=== PATIENT | male | born 1960 | race Caucasian/White ===

== ENCOUNTER 2020-03-02 15:16 | Inpatient (IN) | payer MEDICARE, MEDICAID, SELFPAY ==
[2020-03-02] VITALS (7 sets, daily range): BP systolic 110–146; BP diastolic 70–99; PULSE 93–115; RESP 15–20; TEMP 36.6–37.2; O2SAT 92–100; BMI 30.7
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
[2020-03-02] MEDS: LORazepam 2 MG/ML VIAL 1 MG IVPUSH ×2 (16:43→20:08)
[2020-03-02 16:45] LABS: Imm Gran Abs Auto 0.02 X10*3/uL (0.00-0.03); Imm Gran Pct Auto 0.4 % (0.0-0.4); MANUAL DIFF FLAG SCAN; Mean Corpuscular Volume 88.4 fL (80-98); Neutrophils Percent Auto 58.2 % (45-73); PLT CLUMP 1; Red Cell Distribution Width 16.6 % (11.0-16.0); SCAN SMEAR FLAG 1
[2020-03-02 16:46] LABS: Basophils Percent Auto 0.6 % (0-2); Eosinophils Percent Auto 0.8 % (0-4); Hematocrit 46.4 % (42-52); Hemoglobin 16.3 g/dl (14.0-18.0); Lymphocytes Absolute Auto 1.8 X10*3/uL (1.2-4.9); Lymphocytes Percent Auto 34.4 % (20-40); Mean Corpuscular HGB Conc 35.1 g/dl (31.0-36.0); Mean Platelet Volume 11.1 fL (9.4-12.4); Monocytes Absolute Auto 0.3 X10*3/uL (0.1-1.2); Monocytes Percent Auto 5.6 % (2-11); Red Blood Count 5.25 X10*6/uL (4.60-5.80); White Blood Count 5.2 X10*3/uL (4.8-10.8)
[2020-03-02 17:05] LABS: Platelet Count 82 X10*3/uL (160-400)
[2020-03-02 17:06] LABS: SLIDE REVIEW VERIFIED
[2020-03-02 17:07] LABS: Ethanol 216 mg/dL
[2020-03-02 17:35] LABS: SARS COV2 PCR INHOUSE POSITIVE (Negative)
--- NOTE | 2020-03-02 17:57 | PC.NURSE ---
PATIENT RAPID COVID TEST CAME BACK POSITIVE. PATIENT IN MAIN ER.
[2020-03-02 20:31] LABS: Amphetamine Screen Urine Not Detected (Not Detect); Barbiturates, Urine POSITIVE (Not Detect); Benzodiazepines Screen Urine POSITIVE (Not Detect); Cannabinoid Screen Urine Not Detected (Not Detect); Cocaine Screen Urine Not Detected (Not Detect); Opiate Screen Urine Not Detected (Not Detect); Phencyclidine Screen Urine POSITIVE (Not Detect)
[2020-03-02 20:39] LABS: Acetaminophen LAB < 1 mcg/mL (<30); Alanine Aminotransferase 93 U/L (0-40); Alkaline Phosphatase 105 U/L (39-117); Anion Gap 21 (12-20); Aspartate Amino Transferase 133 U/L (5-37); Bilirubin Total 1.7 mg/dL (0.0-1.0); Blood Urea Nitrogen 6 mg/dL (9-16); Calcium 7.2 mg/dL (8.4-10.2); Carbon Dioxide 19 mmol/L (22-29); Chloride 103 mmol/L (96-108); Creatinine Clr Calc Pharmacy 126.1; Estimated Glomerular Filt Rate > 60; Glucose Random 142 mg/dL (60-115); Magnesium 1.1 mg/dL (1.6-2.6); Potassium 3.5 mmol/l (3.3-5.1); Salicylate < 5.0 mg/dL (15-30); Sodium 139 mmol/L (135-145); Total Protein 5.7 g/dL (6.5-8.0)
--- NOTE | 2020-03-02 20:50 | XR_ITS ---
EXAMINATION: XR CHEST CLINICAL INFORMATION: + cpvid COMPARISON: CTA of the chest 02/04/2020. Chest x-ray 02/04/2020 TECHNIQUE: Frontal portable view of the chest was obtained. 5 hours FINDINGS: Lungs are clear. No pulmonary vascular congestion. There is no pleural effusion. The heart size is normal. The cardiac and mediastinal contours are normal. There are vascular calcifications of aortic arch. There are multilevel degenerative changes of dorsal spine. There are degenerative spurs of the humeral head of the right glenohumeral joint. IMPRESSION: There is no acute abnormality of the chest.
[2020-03-02] MEDS: Magnesium Sulfate/H2O 2 GM/50 ML PIGGYBACK IV (21:19)
[2020-03-02] MEDS: PHENobarbitaL sodium 130 MG/ML VIAL 300 MG IM (21:19)
--- NOTE | 2020-03-02 21:53 | MHC.CARE ---
Pt arrived to [facility] with significant ETOH use and endorsing SI however states he is only SI when intoxicated. Pt tested positive for COVID-19 and will be medically admitted. CARE team unable to determine risk at this time due to pending medical admission. Pt will require a consult once medically cleared to assess risk and determine if a crisis assessment is needed at that time.
--- NOTE | 2020-03-02 22:38 | PC.NURSE ---
Pt reposistioned, po fluids provided. has gross upper body tremors. states he's no longer nauseated. aware of plan for transfer to floor
--- NOTE | 2020-03-02 23:52 | P.HPIM_ITS ---
History of Present Illness Date of Service: 03/02/20 Chief Complaint: Alcohol withdrawal this is a 59-year-old male with past medical history of alcohol abuse who was brought into the hospital by his girlfriend for alcohol binge and inability to take care of himself. Patient's girlfriend is also stating that he has been making suicidal statements. He has also not been taking any of his meds for diabetes or seizures. Patient was covered positive on 01/27 as Covert positive today. Patient currently denies having any suicidal ideation. He was retested for Covert on this presentation and is COVID-19 positive at this time. patient has no shortness of breath, no fever or chills, no cough, no sputum production, no abdominal pain nausea or vomiting, no diarrhea or constipation, no lower extremity edema on arrival to the ED hemodynamically stable with no significant abnormal Vitals Lab significant for magnesium of 1.4, total bili of 1.7, AST of 133, ALT of 93, albumin 3.0, UDS positive for barbiturates, PCP, benzodiazepine, and he is COVID-19 PCR is positive chest x-ray shows no acute abnormality of the chest Past medical history: Alcohol abuse, hypertension, COPD, liver cirrhosis, HLD, seizure disorder Past surgical history: Denies Family history colon cancer, leukemia in father, colon cancer in mother Social history: Comes from home, denies tobacco use, drinks about 5 beers daily, denies illicit drugs Review of Systems Review of Systems: Yes all other systems are reviewed and are negative [facility] Medical History COPD (chronic obstructive pulmonary disease) COVID-19 COVID-19 determined by clinical diagnostic criteria Diabetes ETOH abuse Seizure Social History Household Members: Significant Other Housing: Apartment Do you presently have visiting nurse or other home services: No Alcohol intake: current Alcohol intake frequency: 3 or more drinks per day Alcohol type: beer and hard liquor Smoking Status: Former smoker Tobacco Type: Cigarette Smoked in Last 30 Days: No Patient Interested in Nicotine Replacement: No Patient Given Instructions on How to Stop Smoking: No Second Hand Smoke Exposure: Yes Use of substances other than those prescribed or required for medical reasons: Yes Substance Use Type Other:: URINE POSITIVE FOR PCP, BARBITUATES, BENZOS Substance Use Frequency: Socially Last Used Substance: Days (ago) Currently Displaying Signs/Symptoms of Drug Intoxication Withdrawal: No Any prior treatment program specific to substance use: No Have you been hit, kicked, punched, or otherwise hurt by someone within the past year? If so, by whom?: No Do you feel safe in your current relationship?: Yes Is there a partner from a previous relationship who is making you feel unsafe now?: No Are you made to feel afraid or neglected: No Advance Directives: No Advance Directives Information Provided: Yes Advance Directives on File: No Do you have thoughts of harming others: None Do you have a plan to hurt others: No Plan Recently lost weight without trying: No Meds Allergies Allergy/AdvReac Type Severity Reaction Status Date / Time No Known Allergies Allergy Verified 03/02/20 15:43 [No Known Allergies*] Home Medications Medication Instructions Recorded Confirmed Type amlodipine 1 tab PO DAILY 03/02/20 03/02/20 History atorvastatin 1 tab PO DAILY 03/02/20 03/02/20 History cholecalciferol (vitamin D3) 1 cap PO DAILY 03/02/20 03/02/20 History [Vitamin D3] diclofenac sodium 4 g TOPICAL QID 03/02/20 03/02/20 History folic acid 1 tab PO DAILY 03/02/20 03/02/20 History gabapentin 300 mg PO BEDTIME 03/02/20 03/02/20 History hydroxyzine HCl 1 tab PO BID PRN 03/02/20 03/02/20 History omeprazole 1 cap PO BID 03/02/20 03/02/20 History quetiapine 1 tab PO BEDTIME 03/02/20 03/02/20 History tiotropium bromide [Spiriva 2 puff INHALATION DAILY 03/02/20 03/02/20 History Respimat] ursodiol 2 cap PO DAILY 03/02/20 03/02/20 History Physical Exam Vital Signs and Narrative: Vital Signs: Last Vital Signs Temp 98.9 F 03/02/20 21:20 Pulse 115 H 03/02/20 22:31 Resp 18 03/02/20 22:31 BP 146/85 H 03/02/20 22:31 Pulse Ox 97 03/02/20 21:20 Body Mass Index 30.7 Const: General: cooperative and no acute distress Orientation/con sciousness: patient oriented x3 Eyes: General: appearance normal, both eyes and all related structures Resp: Effort & Inspection: normal respiratory effort and able to speak in complete sentences Cardio: Rate: regular rate GI: Palpation (GI): Soft to palpation Auscultation: normal bowel sounds Skin: General skin exam: no rashes or lesions noted Neuro: General: patient oriented x3 Cognition (Neuro): normal cognition Extrem: General: Yes normal to inspection and Yes no pedal edema Results Labs Labs: Laboratory Tests 03/02/20 03/02/20 03/02/20 16:40 16:40 16:40 WBC 5.2 RBC 5.25 Hgb 16.3 Hct 46.4 MCV 88.4 MCH 31.0 MCHC 35.1 RDW 16.6 H Plt Count 82 L MPV 11.1 Immature Gran % (Auto) 0.4 Neut % (Auto) 58.2 Lymph % (Auto) 34.4 [place] % (Auto) 5.6 Eos % (Auto) 0.8 Baso % (Auto) 0.6 Lymph # (Auto) 1.8 [place] # (Auto) 0.3 Eos # (Auto) 0.0 Baso # (Auto) 0.0 Abs Immat Gran (auto) 0.02 Absolute Neuts (auto) 3.0 Absolute Nucleated RBC 0.000 Nucleated RBC % (auto) 0.0 Smear Tech's Comments VERIFIED Sodium Cancelled Potassium Cancelled Chloride Cancelled Carbon Dioxide Cancelled Anion Gap Cancelled BUN Cancelled Creatinine Cancelled Estim Creat Clear Calc Cancelled Estimated GFR Cancelled Random Glucose Cancelled Calcium Cancelled Magnesium Cancelled Total Bilirubin Cancelled AST Cancelled ALT Cancelled Alkaline Phosphatase Cancelled Total Protein Cancelled Albumin Cancelled Salicylates Cancelled Urine Opiates Screen Acetaminophen Cancelled Ur Barbiturates Screen Ur Phencyclidine Scrn Ur Amphetamines Screen U Benzodiazepines Scrn Urine Cocaine Screen U Marijuana (THC) Screen Ethyl Alcohol 216 Coronavirus (PCR) 03/02/20 03/02/20 03/02/20 19:54 19:54 Unknown WBC RBC Hgb Hct MCV MCH MCHC RDW Plt Count MPV Immature Gran % (Auto) Neut % (Auto) Lymph % (Auto) [place] % (Auto) Eos % (Auto) Baso % (Auto) Lymph # (Auto) [place] # (Auto) Eos # (Auto) Baso # (Auto) Abs Immat Gran (auto) Absolute Neuts (auto) Absolute Nucleated RBC Nucleated RBC % (auto) Smear Tech's Comments Sodium 139 Potassium 3.5 Chloride 103 Carbon Dioxide 19 L Anion Gap 21 H BUN 6 L Creatinine 0.74 Estim Creat Clear Calc 126.1 Estimated GFR > 60 Random Glucose 142 H Calcium 7.2 L Magnesium 1.1 L* Total Bilirubin 1.7 H AST 133 H ALT 93 H Alkaline Phosphatase 105 Total Protein 5.7 L Albumin 3.0 L Salicylates < 5.0 L Urine Opiates Screen Not Detected Acetaminophen < 1 Ur Barbiturates Screen POSITIVE H Ur Phencyclidine Scrn POSITIVE H Ur Amphetamines Screen Not Detected U Benzodiazepines Scrn POSITIVE H Urine Cocaine Screen Not Detected U Marijuana (THC) Screen Not Detected Ethyl Alcohol Coronavirus (PCR) POSITIVE A Assessment and Plan (1) Suicidal ideation: Status: Acute (2) Depression: Qualifiers: Depression Type: unspecified Qualified Code(s): F32.9 - Major depressive disorder, single episode, unspecified Status: Acute (3) Hypomagnesemia: Status: Acute (4) Alcohol withdrawal: Qualifiers: Complication of substance-induced condition: uncomplicated Qualified Code(s): F10.230 - Alcohol dependence with withdrawal, uncomplicated Status: Acute (5) COPD (chronic obstructive pulmonary disease): Status: Acute (6) Diabetes: Status: Acute (7) Seizure: Status: Acute this is a a 59-year-old who comes to the hospital for alcohol withdrawal/detox with suicidal ideation # alcohol abuse and withdrawal - patient will be started on phenobarb protocol - thiamine and folic acid supplement - IV fluids - crisis team has been consulted # SI - Currently denies SI - WIll need reassessment by psych prior to discharge from medical service - sitter # COVID 19 +ve - Tested positive on the 8th of last month with COPD exacerbation - u positive with no symptoms, afebrile, no leukocytosis, no image findings and no cough - monitor # Hypomag - repleted - will recheck mag in am # COPD - no acute exacerbation - p.r.n. inhaler # diabetes mellitus - low-dose sliding scale insulin - diabetic diet DVT prophylaxis: Lovenox date of service 03/03/2020
[2020-03-03] VITALS (8 sets, daily range): BP systolic 121–159; BP diastolic 56–91; PULSE 68–102; RESP 18–20; TEMP 36.4–37.2; O2SAT 92–96; BMI 30.2
[2020-03-03] MEDS: QUEtiapine Fumarate 50 MG TABLET PO ×2 (00:45→20:14)
[2020-03-03] MEDS: PHENobarbitaL sodium 130 MG/ML VIAL 225 MG IM ×2 (00:45→03:34)
[2020-03-03] MEDS: Enoxaparin Sodium 40 MG/0.4 ML SYRINGE SUBCUT ×3 (00:45→22:07)
[2020-03-03] MEDS: 0.9 % Sodium Chloride Flush 3 ML SYRINGE IVFLUSH ×2 (00:46→09:07)
[2020-03-03] MEDS: Gabapentin 300 MG CAPSULE PO ×2 (00:46→20:12)
[2020-03-03] MEDS: hydrOXYzine HCL 50 MG TABLET PO ×4 (00:46→22:06)
[2020-03-03] MEDS: Lactated Ringers 1,000 ML 100 ML IVCONT ×2 (00:46→10:14)
[2020-03-03 01:33] LABS: Magnesium 1.4 mg/dL (1.6-2.6)
--- NOTE | 2020-03-03 01:38 | PC.NURSE ---
PT ARRIVED [place] [facility] [facility] FROM ED WITH ETOH WITHDRAWAL AND A POSITIVE COVID TEST. PT EDUCATED ON COVID AND ISOLATION PROCDURES/PRECAUTIONS. PT VERBALIZES UNDERSTANDING. PT IS A HIGH FALL RISK AND SEIZURE PRECAUTIONS ALSO INITIATED. 1:1 SITTER AT BEDSIDE FOR +SI UPON ARRIVAL TO ED. PT DENIES ANY SI AT THIS TIME. SINUS TACH ON THE MONITOR WITH PROLONGED QT INTERVAL. RATE 100-110. PT ORIENTED TO UNIT. CALL CRUZ USE DEMONSTRATED. MEDS ADMINISTERED ORDERED. BED ALARM ON. CALL CRUZ IN REACH.
[2020-03-03] MEDS: Omeprazole 20 MG CAPSULE.DR PO ×2 (06:07→18:32)
[2020-03-03 07:36] LABS: Basophils Percent Auto 0.6 % (0-2); Imm Gran Abs Auto 0.02 X10*3/uL (0.00-0.03); Imm Gran Pct Auto 0.4 % (0.0-0.4); MANUAL DIFF FLAG SCAN; PLT CLUMP 1; SCAN SMEAR FLAG 1
[2020-03-03 07:38] LABS: Eosinophils Percent Auto 0.6 % (0-4); Hematocrit 39.1 % (42-52); Lymphocytes Absolute Auto 1.7 X10*3/uL (1.2-4.9); Lymphocytes Percent Auto 33.4 % (20-40); Mean Corpuscular HGB Conc 35.8 g/dl (31.0-36.0); Mean Corpuscular Hemoglobin 31.7 pg (27.0-33.0); Mean Corpuscular Volume 88.7 fL (80-98); Mean Platelet Volume 11.5 fL (9.4-12.4); Monocytes Absolute Auto 0.4 X10*3/uL (0.1-1.2); Monocytes Percent Auto 8.1 % (2-11); Neutrophils Absolute Auto 2.9 X10*3/uL (2.0-8.3); Neutrophils Percent Auto 56.9 % (45-73); Red Blood Count 4.41 X10*6/uL (4.60-5.80); Red Cell Distribution Width 16.7 % (11.0-16.0); White Blood Count 5.1 X10*3/uL (4.8-10.8)
[2020-03-03 07:45] LABS: Anion Gap 14 (12-20); Blood Urea Nitrogen 7 mg/dL (9-16); Calcium 7.3 mg/dL (8.4-10.2); Carbon Dioxide 25 mmol/L (22-29); Chloride 99 mmol/L (96-108); Estimated Glomerular Filt Rate > 60; Glucose Random 96 mg/dL (60-115); Potassium 3.3 mmol/l (3.3-5.1); Sodium 135 mmol/L (135-145)
[2020-03-03 07:47] LABS: Platelet Count 61 X10*3/uL (160-400)
[2020-03-03] MEDS: Atorvastatin Calcium 40 MG TABLET PO (09:06)
[2020-03-03] MEDS: PHENobarbitaL 30 MG TABLET 60 MG PO ×2 (09:07→20:13)
[2020-03-03] MEDS: Cholecalciferol (Vitamin D3) 25 MCG TABLET PO (09:07)
[2020-03-03] MEDS: UrsodioL 300 MG CAPSULE 600 MG PO (09:07)
[2020-03-03] MEDS: amLODIPine Besylate 5 MG TABLET PO (09:07)
[2020-03-03] MEDS: Thiamine HCL 100 MG TABLET PO (09:07)
[2020-03-03] MEDS: Folic Acid 1 MG TABLET PO (09:07)
[2020-03-03] MEDS: ondansetron HCL 4 MG/2 ML VIAL IVPUSH (09:22)
[2020-03-03 09:30] LABS: Glucose, Whole Blood 135 mg/dL (60-115)
[2020-03-03 11:34] LABS: Glucose, Whole Blood 105 mg/dL (60-115)
[2020-03-03] MEDS: Magnesium Sulfate/H2O 2 GM/50 ML PIGGYBACK IV (12:18)
--- NOTE | 2020-03-03 13:35 | MHC.CM.PN ---
CM met with patient at the bedside who reports he is independent and lives with S.O. States he does have a HCP, copy requested. Discussed discharge plan, home no services. S.O. will provide transportation. CM will continue to follow patient for discharge needs.
--- NOTE | 2020-03-03 16:11 | MHC.CARE ---
CARE team responded to consult to meet with this patient who arrived to the ED yesterday intoxicated and made suicidal statements. Had a lengthy conversation with him about his numerous stressors which are leading to his depression, offered supportive listening and validation. Patient reported that when he drinks heavily he gets more depressed, starts to feel hopeless and does feel suicidal in that moment. He said that at this time he is not suicidal and has no plan to harm himself and in fact stated he is feeling to weak and sick to do anything at all. Does not need a 1:1 at bedside for safety. Patient would benefit from another check in closer to discharge to discuss outpatient services. Communicated with RN and MD.
--- NOTE | 2020-03-03 17:40 | PM.IMPN ---
Subjective Subjective Date of Service: 03/03/20 Interval History: Tremulous, anxious Denies SI Denies cough or other resp symptoms No fever Hx EtOH withdrawal seizures Review of Systems Review of Systems: Yes all other systems are reviewed and are negative Physical Exam Vital Signs: Vital Signs: Vital Signs Temp Pulse Resp BP Pulse Ox 03/03/20 16:00 97.6 F 74 18 121/62 95 03/03/20 12:00 98.9 F 70 140/56 H 96 03/03/20 08:00 98.2 F 81 20 144/80 H 95 03/03/20 03:38 98.3 F 98 18 138/79 93 03/03/20 00:00 98.6 F 102 H 18 159/71 H 94 03/02/20 22:31 115 H 18 146/85 H 03/02/20 21:20 98.9 F 102 H 17 131/75 97 03/02/20 20:10 98.5 F 106 H 20 126/92 H 93 03/02/20 19:15 108 H 17 119/70 97 03/02/20 18:48 98.6 F 93 18 132/73 95 Body Mass Index 30.2 Const: General: anxious Orientation/consciousness: patient oriented x3 Eyes: Sclerae: sclerae normal Resp: Effort & Inspection: normal respiratory effort Cardio: Peripheral pulses: Peripheral pulses 2+ throughout GI: Inspection: Yes normal to inspection Palpation (GI): Soft to palpation and nontender Neuro: General: patient oriented x3 and no focal motor deficits Extrem: General: Yes normal to inspection and Yes no clubbing, cyanosis or edema Psych: Appearance: grossly normal Objective Data Current Medications Generic Name Dose Route Start Last Admin Trade Name Narenq PRN Reason Stop Dose Admin Acetaminophen 650 mg 03/02/20 22:46 Acetaminophen 325 Mg Tablet PO Q6H PRN Pain, Mild (Pain Scale 1-3) Amlodipine Besylate 5 mg 03/03/20 09:00 03/03/20 09:07 Amlodipine Besylate 5 Mg Tablet PO 5 mg DAILY ALEX Administration Protocol Atorvastatin Calcium 40 mg 03/03/20 09:00 03/03/20 09:06 Atorvastatin Calcium 40 Mg Tablet PO 40 mg DAILY ALEX Administration Enoxaparin Sodium 40 mg 03/02/20 23:00 03/03/20 00:45 Enoxaparin Sodium 40 Mg/0.4 Ml Syringe SUBCUT 40 mg Q24H ALEX Administration Folic Acid 1 mg 03/03/20 09:00 03/03/20 09:07 Folic Acid 1 Mg Tablet PO 1 mg DAILY ALEX Administration Gabapentin 300 mg 03/02/20 22:46 03/03/20 00:46 Gabapentin 300 Mg Capsule PO 300 mg BEDTIME ALEX Administration Hydroxyzine HCl 50 mg 03/02/20 22:46 03/03/20 10:13 Hydroxyzine Hcl 50 Mg Tablet PO 50 mg BID PRN Administration anxiety Lactated Ringer's 1,000 mls @ 100 mls/hr 03/02/20 22:46 03/03/20 10:14 Lr IVCONT 100 mls/hr .Q10H ALEX Administration Insulin Human Lispro 0 unit 03/03/20 07:30 03/03/20 12:20 Insulin Lispro 100 Unit/Ml 3 Ml Vial SUBCUT Not Given QIDACHS [facility] Protocol Medication 1 each 03/03/20 09:00 No Benzodiazepines MISCELLANE DAILY [facility] Omeprazole 20 mg 03/03/20 06:30 03/03/20 06:07 Omeprazole 20 Mg Capsule.Dr PO 20 mg BID@0630,1630 ALEX Administration Ondansetron HCl 4 mg 03/02/20 22:46 03/03/20 09:22 Ondansetron Hcl 4 Mg/2 Ml Vial IVPUSH 4 mg Q8H PRN Administration Nausea and Vomiting Phenobarbital 60 mg 03/03/20 09:00 03/03/20 09:07 Phenobarbital 30 Mg Tablet PO 03/04/20 21:01 60 mg BID ALEX Administration Phenobarbital 30 mg 03/05/20 09:00 Phenobarbital 30 Mg Tablet PO 03/06/20 21:01 BID [facility] Phenobarbital 15 mg 03/07/20 09:00 Phenobarbital 15 Mg Tablet PO 03/08/20 09:01 DAILY [facility] Quetiapine Fumarate 50 mg 03/02/20 22:46 03/03/20 00:45 Quetiapine Fumarate 50 Mg Tablet PO 50 mg BEDTIME ALEX Administration Sodium Chloride 3 ml 03/03/20 00:00 03/03/20 16:24 0.9 % Sodium Chloride Flush 3 Ml Syringe IVFLUSH Not Given QSHIFT [facility] Thiamine HCl 100 mg 03/03/20 09:00 03/03/20 09:07 Thiamine Hcl 100 Mg Tablet PO 100 mg DAILY ALEX Administration Ursodiol 600 mg 03/03/20 09:00 03/03/20 09:07 Ursodiol 300 Mg Capsule PO 600 mg DAILY ALEX Administration Vitamin D 25 mcg 03/03/20 09:00 03/03/20 09:07 Cholecalciferol (Vitamin D3) 25 Mcg Tablet PO 25 mcg DAILY ALEX Administration Labs CBC & Chem 7: 03/03/20 07:10 03/03/20 07:10 Labs: Laboratory Results - last 24 hr 03/02/20 03/02/20 03/03/20 19:54 19:54 00:47 MCV MCH MCHC RDW Plt Count MPV Immature Gran % (Auto) Neut % (Auto) Lymph % (Auto) [place] % (Auto) Eos % (Auto) Baso % (Auto) Lymph # (Auto) [place] # (Auto) Eos # (Auto) Baso # (Auto) Abs Immat Gran (auto) Absolute Neuts (auto) Absolute Nucleated RBC Nucleated RBC % (auto) Smear Tech's Comments Anion Gap 21 H Estim Creat Clear Calc 126.1 Estimated GFR > 60 POC Glucose Random Glucose 142 H Calcium 7.2 L Magnesium 1.1 L* 1.4 L* Total Bilirubin 1.7 H AST 133 H ALT 93 H Alkaline Phosphatase 105 Total Protein 5.7 L Albumin 3.0 L Salicylates < 5.0 L Urine Opiates Screen Not Detected Acetaminophen < 1 Ur Barbiturates Screen POSITIVE H Ur Phencyclidine Scrn POSITIVE H Ur Amphetamines Screen Not Detected U Benzodiazepines Scrn POSITIVE H Urine Cocaine Screen Not Detected U Marijuana (THC) Screen Not Detected 03/03/20 03/03/20 03/03/20 07:10 07:10 09:24 MCV 88.7 MCH 31.7 MCHC 35.8 RDW 16.7 H Plt Count 61 L D MPV 11.5 Immature Gran % (Auto) 0.4 Neut % (Auto) 56.9 Lymph % (Auto) 33.4 [place] % (Auto) 8.1 Eos % (Auto) 0.6 Baso % (Auto) 0.6 Lymph # (Auto) 1.7 [place] # (Auto) 0.4 Eos # (Auto) 0.0 Baso # (Auto) 0.0 Abs Immat Gran (auto) 0.02 Absolute Neuts (auto) 2.9 Absolute Nucleated RBC 0.000 Nucleated RBC % (auto) 0.0 Smear Tech's Comments Not Reportable Anion Gap 14 Estim Creat Clear Calc 152.0 Estimated GFR > 60 POC Glucose 135 H Random Glucose 96 Calcium 7.3 L Magnesium Total Bilirubin AST ALT Alkaline Phosphatase Total Protein Albumin Salicylates Urine Opiates Screen Acetaminophen Ur Barbiturates Screen Ur Phencyclidine Scrn Ur Amphetamines Screen U Benzodiazepines Scrn Urine Cocaine Screen U Marijuana (THC) Screen 03/03/20 11:15 MCV MCH MCHC RDW Plt Count MPV Immature Gran % (Auto) Neut % (Auto) Lymph % (Auto) [place] % (Auto) Eos % (Auto) Baso % (Auto) Lymph # (Auto) [place] # (Auto) Eos # (Auto) Baso # (Auto) Abs Immat Gran (auto) Absolute Neuts (auto) Absolute Nucleated RBC Nucleated RBC % (auto) Smear Tech's Comments Anion Gap Estim Creat Clear Calc Estimated GFR POC Glucose 105 Random Glucose Calcium Magnesium Total Bilirubin AST ALT Alkaline Phosphatase Total Protein Albumin Salicylates Urine Opiates Screen Acetaminophen Ur Barbiturates Screen Ur Phencyclidine Scrn Ur Amphetamines Screen U Benzodiazepines Scrn Urine Cocaine Screen U Marijuana (THC) Screen Progress Note: A&P (1) Alcohol withdrawal: Status: Acute (2) Hypomagnesemia: Status: Acute (3) COVID-19: Status: Acute Assessment and Plan: hospital d#2 59yo M with hx EtOH abuse presented to the hospital with SI, EtOH withdrawal # high-risk EtOH withdrawal - phenobarbital taper - vitamin supplementation - CARE team consultation # hypoMg - replete + monitor # SI - [facility]N evaluation- per their assessment today pt not currently suicidal but is depressed; re-eval when medically cleared # COVID-19 positive - unclear significance of positive PCR at this point, as he 1st was positive 01/28/20. check IgG status # COPD, not in acute exacerbation - prn bronchodilators # HTN - continue amlodipine # HLD - continue statin # DM2 - correction-dose lispro # VTE ppx - LMWH
[2020-03-03 17:51] LABS: Glucose, Whole Blood 108 mg/dL (60-115)
[2020-03-03 20:42] LABS: Glucose, Whole Blood 131 mg/dL (60-115)
[2020-03-03] MEDS: Acetaminophen 325 MG TABLET 650 MG PO (22:06)
[2020-03-03] MEDS: traMADoL HCL 50 MG TABLET PO (22:26)
[2020-03-04 03:33] VITALS: BP 135/79; PULSE 63; RESP 19; TEMP 36.4; O2SAT 96
[2020-03-04] MEDS: Lactated Ringers 1,000 ML 100 ML IVCONT ×2 (05:19→15:04)
[2020-03-04] MEDS: Omeprazole 20 MG CAPSULE.DR PO ×2 (05:23→17:44)
[2020-03-04] MEDS: hydrOXYzine HCL 50 MG TABLET PO ×2 (05:43→13:01)
[2020-03-04 06:23] LABS: MANUAL DIFF FLAG NO
[2020-03-04 06:51] LABS: Basophils Percent Auto 0.8 % (0-2); Eosinophils Absolute Auto 0.1 X10*3/uL (0.0-0.4); Hematocrit 40.8 % (42-52); Hemoglobin 13.9 g/dl (14.0-18.0); Imm Gran Abs Auto 0.01 X10*3/uL (0.00-0.03); Imm Gran Pct Auto 0.3 % (0.0-0.4); Lymphocytes Absolute Auto 1.4 X10*3/uL (1.2-4.9); Lymphocytes Percent Auto 39.3 % (20-40); Mean Corpuscular HGB Conc 34.1 g/dl (31.0-36.0); Mean Corpuscular Hemoglobin 31.2 pg (27.0-33.0); Mean Corpuscular Volume 91.7 fL (80-98); Mean Platelet Volume 12.3 fL (9.4-12.4); Monocytes Absolute Auto 0.2 X10*3/uL (0.1-1.2); Monocytes Percent Auto 5.9 % (2-11); Neutrophils Absolute Auto 1.8 X10*3/uL (2.0-8.3); Neutrophils Percent Auto 51.7 % (45-73); Red Blood Count 4.45 X10*6/uL (4.60-5.80); Red Cell Distribution Width 16.6 % (11.0-16.0); White Blood Count 3.6 X10*3/uL (4.8-10.8)
[2020-03-04 06:53] LABS: Platelet Count 64 X10*3/uL (160-400)
[2020-03-04 06:57] LABS: Alanine Aminotransferase 65 U/L (0-40); Albumin Level 2.7 g/dL (3.5-5.0); Alkaline Phosphatase 96 U/L (39-117); Anion Gap 12 (12-20); Aspartate Amino Transferase 92 U/L (5-37); Bilirubin Total 3.2 mg/dL (0.0-1.0); Blood Urea Nitrogen 5 mg/dL (9-16); Calcium 7.7 mg/dL (8.4-10.2); Carbon Dioxide 29 mmol/L (22-29); Chloride 100 mmol/L (96-108); Creatinine Clr Calc Pharmacy 142.7; Estimated Glomerular Filt Rate > 60; Glucose Random 95 mg/dL (60-115); Magnesium 1.5 mg/dL (1.6-2.6); Potassium 3.3 mmol/l (3.3-5.1); Sodium 138 mmol/L (135-145); Total Protein 5.2 g/dL (6.5-8.0)
[2020-03-04 07:01] LABS: Estimated Average Glucose 117 mg/dL; Hemoglobin A1c % 5.7 %
[2020-03-04 07:03] LABS: C Reactive Protein 0.74 mg/dL (< or = 0.50)
[2020-03-04 07:11] VITALS: BP 149/81; PULSE 93; RESP 20; TEMP 35.6; O2SAT 96
[2020-03-04 07:22] LABS: SARS COV2 IgG Positive (Negative)
[2020-03-04 07:53] LABS: Glucose, Whole Blood 101 mg/dL (60-115)
[2020-03-04] MEDS: 0.9 % Sodium Chloride Flush 3 ML SYRINGE IVFLUSH ×2 (08:10→23:46)
[2020-03-04] MEDS: PHENobarbitaL 30 MG TABLET 60 MG PO ×2 (08:11→19:43)
[2020-03-04] MEDS: Magnesium Oxide 400 MG TABLET PO ×2 (08:11→17:44)
[2020-03-04] MEDS: amLODIPine Besylate 5 MG TABLET PO (08:11)
[2020-03-04] MEDS: Folic Acid 1 MG TABLET PO (08:11)
[2020-03-04] MEDS: UrsodioL 300 MG CAPSULE 600 MG PO (08:11)
[2020-03-04] MEDS: Cholecalciferol (Vitamin D3) 25 MCG TABLET PO (08:11)
[2020-03-04] MEDS: Thiamine HCL 100 MG TABLET PO (08:12)
[2020-03-04] MEDS: Atorvastatin Calcium 40 MG TABLET PO (08:12)
[2020-03-04] MEDS: ondansetron HCL 4 MG/2 ML VIAL IVPUSH ×2 (10:32→19:53)
[2020-03-04 11:05] VITALS: BP 117/63; PULSE 76; RESP 18; TEMP 37; O2SAT 94
[2020-03-04 11:41] LABS: Glucose, Whole Blood 96 mg/dL (60-115)
--- NOTE | 2020-03-04 14:18 | MHC.CM.PN ---
DP home no services family transport.
[2020-03-04 15:40] VITALS: BP 152/85; PULSE 72; RESP 18; TEMP 36.6; O2SAT 98
[2020-03-04 15:48] VITALS: BP 152/85; PULSE 73; RESP 18; O2SAT 98
--- NOTE | 2020-03-04 16:11 | PM.IMPN ---
Subjective Subjective Date of Service: 03/04/20 Interval History: Still tremulous + anxious Denies SI Cardiovascular Cardiovascular: Denies chest pain Respiratory Respiratory: Denies cough Gastrointestinal Gastrointestinal: Denies abdominal pain Physical Exam Vital Signs: Vital Signs: Vital Signs Temp Pulse Resp BP Pulse Ox 03/04/20 15:48 73 18 152/85 H 98 03/04/20 15:40 97.9 F 72 18 152/85 H 98 03/04/20 11:05 98.6 F 76 18 117/63 94 03/04/20 07:11 96.0 F L 93 20 149/81 H 96 03/04/20 03:33 97.5 F 63 19 135/79 96 03/03/20 23:36 98.0 F 68 19 144/80 H 92 03/03/20 20:03 98.2 F 88 20 146/91 H 96 03/03/20 19:57 98.2 F 88 20 146/91 H 96 Body Mass Index 30.2 Const: General: anxious Chest: Chest palpation & inspection: normal inspection of the chest Resp: Effort & Inspection: normal respiratory effort Auscultation: clear to auscultation bilaterally Cardio: Rate: regular rate Rhythm: regular rhythm GI: Palpation (GI): Soft to palpation and nontender Neuro: Other: tremulous Objective Data Current Medications Generic Name Dose Route Start Last Admin Trade Name Narenq PRN Reason Stop Dose Admin Acetaminophen 650 mg 03/02/20 22:46 03/03/20 22:06 Acetaminophen 325 Mg Tablet PO 650 mg Q6H PRN Administration Pain, Mild (Pain Scale 1-3) Amlodipine Besylate 5 mg 03/03/20 09:00 03/04/20 08:11 Amlodipine Besylate 5 Mg Tablet PO 5 mg DAILY ALEX Administration Protocol Atorvastatin Calcium 40 mg 03/03/20 09:00 03/04/20 08:12 Atorvastatin Calcium 40 Mg Tablet PO 40 mg DAILY ALEX Administration Enoxaparin Sodium 40 mg 03/02/20 23:00 03/03/20 22:07 Enoxaparin Sodium 40 Mg/0.4 Ml Syringe SUBCUT 40 mg Q24H ALEX Administration Folic Acid 1 mg 03/03/20 09:00 03/04/20 08:11 Folic Acid 1 Mg Tablet PO 1 mg DAILY ALEX Administration Gabapentin 300 mg 03/02/20 22:46 10/13/20 20:12 Gabapentin 300 Mg Capsule PO 300 mg BEDTIME ALEX Administration Hydroxyzine HCl 50 mg 03/02/20 22:46 03/04/20 13:01 Hydroxyzine Hcl 50 Mg Tablet PO 50 mg BID PRN Administration anxiety Lactated Ringer's 1,000 mls @ 100 mls/hr 03/02/20 22:46 03/04/20 15:04 Lr IVCONT 100 mls/hr .Q10H ALEX Administration Insulin Human Lispro 0 unit 03/03/20 07:30 03/04/20 13:03 Insulin Lispro 100 Unit/Ml 3 Ml Vial SUBCUT Not Given QIDACHS [facility] Protocol Magnesium Oxide 400 mg 03/04/20 08:30 03/04/20 08:11 Magnesium Oxide 400 Mg Tablet PO 400 mg BIDPC ALEX Administration Medication 1 each 03/03/20 09:00 No Benzodiazepines MISCELLANE DAILY ALEX Omeprazole 20 mg 03/03/20 06:30 03/04/20 05:23 Omeprazole 20 Mg Capsule.Dr PO 20 mg BID@0630,1630 ALEX Administration Ondansetron HCl 4 mg 03/02/20 22:46 03/04/20 10:32 Ondansetron Hcl 4 Mg/2 Ml Vial IVPUSH 4 mg Q8H PRN Administration Nausea and Vomiting Phenobarbital 60 mg 03/03/20 09:00 03/04/20 08:11 Phenobarbital 30 Mg Tablet PO 03/04/20 21:01 60 mg BID ALEX Administration Phenobarbital 30 mg 03/05/20 09:00 Phenobarbital 30 Mg Tablet PO 03/06/20 21:01 BID ALEX Phenobarbital 15 mg 03/07/20 09:00 Phenobarbital 15 Mg Tablet PO 03/08/20 09:01 DAILY ALEX Quetiapine Fumarate 50 mg 03/02/20 22:46 03/03/20 20:14 Quetiapine Fumarate 50 Mg Tablet PO 50 mg BEDTIME ALEX Administration Sodium Chloride 3 ml 03/03/20 00:00 03/04/20 08:10 0.9 % Sodium Chloride Flush 3 Ml Syringe IVFLUSH 3 ml QSHIFT ALEX Administration Thiamine HCl 100 mg 03/03/20 09:00 03/04/20 08:12 Thiamine Hcl 100 Mg Tablet PO 100 mg DAILY ALEX Administration Ursodiol 600 mg 03/03/20 09:00 03/04/20 08:11 Ursodiol 300 Mg Capsule PO 600 mg DAILY ALEX Administration Vitamin D 25 mcg 03/03/20 09:00 03/04/20 08:11 Cholecalciferol (Vitamin D3) 25 Mcg Tablet PO 25 mcg DAILY ALEX Administration Labs CBC & Chem 7: 03/04/20 06:10 03/04/20 06:10 Labs: Laboratory Results - last 24 hr 03/03/20 03/03/20 03/04/20 17:46 20:38 06:10 MCV MCH MCHC RDW Plt Count MPV Immature Gran % (Auto) Neut % (Auto) Lymph % (Auto) [place] % (Auto) Eos % (Auto) Baso % (Auto) Lymph # (Auto) [place] # (Auto) Eos # (Auto) Baso # (Auto) Abs Immat Gran (auto) Absolute Neuts (auto) Absolute Nucleated RBC Nucleated RBC % (auto) Anion Gap Estim Creat Clear Calc Estimated GFR POC Glucose 108 131 H Random Glucose Estimat Average Glucose Hemoglobin A1c % Calcium Magnesium Total Bilirubin AST ALT Alkaline Phosphatase C-Reactive Protein 0.74 H Total Protein Albumin SARS-CoV-2 IgG Ab 03/04/20 03/04/20 03/04/20 06:10 06:10 06:10 MCV 91.7 MCH 31.2 MCHC 34.1 RDW 16.6 H Plt Count 64 L MPV 12.3 Immature Gran % (Auto) 0.3 Neut % (Auto) 51.7 Lymph % (Auto) 39.3 [place] % (Auto) 5.9 Eos % (Auto) 2.0 Baso % (Auto) 0.8 Lymph # (Auto) 1.4 [place] # (Auto) 0.2 Eos # (Auto) 0.1 Baso # (Auto) 0.0 Abs Immat Gran (auto) 0.01 Absolute Neuts (auto) 1.8 L Absolute Nucleated RBC 0.000 Nucleated RBC % (auto) 0.0 Anion Gap 12 Estim Creat Clear Calc 142.7 Estimated GFR > 60 POC Glucose Random Glucose 95 Estimat Average Glucose 117 Hemoglobin A1c % 5.7 Calcium 7.7 L Magnesium 1.5 L Total Bilirubin 3.2 H AST 92 H ALT 65 H Alkaline Phosphatase 96 C-Reactive Protein Total Protein 5.2 L Albumin 2.7 L SARS-CoV-2 IgG Ab 10/14/20 10/14/20 10/14/20 06:10 07:16 11:08 MCV MCH MCHC RDW Plt Count MPV Immature Gran % (Auto) Neut % (Auto) Lymph % (Auto) [place] % (Auto) Eos % (Auto) Baso % (Auto) Lymph # (Auto) [place] # (Auto) Eos # (Auto) Baso # (Auto) Abs Immat Gran (auto) Absolute Neuts (auto) Absolute Nucleated RBC Nucleated RBC % (auto) Anion Gap Estim Creat Clear Calc Estimated GFR POC Glucose 101 96 Random Glucose Estimat Average Glucose Hemoglobin A1c % Calcium Magnesium Total Bilirubin AST ALT Alkaline Phosphatase C-Reactive Protein Total Protein Albumin SARS-CoV-2 IgG Ab Positive Progress Note: A&P (1) Alcohol withdrawal: Status: Acute (2) Hypomagnesemia: Status: Acute (3) COVID-19: Status: Acute Assessment and Plan: hospital d#3 59yo M with hx EtOH abuse presented to the hospital with SI, EtOH withdrawal # high-risk EtOH withdrawal - continue phenobarbital taper - continue vitamin supplementation - CARE team consultation # hypoMg - replete PO + monitor # SI - [facility] evaluation- per their assessment yesterday pt not currently suicidal but is depressed; re-eval when medically cleared # COVID-19 positive - IgG positive; 1st PCR positive was 01/28/20, unclear significance of PCR positivity from 03/02/20 but pt is asymptomatic # COPD, not in acute exacerbation - prn bronchodilators # HTN - continue amlodipine # HLD - continue statin # DM2, A1c only 5.7 - correction-dose lispro # VTE ppx - LMWH
[2020-03-04 19:04] VITALS: BP 132/78; PULSE 98; RESP 18; TEMP 37; O2SAT 95
[2020-03-04] MEDS: Gabapentin 300 MG CAPSULE PO (19:43)
[2020-03-04] MEDS: QUEtiapine Fumarate 50 MG TABLET PO (19:43)
[2020-03-04 20:30] LABS: Glucose, Whole Blood 97 mg/dL (60-115)
[2020-03-04 20:30] LABS: Glucose, Whole Blood 98 mg/dL (60-115)
[2020-03-04] MEDS: Enoxaparin Sodium 40 MG/0.4 ML SYRINGE SUBCUT (23:19)
[2020-03-05] VITALS (8 sets, daily range): BP systolic 115–170; BP diastolic 76–99; PULSE 61–100; RESP 17–19; TEMP 36.3–37.5; O2SAT 96–100
[2020-03-05] MEDS: Acetaminophen 325 MG TABLET 650 MG PO ×2 (00:36→21:55)
[2020-03-05] MEDS: Lactated Ringers 1,000 ML 100 ML IVCONT ×3 (00:37→12:38)
[2020-03-05] MEDS: hydrOXYzine HCL 50 MG TABLET PO ×3 (00:37→21:29)
[2020-03-05] MEDS: Enoxaparin Sodium 40 MG/0.4 ML SYRINGE SUBCUT (00:38)
[2020-03-05] MEDS: Omeprazole 20 MG CAPSULE.DR PO ×2 (06:00→16:27)
[2020-03-05 07:14] LABS: Anion Gap 11 (12-20); Blood Urea Nitrogen 4 mg/dL (9-16); Calcium 7.8 mg/dL (8.4-10.2); Carbon Dioxide 27 mmol/L (22-29); Chloride 105 mmol/L (96-108); Creatinine Clr Calc Pharmacy 134.4; Estimated Glomerular Filt Rate > 60; Glucose Random 92 mg/dL (60-115); Magnesium 1.5 mg/dL (1.6-2.6); Potassium 3.3 mmol/l (3.3-5.1); Sodium 140 mmol/L (135-145)
[2020-03-05 07:21] LABS: Glucose, Whole Blood 86 mg/dL (60-115)
[2020-03-05] MEDS: Atorvastatin Calcium 40 MG TABLET PO (08:01)
[2020-03-05] MEDS: Magnesium Oxide 400 MG TABLET PO (08:01)
[2020-03-05] MEDS: amLODIPine Besylate 5 MG TABLET PO (08:01)
[2020-03-05] MEDS: PHENobarbitaL 30 MG TABLET PO ×2 (08:02→21:29)
[2020-03-05] MEDS: Folic Acid 1 MG TABLET PO (08:02)
[2020-03-05] MEDS: Thiamine HCL 100 MG TABLET PO (08:02)
[2020-03-05] MEDS: UrsodioL 300 MG CAPSULE 600 MG PO (08:03)
[2020-03-05] MEDS: Cholecalciferol (Vitamin D3) 25 MCG TABLET PO (08:03)
[2020-03-05 11:31] LABS: Glucose, Whole Blood 94 mg/dL (60-115)
--- NOTE | 2020-03-05 12:14 | P.PNIM_ITS ---
Subjective Subjective Date of Service: 03/05/20 Interval History: Still c/o nausea + anxiety though improved Depressed, no SI Cardiovascular Cardiovascular: Denies chest pain Respiratory Respiratory: Denies cough Gastrointestinal Gastrointestinal: Denies abdominal pain, Reports nausea and Denies vomiting Physical Exam Vital Signs: Vital Signs: Vital Signs Temp Pulse Resp BP Pulse Ox 03/05/20 11:18 97.4 F 100 18 115/84 100 03/05/20 08:01 76 142/93 H 03/05/20 07:12 97.5 F 76 18 142/93 H 98 03/05/20 03:21 99.2 F 61 17 158/76 H 97 03/05/20 00:39 97.6 F 97 18 152/99 H 98 03/04/20 19:04 98.6 F 98 18 132/78 95 03/04/20 15:48 73 18 152/85 H 98 03/04/20 15:40 97.9 F 72 18 152/85 H 98 Body Mass Index 30.2 Const: General: anxious Chest: Chest palpation & inspection: normal inspection of the chest Resp: Effort & Inspection: normal respiratory effort Auscultation: clear to auscultation bilaterally Cardio: Rate: regular rate Rhythm: regular rhythm GI: Palpation (GI): Soft to palpation and nontender Neuro: Other: tremulous but improved from yesterday Objective Data Current Medications Generic Name Dose Route Start Last Admin Trade Name Freq PRN Reason Stop Dose Admin Acetaminophen 650 mg 03/02/20 22:46 03/05/20 00:36 Acetaminophen 325 Mg Tablet PO 650 mg Q6H PRN Administration Pain, Mild (Pain Scale 1-3) Amlodipine Besylate 5 mg 03/03/20 09:00 03/05/20 08:01 Amlodipine Besylate 5 Mg Tablet PO 5 mg DAILY ALEX Administration Protocol Atorvastatin Calcium 40 mg 03/03/20 09:00 03/05/20 08:01 Atorvastatin Calcium 40 Mg Tablet PO 40 mg DAILY ALEX Administration Enoxaparin Sodium 40 mg 03/02/20 23:00 03/05/20 00:38 Enoxaparin Sodium 40 Mg/0.4 Ml Syringe SUBCUT 40 mg Q24H ALEX Administration Folic Acid 1 mg 03/03/20 09:00 03/05/20 08:02 Folic Acid 1 Mg Tablet PO 1 mg DAILY ALEX Administration Gabapentin 300 mg 03/02/20 22:46 03/04/20 19:43 Gabapentin 300 Mg Capsule PO 300 mg BEDTIME ALEX Administration Hydroxyzine HCl 50 mg 03/02/20 22:46 03/05/20 08:29 Hydroxyzine Hcl 50 Mg Tablet PO 50 mg BID PRN Administration anxiety Lactated Ringer's 1,000 mls @ 100 mls/hr 03/02/20 22:46 03/05/20 10:47 Lr IVCONT 100 mls/hr .Q10H ALEX Administration Insulin Human Lispro 0 unit 03/03/20 07:30 03/05/20 11:44 Insulin Lispro 100 Unit/Ml 3 Ml Vial SUBCUT Not Given QIDACHS [facility] Protocol Magnesium Oxide 800 mg 03/05/20 17:30 Magnesium Oxide 400 Mg Tablet PO BIDPC [facility] Medication 1 each 03/03/20 09:00 No Benzodiazepines MISCELLANE DAILY [facility] Omeprazole 20 mg 03/03/20 06:30 03/05/20 06:00 Omeprazole 20 Mg Capsule.Dr PO 20 mg BID@0630,1630 [facility] Administration Ondansetron HCl 4 mg 03/02/20 22:46 03/04/20 19:53 Ondansetron Hcl 4 Mg/2 Ml Vial IVPUSH 4 mg Q8H PRN Administration Nausea and Vomiting Phenobarbital 30 mg 03/05/20 09:00 03/05/20 08:02 Phenobarbital 30 Mg Tablet PO 03/06/20 21:01 30 mg BID ALEX Administration Phenobarbital 15 mg 03/07/20 09:00 Phenobarbital 15 Mg Tablet PO 03/08/20 09:01 DAILY [facility] Quetiapine Fumarate 50 mg 03/02/20 22:46 03/04/20 19:43 Quetiapine Fumarate 50 Mg Tablet PO 50 mg BEDTIME ALEX Administration Sodium Chloride 3 ml 03/03/20 00:00 03/05/20 08:03 0.9 % Sodium Chloride Flush 3 Ml Syringe IVFLUSH Not Given QSHIFT [facility] Thiamine HCl 100 mg 03/03/20 09:00 03/05/20 08:02 Thiamine Hcl 100 Mg Tablet PO 100 mg DAILY ALEX Administration Ursodiol 600 mg 03/03/20 09:00 03/05/20 08:03 Ursodiol 300 Mg Capsule PO 600 mg DAILY ALEX Administration Vitamin D 25 mcg 03/03/20 09:00 03/05/20 08:03 Cholecalciferol (Vitamin D3) 25 Mcg Tablet PO 25 mcg DAILY ALEX Administration Labs CBC & Chem 7: 03/04/20 06:10 03/05/20 05:55 Labs: Laboratory Results - last 24 hr 03/04/20 03/04/20 03/05/20 16:30 19:56 05:55 Anion Gap 11 L Estim Creat Clear Calc 134.4 Estimated GFR > 60 POC Glucose 98 97 Random Glucose 92 Calcium 7.8 L Magnesium 1.5 L 03/05/20 03/05/20 07:15 11:26 Anion Gap Estim Creat Clear Calc Estimated GFR POC Glucose 86 94 Random Glucose Calcium Magnesium Progress Note: A&P (1) Alcohol withdrawal: Status: Acute (2) Hypomagnesemia: Status: Acute (3) COVID-19: Status: Acute Assessment and Plan: hospital d#4 59yo M with hx EtOH abuse presented to the hospital with SI, EtOH withdrawal # high-risk EtOH withdrawal - continue phenobarbital taper - continue vitamin supplementation - CARE team consultation # hypoMg - increase MgO dose and recheck tomrorow # SI - [facility] evaluation- per their assessment yesterday pt no longer suicidal but is depressed; re-eval when medically cleared # COVID-19 positive - IgG positive; 1st PCR positive was 01/28/20, unclear significance of PCR positivity from 03/02/20 but pt is asymptomatic # COPD, not in acute exacerbation - prn bronchodilators # HTN - continue amlodipine # HLD - continue statin # DM2, A1c only 5.7 - correction-dose lispro # VTE ppx - LMWH # dispo - likely medically cleared tmrrow
[2020-03-05] MEDS: Magnesium Oxide 400 MG TABLET 800 MG PO (16:30)
[2020-03-05 16:42] LABS: Glucose, Whole Blood 77 mg/dL (60-115)
[2020-03-05] MEDS: Gabapentin 300 MG CAPSULE PO (21:29)
[2020-03-05] MEDS: QUEtiapine Fumarate 50 MG TABLET PO (21:29)
[2020-03-05 21:55] LABS: Glucose, Whole Blood 104 mg/dL (60-115)
[2020-03-05] MEDS: ondansetron HCL 4 MG/2 ML VIAL IVPUSH (21:55)
[2020-03-06 03:00] VITALS: BP 146/85; PULSE 66; RESP 19; TEMP 36; O2SAT 96
[2020-03-06] MEDS: 0.9 % Sodium Chloride Flush 3 ML SYRINGE IVFLUSH ×2 (05:16→07:55)
[2020-03-06 06:00] VITALS: BMI 36.8
[2020-03-06] MEDS: Omeprazole 20 MG CAPSULE.DR PO (06:31)
[2020-03-06 07:15] LABS: Magnesium 1.6 mg/dL (1.6-2.6)
[2020-03-06 07:31] VITALS: BP 142/78; PULSE 85; RESP 18; TEMP 36.7; O2SAT 97
--- NOTE | 2020-03-06 07:53 | MHC.PIE ---
P: PATIENT HAS LOVENOX ORDERED FOR PROPHYLAXIS, BUT HIS PLATELET COUNT WAS TRENDED DOWN TO 64 OF THE MORNING, ALSO HE AMBULATES SOMEWHAT FREQUENTLY I: ASSESS PATIENT, NOTIFY MD E: PATIENT APPEARS ALERT AND ORIENTED, BUT IS ON CIWA SCORING 5. PATIENT HAS LOW PLATELET COUNT ABOVE, NO SIGNS OF ACTIVE BLEEDING OR BRUISING. PATIENT DOES AMBULATE SOMEWHAT FREQUENTLY, IS UP TO RECLINER. NO COAG STUDIES DONE THIS ADMISSION. NOTIFIED MD, WAS TOLD TO HOLD THE LOVENOX, WHICH WAS HELD.
[2020-03-06] MEDS: Atorvastatin Calcium 40 MG TABLET PO (07:55)
[2020-03-06] MEDS: UrsodioL 300 MG CAPSULE 600 MG PO (07:55)
[2020-03-06] MEDS: Magnesium Oxide 400 MG TABLET 800 MG PO (07:55)
[2020-03-06] MEDS: Thiamine HCL 100 MG TABLET PO (07:55)
[2020-03-06 07:56] VITALS: BP 142/78; PULSE 85
[2020-03-06] MEDS: PHENobarbitaL 30 MG TABLET PO (07:56)
[2020-03-06] MEDS: Folic Acid 1 MG TABLET PO (07:56)
[2020-03-06] MEDS: Cholecalciferol (Vitamin D3) 25 MCG TABLET PO (07:56)
[2020-03-06] MEDS: amLODIPine Besylate 5 MG TABLET PO (07:56)
[2020-03-06 08:03] LABS: Glucose, Whole Blood 101 mg/dL (60-115)
[2020-03-06] MEDS: hydrOXYzine HCL 50 MG TABLET PO (10:27)
[2020-03-06 11:44] VITALS: BP 119/85; PULSE 89; RESP 94; TEMP 36.9; O2SAT 94
--- NOTE | 2020-03-06 11:54 | MHC.CM.PN ---
DC to home no services family transport.
[2020-03-06 12:32] LABS: Glucose, Whole Blood 99 mg/dL (60-115)
--- NOTE | 2020-03-06 14:01 | PM.DS ---
DS: Providers Provider Date of admission: 03/02/20 22:15 Primary care physician: Yodit Flower NP Admitting clinician: Zachary Jameson Attending physician on admission: Baldo Armando Consults: 03/03/20 10:17 Consult to Care Team Routine Comment: Reason for consultation: etoh, other substances 03/06/20 10:52 Consult to Crisis Stat Reason for consultation: medically cleared; presented with Attending physician on discharge: Baldo Armando Discharging clinician: Baldo Armando DS: Diagnosis Discharge Diagnosis (1) Alcohol withdrawal: Status: Acute (2) Hypomagnesemia: Status: Acute (3) COVID-19: Status: Acute (4) Suicidal ideation: Status: Acute (5) Depression: Status: Acute DS: Summary Hospital Course Hospital Course: from admission History and Physical by hospitalist Zachary Jameson, 03/02/20: this is a 59-year-old male with past medical history of alcohol abuse who was brought into the hospital by his girlfriend for alcohol binge and inability to take care of himself. Patient's girlfriend is also stating that he has been making suicidal statements. He has also not been taking any of his meds for diabetes or seizures. Patient was covered positive on 01/27 as Covert positive today. Patient currently denies having any suicidal ideation. He was retested for Covert on this presentation and is COVID-19 positive at this time. patient has no shortness of breath, no fever or chills, no cough, no sputum production, no abdominal pain nausea or vomiting, no diarrhea or constipation, no lower extremity edema on arrival to the ED hemodynamically stable with no significant abnormal Vitals Lab significant for magnesium of 1.4, total bili of 1.7, AST of 133, ALT of 93, albumin 3.0, UDS positive for barbiturates, PCP, benzodiazepine, and he is COVID-19 PCR is positive chest x-ray shows no acute abnormality of the chest The patient was admitted to the [facility] [place] [facility] [place] and treated with phenobarbital taper for alcohol withdrawal. Magnesium was repleted IV, then PO. [facility] and was no longer suicidal, thus medically cleared for discharge home. He was referred for counseling/therapy as an outpatient. Regarding his COVID-19 status, he was first PCR positive on 01/28/20. His admission PCR was positive on 02/28/20 but he was completely asymptomatic and IgG was positive on 03/04/20, so he is unlikely to be infectious at this point. Time Spent with Patient Time attestation: Total time spent providing and/or coordinating discharge services: Physical Exam Vital Signs: Vital Signs: Vital Signs Temp Pulse Resp BP Pulse Ox 03/06/20 11:44 98.4 F 89 94 H 119/85 94 03/06/20 07:56 85 142/78 H 03/06/20 07:31 98.1 F 85 18 142/78 H 97 03/06/20 03:00 96.8 F 66 19 146/85 H 96 03/05/20 23:09 98.5 F 69 19 123/82 99 03/05/20 19:18 99.5 F 80 19 170/99 H 96 03/05/20 15:48 98 F 88 161/89 H 98 Body Mass Index 36.8 Const: General: not in acute distress Chest: Chest palpation & inspection: normal inspection of the chest Resp: Effort & Inspection: normal respiratory effort Auscultation: clear to auscultation bilaterally Cardio: Rate: regular rate Rhythm: regular rhythm GI: Palpation (GI): Soft to palpation and nontender Neuro: Other: nonfocal DS: Data Data Completed and Pending Labs on day of discharge: Laboratory Tests 03/02/20 03/02/20 03/02/20 16:40 16:40 16:40 WBC 5.2 RBC 5.25 Hgb 16.3 Hct 46.4 MCV 88.4 MCH 31.0 MCHC 35.1 RDW 16.6 H Plt Count 82 L MPV 11.1 Immature Gran % (Auto) 0.4 Neut % (Auto) 58.2 Lymph % (Auto) 34.4 [place]mer[place]da % (Auto) 5.6 Eos % (Auto) 0.8 Baso % (Auto) 0.6 Lymph # (Auto) 1.8 [place] # (Auto) 0.3 Eos # (Auto) 0.0 Baso # (Auto) 0.0 Abs Immat Gran (auto) 0.02 Absolute Neuts (auto) 3.0 Absolute Nucleated RBC 0.000 Nucleated RBC % (auto) 0.0 Smear Tech's Comments VERIFIED Sodium Cancelled Potassium Cancelled Chloride Cancelled Carbon Dioxide Cancelled Anion Gap Cancelled BUN Cancelled Creatinine Cancelled Estim Creat Clear Calc Cancelled Estimated GFR Cancelled POC Glucose Random Glucose Cancelled Estimat Average Glucose Hemoglobin A1c % Calcium Cancelled Magnesium Cancelled Total Bilirubin Cancelled AST Cancelled ALT Cancelled Alkaline Phosphatase Cancelled C-Reactive Protein Total Protein Cancelled Albumin Cancelled Salicylates Cancelled Urine Opiates Screen Acetaminophen Cancelled Ur Barbiturates Screen Ur Phencyclidine Scrn Ur Amphetamines Screen U Benzodiazepines Scrn Urine Cocaine Screen U Marijuana (THC) Screen Ethyl Alcohol 216 Coronavirus (PCR) SARS-CoV-2 IgG Ab 03/02/20 03/02/20 03/02/20 19:54 19:54 Unknown WBC RBC Hgb Hct MCV MCH MCHC RDW Plt Count MPV Immature Gran % (Auto) Neut % (Auto) Lymph % (Auto) [place] % (Auto) Eos % (Auto) Baso % (Auto) Lymph # (Auto) [place] # (Auto) Eos # (Auto) Baso # (Auto) Abs Immat Gran (auto) Absolute Neuts (auto) Absolute Nucleated RBC Nucleated RBC % (auto) Smear Tech's Comments Sodium 139 Potassium 3.5 Chloride 103 Carbon Dioxide 19 L Anion Gap 21 H BUN 6 L Creatinine 0.74 Estim Creat Clear Calc 126.1 Estimated GFR > 60 POC Glucose Random Glucose 142 H Estimat Average Glucose Hemoglobin A1c % Calcium 7.2 L Magnesium 1.1 L* Total Bilirubin 1.7 H AST 133 H ALT 93 H Alkaline Phosphatase 105 C-Reactive Protein Total Protein 5.7 L Albumin 3.0 L Salicylates < 5.0 L Urine Opiates Screen Not Detected Acetaminophen < 1 Ur Barbiturates Screen POSITIVE H Ur Phencyclidine Scrn POSITIVE H Ur Amphetamines Screen Not Detected U Benzodiazepines Scrn POSITIVE H Urine Cocaine Screen Not Detected U Marijuana (THC) Screen Not Detected Ethyl Alcohol Coronavirus (PCR) POSITIVE A SARS-CoV-2 IgG Ab 03/03/20 03/03/20 03/03/20 00:47 07:10 07:10 WBC 5.1 RBC 4.41 L Hgb 14.0 Hct 39.1 L MCV 88.7 MCH 31.7 MCHC 35.8 RDW 16.7 H Plt Count 61 L D MPV 11.5 Immature Gran % (Auto) 0.4 Neut % (Auto) 56.9 Lymph % (Auto) 33.4 [place] % (Auto) 8.1 Eos % (Auto) 0.6 Baso % (Auto) 0.6 Lymph # (Auto) 1.7 [place] # (Auto) 0.4 Eos # (Auto) 0.0 Baso # (Auto) 0.0 Abs Immat Gran (auto) 0.02 Absolute Neuts (auto) 2.9 Absolute Nucleated RBC 0.000 Nucleated RBC % (auto) 0.0 Smear Tech's Comments Not Reportable Sodium 135 Potassium 3.3 Chloride 99 Carbon Dioxide 25 Anion Gap 14 BUN 7 L Creatinine 0.61 Estim Creat Clear Calc 152.0 Estimated GFR > 60 POC Glucose Random Glucose 96 Estimat Average Glucose Hemoglobin A1c % Calcium 7.3 L Magnesium 1.4 L* Total Bilirubin AST ALT Alkaline Phosphatase C-Reactive Protein Total Protein Albumin Salicylates Urine Opiates Screen Acetaminophen Ur Barbiturates Screen Ur Phencyclidine Scrn Ur Amphetamines Screen U Benzodiazepines Scrn Urine Cocaine Screen U Marijuana (THC) Screen Ethyl Alcohol Coronavirus (PCR) SARS-CoV-2 IgG Ab 03/03/20 03/03/20 03/03/20 09:24 11:15 17:46 WBC RBC Hgb Hct MCV MCH MCHC RDW Plt Count MPV Immature Gran % (Auto) Neut % (Auto) Lymph % (Auto) [place] % (Auto) Eos % (Auto) Baso % (Auto) Lymph # (Auto) [place] # (Auto) Eos # (Auto) Baso # (Auto) Abs Immat Gran (auto) Absolute Neuts (auto) Absolute Nucleated RBC Nucleated RBC % (auto) Smear Tech's Comments Sodium Potassium Chloride Carbon Dioxide Anion Gap BUN Creatinine Estim Creat Clear Calc Estimated GFR POC Glucose 135 H 105 108 Random Glucose Estimat Average Glucose Hemoglobin A1c % Calcium Magnesium Total Bilirubin AST ALT Alkaline Phosphatase C-Reactive Protein Total Protein Albumin Salicylates Urine Opiates Screen Acetaminophen Ur Barbiturates Screen Ur Phencyclidine Scrn Ur Amphetamines Screen U Benzodiazepines Scrn Urine Cocaine Screen U Marijuana (THC) Screen Ethyl Alcohol Coronavirus (PCR) SARS-CoV-2 IgG Ab 03/03/20 03/04/20 03/04/20 20:38 06:10 06:10 WBC 3.6 L RBC 4.45 L Hgb 13.9 L Hct 40.8 L MCV 91.7 MCH 31.2 MCHC 34.1 RDW 16.6 H Plt Count 64 L MPV 12.3 Immature Gran % (Auto) 0.3 Neut % (Auto) 51.7 Lymph % (Auto) 39.3 [place] % (Auto) 5.9 Eos % (Auto) 2.0 Baso % (Auto) 0.8 Lymph # (Auto) 1.4 [place] # (Auto) 0.2 Eos # (Auto) 0.1 Baso # (Auto) 0.0 Abs Immat Gran (auto) 0.01 Absolute Neuts (auto) 1.8 L Absolute Nucleated RBC 0.000 Nucleated RBC % (auto) 0.0 Smear Tech's Comments Sodium Potassium Chloride Carbon Dioxide Anion Gap BUN Creatinine Estim Creat Clear Calc Estimated GFR POC Glucose 131 H Random Glucose Estimat Average Glucose Hemoglobin A1c % Calcium Magnesium Total Bilirubin AST ALT Alkaline Phosphatase C-Reactive Protein 0.74 H Total Protein Albumin Salicylates Urine Opiates Screen Acetaminophen Ur Barbiturates Screen Ur Phencyclidine Scrn Ur Amphetamines Screen U Benzodiazepines Scrn Urine Cocaine Screen U Marijuana (THC) Screen Ethyl Alcohol Coronavirus (PCR) SARS-CoV-2 IgG Ab 03/04/20 03/04/20 03/04/20 06:10 06:10 06:10 WBC RBC Hgb Hct MCV MCH MCHC RDW Plt Count MPV Immature Gran % (Auto) Neut % (Auto) Lymph % (Auto) [place] % (Auto) Eos % (Auto) Baso % (Auto) Lymph # (Auto) [place] # (Auto) Eos # (Auto) Baso # (Auto) Abs Immat Gran (auto) Absolute Neuts (auto) Absolute Nucleated RBC Nucleated RBC % (auto) Smear Tech's Comments Sodium 138 Potassium 3.3 Chloride 100 Carbon Dioxide 29 Anion Gap 12 BUN 5 L Creatinine 0.65 Estim Creat Clear Calc 142.7 Estimated GFR > 60 POC Glucose Random Glucose 95 Estimat Average Glucose 117 Hemoglobin A1c % 5.7 Calcium 7.7 L Magnesium 1.5 L Total Bilirubin 3.2 H AST 92 H ALT 65 H Alkaline Phosphatase 96 C-Reactive Protein Total Protein 5.2 L Albumin 2.7 L Salicylates Urine Opiates Screen Acetaminophen Ur Barbiturates Screen Ur Phencyclidine Scrn Ur Amphetamines Screen U Benzodiazepines Scrn Urine Cocaine Screen U Marijuana (THC) Screen Ethyl Alcohol Coronavirus (PCR) SARS-CoV-2 IgG Ab Positive 10/03/04/20 03/04/20 07:16 11:08 16:30 WBC RBC Hgb Hct MCV MCH MCHC RDW Plt Count MPV Immature Gran % (Auto) Neut % (Auto) Lymph % (Auto) [place] % (Auto) Eos % (Auto) Baso % (Auto) Lymph # (Auto) [place] # (Auto) Eos # (Auto) Baso # (Auto) Abs Immat Gran (auto) Absolute Neuts (auto) Absolute Nucleated RBC Nucleated RBC % (auto) Smear Tech's Comments Sodium Potassium Chloride Carbon Dioxide Anion Gap BUN Creatinine Estim Creat Clear Calc Estimated GFR POC Glucose 101 96 98 Random Glucose Estimat Average Glucose Hemoglobin A1c % Calcium Magnesium Total Bilirubin AST ALT Alkaline Phosphatase C-Reactive Protein Total Protein Albumin Salicylates Urine Opiates Screen Acetaminophen Ur Barbiturates Screen Ur Phencyclidine Scrn Ur Amphetamines Screen U Benzodiazepines Scrn Urine Cocaine Screen U Marijuana (THC) Screen Ethyl Alcohol Coronavirus (PCR) SARS-CoV-2 IgG Ab 03/04/20 03/05/20 03/05/20 19:56 05:55 07:15 WBC RBC Hgb Hct MCV MCH MCHC RDW Plt Count MPV Immature Gran % (Auto) Neut % (Auto) Lymph % (Auto) [place] % (Auto) Eos % (Auto) Baso % (Auto) Lymph # (Auto) [place] # (Auto) Eos # (Auto) Baso # (Auto) Abs Immat Gran (auto) Absolute Neuts (auto) Absolute Nucleated RBC Nucleated RBC % (auto) Smear Tech's Comments Sodium 140 Potassium 3.3 Chloride 105 Carbon Dioxide 27 Anion Gap 11 L BUN 4 L Creatinine 0.69 Estim Creat Clear Calc 134.4 Estimated GFR > 60 POC Glucose 97 86 Random Glucose 92 Estimat Average Glucose Hemoglobin A1c % Calcium 7.8 L Magnesium 1.5 L Total Bilirubin AST ALT Alkaline Phosphatase C-Reactive Protein Total Protein Albumin Salicylates Urine Opiates Screen Acetaminophen Ur Barbiturates Screen Ur Phencyclidine Scrn Ur Amphetamines Screen U Benzodiazepines Scrn Urine Cocaine Screen U Marijuana (THC) Screen Ethyl Alcohol Coronavirus (PCR) SARS-CoV-2 IgG Ab 03/05/20 03/05/20 03/05/20 11:26 16:26 21:35 WBC RBC Hgb Hct MCV MCH MCHC RDW Plt Count MPV Immature Gran % (Auto) Neut % (Auto) Lymph % (Auto) [place] % (Auto) Eos % (Auto) Baso % (Auto) Lymph # (Auto) [place] # (Auto) Eos # (Auto) Baso # (Auto) Abs Immat Gran (auto) Absolute Neuts (auto) Absolute Nucleated RBC Nucleated RBC % (auto) Smear Tech's Comments Sodium Potassium Chloride Carbon Dioxide Anion Gap BUN Creatinine Estim Creat Clear Calc Estimated GFR POC Glucose 94 77 104 Random Glucose Estimat Average Glucose Hemoglobin A1c % Calcium Magnesium Total Bilirubin AST ALT Alkaline Phosphatase C-Reactive Protein Total Protein Albumin Salicylates Urine Opiates Screen Acetaminophen Ur Barbiturates Screen Ur Phencyclidine Scrn Ur Amphetamines Screen U Benzodiazepines Scrn Urine Cocaine Screen U Marijuana (THC) Screen Ethyl Alcohol Coronavirus (PCR) SARS-CoV-2 IgG Ab 03/06/20 03/06/20 03/06/20 05:59 07:43 11:22 WBC RBC Hgb Hct MCV MCH MCHC RDW Plt Count MPV Immature Gran % (Auto) Neut % (Auto) Lymph % (Auto) [place] % (Auto) Eos % (Auto) Baso % (Auto) Lymph # (Auto) [place] # (Auto) Eos # (Auto) Baso # (Auto) Abs Immat Gran (auto) Absolute Neuts (auto) Absolute Nucleated RBC Nucleated RBC % (auto) Smear Tech's Comments Sodium Potassium Chloride Carbon Dioxide Anion Gap BUN Creatinine Estim Creat Clear Calc Estimated GFR POC Glucose 101 99 Random Glucose Estimat Average Glucose Hemoglobin A1c % Calcium Magnesium 1.6 Total Bilirubin AST ALT Alkaline Phosphatase C-Reactive Protein Total Protein Albumin Salicylates Urine Opiates Screen Acetaminophen Ur Barbiturates Screen Ur Phencyclidine Scrn Ur Amphetamines Screen U Benzodiazepines Scrn Urine Cocaine Screen U Marijuana (THC) Screen Ethyl Alcohol Coronavirus (PCR) SARS-CoV-2 IgG Ab Discharge Plan Discharge Patient Disposition: Home, Self-Care Referrals: Yodit Flower NP [Primary Care Provider] - 1 Week (Please call and schedule a follow up appointment within 1 week.) Discharge Medications: New magnesium oxide 400 mg (241.3 mg magnesium) Tablet 800 mg PO BIDPC Qty: 120 RF: 0 Continued atorvastatin 40 mg tablet 1 tab PO DAILY RF: 0 hydroxyzine HCl 50 mg tablet 1 tab PO BID PRN (Reason: anxiety) RF: 0 amlodipine 5 mg tablet 1 tab PO DAILY RF: 0 ursodiol 300 mg capsule 2 cap PO DAILY RF: 0 gabapentin 300 mg capsule 300 mg PO BEDTIME RF: 0 omeprazole 20 mg capsule,delayed release(DR/EC) 1 cap PO BID RF: 0 folic acid 1 mg tablet 1 tab PO DAILY RF: 0 cholecalciferol (vitamin D3) [Vitamin D3] 25 mcg (1,000 unit) capsule 1 cap PO DAILY RF: 0 quetiapine 50 mg tablet 1 tab PO BEDTIME RF: 0 diclofenac sodium 1 % gel 4 g topical QID RF: 0 Spiriva Respimat 2.5 mcg/actuation mist 2 puff inhalation DAILY RF: 0 Discharge Orders: Discharge Order (Routine); Ordered 03/06/20 Ordered By: Baldo Armando Activity on Discharge: no alcohol Patient Instructions: Abuse of Alcohol (DC) Stand Alone Forms: Community Support Visit Report Forms: Patient Portal Discharge page Care Plan Goals: avoid alcohol Health Concerns: alcohol withdrawal, depression Plan of Treatment: take magnesium oxide 800 mg twice daily avoid alcohol community resources for depression, sobriety
== END 2020-03-06 14:52 | disposition home or self-care (01) | DRG 178 ==
LOC: HO.ED 22:04 → HO.IMC 22:41
PROVIDERS: Nurse Practitioner Primary Care; Admitting Provider Internal Medicine; Emergency Provider Internal Medicine; PCP Nurse Practitioner Family; Visit Provider Family Medicine
DX: U07.1 COVID-19 (principal); R45.851 Suicidal ideations; F10.139 Alcohol abuse with withdrawal, unspecified; J44.9 Chronic obstructive pulmonary disease, unspecified; E11.9 Type 2 diabetes mellitus without complications; E78.5 Hyperlipidemia, unspecified; F32.9 Major depressive disorder, single episode, unspecified; Z91.14 Patient's other noncompliance with medication regimen; E83.42 Hypomagnesemia; Z87.891 Personal history of nicotine dependence; Z79.899 Other long term (current) drug therapy
CPT/HCPCS: 36415; 71045; 80048; 80053; 80307; 80320; 82947; 83036; 83735; 85025; 86140; 86769; 87635; 96365; 96366; 96367; 96372; 96375; 96376; 99285; G0480; J1650; J2060; J2405; J2560; J3411; J3475

== ENCOUNTER 2020-03-31 15:32 | Emergency (ER) | payer MEDICARE, MEDICAID, SELFPAY ==
[2020-03-31 15:46] VITALS: BP 123/83; PULSE 111; RESP 19; TEMP 36.6; O2SAT 90; BMI 35.2
[2020-03-31 16:00] VITALS: BP 112/88; PULSE 100; RESP 18; TEMP 36.8; O2SAT 94
[2020-03-31 17:36] LABS: MANUAL DIFF FLAG NO
[2020-03-31 17:59] LABS: Basophils Absolute Auto 0.1 X10*3/uL (0.0-0.2); Basophils Percent Auto 0.4 % (0-2); Eosinophils Percent Auto 0.1 % (0-4); Hemoglobin 15.3 g/dl (14.0-18.0); Imm Gran Abs Auto 0.07 X10*3/uL (0.00-0.03); Imm Gran Pct Auto 0.4 % (0.0-0.4); Lymphocytes Absolute Auto 3.4 X10*3/uL (1.2-4.9); Mean Corpuscular HGB Conc 35.6 g/dl (31.0-36.0); Mean Corpuscular Hemoglobin 32.1 pg (27.0-33.0); Mean Corpuscular Volume 90.3 fL (80-98); Mean Platelet Volume 11.9 fL (9.4-12.4); Monocytes Absolute Auto 0.6 X10*3/uL (0.1-1.2); Monocytes Percent Auto 3.5 % (2-11); NRBC Pct Auto 0.4 /100WBC (0.0-0.2); Neutrophils Absolute Auto 11.9 X10*3/uL (2.0-8.3); Neutrophils Percent Auto 74.6 % (45-73); Platelet Count 141 X10*3/uL (160-400); Red Blood Count 4.76 X10*6/uL (4.60-5.80); Red Cell Distribution Width 14.6 % (11.0-16.0)
[2020-03-31 18:03] LABS: Ethanol 272 mg/dL
[2020-03-31 18:07] LABS: Alanine Aminotransferase 27 U/L (0-40); Albumin Level 2.7 g/dL (3.5-5.0); Alkaline Phosphatase 183 U/L (39-117); Anion Gap 21 (12-20); Aspartate Amino Transferase 39 U/L (5-37); Blood Urea Nitrogen 10 mg/dL (9-16); Calcium 7.4 mg/dL (8.4-10.2); Carbon Dioxide 24 mmol/L (22-29); Chloride 101 mmol/L (96-108); Creatinine Clr Calc Pharmacy 146.9; Estimated Glomerular Filt Rate > 60; Glucose Random 175 mg/dL (60-115); Magnesium 1.5 mg/dL (1.6-2.6); Sodium 143 mmol/L (135-145); Total Protein 5.6 g/dL (6.5-8.0)
[2020-03-31 18:09] VITALS: BP 100/66; PULSE 103; RESP 16; TEMP 36.9; O2SAT 93
--- NOTE | 2020-03-31 19:11 | PC.NURSE ---
pt has been sleeping i hallway stretcher. HE wakes and is alert and oriented but sleepy. Will continue to monitor.
--- NOTE | 2020-03-31 19:52 | PC.NURSE ---
pt awake, oriented and able to ambulate in hallway with steady gait. He states he can call a friend for ride home and has been given a phone to make a call.
[2020-03-31 19:54] VITALS: BP 105/66; PULSE 96; RESP 18; TEMP 36.7; O2SAT 95
--- NOTE | 2020-03-31 20:05 | ED.ALCOHOL ---
HPI - Alcohol General Chief Complaint: ETOH/Substance Use Stated Complaint: etoh Time Seen by Provider: 03/31/20 16:37 Source: EMS Mode of arrival: EMS Limitations: no limitations History of Present Illness HPI narrative: Per EMS bystander called for EtOH. Patient admits to alcohol use denies any other complaints. No recent fall or injury. MD complaint: alcohol intoxication Last drink: Days (ago) Chronic alcohol use: Yes Previous visits for alcohol intoxication: Yes Recent trauma: No Associated symptoms: denies other symptoms Treatments prior to arrival: none Related Data Home Medications Medication Instructions Recorded Confirmed Spiriva Respimat 2 puff INHALATION DAILY 03/02/20 03/02/20 amlodipine 1 tab PO DAILY 03/02/20 03/02/20 atorvastatin 1 tab PO DAILY 03/02/20 03/02/20 cholecalciferol (vitamin D3) 1 cap PO DAILY 03/02/20 03/02/20 [Vitamin D3] diclofenac sodium 4 g TOPICAL QID 03/02/20 03/02/20 folic acid 1 tab PO DAILY 03/02/20 03/02/20 gabapentin 300 mg PO BEDTIME 03/02/20 03/02/20 hydroxyzine HCl 1 tab PO BID PRN 03/02/20 03/02/20 omeprazole 1 cap PO BID 03/02/20 03/02/20 quetiapine 1 tab PO BEDTIME 03/02/20 03/02/20 ursodiol 2 cap PO DAILY 03/02/20 03/02/20 Previous Rx's Medication Instructions Recorded magnesium oxide 800 mg PO BIDPC #120 tab 03/06/20 Allergies Allergy/AdvReac Type Severity Reaction Status Date / Time No Known Allergies Allergy Verified 03/02/20 15:43 [No Known Allergies*] Review of Systems Review of Systems: Constitutional: No Weight loss, No Fever, No Chills, No Night Sweats, No Fatigue, No Malaise ENT/Mouth: No Hearing loss, No Ear Pain, No Nasal Congestion, No Sinus Pain, No Hoarseness, No sore throat, No Rhinorrhea, No Swallowing Difficulty Eyes: No Eye Pain, No Swelling, No Redness, No Foreign Body, No Discharge, No Vision Changes Cardiovascular: No Chest Pain, No SOB, No Dyspnea on Exertion, No Orthopnea, No Edema, No Palpitations Respiratory: No Cough, No Sputum, No Wheezing, No Smoke Exposure, No Dyspnea Gastrointestinal: No Nausea, No Vomiting, No Diarrhea, No Constipation, No abdominal Pain, No Hematochezia, No Melena Genitourinary: no irregular bleeding, No Dysuria, No Urinary Frequency, No Hematuria, No Urinary Incontinence, No Urgency, No Flank Pain, No Urinary Flow Changes, No Hesitancy Musculoskeletal: No joint pain, No Myalgias, No Joint Swelling Skin: No Skin Lesions, No rash Neuro: No Weakness, No Numbness, No Paresthesias, No Loss of Consciousness, No Dizziness, No Headache Psych: No Anxiety/Panic, No Depression, No SI/HI/AH/VH Heme/Lymph: No Bruising, No Bleeding,No Lymphadenopathy Endocrine: No Polyuria, No Polydipsia, No Temperature Intolerance Yes all other systems are reviewed and are negative [facility] Past Medical History Attestation statement: The following information was validated with the patient. Source: old records reviewed Medical History Alcohol withdrawal COPD (chronic obstructive pulmonary disease) COVID-19 COVID-19 determined by clinical diagnostic criteria Depression Diabetes ETOH abuse Seizure Social History Social History Household Members: Significant Other Housing: Apartment Alcohol intake: current Alcohol intake frequency: 3 or more drinks per day Alcohol type: beer and hard liquor Smoking Status: Unknown if ever smoked Tobacco Type: Cigarette Second Hand Smoke Exposure: Yes Use of substances other than those prescribed or required for medical reasons: No Advance Directives: No Advance Directives Information Provided: Yes service: No Current occupational status: unemployed Physical Exam Vital Signs: Vital Signs: Last Vital Signs Temp 98.1 F 03/31/20 19:54 Pulse 96 03/31/20 19:54 Resp 18 03/31/20 19:54 BP 105/66 03/31/20 19:54 Pulse Ox 95 03/31/20 19:54 Body Mass Index 35.2 Reviewed Odor of EtOH Const: General: cooperative and healthy appearing; No acute distress or intoxicated appearing Nutritional Appearance: average body habitus Orientation/consciousness: patient oriented x3 HENMT: Head: Yes normal to inspection Ears: hearing grossly normal bilaterally Eyes: General: appearance normal, both eyes and all related structures Visual Mi: normal visual mi by confrontation Neck: Neck: Yes normal visual inspection and No tender Thyroid: Thyroid normal Chest: Chest palpation & inspection: normal inspection of the chest Resp: Effort & Inspection: normal respiratory effort Cardio: Jugular venous distension: no JVD GI: Inspection: Yes normal to inspection Percussion: Yes normal to percussion Auscultation: normal bowel sounds : General: Yes no CVA tenderness Back/Spine/Pelvis: Back: no CVA tenderness Skin: General skin exam: no rashes or lesions noted Neuro: General: patient oriented x3 Extrem: General: Yes normal to inspection Course Course Course Narrative: Labs with slight hypokalemia/hypomagnesemia this was repleted. Patient resting comfortably and observed in the ED for several hours clinically sober at this time walking around. Requesting discharge. In the meantime care team was consulted patient declined detox services this time. MDM - Alcohol Lab Data Result diagrams: 03/31/20 17:16 03/31/20 17:16 Labs: Lab Results 03/31/20 03/31/20 03/31/20 Range/Units 17:16 17:16 17:16 WBC 16.0 H (4.8-10.8) X10*3/uL RBC 4.76 (4.60-5.80) X10*6/uL Hgb 15.3 (14.0-18.0) g/dl Hct 43.0 (42-52) % MCV 90.3 (80-98) fL MCH 32.1 (27.0-33.0) pg MCHC 35.6 (31.0-36.0) g/dl RDW 14.6 (11.0-16.0) % Plt Count 141 L D (160-400) X10*3/uL MPV 11.9 (9.4-12.4) fL Immature Gran % (Auto) 0.4 (0.0-0.4) % Neut % (Auto) 74.6 H (45-73) % Lymph % (Auto) 21.0 (20-40) % [place] % (Auto) 3.5 (2-11) % Eos % (Auto) 0.1 (0-4) % Baso % (Auto) 0.4 (0-2) % Lymph # (Auto) 3.4 (1.2-4.9) X10*3/uL [place] # (Auto) 0.6 (0.1-1.2) X10*3/uL Eos # (Auto) 0.0 (0.0-0.4) X10*3/uL Baso # (Auto) 0.1 (0.0-0.2) X10*3/uL Abs Immat Gran (auto) 0.07 H (0.00-0.03) X10*3/uL Absolute Neuts (auto) 11.9 H (2.0-8.3) X10*3/uL Absolute Nucleated RBC 0.060 H (0.0-0.012) X10*3/uL Nucleated RBC % (auto) 0.4 H (0.0-0.2) /100WBC Sodium 143 (135-145) mmol/L Potassium 3.0 L (3.3-5.1) mmol/l Chloride 101 (96-108) mmol/L Carbon Dioxide 24 (22-29) mmol/L Anion Gap 21 H (12-20) BUN 10 D (9-16) mg/dL Creatinine 0.70 (0.5-1.4) mg/dL Estim Creat Clear Calc 146.9 Estimated GFR > 60 Random Glucose 175 H D (60-115) mg/dL Calcium 7.4 L (8.4-10.2) mg/dL Magnesium 1.5 L (1.6-2.6) mg/dL Total Bilirubin 1.0 (0.0-1.0) mg/dL AST 39 H D (5-37) U/L ALT 27 (0-40) U/L Alkaline Phosphatase 183 H D (39-117) U/L Total Protein 5.6 L (6.5-8.0) g/dL Albumin 2.7 L (3.5-5.0) g/dL Ethyl Alcohol 272 mg/dL Discharge Plan Discharge Clinical Impression: Hypomagnesemia, Acute hypokalemia Alcoholic intoxication Qualifiers: Complication of substance-induced condition: uncomplicated Qualified Code(s): F10.920 - Alcohol use, unspecified with intoxication, uncomplicated Patient Disposition: Home, Self-Care Instructions: Hypokalemia (ED), Abuse of Alcohol (ED), Hypomagnesemia (ED) Additional Instructions: Please stop drinking alcohol as this can cause serious harm to health including but not limited to Please go directly to detox Please take medication prescribed Return if any concerns or symptoms thank you Prescriptions: No Action atorvastatin 40 mg tablet 1 tab PO DAILY RF: 0 hydroxyzine HCl 50 mg tablet 1 tab PO BID PRN (Reason: anxiety) RF: 0 amlodipine 5 mg tablet 1 tab PO DAILY RF: 0 ursodiol 300 mg capsule 2 cap PO DAILY RF: 0 gabapentin 300 mg capsule 300 mg PO BEDTIME RF: 0 omeprazole 20 mg capsule,delayed release(DR/EC) 1 cap PO BID RF: 0 folic acid 1 mg tablet 1 tab PO DAILY RF: 0 cholecalciferol (vitamin D3) [Vitamin D3] 25 mcg (1,000 unit) capsule 1 cap PO DAILY RF: 0 quetiapine 50 mg tablet 1 tab PO BEDTIME RF: 0 diclofenac sodium 1 % gel 4 g topical QID RF: 0 Spiriva Respimat 2.5 mcg/actuation mist 2 puff inhalation DAILY RF: 0 magnesium oxide 400 mg (241.3 mg magnesium) Tablet 800 mg PO BIDPC Qty: 120 RF: 0 Referrals: Yodit Flower NP [Primary Care Provider] - 1 day
== END 2020-03-31 20:28 | disposition home or self-care (01) ==
PROVIDERS: Nurse Practitioner Primary Care; Emergency Provider Emergency Medicine; PCP Nurse Practitioner Family
DX: F10.129 Alcohol abuse with intoxication, unspecified (principal); Y90.8 Blood alcohol level of 240 mg/100 ml or more; E83.42 Hypomagnesemia; E23.2 Diabetes insipidus; F17.210 Nicotine dependence, cigarettes, uncomplicated; Z71.6 Tobacco abuse counseling
CPT/HCPCS: 36415; 80053; 80320; 83735; 85025; 99284

== ENCOUNTER 2020-05-01 20:19 | Emergency (ER) | payer MEDICARE, MEDICAID, SELFPAY ==
--- NOTE | 2020-05-01 20:29 | ED.ALCOHOL ---
HPI - Alcohol General Chief Complaint: Fall Stated Complaint: ETOH INTOX W/ FALL FOREHEAD/NOSE LAC Time Seen by Provider: 05/01/20 20:28 Source: EMS Mode of arrival: EMS Limitations: altered mental status History of Present Illness HPI narrative: 59-year-old male presents via EMS for a fall with head trauma, alcohol intoxication with Xanax and trazodone use. He does have an abrasion to his forehead, bridge of nose and is in a C-collar. He is alert oriented x4 but falls asleep very easily, answering questions in an abrupt manner, and able to follow directions. He denies any other symptoms, denies chest pain or pressure, palpitations, shortness of breath, abdominal pain, abdominal distention, dysuria, hematuria, and edema. MD complaint: alcohol intoxication and alcohol dependence Last drink: Hours (ago) Chronic alcohol use: Yes Previous visits for alcohol intoxication: Yes Recent trauma: Yes Associated symptoms: denies other symptoms Treatments prior to arrival: cervical collar Related Data Home Medications Medication Instructions Recorded Confirmed Spiriva Respimat 2 puff INHALATION DAILY 03/02/20 03/02/20 amlodipine 1 tab PO DAILY 03/02/20 03/02/20 atorvastatin 1 tab PO DAILY 03/02/20 03/02/20 cholecalciferol (vitamin D3) 1 cap PO DAILY 03/02/20 03/02/20 [Vitamin D3] diclofenac sodium 4 g TOPICAL QID 03/02/20 03/02/20 folic acid 1 tab PO DAILY 03/02/20 03/02/20 gabapentin 300 mg PO BEDTIME 03/02/20 03/02/20 hydroxyzine HCl 1 tab PO BID PRN 03/02/20 03/02/20 omeprazole 1 cap PO BID 03/02/20 03/02/20 quetiapine 1 tab PO BEDTIME 03/02/20 03/02/20 ursodiol 2 cap PO DAILY 03/02/20 03/02/20 Previous Rx's Medication Instructions Recorded magnesium oxide 800 mg PO BIDPC #120 tab 03/06/20 Allergies Allergy/AdvReac Type Severity Reaction Status Date / Time No Known Allergies Allergy Verified 03/02/20 15:43 [No Known Allergies*] Review of Systems Review of Systems: Constitutional: No Fever, No Chills ENT/Mouth: No Ear Pain, No Hoarseness, No sore throat Eyes: No Eye Pain, No Swelling, No Redness, No Foreign Body Cardiovascular: No Chest Pain, No SOB Respiratory: No Cough, No Dyspnea Gastrointestinal: No Nausea, No Vomiting, No Diarrhea, No abdominal Pain Genitourinary: No Dysuria, No Hematuria Musculoskeletal: No joint pain, No Myalgias, No Joint Swelling Skin: Abrasion to forehead and bridge of nose, No Skin lacerations, No rash Neuro: No Weakness, No Numbness, No Paresthesias, No Loss of Consciousness, No Dizziness, No Headache Psych: No Anxiety/Panic, No Depression Heme/Lymph: no easy bruising, no Lymphadenopathy Endocrine: No Polyuria, No Polydipsia Yes all other systems are reviewed and are negative COUNT INCLUDES [facility] Past Medical History Source: unable to obtain, old records reviewed and nursing notes reviewed Medical History Alcohol withdrawal COPD (chronic obstructive pulmonary disease) COVID-19 COVID-19 determined by clinical diagnostic criteria Depression Diabetes ETOH abuse Seizure Social History Social History Household Members: Significant Other Housing: Apartment Alcohol intake: current Alcohol intake frequency: 3 or more drinks per day Alcohol type: beer, wine and hard liquor Smoking Status: Never smoker Tobacco Type: Cigarette Second Hand Smoke Exposure: Yes Use of substances other than those prescribed or required for medical reasons: No Advance Directives: No Advance Directives Information Provided: Yes service: No Current occupational status: unemployed Physical Exam Vital Signs: Vital Signs: Last Vital Signs Temp 97.6 F 05/01/20 22:00 Pulse 94 05/01/20 22:00 Resp 21 H 05/01/20 22:00 BP 92/65 05/01/20 22:00 Pulse Ox 95 05/01/20 22:00 Body Mass Index 35.3 Appearance: Alert. Oriented to self. Moderate distress. Visibly intoxicated, admits to alcohol, trazodone and Xanax use. Eyes: Pupils equal, round and reactive to light. ENT: Pharynx normal. Neck: Normal inspection. Neck supple. CVS: Normal heart rate and rhythm. Pulses normal. Respiratory: No respiratory distress. Breath sounds normal. Abdomen: Soft and nontender. Morbidly obese Skin: Abrasion to forehead and bridge of nose, Skin warm and dry. Normal skin color. Normal skin turgor. Extremities: No lower extremity edema. Neuro: No motor deficit. No sensory deficit. Course Course Course Narrative: 59-year-old male with known alcohol abuse presents with fall, ETOH intoxication, polypharmacy with Xanax and trazodone. Is on Eliquis for bilateral pulmonary embolism, and DVT. We will order CT scan of the head, cervical spine, order EKG, troponins, and chest x-ray. Review medical record patient was diagnosed with pulmonary embolism in the setting of noncompliance on Eliquis, he does have a history of PE and DVT on 04/04/2020 was treated at [facility] and discharged on Eliquis. Was seen on [facility] on 04/13/2020 he was on heparin while he was admitted and then discharged on Eliquis. He was seen at [facility] on 04/27/2020 for shortness of breath, and medication noncompliance found to have a PE in the main arteries bilaterally with no evidence of right heart strain. ETOH is 214. CT scan of head neck are negative for acute findings. EKG is normal, x-rays are negative, troponins are negative, lab values are otherwise unremarkable. Plan of care is for patient to be discharged home with a sober ride. MDM - Alcohol Differential Diagnosis Differential diagnosis: Likely alcohol dependence, alcohol withdrawal delirium, hypomagnesemia, alcohol intoxication, alcohol ketoacidosis, alcohol withdrawal syndrome and alcohol withdrawal seizure Medical Records Attestation: I reviewed the patient's medical records. Lab Data Attestation: I reviewed the patient's lab results. Result diagrams: 05/01/20 20:54 05/01/20 20:54 Labs: Lab Results 05/01/20 05/01/20 05/01/20 Range/Units 20:54 20:54 20:54 WBC 4.7 L (4.8-10.8) X10*3/uL RBC 4.42 L (4.60-5.80) X10*6/uL Hgb 14.1 (14.0-18.0) g/dl Hct 44.1 (42-52) % MCV 99.8 H (80-98) fL MCH 31.9 (27.0-33.0) pg MCHC 32.0 (31.0-36.0) g/dl RDW 15.4 (11.0-16.0) % Plt Count 159 L (160-400) X10*3/uL MPV 11.2 (9.4-12.4) fL Immature Gran % (Auto) 0.6 H (0.0-0.4) % Neut % (Auto) 52.4 (45-73) % Lymph % (Auto) 34.3 (20-40) % [place] % (Auto) 9.7 (2-11) % Eos % (Auto) 1.9 (0-4) % Baso % (Auto) 1.1 (0-2) % Lymph # (Auto) 1.6 (1.2-4.9) X10*3/uL [place] # (Auto) 0.5 (0.1-1.2) X10*3/uL Eos # (Auto) 0.1 (0.0-0.4) X10*3/uL Baso # (Auto) 0.1 (0.0-0.2) X10*3/uL Abs Immat Gran (auto) 0.03 (0.00-0.03) X10*3/uL Absolute Neuts (auto) 2.4 (2.0-8.3) X10*3/uL Absolute Nucleated RBC 0.000 (0.0-0.012) X10*3/uL Nucleated RBC % (auto) 0.0 (0.0-0.2) /100WBC Sodium 139 (135-145) mmol/L Potassium 3.6 (3.3-5.1) mmol/l Chloride 106 (96-108) mmol/L Carbon Dioxide 24 (22-29) mmol/L Anion Gap 13 (12-20) BUN 9 (9-16) mg/dL Creatinine 0.75 (0.5-1.4) mg/dL Estim Creat Clear Calc 133.3 Estimated GFR > 60 Random Glucose 79 D (60-115) mg/dL Calcium 7.2 L (8.4-10.2) mg/dL Troponin I High Sens (<3.5-35.0) ng/L Ethyl Alcohol 214 mg/dL 05/01/20 Range/Units 20:54 WBC (4.8-10.8) X10*3/uL RBC (4.60-5.80) X10*6/uL Hgb (14.0-18.0) g/dl Hct (42-52) % MCV (80-98) fL MCH (27.0-33.0) pg MCHC (31.0-36.0) g/dl RDW (11.0-16.0) % Plt Count (160-400) X10*3/uL MPV (9.4-12.4) fL Immature Gran % (Auto) (0.0-0.4) % Neut % (Auto) (45-73) % Lymph % (Auto) (20-40) % [place] % (Auto) (2-11) % Eos % (Auto) (0-4) % Baso % (Auto) (0-2) % Lymph # (Auto) (1.2-4.9) X10*3/uL [place] # (Auto) (0.1-1.2) X10*3/uL Eos # (Auto) (0.0-0.4) X10*3/uL Baso # (Auto) (0.0-0.2) X10*3/uL Abs Immat Gran (auto) (0.00-0.03) X10*3/uL Absolute Neuts (auto) (2.0-8.3) X10*3/uL Absolute Nucleated RBC (0.0-0.012) X10*3/uL Nucleated RBC % (auto) (0.0-0.2) /100WBC Sodium (135-145) mmol/L Potassium (3.3-5.1) mmol/l Chloride (96-108) mmol/L Carbon Dioxide (22-29) mmol/L Anion Gap (12-20) BUN (9-16) mg/dL Creatinine (0.5-1.4) mg/dL Estim Creat Clear Calc Estimated GFR Random Glucose (60-115) mg/dL Calcium (8.4-10.2) mg/dL Troponin I High Sens < 3.5 (<3.5-35.0) ng/L Ethyl Alcohol mg/dL Imaging Data CT scan - head: Attestation: I personally reviewed and interpreted this imaging study as follows: Radiologist's impression: EXAMINATION: CT HEAD WITHOUT CONTRAST CT CERVICAL SPINE WITHOUT CONTRAST CLINICAL INFORMATION: Trauma. On Eliquis COMPARISON: CT head 02/17/2020. CT cervical spine 01/02/2020 TECHNIQUE: Imaging was performed from the skull base to vertex without intravenous administration of contrast. In addition, helical noncontrast CT imaging was acquired through the cervical spine and source images were reviewed along with axial reconstructions and sagittal and coronal MPRs. [This CT examination was performed using dose optimization techniques as appropriate, variously including the following: *Automated exposure control *Adjustment of mA and/or kV according to patient size (this includes techniques or standardized protocols for targeted exams where dose is matched to indication/reason for exam; i.e. extremities or head) *Use of iterative reconstruction technique] DLP: 2079 mGy-cm FINDINGS: HEAD: No intracranial mass, hemorrhage, or midline shift is visualized. There is atrophy with prominence of the ventricles and the sulci and hypodensity of the periventricular white matter due to chronic small vessel ischemic disease. Stable old infarct in the right parietal lobe. There are vascular calcifications of the internal carotid arteries bilaterally. No extra-axial collections are identified. The paranasal sinuses and mastoid air cells are well aerated. CERVICAL SPINE: There is no evidence of acute cervical spine fracture. Vertebral bodies remain normal in height. Cervical vertebrae have normal alignment. There is multilevel degenerative spondylosis of the cervical spine with disc height narrowing and endplate spurs and facet joint arthrosis No pre- or paravertebral soft tissue abnormality is identified. Limited assessment of the lung apices is unremarkable. CT/CT head/brain wo con IMPRESSION: 1. No acute intracranial pathology. 2. No CT evidence of acute cervical spine fracture or traumatic subluxation Chest x-ray: Attestation: I personally reviewed and interpreted this imaging study as follows: Radiologist's impression: EXAMINATION: XR CHEST CLINICAL INFORMATION: Fall, alcoholism, on Eliquis COMPARISON: 03/02/2020 TECHNIQUE: Frontal view of the chest was obtained. FINDINGS: No significant abnormality is noted involving the heart, lungs, mediastinum, bony thorax or soft tissues. Degenerative changes present in both shoulders. A tiny bit of atelectasis is noted at the left lung base XR/XR chest 1V IMPRESSION: No acute intrathoracic disease ECG Data Attestation: I personally reviewed and interpreted this ECG as follows: ECG interpretation date: 05/01/20 ECG interpretation time: 21:15 Prior ECG tracings: not available for review Interpretation: Ventricular rate 88 beats per minute, P are 170, QRS 76, QT 402, QTC 486, P-R-T axes 37 -6 23, normal sinus rhythm, prolonged QT, abnormal EKG, prior EKG unavailable secondary to system error 130 Discharge Plan Discharge Clinical Impression: Concussion without loss of consciousness Qualifiers: Encounter type: initial encounter Qualified Code(s): S06.0X0A - Concussion without loss of consciousness, initial encounter Alcohol intoxication Qualifiers: Complication of substance-induced condition: uncomplicated Qualified Code(s): F10.920 - Alcohol use, unspecified with intoxication, uncomplicated Patient Disposition: Home, Self-Care Instructions: Concussion (ED), Alcohol Intoxication (ED), Abuse of Alcohol (ED), Alcohol Dependence (ED) Additional Instructions: You were evaluated for a fall with head trauma with alcohol intoxication. CT scan of head and neck are negative for acute findings requiring emergent intervention. Your blood alcohol level was 215. Please consider detox. Please continue to take Eliquis as scheduled. Thank you for choosing this emergency department for evaluation. Please follow-up with primary care physician as needed. Return to the emergency department for any new, concerning, or worsening symptoms. Prescriptions: No Action atorvastatin 40 mg tablet 1 tab PO DAILY RF: 0 hydroxyzine HCl 50 mg tablet 1 tab PO BID PRN (Reason: anxiety) RF: 0 amlodipine 5 mg tablet 1 tab PO DAILY RF: 0 ursodiol 300 mg capsule 2 cap PO DAILY RF: 0 gabapentin 300 mg capsule 300 mg PO BEDTIME RF: 0 omeprazole 20 mg capsule,delayed release(DR/EC) 1 cap PO BID RF: 0 folic acid 1 mg tablet 1 tab PO DAILY RF: 0 cholecalciferol (vitamin D3) [Vitamin D3] 25 mcg (1,000 unit) capsule 1 cap PO DAILY RF: 0 quetiapine 50 mg tablet 1 tab PO BEDTIME RF: 0 diclofenac sodium 1 % gel 4 g topical QID RF: 0 Spiriva Respimat 2.5 mcg/actuation mist 2 puff inhalation DAILY RF: 0 magnesium oxide 400 mg (241.3 mg magnesium) Tablet 800 mg PO BIDPC Qty: 120 RF: 0
[2020-05-01 20:40] VITALS: BP 99/60; PULSE 96; RESP 18; TEMP 37.2; O2SAT 93; BMI 35.3
--- NOTE | 2020-05-01 20:44 | ECG_ITS ---
Test Reason : FALL Blood Pressure : / mmHG Vent. Rate : 088 BPM Atrial Rate : 088 BPM P-R Int : 170 ms QRS Dur : 076 ms QT Int : 402 ms P-R-T Axes : 037 -06 023 degrees QTc Int : 486 ms Normal sinus rhythm Prolonged QT Abnormal ECG No significant changes when compared with the previous EKG of 04 feb 2020 Referred By: Carolina Colmenares Electronically Signed By:JAMA OLGUIN
[2020-05-01 20:56] VITALS: BP 102/62; PULSE 95; RESP 22; O2SAT 96
[2020-05-01 21:01] LABS: MANUAL DIFF FLAG NO
[2020-05-01 21:14] LABS: Basophils Absolute Auto 0.1 X10*3/uL (0.0-0.2); Basophils Percent Auto 1.1 % (0-2); Eosinophils Absolute Auto 0.1 X10*3/uL (0.0-0.4); Eosinophils Percent Auto 1.9 % (0-4); Hematocrit 44.1 % (42-52); Hemoglobin 14.1 g/dl (14.0-18.0); Imm Gran Abs Auto 0.03 X10*3/uL (0.00-0.03); Imm Gran Pct Auto 0.6 % (0.0-0.4); Lymphocytes Absolute Auto 1.6 X10*3/uL (1.2-4.9); Lymphocytes Percent Auto 34.3 % (20-40); Mean Corpuscular Hemoglobin 31.9 pg (27.0-33.0); Mean Corpuscular Volume 99.8 fL (80-98); Mean Platelet Volume 11.2 fL (9.4-12.4); Monocytes Absolute Auto 0.5 X10*3/uL (0.1-1.2); Monocytes Percent Auto 9.7 % (2-11); Neutrophils Absolute Auto 2.4 X10*3/uL (2.0-8.3); Neutrophils Percent Auto 52.4 % (45-73); Platelet Count 159 X10*3/uL (160-400); Red Blood Count 4.42 X10*6/uL (4.60-5.80); Red Cell Distribution Width 15.4 % (11.0-16.0); White Blood Count 4.7 X10*3/uL (4.8-10.8)
[2020-05-01 21:39] LABS: Ethanol 214 mg/dL
[2020-05-01 21:45] LABS: Anion Gap 13 (12-20); Blood Urea Nitrogen 9 mg/dL (9-16); Calcium 7.2 mg/dL (8.4-10.2); Carbon Dioxide 24 mmol/L (22-29); Chloride 106 mmol/L (96-108); Creatinine Clr Calc Pharmacy 133.3; Estimated Glomerular Filt Rate > 60; Glucose Random 79 mg/dL (60-115); Potassium 3.6 mmol/l (3.3-5.1); Sodium 139 mmol/L (135-145)
[2020-05-01 21:48] LABS: Troponin-I High Sensitivity < 3.5 ng/L (<3.5-35.0)
[2020-05-01 22:00] VITALS: BP 92/65; PULSE 94; RESP 21; TEMP 36.4; O2SAT 95
== END 2020-05-02 00:20 | disposition home or self-care (01) ==
PROVIDERS: Nurse Practitioner Family; Emergency Provider Internal Medicine
DX: S06.0X0A Concussion without loss of consciousness, initial encounter (principal); F10.129 Alcohol abuse with intoxication, unspecified; M54.2 Cervicalgia; W01.0XXA Fall on same level from slipping, tripping and stumbling without subsequent striking against object, initial encounter; Y93.9 Activity, unspecified; Y92.9 Unspecified place or not applicable; Y99.9 Unspecified external cause status; Y90.7 Blood alcohol level of 200-239 mg/100 ml; F17.210 Nicotine dependence, cigarettes, uncomplicated; Z71.6 Tobacco abuse counseling; Z86.19 Personal history of other infectious and parasitic diseases
CPT/HCPCS: 36415; 70450; 71045; 72125; 80048; 80320; 84484; 85025; 93005; 99284

== ENCOUNTER 2020-05-18 21:54 | Emergency (ER) | payer MEDICARE, MEDICAID, SELFPAY ==
[2020-05-18 22:19] VITALS: BP 117/78; PULSE 95; RESP 20; TEMP 37.2; O2SAT 96; BMI 34.8
--- NOTE | 2020-05-18 22:23 | CT_ITS ---
EXAMINATION: NONCONTRAST HEAD CT NONCONTRAST CERVICAL SPINE CT INDICATION INFORMATION: Fall COMPARISON: 05/01/2020 TECHNIQUE: Separate noncontrast CT examinations of the head and cervical spine were performed. Coronal and sagittal images were created for each examination at the technologist workstation. This CT examination was performed using dose optimization techniques as appropriate, variously including the following: *Automated exposure control *Adjustment of mA and/or kV according to patient size (this includes techniques or standardized protocols for targeted exams where dose is matched to indication/reason for exam; i.e. extremities or head) *Use of iterative reconstruction technique DLP: 1340 mGy-cm FINDINGS: Head: There is no evidence of acute intracranial hemorrhage or territorial infarction. No abnormal mass effect or midline shift is seen. Chronic right parietal lobe infarct. [place] to white matter differentiation is otherwise well preserved. No extra-axial fluid collections are identified. No hydrocephalus. Proportional prominence of the ventricles and sulcal spaces is consistent with mild volume loss. Patchy periventricular and deep white matter hypoattenuation is consistent with mild small vessel ischemic changes. No acute osseous or soft tissue abnormality. The mastoid air cells and visualized portions of the paranasal sinuses are well aerated. Cervical spine: There is anatomic alignment of the vertebral bodies and posterior elements. The atlantoaxial and atlantooccipital articulations are intact. Vertebral body heights are maintained. There is multilevel intervertebral disc space narrowing with endplate osteophyte formation and facet arthropathy. Partial fusion of the C2-C3 levels. No evidence of acute fracture. No prevertebral soft tissue swelling. Visualized portions of the lung apices are unremarkable. The thyroid gland is unremarkable. CT/CT cervical spine wo con IMPRESSION: 1. No acute intracranial finding. 2. No acute fracture or malalignment of the cervical spine. Mild degenerative changes.
--- NOTE | 2020-05-18 23:41 | CT_ITS ---
EXAMINATION: CT CHEST WITHOUT CONTRAST CLINICAL INFORMATION: Fall with left-sided rib pain. Question rib fracture. COMPARISON: Radiograph 05/01/2020. CT 02/04/2020. TECHNIQUE: Multidetector volumetric CT imaging of the chest was done. Axial MIP volume rendering provided. Sagittal and coronal reformatted images were obtained. This CT examination was performed using dose optimization techniques as appropriate, variously including the following: *Automated exposure control *Adjustment of mA and/or kV according to patient size (this includes techniques or standardized protocols for targeted exams where dose is matched to indication/reason for exam; i.e. extremities or head) *Use of iterative reconstruction technique DLP: 745 mGy-cm FINDINGS: LUNGS: The central airways are patent. Peripheral groundglass opacity noted in the right lower lobe. Minimal bibasilar atelectasis. No dense consolidation. No pneumothorax. Right upper lobe calcified granuloma again noted. No suspicious pulmonary nodules. MEDIASTINUM: Normal heart size. Coronary artery calcifications present. No pericardial effusion. No mediastinal lymphadenopathy. Visualized portion of the thyroid gland is unremarkable. PLEURA: There is no pleural effusion. No pleural mass or thickening. AXILLA: No lymphadenopathy. UPPER ABDOMEN: Low-attenuation of the liver suggesting hepatic steatosis. Hyperattenuating lesion at the upper pole of the left kidney is unchanged. OSSEOUS STRUCTURES: There are nondisplaced fractures of the left anterior/lateral ninth and 10th ribs. Nondisplaced posterior left 11th rib fracture near the midline. Possible anterolateral left eighth rib fracture. Degenerative changes of the shoulders. Multilevel degenerative changes of the spine. CT/CT chest wo con IMPRESSION: 1. Nondisplaced fractures of the left anterolateral ninth and 10th ribs, with possible eighth rib fracture as well. Nondisplaced fracture of the left posterior 11th rib. 2. Peripheral groundglass opacity of the right lower lobe is new from the previous CT. This could be infectious or inflammatory. 3. Hepatic steatosis.
[2020-05-19 00:38] LABS: MANUAL DIFF FLAG NO
[2020-05-19 00:45] LABS: Basophils Absolute Auto 0.1 X10*3/uL (0.0-0.2); Basophils Percent Auto 0.9 % (0-2); Eosinophils Percent Auto 0.6 % (0-4); Hematocrit 40.7 % (42-52); Hemoglobin 13.8 g/dl (14.0-18.0); Imm Gran Abs Auto 0.02 X10*3/uL (0.00-0.03); Imm Gran Pct Auto 0.4 % (0.0-0.4); Lymphocytes Absolute Auto 2.2 X10*3/uL (1.2-4.9); Lymphocytes Percent Auto 39.9 % (20-40); Mean Corpuscular HGB Conc 33.9 g/dl (31.0-36.0); Mean Corpuscular Hemoglobin 32.9 pg (27.0-33.0); Mean Corpuscular Volume 96.9 fL (80-98); Mean Platelet Volume 10.5 fL (9.4-12.4); Monocytes Absolute Auto 0.4 X10*3/uL (0.1-1.2); Monocytes Percent Auto 6.5 % (2-11); Neutrophils Absolute Auto 2.8 X10*3/uL (2.0-8.3); Neutrophils Percent Auto 51.7 % (45-73); Platelet Count 180 X10*3/uL (160-400); Red Cell Distribution Width 15.5 % (11.0-16.0); White Blood Count 5.4 X10*3/uL (4.8-10.8)
[2020-05-19 00:47] LABS: INTERNATIONAL NORM RATIO 1.7 (0.9-1.1); Prothrombin Time 19.8 SEC (10.8-13.0)
[2020-05-19 00:49] LABS: Partial Thromboplastin Time 41.2 SEC (24.1-38.0)
[2020-05-19 01:01] LABS: Ethanol 299 mg/dL
[2020-05-19 01:05] LABS: Alanine Aminotransferase 50 U/L (0-40); Albumin Level 2.4 g/dL (3.5-5.0); Alkaline Phosphatase 154 U/L (39-117); Anion Gap 16 (12-20); Aspartate Amino Transferase 97 U/L (5-37); Bilirubin Total 0.9 mg/dL (0.0-1.0); Blood Urea Nitrogen 7 mg/dL (9-16); Calcium 6.9 mg/dL (8.4-10.2); Carbon Dioxide 25 mmol/L (22-29); Chloride 104 mmol/L (96-108); Creatinine Clr Calc Pharmacy 160.2; Estimated Glomerular Filt Rate > 60; Glucose Random 89 mg/dL (60-115); Potassium 3.5 mmol/l (3.3-5.1); Sodium 141 mmol/L (135-145); Total Protein 5.3 g/dL (6.5-8.0)
--- NOTE | 2020-05-19 01:07 | ED_ITS ---
HPI - Fall General Chief Complaint: Fall Stated Complaint: fell off bed etoh Time Seen by Provider: 05/18/20 23:41 Source: patient Mode of arrival: ambulatory Limitations: no limitations History of Present Illness HPI Narrative: Patient presents to ED for fall. Patient was sleeping on the bed after drinking 20 nips of alcohol while taking his elquis and rolled off the bed and fell onto his left side of head and left chest. Patient presently is intoxicated the points to left side of chest where he is having pain. Related Data Home Medications Medication Instructions Recorded Confirmed Spiriva Respimat 2 puff INHALATION DAILY 03/02/20 03/02/20 amlodipine 1 tab PO DAILY 03/02/20 03/02/20 atorvastatin 1 tab PO DAILY 03/02/20 03/02/20 cholecalciferol (vitamin D3) 1 cap PO DAILY 03/02/20 03/02/20 [Vitamin D3] diclofenac sodium 4 g TOPICAL QID 03/02/20 03/02/20 folic acid 1 tab PO DAILY 03/02/20 03/02/20 gabapentin 300 mg PO BEDTIME 03/02/20 03/02/20 hydroxyzine HCl 1 tab PO BID PRN 03/02/20 03/02/20 omeprazole 1 cap PO BID 03/02/20 03/02/20 quetiapine 1 tab PO BEDTIME 03/02/20 03/02/20 ursodiol 2 cap PO DAILY 03/02/20 03/02/20 Previous Rx's Medication Instructions Recorded magnesium oxide 800 mg PO BIDPC #120 tab 03/06/20 Allergies Allergy/AdvReac Type Severity Reaction Status Date / Time No Known Allergies Allergy Verified 03/02/20 15:43 [No Known Allergies*] Review of Systems Review of Systems: Yes Unobtainable due to mental status (Patient is intoxicated) PMFSH Past Medical History Medical History Alcohol withdrawal COPD (chronic obstructive pulmonary disease) COVID-19 COVID-19 determined by clinical diagnostic criteria Depression Diabetes ETOH abuse Seizure Social History Social History Household Members: Significant Other Housing: Apartment Alcohol intake: current Alcohol intake frequency: 3 or more drinks per day Alcohol type: hard liquor Smoking Status: Never smoker Tobacco Type: Cigarette Second Hand Smoke Exposure: Yes Use of substances other than those prescribed or required for medical reasons: No Advance Directives: No Advance Directives Information Provided: No service: No Current occupational status: unemployed Physical Exam Vital Signs: Vital Signs: Last Vital Signs Temp 99.0 F 05/18/20 22:19 Pulse 84 05/19/20 02:00 Resp 18 05/19/20 02:00 BP 97/63 05/19/20 02:00 Pulse Ox 95 05/19/20 02:00 Body Mass Index 34.8 Const: Other: Intoxicated. Alcohol on breath HENMT: Head: Yes abrasion (Positive for frontal abrasions) Eyes: General: appearance normal, both eyes and all related structures Neck: Neck: Yes normal visual inspection, Yes full ROM, Yes no lymphadenopathy, Yes no meningeal signs, Yes trachea midline and No tender Chest: Chest palpation & inspection: normal inspection of the chest and abnormal palpation of chest wall (Positive for left rib tenderness on palpation) Resp: Effort & Inspection: normal respiratory effort and able to speak in complete sentences Auscultation: clear to auscultation bilaterally Cardio: Jugular venous distension: no JVD Heart sounds: S1 normal heart sound present and S2 normal heart sound present GI: Inspection: Yes normal to inspection and No abdominal wall ecchymosis Palpation (GI): Soft to palpation, not firm, nontender, no guarding and not rigid : General: No CVA tenderness and Yes no CVA tenderness Back/Spine/Pelvis: Back: no CVA tenderness, No CVA tenderness and No back tenderness Skin: General skin exam: no rashes or lesions noted and elasticity normal Neuro: General: no meningeal signs Extrem: General: Yes normal to inspection and Yes full ROM Psych: Appearance: grossly normal, well kempt and not disheveled Course Course Course Narrative: Patient will have basic labs and imaging of head and chest to rule out any brain bleed, neck fracture, or rib fractures. Reevaluation(s) Reevaluation #1: Head CT C-spine came back normal. Chest CT came back positive for ribs 8-11 nondisplaced fracture. Waiting for BUN creatinine to send patient for CT scan to rule out any abdominal organ bleeding. Time: 01:11 Reevaluation #2: CT SCAN ORDERED WAITING FOR RESULTS. Time: 02:10 Reevaluation #3: CT scan of abdomen negative for any organ damage or bleeding. Called [facility] transferred to speak to Trauma doctor, but could not be found. So I was transferred to the ED doctor of [facility] and she said they will call me back after trying to contact with the trauma surgeon. Time: 03:30 Additional Reevaluation(s): Case excepted by Dr. Pat Gutierrez of [facility] ED for transfer. Patient will be transfered by BLS ambulance to [facility] MDM - Fall MDM Narrative Medical decision making narrative: Multiple rib fractures Lab Data Result diagrams: 05/19/20 00:27 05/19/20 00:27 Labs: Lab Results 05/19/20 05/19/20 05/19/20 Range/Units 00:27 00:27 00:27 WBC 5.4 (4.8-10.8) X10*3/uL RBC 4.20 L (4.60-5.80) X10*6/uL Hgb 13.8 L (14.0-18.0) g/dl Hct 40.7 L (42-52) % MCV 96.9 (80-98) fL MCH 32.9 (27.0-33.0) pg MCHC 33.9 (31.0-36.0) g/dl RDW 15.5 (11.0-16.0) % Plt Count 180 (160-400) X10*3/uL MPV 10.5 (9.4-12.4) fL Immature Gran % (Auto) 0.4 (0.0-0.4) % Neut % (Auto) 51.7 (45-73) % Lymph % (Auto) 39.9 (20-40) % [place] % (Auto) 6.5 (2-11) % Eos % (Auto) 0.6 (0-4) % Baso % (Auto) 0.9 (0-2) % Lymph # (Auto) 2.2 (1.2-4.9) X10*3/uL [place] # (Auto) 0.4 (0.1-1.2) X10*3/uL Eos # (Auto) 0.0 (0.0-0.4) X10*3/uL Baso # (Auto) 0.1 (0.0-0.2) X10*3/uL Abs Immat Gran (auto) 0.02 (0.00-0.03) X10*3/uL Absolute Neuts (auto) 2.8 (2.0-8.3) X10*3/uL Absolute Nucleated RBC 0.000 (0.0-0.012) X10*3/uL Nucleated RBC % (auto) 0.0 (0.0-0.2) /100WBC PT 19.8 H (10.8-13.0) SEC INR 1.7 H (0.9-1.1) APTT 41.2 H (24.1-38.0) SEC Sodium 141 (135-145) mmol/L Potassium 3.5 (3.3-5.1) mmol/l Chloride 104 (96-108) mmol/L Carbon Dioxide 25 (22-29) mmol/L Anion Gap 16 (12-20) BUN 7 L (9-16) mg/dL Creatinine 0.62 (0.5-1.4) mg/dL Estim Creat Clear Calc 160.2 Estimated GFR > 60 Random Glucose 89 (60-115) mg/dL Calcium 6.9 L (8.4-10.2) mg/dL Total Bilirubin 0.9 (0.0-1.0) mg/dL AST 97 H (5-37) U/L ALT 50 H (0-40) U/L Alkaline Phosphatase 154 H (39-117) U/L Total Protein 5.3 L (6.5-8.0) g/dL Albumin 2.4 L (3.5-5.0) g/dL Ethyl Alcohol mg/dL 05/19/20 Range/Units 00:27 WBC (4.8-10.8) X10*3/uL RBC (4.60-5.80) X10*6/uL Hgb (14.0-18.0) g/dl Hct (42-52) % MCV (80-98) fL MCH (27.0-33.0) pg MCHC (31.0-36.0) g/dl RDW (11.0-16.0) % Plt Count (160-400) X10*3/uL MPV (9.4-12.4) fL Immature Gran % (Auto) (0.0-0.4) % Neut % (Auto) (45-73) % Lymph % (Auto) (20-40) % [place] % (Auto) (2-11) % Eos % (Auto) (0-4) % Baso % (Auto) (0-2) % Lymph # (Auto) (1.2-4.9) X10*3/uL [place] # (Auto) (0.1-1.2) X10*3/uL Eos # (Auto) (0.0-0.4) X10*3/uL Baso # (Auto) (0.0-0.2) X10*3/uL Abs Immat Gran (auto) (0.00-0.03) X10*3/uL Absolute Neuts (auto) (2.0-8.3) X10*3/uL Absolute Nucleated RBC (0.0-0.012) X10*3/uL Nucleated RBC % (auto) (0.0-0.2) /100WBC PT (10.8-13.0) SEC INR (0.9-1.1) APTT (24.1-38.0) SEC Sodium (135-145) mmol/L Potassium (3.3-5.1) mmol/l Chloride (96-108) mmol/L Carbon Dioxide (22-29) mmol/L Anion Gap (12-20) BUN (9-16) mg/dL Creatinine (0.5-1.4) mg/dL Estim Creat Clear Calc Estimated GFR Random Glucose (60-115) mg/dL Calcium (8.4-10.2) mg/dL Total Bilirubin (0.0-1.0) mg/dL AST (5-37) U/L ALT (0-40) U/L Alkaline Phosphatase (39-117) U/L Total Protein (6.5-8.0) g/dL Albumin (3.5-5.0) g/dL Ethyl Alcohol 299 mg/dL Discharge Plan Discharge Clinical Impression: Multiple fractures of ribs Patient Disposition: [facility] Prescriptions: No Action atorvastatin 40 mg tablet 1 tab PO DAILY RF: 0 hydroxyzine HCl 50 mg tablet 1 tab PO BID PRN (Reason: anxiety) RF: 0 amlodipine 5 mg tablet 1 tab PO DAILY RF: 0 ursodiol 300 mg capsule 2 cap PO DAILY RF: 0 gabapentin 300 mg capsule 300 mg PO BEDTIME RF: 0 omeprazole 20 mg capsule,delayed release(DR/EC) 1 cap PO BID RF: 0 folic acid 1 mg tablet 1 tab PO DAILY RF: 0 cholecalciferol (vitamin D3) [Vitamin D3] 25 mcg (1,000 unit) capsule 1 cap PO DAILY RF: 0 quetiapine 50 mg tablet 1 tab PO BEDTIME RF: 0 diclofenac sodium 1 % gel 4 g topical QID RF: 0 Spiriva Respimat 2.5 mcg/actuation mist 2 puff inhalation DAILY RF: 0 magnesium oxide 400 mg (241.3 mg magnesium) Tablet 800 mg PO BIDPC Qty: 120 RF: 0
--- NOTE | 2020-05-19 01:11 | CT_ITS ---
Patient name: Deshaun Ma Date of : 1960 EXAMINATION: CT ABDOMEN AND PELVIS WITH CONTRAST CLINICAL INFORMATION: Multiple left rib fractures. Question abdominal organ bleeding. COMPARISON: Chest CT from 05/18/2020. Abdominal CT 02/04/2020. TECHNIQUE: Multidetector volumetric images were obtained from the superior aspect of the liver through the pubic symphysis following administration 85 mL of Omnipaque 350 intravenous contrast. Sagittal and coronal reformatted images were obtained on the technologist's workstation. Oral contrast: No This CT examination was performed using dose optimization techniques as appropriate, variously including the following: *Automated exposure control *Adjustment of mA and/or kV according to patient size (this includes techniques or standardized protocols for targeted exams where dose is matched to indication/reason for exam; i.e. extremities or head) *Use of iterative reconstruction technique DLP: 1159 mGy-cm FINDINGS: LUNG BASES: Minimal left basilar atelectasis. Coronary artery calcification. LIVER, GALLBLADDER, AND BILIARY TREE: The liver is enlarged measuring 25 cm CC dimension. There is diffuse low attenuation, suggesting hepatic steatosis. Normal contour of the liver. No focal hepatic lesion or biliary ductal dilatation is present. The gallbladder is unremarkable with no evidence of radiopaque gallstones, gallbladder wall thickening, or obvious pericholecystic inflammatory changes. PANCREAS: Mild atrophy with no focal abnormality. SPLEEN: Unremarkable. ADRENAL GLANDS: Unremarkable. KIDNEYS AND URETERS: The kidneys are normal in size, shape, and attenuation. No hydronephrosis, hydroureter, or calculi seen. No perinephric stranding. There is an exophytic left upper pole 2.5 cm high attenuation lesion. This is similar to the 02/04/2020 study. Additional scattered cysts are noted. BLADDER: Unremarkable. GASTROINTESTINAL TRACT: Status post gastric sleeve. Small bowel normal in caliber. No obstruction. Colonic diverticulosis without diverticulitis. No wall thickening or inflammation. No free air or free fluid. ABDOMINAL WALL: No significant hernia is appreciated. LYMPH NODES: Normal. VASCULAR: Normal caliber aorta with moderate atherosclerotic calcification. PELVIC VISCERA: The prostate and seminal vesicles are unremarkable. OSSEOUS STRUCTURES: Degenerative changes throughout the spine. Fractures of the anterior left eighth, ninth, and 10th ribs are again noted. Posterior left 11th rib fracture again noted. No additional fractures are seen. Degenerative changes of the hips. CT/CT abdomen pelvis w con IMPRESSION: Left-sided rib fractures are again noted. No acute traumatic finding within the abdomen or pelvis. Pattern megaly with hepatic steatosis. High attenuation lesion at the upper pole the left kidney again noted. If not already performed, suggest nonemergent evaluation with renal protocol CT/MRI or ultrasound.
[2020-05-19 02:00] VITALS: BP 97/63; PULSE 84; RESP 18; O2SAT 95
--- NOTE | 2020-05-19 02:25 | PC.NURSE ---
20g left ac flushs tight, pt jazz well then taken to ct.
[2020-05-19] MEDS: iohexoL 350 MG/ML 100 ML INFUS..BTL 85 ML IV (02:43)
--- NOTE | 2020-05-19 02:49 | PC.NURSE ---
PT BACK FROM CT.
--- NOTE | 2020-05-19 04:19 | PC.NURSE ---
nurse to nurse report given to Jamie romero at [facility] emergency room.
[2020-05-19 04:22] LABS: COVID-19 Test Negative (Negative)
== END 2020-05-19 05:13 | disposition short-term general hospital (02) ==
PROVIDERS: Physician Assistant; Emergency Provider Student in an Organized Health Care Education/Training Program
DX: S22.49XA Multiple fractures of ribs, unspecified side, initial encounter for closed fracture (principal); M54.2 Cervicalgia; R07.81 Pleurodynia; M54.6 Pain in thoracic spine; G44.309 Post-traumatic headache, unspecified, not intractable; W06.XXXA Fall from bed, initial encounter; Y92.003 Bedroom of unspecified non-institutional (private) residence as the place of occurrence of the external cause; F17.210 Nicotine dependence, cigarettes, uncomplicated; F10.129 Alcohol abuse with intoxication, unspecified; Z71.6 Tobacco abuse counseling; Z79.899 Other long term (current) drug therapy; Y90.8 Blood alcohol level of 240 mg/100 ml or more; Z86.19 Personal history of other infectious and parasitic diseases; Z20.828 Contact with and (suspected) exposure to other viral communicable diseases
CPT/HCPCS: 36415; 70450; 71250; 72125; 74177; 80053; 80320; 85025; 85610; 85730; 87635; 99285; Q9967

== ENCOUNTER 2020-06-04 12:42 | Inpatient (IN) | payer MEDICARE, MEDICAID, SELFPAY ==
[2020-06-04 12:55] VITALS: BP 115/73; BP 116/76; PULSE 75; PULSE 86; RESP 16; TEMP 37.2; O2SAT 98; BMI 33.5
--- NOTE | 2020-06-04 13:02 | ECG_ITS ---
Test Reason : CHECK CARDIAC STATUS Blood Pressure : / mmHG Vent. Rate : 075 BPM Atrial Rate : 075 BPM P-R Int : 146 ms QRS Dur : 078 ms QT Int : 528 ms P-R-T Axes : 030 009 055 degrees QTc Int : 589 ms Normal sinus rhythm Prolonged QT Abnormal ECG When compared with ECG of 01-MAY-2020 21:15, Nonspecific T wave abnormality no longer evident in Inferior leads Nonspecific T wave abnormality now evident in Anterior leads QT has lengthened Referred By: Enedelia Parnell Electronically Signed By:OLIVE COOPER MD
--- NOTE | 2020-06-04 13:02 | XR_ITS ---
EXAMINATION: XR CHEST CLINICAL INFORMATION: Shortness of breath COMPARISON: May 01, 2020 TECHNIQUE: AP portable view of the chest was obtained. FINDINGS: There is discoid disease seen about the mid right lung likely related to atelectasis. No pneumothorax or pleural effusion. Heart normal size. No evidence of pulmonary edema. There is degenerative spurring within the thoracic spine. Recently noted rib fractures are not seen on this study. XR/XR chest 1V IMPRESSION: No significant acute parenchymal disease.
--- NOTE | 2020-06-04 13:24 | ED_ITS ---
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 He also reports dark black diarrhea for the last 1 week. He reports today he developed black, dark vomiting with blood specks so his girlfriend called 911. He is a very heavy alcohol drinker and reports drinking 10 nips this morning which is much less than normal. He reports he has been unable to tolerate solid food for the last 3 weeks due to nausea and vomiting. He states he has diffuse abdominal pain, mostly in the middle. He also reports increased LE swelling, abdominal distention that is causing SOB. He reports subjective fevers at night the last week or so. He is a vague historian. MD elicited complaint: nausea, vomiting and abdominal pain Pertinent past history: alcohol abuse Onset (ago): week(s) (3) Description of vomiting: blood-streaked, coffee grounds and foul-smelling Associated nausea: Yes Associated abdominal pain: Yes Location of pain: diffuse and periumbilical Radiation: diffuse Pain consistency: intermittent Severity: moderate Quality: dull Exacerbating factors: eating Relieving factors: vomiting Context: alcohol abuse Associated symptoms: loss of appetite, shortness of breath and bloating Related Data Home Medications Medication Instructions Recorded Confirmed Spiriva Respimat 2 puff INHALATION DAILY 03/02/20 03/02/20 amlodipine 1 tab PO DAILY 03/02/20 03/02/20 atorvastatin 1 tab PO DAILY 03/02/20 03/02/20 cholecalciferol (vitamin D3) 1 cap PO DAILY 03/02/20 03/02/20 [Vitamin D3] diclofenac sodium 4 g TOPICAL QID 03/02/20 03/02/20 folic acid 1 tab PO DAILY 03/02/20 03/02/20 gabapentin 300 mg PO BEDTIME 03/02/20 03/02/20 hydroxyzine HCl 1 tab PO BID PRN 03/02/20 03/02/20 omeprazole 1 cap PO BID 03/02/20 03/02/20 quetiapine 1 tab PO BEDTIME 03/02/20 03/02/20 ursodiol 2 cap PO DAILY 03/02/20 03/02/20 Previous Rx's Medication Instructions Recorded magnesium oxide 800 mg PO BIDPC #120 tab 03/06/20 Allergies Allergy/AdvReac Type Severity Reaction Status Date / Time No Known Allergies Allergy Verified 03/02/20 15:43 [No Known Allergies*] Review of Systems Review of Systems: Constitutional: + Fever, No Chills ENT/Mouth: No sore throat, No Rhinorrhea, No Swallowing Difficulty Cardiovascular: No Chest Pain, + SOB, No Orthopnea, + Edema Respiratory: No Cough, No Sputum, No Wheezing, + dyspnea Gastrointestinal: + Nausea, + Vomiting, + Diarrhea, + abdominal Pain, No Hematochezia, + Melena, +hematemesis Genitourinary: No Dysuria, No Urinary Frequency, No Hematuria Musculoskeletal: No joint pain, No Myalgias Skin: No Skin Lesions, No rash Neuro: + Weakness, No Numbness, No Dizziness,+ Headache Psych: No Anxiety/Panic, No Depression Heme/Lymph: No Bruising, No Lymphadenopathy Endocrine: No Polyuria, No Polydipsia Gastrointestinal: Gastrointestinal: Reports nausea PMFSH Past Medical History Medical History Alcohol withdrawal COPD (chronic obstructive pulmonary disease) COVID-19 COVID-19 determined by clinical diagnostic criteria Depression Diabetes ETOH abuse Seizure Social History Social History Household Members: Significant Other Housing: Apartment Alcohol intake: current Alcohol intake frequency: 3 or more drinks per day Alcohol type: hard liquor Smoking Status: Never smoker Tobacco Type: Cigarette Second Hand Smoke Exposure: Yes Use of substances other than those prescribed or required for medical reasons: No Advance Directives: No Advance Directives Information Provided: No service: No Current occupational status: unemployed Physical Exam Vital Signs: Vital Signs: Last Vital Signs Temp 98.2 F 06/04/20 17:03 Pulse 99 06/04/20 17:03 Resp 20 06/04/20 17:03 BP 114/54 L 06/04/20 17:03 Pulse Ox 99 06/04/20 17:03 Body Mass Index 33.5 Appearance: Alert. Oriented X3. Intoxicated. Eyes: Pupils equal, round and reactive to light. ENT: Pharynx normal. Neck: Normal inspection. Neck supple. CVS: Normal heart rate and rhythm. Pulses normal. Respiratory: No respiratory distress. Breath sounds normal. Abdomen: distended with mild diffuse tenderness mostly periumbilical, mild RUQ tenderness with no rebound or guarding. and +BS x4 Skin: Skin warm and dry. Normal skin color. Normal skin turgor. No rashes. Extremities: 2+ pitting LE edema with mild weeping bilaterally, Neuro: Oriented X 3. No motor deficit. No sensory deficit. Course Course Course Narrative: 59 y/o male with history of alcoholism, DVT/PE on Eliquis, multiple calls who presents with alcohol intoxication and hematemesis. Hemodyncamically stable with no tachycardia. No vomiting here. Will get STAT labs and give IV protonix and zofran now. No hx cirrhosis, no BRB in vomitus per patient, low suspicion for esophageal varices. Will monitor closely. Anticipate admission. Reevaluation(s) Reevaluation #1: Lactic acid elevated 7.9 - most likely due to alcoholic ketoacidosis with heavy ETOH and no other PO intake for weeks. Not septic. H/H is 12.7/37 from prior 13.8/40.7 about 2 weeks ago. Platelets ok, 110. No need for blood transfusion at this time. LFT's also elevated, including ALP. Will get abd U/S to assess for biliary obstruction. Last CT scan done 2 weeks ago showed enlarged liver suggesting hepatic steatosis with normal contour, no cirrhosis. No role for prophylactic abx against SBP given he is not cirrhotic. Will give IVF and recheck lactic acid. Reevaluation #2: 4:30pm - US showing mildly thickened gallbladder wall with sludge - can be seen in acute vs chronic cholecystitis. Spoke with Dr. Nicolas from Surgery who is recommending against antibiotics in the setting of no gallstones - common to have thickened GB wall in alcoholics/chronic liver disease. Repeat lactic acid pending. Reevaluation #3: Repeat lactic acid 6.2 after 1L IVF. Continue to suspect alcoholic ketoacidosis given his presentation. He continues to be hemodynamic ally stable. Low suspicion for sepsis. He reports symptoms of ETOH withdrawl - phenobarbital load ordered. Spoke with Dione Montoya [employer]OCI[facility] who will admit. MDM - Nausea/Vomiting/Diarrhea Lab Data Result diagrams: 06/04/20 13:26 06/04/20 13:25 Labs: Lab Results 06/04/20 06/04/20 06/04/20 Range/Units 13:25 13:25 13:25 WBC (4.8-10.8) X10*3/uL RBC (4.60-5.80) X10*6/uL Hgb (14.0-18.0) g/dl Hct (42-52) % MCV (80-98) fL MCH (27.0-33.0) pg MCHC (31.0-36.0) g/dl RDW (11.0-16.0) % Plt Count (160-400) X10*3/uL MPV (9.4-12.4) fL Immature Gran % (Auto) (0.0-0.4) % Neut % (Auto) (45-73) % Lymph % (Auto) (20-40) % [place] % (Auto) (2-11) % Eos % (Auto) (0-4) % Baso % (Auto) (0-2) % Lymph # (Auto) (1.2-4.9) X10*3/uL [place] # (Auto) (0.1-1.2) X10*3/uL Eos # (Auto) (0.0-0.4) X10*3/uL Baso # (Auto) (0.0-0.2) X10*3/uL Abs Immat Gran (auto) (0.00-0.03) X10*3/uL Absolute Neuts (auto) (2.0-8.3) X10*3/uL Absolute Nucleated RBC (0.0-0.012) X10*3/uL Nucleated RBC % (auto) (0.0-0.2) /100WBC PT 24.6 H D (10.8-13.0) SEC INR 2.1 H (0.9-1.1) APTT 41.2 H (24.1-38.0) SEC Sodium 135 (135-145) mmol/L Potassium 3.4 (3.3-5.1) mmol/l Chloride 99 (96-108) mmol/L Carbon Dioxide 21 L (22-29) mmol/L Anion Gap 18 (12-20) BUN 4 L (9-16) mg/dL Creatinine 0.66 (0.5-1.4) mg/dL Estim Creat Clear Calc 147.5 Estimated GFR > 60 Random Glucose 132 H D (60-115) mg/dL Lactic Acid (0.5-2.0) mmol/L Lactic Acid Fup @ 2Hr (0.5-2.0) mmol/L Calcium 7.3 L (8.4-10.2) mg/dL Magnesium 1.5 L (1.6-2.6) mg/dL Total Bilirubin 1.8 H (0.0-1.0) mg/dL Direct Bilirubin 1.1 H (0.0-0.5) mg/dL AST 174 H (5-37) U/L ALT 57 H (0-40) U/L Alkaline Phosphatase 197 H D (39-117) U/L B-Natriuretic Peptide 105 H (<100) pg/mL Total Protein 4.9 L (6.5-8.0) g/dL Albumin 2.2 L (3.5-5.0) g/dL Lipase 6 L (8-78) U/L Ethyl Alcohol mg/dL Coronavirus (PCR) (Negative) Influenza Type A (PCR) (Negative) Influenza Type B (PCR) (Negative) RSV RNA Qual (PCR) (Negative) 06/04/20 06/04/20 06/04/20 Range/Units 13:25 13:26 13:26 WBC 9.5 (4.8-10.8) X10*3/uL RBC 3.83 L (4.60-5.80) X10*6/uL Hgb 12.7 L (14.0-18.0) g/dl Hct 37.0 L (42-52) % MCV 96.6 (80-98) fL MCH 33.2 H (27.0-33.0) pg MCHC 34.3 (31.0-36.0) g/dl RDW 15.7 (11.0-16.0) % Plt Count 110 L D (160-400) X10*3/uL MPV 11.8 (9.4-12.4) fL Immature Gran % (Auto) 0.4 (0.0-0.4) % Neut % (Auto) 81.5 H (45-73) % Lymph % (Auto) 11.9 L (20-40) % [place] % (Auto) 5.8 (2-11) % Eos % (Auto) 0.0 (0-4) % Baso % (Auto) 0.4 (0-2) % Lymph # (Auto) 1.1 L (1.2-4.9) X10*3/uL [place] # (Auto) 0.6 (0.1-1.2) X10*3/uL Eos # (Auto) 0.0 (0.0-0.4) X10*3/uL Baso # (Auto) 0.0 (0.0-0.2) X10*3/uL Abs Immat Gran (auto) 0.04 H (0.00-0.03) X10*3/uL Absolute Neuts (auto) 7.8 (2.0-8.3) X10*3/uL Absolute Nucleated RBC 0.000 (0.0-0.012) X10*3/uL Nucleated RBC % (auto) 0.0 (0.0-0.2) /100WBC PT (10.8-13.0) SEC INR (0.9-1.1) APTT (24.1-38.0) SEC Sodium Cancelled (135-145) mmol/L Potassium Cancelled (3.3-5.1) mmol/l Chloride Cancelled (96-108) mmol/L Carbon Dioxide Cancelled (22-29) mmol/L Anion Gap Cancelled (12-20) BUN Cancelled (9-16) mg/dL Creatinine Cancelled (0.5-1.4) mg/dL Estim Creat Clear Calc Cancelled Estimated GFR Cancelled Random Glucose Cancelled (60-115) mg/dL Lactic Acid (0.5-2.0) mmol/L Lactic Acid Fup @ 2Hr (0.5-2.0) mmol/L Calcium Cancelled (8.4-10.2) mg/dL Magnesium Cancelled (1.6-2.6) mg/dL Total Bilirubin Cancelled (0.0-1.0) mg/dL Direct Bilirubin Cancelled (0.0-0.5) mg/dL AST Cancelled (5-37) U/L ALT Cancelled (0-40) U/L Alkaline Phosphatase Cancelled (39-117) U/L B-Natriuretic Peptide (<100) pg/mL Total Protein Cancelled (6.5-8.0) g/dL Albumin Cancelled (3.5-5.0) g/dL Lipase (8-78) U/L Ethyl Alcohol 130 mg/dL Coronavirus (PCR) (Negative) Influenza Type A (PCR) (Negative) Influenza Type B (PCR) (Negative) RSV RNA Qual (PCR) (Negative) 06/04/20 06/04/20 06/04/20 Range/Units 13:26 13:26 16:57 WBC (4.8-10.8) X10*3/uL RBC (4.60-5.80) X10*6/uL Hgb (14.0-18.0) g/dl Hct (42-52) % MCV (80-98) fL MCH (27.0-33.0) pg MCHC (31.0-36.0) g/dl RDW (11.0-16.0) % Plt Count (160-400) X10*3/uL MPV (9.4-12.4) fL Immature Gran % (Auto) (0.0-0.4) % Neut % (Auto) (45-73) % Lymph % (Auto) (20-40) % [place] % (Auto) (2-11) % Eos % (Auto) (0-4) % Baso % (Auto) (0-2) % Lymph # (Auto) (1.2-4.9) X10*3/uL [place] # (Auto) (0.1-1.2) X10*3/uL Eos # (Auto) (0.0-0.4) X10*3/uL Baso # (Auto) (0.0-0.2) X10*3/uL Abs Immat Gran (auto) (0.00-0.03) X10*3/uL Absolute Neuts (auto) (2.0-8.3) X10*3/uL Absolute Nucleated RBC (0.0-0.012) X10*3/uL Nucleated RBC % (auto) (0.0-0.2) /100WBC PT (10.8-13.0) SEC INR (0.9-1.1) APTT (24.1-38.0) SEC Sodium (135-145) mmol/L Potassium (3.3-5.1) mmol/l Chloride (96-108) mmol/L Carbon Dioxide (22-29) mmol/L Anion Gap (12-20) BUN (9-16) mg/dL Creatinine (0.5-1.4) mg/dL Estim Creat Clear Calc Estimated GFR Random Glucose (60-115) mg/dL Lactic Acid 7.9 H* (0.5-2.0) mmol/L Lactic Acid Fup @ 2Hr 6.2 H* (0.5-2.0) mmol/L Calcium (8.4-10.2) mg/dL Magnesium (1.6-2.6) mg/dL Total Bilirubin (0.0-1.0) mg/dL Direct Bilirubin (0.0-0.5) mg/dL AST (5-37) U/L ALT (0-40) U/L Alkaline Phosphatase (39-117) U/L B-Natriuretic Peptide (<100) pg/mL Total Protein (6.5-8.0) g/dL Albumin (3.5-5.0) g/dL Lipase (8-78) U/L Ethyl Alcohol mg/dL Coronavirus (PCR) NEGATIVE (Negative) Influenza Type A (PCR) NEGATIVE (Negative) Influenza Type B (PCR) NEGATIVE (Negative) RSV RNA Qual (PCR) NEGATIVE (Negative) Discharge Plan Discharge Clinical Impression: Alcoholic ketoacidosis, Acute GI bleeding Hematemesis Qualifiers: Nausea presence: with nausea Qualified Code(s): K92.0 - Hematemesis Patient Disposition: Admitted As Inpatient
[2020-06-04] MEDS: Pantoprazole Sodium 40 MG/10 ML VIAL IVPUSH (13:37)
[2020-06-04] MEDS: 0.9 % Sodium Chloride 1,000 ML 999 ML IVCONT ×3 (13:37→17:48)
[2020-06-04 13:38] LABS: MANUAL DIFF FLAG NO
[2020-06-04] MEDS: ondansetron HCL 4 MG/2 ML VIAL IVPUSH (13:38)
[2020-06-04 13:44] LABS: Basophils Percent Auto 0.4 % (0-2); Hemoglobin 12.7 g/dl (14.0-18.0); Imm Gran Abs Auto 0.04 X10*3/uL (0.00-0.03); Imm Gran Pct Auto 0.4 % (0.0-0.4); Lymphocytes Absolute Auto 1.1 X10*3/uL (1.2-4.9); Lymphocytes Percent Auto 11.9 % (20-40); Mean Corpuscular HGB Conc 34.3 g/dl (31.0-36.0); Mean Corpuscular Hemoglobin 33.2 pg (27.0-33.0); Mean Corpuscular Volume 96.6 fL (80-98); Mean Platelet Volume 11.8 fL (9.4-12.4); Monocytes Absolute Auto 0.6 X10*3/uL (0.1-1.2); Monocytes Percent Auto 5.8 % (2-11); Neutrophils Absolute Auto 7.8 X10*3/uL (2.0-8.3); Neutrophils Percent Auto 81.5 % (45-73); Platelet Count 110 X10*3/uL (160-400); Red Blood Count 3.83 X10*6/uL (4.60-5.80); Red Cell Distribution Width 15.7 % (11.0-16.0); White Blood Count 9.5 X10*3/uL (4.8-10.8)
[2020-06-04 13:47] LABS: INTERNATIONAL NORM RATIO 2.1 (0.9-1.1); Prothrombin Time 24.6 SEC (10.8-13.0)
[2020-06-04 13:49] LABS: Partial Thromboplastin Time 41.2 SEC (24.1-38.0)
[2020-06-04 14:14] LABS: Ethanol 130 mg/dL
[2020-06-04 14:15] LABS: Lactic Acid 7.9 mmol/L (0.5-2.0)
[2020-06-04 14:18] LABS: Influenza A PCR NEGATIVE (Negative); Influenza B PCR NEGATIVE (Negative); Resp Syncy Virus RNA Qual PCR NEGATIVE (Negative); SARS COV2 PCR INHOUSE NEGATIVE (Negative)
[2020-06-04 14:22] LABS: B Type Natriuretic Peptide 105 pg/mL (<100)
[2020-06-04 14:27] LABS: Alanine Aminotransferase 57 U/L (0-40); Albumin Level 2.2 g/dL (3.5-5.0); Alkaline Phosphatase 197 U/L (39-117); Anion Gap 18 (12-20); Aspartate Amino Transferase 174 U/L (5-37); Bilirubin Direct 1.1 mg/dL (0.0-0.5); Bilirubin Total 1.8 mg/dL (0.0-1.0); Blood Urea Nitrogen 4 mg/dL (9-16); Calcium 7.3 mg/dL (8.4-10.2); Carbon Dioxide 21 mmol/L (22-29); Chloride 99 mmol/L (96-108); Creatinine Clr Calc Pharmacy 147.5; Estimated Glomerular Filt Rate > 60; Glucose Random 132 mg/dL (60-115); Lipase 6 U/L (8-78); Magnesium 1.5 mg/dL (1.6-2.6); Potassium 3.4 mmol/l (3.3-5.1); Sodium 135 mmol/L (135-145); Total Protein 4.9 g/dL (6.5-8.0)
--- NOTE | 2020-06-04 14:32 | US_ITS ---
EXAMINATION: US ABDOMEN LIMITED CLINICAL INFORMATION: Elevated liver function tests. Nausea and vomiting with bloating. Question ascites.. COMPARISON: CT scan of May 19, 2020 TECHNIQUE: Real-time imaging of the right upper quadrant abdominal viscera. FINDINGS: PANCREAS: Portions of the head and tail are obscured by overlying bowel gas. Body appears unremarkable. LIVER: There is diffusely increased echogenicity throughout the liver consistent with fatty infiltration. No focal mass or intrahepatic bile duct dilatation is seen. There is hepatomegaly noted with vertical span of 21 cm. GALLBLADDER: There is echogenic bile present. Gallbladder wall is mildly thickened at 4 mm diameter without fluid within the wall or pericholecystic fluid. There is tenderness to palpation seen overlying the gallbladder with ultrasound probe compression. COMMON BILE DUCT: The common bile duct was not identified. RIGHT KIDNEY: Normal. No hydronephrosis. No renal calculi or focal parenchymal lesions. The kidney measures 13.2 cm in maximum dimension. FREE FLUID: None. US/US abdomen limited IMPRESSION: Diffuse fatty infiltration of the liver with hepatomegaly. Sludge within the gallbladder with mildly thickened wall and no fluid in the wall or pericholecystic fluid. There is tenderness to palpation. This can be seen in early acute or chronic cholecystitis.
[2020-06-04 14:33] VITALS: BP 106/58; PULSE 88; RESP 18; O2SAT 98
[2020-06-04 15:33] LABS: Reflex Lactate? Lactic Acid Added
[2020-06-04] MEDS: Magnesium Sulfate/H2O 2 GM/50 ML PIGGYBACK IV (16:28)
--- NOTE | 2020-06-04 16:28 | PC.NURSE ---
Pt difficult stick- several attempts for labs. awaiting phlebotomy
[2020-06-04 17:03] VITALS: BP 114/54; PULSE 99; RESP 20; TEMP 36.8; O2SAT 99
[2020-06-04 17:29] LABS: ~Lactic Acid-LAB USE ONLY 6.2 mmol/L (0.5-2.0)
[2020-06-04] MEDS: PHENobarbitaL sodium 130 MG/ML VIAL 241 MG IM (17:31)
[2020-06-04 19:03] LABS: Reflex Lactate? 2 Y
--- NOTE | 2020-06-04 20:28 | PM.IMHP ---
History of Present Illness Date of Service: 06/04/20 <Dione Montoya NP - Last Filed: 06/04/20 21:06> Chief Complaint: Vomiting <Dione Montoya NP - Last Filed: 06/04/20 21:06> 59 year old man presenting with Will episodes of vomiting, abdominal pain and diarrhea. He reports that he drinks quite heavily daily including 10-16 nips. He reports that he has had vomiting for approximately 2 weeks and 1 week ago he developed coffee-ground emesis and black stools. He was diagnosed with PE and DVT and started on Eliquis at the end of 04/10 He reports very poor appetite and poor intake. Reported lower extremity edema recently with increased shortness of breath. He denied fever, chills. Abdominal ultrasound was negative for acute abnormality. He was started on phenobarbital in the ED. <Dione Montoya NP - Last Filed: 06/04/20 21:06> Review of Systems Review of Systems: Denies any recent fever chills or decrease in appetite SEE HPI cardiovascular is adjustment of any PND, Reported edema SEE HPI genitourinary denies any dysuria frequency or hematuria musculoskeletal denies any joint pain or swelling neuropsych denies any weakness or seizures all other systems reviewed are negative <Dione Montoya NP - Last Filed: 06/04/20 21:06> [facility] Medical History: Medical History (Updated 07/15/20 @ 00:01 by Hannah Salmon) Alcoholism Cardiomyopathy COPD (chronic obstructive pulmonary disease) COVID-19 Depression Diabetes Seizure <Dione Montoya NP - Last Filed: 06/04/20 21:06> Surgical History: Surgical History History of gastric bypass History of sleeve gastrectomy <Dione Montoya NP - Last Filed: 06/04/20 21:06> Social History: Social History (Updated 07/10/20 @ 16:06 by Dione Montoya NP) Household Members: Spouse Housing: Apartment Alcohol intake: former Smoking Status: Never smoker Tobacco Type: Cigarette Second Hand Smoke Exposure: Yes service: No Current occupational status: unemployed <Dione Montoya NP - Last Filed: 06/04/20 21:06> Meds Allergies/Adverse reactions: Allergies Allergy/AdvReac Type Severity Reaction Status Date / Time No Known Allergies Allergy Verified 06/08/20 13:59 [No Known Allergies*] <Dione Montoya NP - Last Filed: 06/04/20 21:06> Home medications: Home Medications Medication Instructions Recorded Confirmed Type atorvastatin 40 tab PO DAILY 03/02/20 07/10/20 History folic acid 1 tab PO DAILY 03/02/20 07/10/20 History gabapentin 300 mg PO BEDTIME 03/02/20 07/10/20 History omeprazole 20 cap PO BID 03/02/20 07/10/20 History Eliquis 5 mg PO BID 06/04/20 07/10/20 History quetiapine 50 mg tablet 50 mg PO BEDTIME PRN 07/07/20 07/10/20 History <Dione Montoya NP - Last Filed: 06/04/20 21:06> Physical Exam Vital Signs and Narrative: Vital Signs: Last Vital Signs Temp 98.2 F 06/04/20 17:03 Pulse 99 06/04/20 17:03 Resp 20 06/04/20 17:03 BP 114/54 L 06/04/20 17:03 Pulse Ox 99 06/04/20 17:03 Body Mass Index 33.5 <Dione Montoya NP - Last Filed: 06/04/20 21:06> Appearing in no acute distress head is normocephalic atraumatic eyes pupils are PERRLA sclera is anicteric mouth throat mucous membranes are intact and moist neck is supple no lymphadenopathy, no JVD noted lung sounds are clear to auscultation heart regular rate rhythm, clear S1, S2 positive bowel sounds, abdomen is soft, nontender neuro patient is alert x3, no focal deficits <Dione Montoya NP - Last Filed: 06/04/20 21:06> Results Labs CBC and Chem 7: : 06/19/20 06:03 06/19/20 06:03 <Dione Montoya NP - Last Filed: 06/04/20 21:06> Labs: Laboratory Results - last 24 hr 06/04/20 06/04/20 06/04/20 13:25 13:25 13:25 MCV MCH MCHC RDW Plt Count MPV Immature Gran % (Auto) Neut % (Auto) Lymph % (Auto) [place] % (Auto) Eos % (Auto) Baso % (Auto) Lymph # (Auto) [place] # (Auto) Eos # (Auto) Baso # (Auto) Abs Immat Gran (auto) Absolute Neuts (auto) Absolute Nucleated RBC Nucleated RBC % (auto) PT 24.6 H D INR 2.1 H APTT 41.2 H Anion Gap 18 Estim Creat Clear Calc 147.5 Estimated GFR > 60 Random Glucose 132 H D Lactic Acid Lactic Acid Fup @ 2Hr Lactic Acid Fup @ 4Hr Calcium 7.3 L Magnesium 1.5 L Total Bilirubin 1.8 H Direct Bilirubin 1.1 H AST 174 H ALT 57 H Alkaline Phosphatase 197 H D B-Natriuretic Peptide 105 H Total Protein 4.9 L Albumin 2.2 L Lipase 6 L Ethyl Alcohol Coronavirus (PCR) Influenza Type A (PCR) Influenza Type B (PCR) RSV RNA Qual (PCR) Blood Type Antibody Screen 06/04/20 06/04/20 06/04/20 13:25 13:26 13:26 MCV 96.6 MCH 33.2 H MCHC 34.3 RDW 15.7 Plt Count 110 L D MPV 11.8 Immature Gran % (Auto) 0.4 Neut % (Auto) 81.5 H Lymph % (Auto) 11.9 L [place] % (Auto) 5.8 Eos % (Auto) 0.0 Baso % (Auto) 0.4 Lymph # (Auto) 1.1 L [place] # (Auto) 0.6 Eos # (Auto) 0.0 Baso # (Auto) 0.0 Abs Immat Gran (auto) 0.04 H Absolute Neuts (auto) 7.8 Absolute Nucleated RBC 0.000 Nucleated RBC % (auto) 0.0 PT INR APTT Anion Gap Cancelled Estim Creat Clear Calc Cancelled Estimated GFR Cancelled Random Glucose Cancelled Lactic Acid Lactic Acid Fup @ 2Hr Lactic Acid Fup @ 4Hr Calcium Cancelled Magnesium Cancelled Total Bilirubin Cancelled Direct Bilirubin Cancelled AST Cancelled ALT Cancelled Alkaline Phosphatase Cancelled B-Natriuretic Peptide Total Protein Cancelled Albumin Cancelled Lipase Ethyl Alcohol 130 Coronavirus (PCR) Influenza Type A (PCR) Influenza Type B (PCR) RSV RNA Qual (PCR) Blood Type Antibody Screen 06/04/20 06/04/20 06/04/20 13:26 13:26 16:57 MCV MCH MCHC RDW Plt Count MPV Immature Gran % (Auto) Neut % (Auto) Lymph % (Auto) [place] % (Auto) Eos % (Auto) Baso % (Auto) Lymph # (Auto) [place] # (Auto) Eos # (Auto) Baso # (Auto) Abs Immat Gran (auto) Absolute Neuts (auto) Absolute Nucleated RBC Nucleated RBC % (auto) PT INR APTT Anion Gap Estim Creat Clear Calc Estimated GFR Random Glucose Lactic Acid 7.9 H* Lactic Acid Fup @ 2Hr Lactic Acid Fup @ 4Hr Calcium Magnesium Total Bilirubin Direct Bilirubin AST ALT Alkaline Phosphatase B-Natriuretic Peptide Total Protein Albumin Lipase Ethyl Alcohol Coronavirus (PCR) NEGATIVE Influenza Type A (PCR) NEGATIVE Influenza Type B (PCR) NEGATIVE RSV RNA Qual (PCR) NEGATIVE Blood Type O Positive Antibody Screen NEGATIVE 06/04/20 06/04/20 16:57 19:47 MCV MCH MCHC RDW Plt Count MPV Immature Gran % (Auto) Neut % (Auto) Lymph % (Auto) [place] % (Auto) Eos % (Auto) Baso % (Auto) Lymph # (Auto) [place] # (Auto) Eos # (Auto) Baso # (Auto) Abs Immat Gran (auto) Absolute Neuts (auto) Absolute Nucleated RBC Nucleated RBC % (auto) PT INR APTT Anion Gap Estim Creat Clear Calc Estimated GFR Random Glucose Lactic Acid Lactic Acid Fup @ 2Hr 6.2 H* Lactic Acid Fup @ 4Hr 5.0 H* Calcium Magnesium Total Bilirubin Direct Bilirubin AST ALT Alkaline Phosphatase B-Natriuretic Peptide Total Protein Albumin Lipase Ethyl Alcohol Coronavirus (PCR) Influenza Type A (PCR) Influenza Type B (PCR) RSV RNA Qual (PCR) Blood Type Antibody Screen <Dione Montoya NP - Last Filed: 06/04/20 21:06> Imaging Radiologist's Impressions: Impressions Chest X-Ray 06/04/20 13:02 IMPRESSION: No significant acute parenchymal disease. Abdomen Ultrasound 06/04/20 14:32 IMPRESSION: Diffuse fatty infiltration of the liver with hepatomegaly. Sludge within the gallbladder with mildly thickened wall and no fluid in the wall or pericholecystic fluid. There is tenderness to palpation. This can be seen in early acute or chronic cholecystitis. <Dione Montoya NP - Last Filed: 06/04/20 21:06> Assessment and Plan (1) Acute GI bleeding: Status: Resolved <Dione Montoya NP - Last Filed: 06/04/20 21:06> (2) Hematemesis: Qualifiers: Nausea presence: with nausea Qualified Code(s): K92.0 - Hematemesis <Dione Montoya NP - Last Filed: 06/04/20 21:06> Status: Resolved <Dione Montoya NP - Last Filed: 06/04/20 21:06> 59 year old man admitted with GI bleed secondary to anticoagulation and heavy alcohol abuse. GI bleed/gastritis. On Anticoagulation, will hold. Check HH this evening. Type and screen and transfuse if necessary. IV Protonix. GI consult, will likely need EGD. CHF. Significant lower extremity edema. BNP 105. No hx of CHF. Will start IV lasix, cardiology consult. Lactic acidosis. Multifactorial, alcohol abuse, vomiting, dehydration. Improving with IV fluids. Transaminitis. Likely related to congestion from CHF as well as alcohol abuse. Alcohol abuse. Drinks 10-16 nips daily, placed on phenobarb protocol. DVT prophylaxis with Mechanical compression boots. Discussed with Dr. Villafana Full code <Dione Montoya NP - Last Filed: 06/04/20 21:06>
[2020-06-04] MEDS: QUEtiapine Fumarate 50 MG TABLET PO (20:48)
[2020-06-04] MEDS: Gabapentin 300 MG CAPSULE PO (20:48)
[2020-06-04] MEDS: PHENobarbitaL sodium 130 MG/ML VIAL 180 MG IM (20:48)
[2020-06-04 21:33] LABS: Glucose, Whole Blood 97 mg/dL (60-115)
[2020-06-05] VITALS (7 sets, daily range): BP systolic 101–136; BP diastolic 52–70; PULSE 99–120; RESP 18–20; TEMP 36.4–38.6; O2SAT 92–97; BMI 33.5
[2020-06-05] MEDS: PHENobarbitaL sodium 130 MG/ML VIAL 180 MG IM ×2 (00:38→14:28)
[2020-06-05] MEDS: 0.9 % Sodium Chloride Flush 3 ML SYRINGE IVFLUSH ×2 (00:39→09:48)
[2020-06-05 00:56] LABS: Hematocrit 35.6 % (42-52); Hemoglobin 12.5 g/dl (14.0-18.0)
[2020-06-05] MEDS: Acetaminophen 325 MG TABLET 650 MG PO ×2 (04:08→12:37)
[2020-06-05] MEDS: Pantoprazole Sodium 40 MG/10 ML VIAL IVPUSH ×2 (05:13→17:39)
[2020-06-05 06:26] LABS: MANUAL DIFF FLAG NO
[2020-06-05 06:43] LABS: Basophils Percent Auto 0.4 % (0-2); Eosinophils Percent Auto 0.1 % (0-4); Hematocrit 32.8 % (42-52); Hemoglobin 11.6 g/dl (14.0-18.0); Imm Gran Abs Auto 0.03 X10*3/uL (0.00-0.03); Imm Gran Pct Auto 0.3 % (0.0-0.4); Lymphocytes Absolute Auto 1.1 X10*3/uL (1.2-4.9); Lymphocytes Percent Auto 11.5 % (20-40); Mean Corpuscular HGB Conc 35.4 g/dl (31.0-36.0); Mean Corpuscular Hemoglobin 33.4 pg (27.0-33.0); Mean Corpuscular Volume 94.5 fL (80-98); Mean Platelet Volume 12.4 fL (9.4-12.4); Monocytes Absolute Auto 0.4 X10*3/uL (0.1-1.2); Monocytes Percent Auto 4.3 % (2-11); Neutrophils Absolute Auto 7.7 X10*3/uL (2.0-8.3); Neutrophils Percent Auto 83.4 % (45-73); Red Blood Count 3.47 X10*6/uL (4.60-5.80); Red Cell Distribution Width 16.1 % (11.0-16.0); White Blood Count 9.2 X10*3/uL (4.8-10.8)
[2020-06-05 06:57] LABS: Platelet Count 85 X10*3/uL (160-400)
[2020-06-05 07:13] LABS: Anion Gap 16 (12-20); Blood Urea Nitrogen 3 mg/dL (9-16); Calcium 6.9 mg/dL (8.4-10.2); Carbon Dioxide 22 mmol/L (22-29); Chloride 100 mmol/L (96-108); Creatinine Clr Calc Pharmacy 180.2; Estimated Glomerular Filt Rate > 60; Glucose Random 76 mg/dL (60-115); Sodium 135 mmol/L (135-145)
[2020-06-05 08:43] LABS: Glucose, Whole Blood 90 mg/dL (60-115)
--- NOTE | 2020-06-05 09:22 | MHC.CM.PN ---
met with pt angela jennings servceis or community involvemnt with support groups for his substance abuse he would be agreeable to speak with care team ,pt has own transportion home
--- NOTE | 2020-06-05 09:38 | P.CDIC_ITS ---
[facility] Concurrent Query Service Date: 06/05/20 Documentation Clarification: Please clarify if you are treating a proba ble/suspected/likely or confirmed: Acute diastolic and/or systolic Congestive heart failure POA, txt, rule out Please specify if known Provider Response: Other Other Diagnosis: awaiting echocardiogram to assess LVF PLEASE DO NOT DELETE/MODIFY EXISTING CONTENT Additional information is needed in order to code to the highest accuracy and appropriate Severity of Illness (SOI). Please clarify the information noted below in your progress notes and discharge summary. Risk Factors/Clinical Indicators/Treatments H&P: CHF - no history of CHF, IV lasix Cardiology consult BNP 105 H Transaminitis - likely related to congestion from CHF and alcohol intoxication. CDS: Lia Elias CCS, [facility] Contact Number: [phone] Please Review the information above and exercise your independent professional judgment in responding to the query. If you concur, pleas document in the PROGRESS NOTES and DISCHARGE SUMMARY. If you do not agree with the query, please document in the query above. THIS QUERY IS PART OF THE PERMANENT MEDICAL RECORD
[2020-06-05] MEDS: PHENobarbitaL 30 MG TABLET 60 MG PO ×2 (09:48→20:04)
[2020-06-05] MEDS: ondansetron HCL 4 MG/2 ML VIAL IVPUSH (11:11)
[2020-06-05] MEDS: 0.9 % Sodium Chloride 1,000 ML 100 ML IVCONT ×2 (12:37→23:06)
[2020-06-05] MEDS: Potassium Chloride ER 20 MEQ TAB.ER.PRT 40 MEQ PO (12:37)
[2020-06-05 13:08] LABS: Glucose, Whole Blood 98 mg/dL (60-115)
[2020-06-05 13:28] LABS: Alanine Aminotransferase 45 U/L (0-40); Albumin Level 1.9 g/dL (3.5-5.0); Alkaline Phosphatase 175 U/L (39-117); Aspartate Amino Transferase 162 U/L (5-37); Bilirubin Direct 2.4 mg/dL (0.0-0.5); Bilirubin Total 3.2 mg/dL (0.0-1.0); Magnesium 1.3 mg/dL (1.6-2.6); Total Protein 4.4 g/dL (6.5-8.0)
--- NOTE | 2020-06-05 13:53 | PM.CNGS ---
History of Present Illness Consult details Consult date: 06/05/20 Reason for consult: abdominal pain (Question cholecystitis) Narrative: This is a 59-year-old gentleman who was admitted yesterday for evaluation and treatment of GI bleeding. He gives a recent history of abdominal pain involving both his left and right sides. He has had frequent episodes of nausea and vomiting. Appetite has been poor. He has been drinking heavily, up to 16 naps per day. He developed loose black stools about a week and a half ago. He has not seen any bright red blood in his stool. He reports difficulty with substernal chest pain and palpitations occurring only at night. He also gives a history of COVID-19 diagnosed during the summer. He was found to have DVT and PE in March of 2020 and was started on Eliquis. He reports that he was advised by his primary care office to discontinue the Eliquis a couple of days ago. He reports ongoing difficulty with shortness of breath since he was diagnosed with COVID-19. He has a history of laparoscopic gastric sleeve resection done about 4 years ago. He did not have significant weight loss and was converted to gastric bypass about 6 months ago. Surgery was done by Dr. Donato at [facility]. Review of Systems Constitutional: Constitutional: Denies chills, Denies fever(s), Reports poor appetite and Reports weight loss Cardiovascular: Cardiovascular: Reports chest pain, Reports palpitations and Reports dyspnea Respiratory: Respiratory: Reports dyspnea Endocrine: Endocrine: Reports palpitations PMFSH Past Medical History Medical History (Updated 06/05/20 @ 14:01 by Pamella Love MD) Alcohol withdrawal COPD (chronic obstructive pulmonary disease) COVID-19 COVID-19 determined by clinical diagnostic criteria Depression Diabetes ETOH abuse Seizure Surgical History Surgical History (Updated 06/05/20 @ 14:01 by Pamella Love MD) History of gastric bypass History of sleeve gastrectomy Social History Social History Household Members: Significant Other Housing: Apartment Do you presently have visiting nurse or other home services: No Alcohol intake: current Alcohol intake frequency: 3 or more drinks per day Alcohol type: hard liquor Smoking Status: Never smoker Tobacco Type: Cigarette Second Hand Smoke Exposure: Yes Use of substances other than those prescribed or required for medical reasons: No Currently Displaying Signs/Symptoms of Drug Intoxication Withdrawal: No Have you been hit, kicked, punched, or otherwise hurt by someone within the past year? If so, by whom?: No Do you feel safe in your current relationship?: Yes Is there a partner from a previous relationship who is making you feel unsafe now?: No Are you made to feel afraid or neglected: No Advance Directives: No Advance Directives Information Provided: No Do you have thoughts of harming others: None Do you have a plan to hurt others: No Plan Recently lost weight without trying: No service: No Current occupational status: unemployed Meds Allergies Allergy/AdvReac Type Severity Reaction Status Date / Time No Known Allergies Allergy Verified 03/02/20 15:43 [No Known Allergies*] Home Medications Medication Instructions Recorded Confirmed Type atorvastatin 40 tab PO DAILY 03/02/20 06/04/20 History cholecalciferol (vitamin D3) 1 cap PO DAILY 03/02/20 06/04/20 History [Vitamin D3] folic acid 1 tab PO DAILY 03/02/20 06/04/20 History gabapentin 300 mg PO BEDTIME 03/02/20 06/04/20 History omeprazole 20 cap PO BID 03/02/20 06/04/20 History quetiapine 50 mg PO BEDTIME 03/02/20 06/04/20 History apixaban [Eliquis] 5 mg PO BID 06/04/20 06/04/20 History ctfnydmbsqra-rlmv-mzlvk acid 1 tab PO DAILY 06/04/20 06/04/20 History [Certavite-Antioxidant] oxycodone 5 mg PO Q6H PRN 06/04/20 06/04/20 History Physical Exam Vital Signs: Vital Signs: Last Vital Signs Temp 100.0 F 06/05/20 13:08 Pulse 120 H 06/05/20 13:08 Resp 18 06/05/20 13:08 BP 128/69 06/05/20 13:08 Pulse Ox 97 06/05/20 13:08 Body Mass Index 33.5 Const: General: cooperative, alert and anxious HENMT: Head: Yes normocephalic and Yes atraumatic Eyes: EOM: EOMs intact bilaterally Resp: Effort & Inspection: normal respiratory effort Auscultation: clear to auscultation bilaterally Cardio: Rate: regular rate Rhythm: regular rhythm GI: Other: Round, soft, moderate diffuse tenderness, no palpable masses, no obvious organomegaly Rectal Exam - Male: Yes deferred Extrem: Other: 1+ edema ankles and feet Psych: Other: Tearful Results Labs Result diagrams: 06/05/20 05:40 06/05/20 05:40 Labs: Abnormal lab results 06/04/20 06/04/20 06/04/20 Range/Units 13:25 13:25 13:26 RBC (4.60-5.80) X10*6/uL Hgb (14.0-18.0) g/dl Hct (42-52) % MCH (27.0-33.0) pg RDW (11.0-16.0) % Plt Count (160-400) X10*3/uL Neut % (Auto) (45-73) % Lymph % (Auto) (20-40) % Lymph # (Auto) (1.2-4.9) X10*3/uL Potassium (3.3-5.1) mmol/l Carbon Dioxide 21 L (22-29) mmol/L BUN 4 L (9-16) mg/dL Random Glucose 132 H D (60-115) mg/dL Lactic Acid 7.9 H* (0.5-2.0) mmol/L Lactic Acid Fup @ 2Hr (0.5-2.0) mmol/L Lactic Acid Fup @ 4Hr (0.5-2.0) mmol/L Calcium 7.3 L (8.4-10.2) mg/dL Magnesium 1.5 L (1.6-2.6) mg/dL Total Bilirubin 1.8 H (0.0-1.0) mg/dL Direct Bilirubin 1.1 H (0.0-0.5) mg/dL AST 174 H (5-37) U/L ALT 57 H (0-40) U/L Alkaline Phosphatase 197 H D (39-117) U/L B-Natriuretic Peptide 105 H (<100) pg/mL Total Protein 4.9 L (6.5-8.0) g/dL Albumin 2.2 L (3.5-5.0) g/dL Lipase 6 L (8-78) U/L 06/04/20 06/04/20 06/05/20 Range/Units 16:57 19:47 00:47 RBC (4.60-5.80) X10*6/uL Hgb 12.5 L (14.0-18.0) g/dl Hct 35.6 L (42-52) % MCH (27.0-33.0) pg RDW (11.0-16.0) % Plt Count (160-400) X10*3/uL Neut % (Auto) (45-73) % Lymph % (Auto) (20-40) % Lymph # (Auto) (1.2-4.9) X10*3/uL Potassium (3.3-5.1) mmol/l Carbon Dioxide (22-29) mmol/L BUN (9-16) mg/dL Random Glucose (60-115) mg/dL Lactic Acid (0.5-2.0) mmol/L Lactic Acid Fup @ 2Hr 6.2 H* (0.5-2.0) mmol/L Lactic Acid Fup @ 4Hr 5.0 H* (0.5-2.0) mmol/L Calcium (8.4-10.2) mg/dL Magnesium (1.6-2.6) mg/dL Total Bilirubin (0.0-1.0) mg/dL Direct Bilirubin (0.0-0.5) mg/dL AST (5-37) U/L ALT (0-40) U/L Alkaline Phosphatase (39-117) U/L B-Natriuretic Peptide (<100) pg/mL Total Protein (6.5-8.0) g/dL Albumin (3.5-5.0) g/dL Lipase (8-78) U/L 06/05/20 06/05/20 Range/Units 05:40 05:40 RBC 3.47 L (4.60-5.80) X10*6/uL Hgb 11.6 L (14.0-18.0) g/dl Hct 32.8 L (42-52) % MCH 33.4 H (27.0-33.0) pg RDW 16.1 H (11.0-16.0) % Plt Count 85 L (160-400) X10*3/uL Neut % (Auto) 83.4 H (45-73) % Lymph % (Auto) 11.5 L (20-40) % Lymph # (Auto) 1.1 L (1.2-4.9) X10*3/uL Potassium 3.0 L (3.3-5.1) mmol/l Carbon Dioxide (22-29) mmol/L BUN 3 L (9-16) mg/dL Random Glucose (60-115) mg/dL Lactic Acid (0.5-2.0) mmol/L Lactic Acid Fup @ 2Hr (0.5-2.0) mmol/L Lactic Acid Fup @ 4Hr (0.5-2.0) mmol/L Calcium 6.9 L (8.4-10.2) mg/dL Magnesium 1.3 L* (1.6-2.6) mg/dL Total Bilirubin 3.2 H (0.0-1.0) mg/dL Direct Bilirubin 2.4 H (0.0-0.5) mg/dL AST 162 H (5-37) U/L ALT 45 H (0-40) U/L Alkaline Phosphatase 175 H (39-117) U/L B-Natriuretic Peptide (<100) pg/mL Total Protein 4.4 L (6.5-8.0) g/dL Albumin 1.9 L (3.5-5.0) g/dL Lipase (8-78) U/L Short CBC 06/05/20 06/05/20 Range/Units 00:47 05:40 WBC 9.2 (4.8-10.8) X10*3/uL Hgb 12.5 L 11.6 L (14.0-18.0) g/dl Hct 35.6 L 32.8 L (42-52) % Plt Count 85 L (160-400) X10*3/uL BMP 06/04/20 06/04/20 06/05/20 13:25 13:26 05:40 Sodium 135 Cancelled 135 Potassium 3.4 Cancelled 3.0 L Chloride 99 Cancelled 100 Carbon Dioxide 21 L Cancelled 22 BUN 4 L Cancelled 3 L Creatinine 0.66 Cancelled 0.54 Calcium 7.3 L Cancelled 6.9 L Liver Function 06/04/20 06/04/20 06/05/20 Range/Units 13:25 13:26 05:40 Total Bilirubin 1.8 H Cancelled 3.2 H (0.0-1.0) mg/dL Direct Bilirubin 1.1 H Cancelled 2.4 H (0.0-0.5) mg/dL AST 174 H Cancelled 162 H (5-37) U/L ALT 57 H Cancelled 45 H (0-40) U/L Alkaline Phosphatase 197 H D Cancelled 175 H (39-117) U/L Albumin 2.2 L Cancelled 1.9 L (3.5-5.0) g/dL All other labs normal. Ultrasound of abdomen 06/04/2020 IMPRESSION: Diffuse fatty infiltration of the liver with hepatomegaly. Sludge within the gallbladder with mildly thickened wall and no fluid in the wall or pericholecystic fluid. There is tenderness to palpation. This can be seen in early acute or chronic cholecystitis. Assessment and Plan (1) Abnormal findings on diagnostic imaging of gallbladder: Status: Acute This is a 59-year-old male with recent heavy alcohol consumption, nausea, vomiting, abdominal pain, GI bleeding, elevation of liver function studies and mild thickening of the gallbladder wall noted by ultrasound. There is no evidence of gallstones or pericholecystic fluid. Tenderness in the upper abdomen is diffuse and appears likely to be related to his liver. Elevation of liver function studies likely is related to alcohol consumption rather than to cholecystitis. Further evaluation with HIDA scan can be obtained to confirm this, but can be deferred pending consultation with Dr. Oden and decision regarding upper endoscopy. Follow H and H, continue to hold Eliquis. On phenobarbital protocol for alcohol withdrawal. Will follow along.
[2020-06-05] MEDS: cefTRIAXone sodium 1 GM in 0.9 % Sodium Chloride 50 ML IV (13:58)
[2020-06-05 14:19] LABS: Glucose Urine UA NEG (NEG); Leukocyte Esterase Urine NEG (NEG); Nitrite Urine NEG (NEG); PH 5.5 (5.0-8.0); Specific Gravity - Urine 1.025 (1.005-1.025); Urine Blood NEG (NEG); Urine Ketones NEG (NEG); Urine Protein NEG (NEG-TRACE)
[2020-06-05 14:24] LABS: Appearance Urine CLEAR; Color Urine YELLOW
[2020-06-05] MEDS: oxyCODONE HCl Immed Release 5 MG TABLET PO (14:40)
[2020-06-05] MEDS: Magnesium Sulfate/H2O 2 GM/50 ML PIGGYBACK IV (15:00)
--- NOTE | 2020-06-05 15:20 | HO.PM.IMPN ---
Subjective Subjective Date of Service: 06/05/20 Interval History: patient seen and examined at bedside patient denies any bloody vomiting patient was having withdrawal symptoms patient spiked fever today Review of Systems Denies any recent fever chills or decrease in appetite SEE HPI cardiovascular is adjustment of any PND, Reported edema SEE HPI genitourinary denies any dysuria frequency or hematuria musculoskeletal denies any joint pain or swelling neuropsych denies any weakness or seizures all other systems reviewed are negative Physical Exam Vital Signs: Vital Signs: Last Vital Signs Temp 100.0 F 06/05/20 15:08 Pulse 108 H 06/05/20 15:08 Resp 19 06/05/20 15:08 BP 101/56 L 06/05/20 15:08 Pulse Ox 93 06/05/20 15:08 Body Mass Index 33.5 Const: General: cooperative, alert and anxious HENMT: Head: Yes normocephalic and Yes atraumatic Eyes: EOM: EOMs intact bilaterally Resp: Effort & Inspection: normal respiratory effort Auscultation: clear to auscultation bilaterally Cardio: Rate: regular rate Rhythm: regular rhythm GI: Other: Round, soft, moderate diffuse tenderness, no palpable masses, no obvious organomegaly Rectal Exam - Male: Yes deferred Extrem: Other: 1+ edema ankles and feet Psych: Other: Tearful Objective Data Current Medications Generic Name Dose Route Start Last Admin Trade Name Freq PRN Reason Stop Dose Admin Acetaminophen 650 mg 06/04/20 19:55 06/05/20 12:37 Acetaminophen 325 Mg Tablet PO 650 mg Q6H PRN Administration Pain, Mild (Pain Scale 1-3) Atorvastatin Calcium 1,600 mg 06/05/20 09:00 06/05/20 10:59 Atorvastatin Calcium 40 Mg Tablet PO Not Given DAILY ALEX Folic Acid 1 mg 06/05/20 09:00 06/05/20 11:00 Folic Acid 1 Mg Tablet PO Not Given DAILY ALEX Gabapentin 300 mg 06/04/20 21:00 06/04/20 20:48 Gabapentin 300 Mg Capsule PO 300 mg BEDTIME ALEX Administration Sodium Chloride 1,000 mls @ 100 mls/hr 06/05/20 12:30 06/05/20 12:37 Ns IVCONT 100 mls/hr .Q10H ALEX Administration Magnesium Sulfate 2 gm in 50 mls @ 25 mls/hr 06/05/20 13:28 06/05/20 15:00 IV 06/05/20 15:27 25 mls/hr ONCE ONE Administration Ceftriaxone Sodium 1 gm/ 50 mls @ 100 mls/hr 06/05/20 13:30 06/05/20 14:43 Sodium Chloride IV Infused Q24H ALEX Infusion Insulin Human Lispro 0 unit 06/04/20 21:00 06/05/20 13:00 Insulin Lispro 100 Unit/Ml 3 Ml Vial SUBCUT Not Given QIDACHS [facility] Protocol Medication 1 each 06/05/20 09:00 No Benzodiazepines MISCELLANE DAILY [facility] Protocol Multivitamins/Minerals 1 tab 06/05/20 09:00 06/05/20 11:00 Multivitamin With Minerals Tablet PO Not Given DAILY [facility] Ondansetron HCl 4 mg 06/04/20 19:55 06/05/20 11:11 Ondansetron Hcl 4 Mg/2 Ml Vial IVPUSH 4 mg Q8H PRN Administration Nausea and Vomiting Oxycodone HCl 5 mg 06/04/20 19:55 06/05/20 14:40 Oxycodone Hcl Immed Release 5 Mg Tablet PO 5 mg Q6H PRN Administration Pain Pantoprazole Sodium 40 mg 06/05/20 06:30 06/05/20 05:13 Pantoprazole Sodium 40 Mg/10 Ml Vial IVPUSH 40 mg BID@0630,1630 [facility] Administration Pharmacy Consult 1 each 06/04/20 17:35 Consult Rx Perform Med Rec MISCELLANE ONCE PRN Consult order Phenobarbital 60 mg 06/05/20 09:00 06/05/20 09:48 Phenobarbital 30 Mg Tablet PO 06/06/20 21:01 60 mg BID ALEX Administration Protocol Phenobarbital 30 mg 06/07/20 09:00 Phenobarbital 30 Mg Tablet PO 06/08/20 21:01 BID ALEX Protocol Phenobarbital 30 mg 06/09/20 09:00 Phenobarbital 30 Mg Tablet PO 06/10/20 09:01 DAILY [facility] Protocol Quetiapine Fumarate 50 mg 06/04/20 21:00 06/04/20 20:48 Quetiapine Fumarate 50 Mg Tablet PO 50 mg BEDTIME ALEX Administration Sodium Chloride 3 ml 06/05/20 00:00 06/05/20 09:48 0.9 % Sodium Chloride Flush 3 Ml Syringe IVFLUSH 3 ml QSHIFT [facility] Administration Vitamin D 25 mcg 06/05/20 09:00 06/05/20 11:00 Cholecalciferol (Vitamin D3) 25 Mcg Tablet PO Not Given DAILY ALEX Labs CBC & Chem 7: 06/05/20 05:40 06/05/20 05:40 Assessment and Plan (1) Acute GI bleeding: Status: Acute (2) Hematemesis: Status: Acute Assessment and Plan: 59 year old man admitted with GI bleed secondary to anticoagulation and heavy alcohol abuse. Upper GI bleed/gastritis .On Anticoagulation hold Eliquis continue IV PPI seen by GI initial plan was to do EGD but as patient was still having withdrawal symptom EGD on hold today monitor H&H closely Significant lower extremity edema mildly elevated BNP will check echocardiogram to assess LV function Lactic acidosis. Multifactorial, alcohol abuse, vomiting, dehydration. Improving with IV fluids. Transaminitis. Likely related to alcohol abuse ultrasound abdomen shows possible acute on chronic cholecystitis general surgery consulted Alcohol abuse currently in withdrawals . Drinks 10-16 nips daily continue phenobarbital and CIWA protocol received extra dose of phenobarbital today as was having withdrawal monitor on telemetry hypokalemia and hypomagnesemia replaced monitor electrolytes DVT prophylaxis with Mechanical compression boots. given GI bleed
[2020-06-05 16:26] LABS: Glucose, Whole Blood 92 mg/dL (60-115)
[2020-06-05 19:52] LABS: Glucose, Whole Blood 82 mg/dL (60-115)
[2020-06-05] MEDS: QUEtiapine Fumarate 50 MG TABLET PO (20:04)
[2020-06-05] MEDS: Gabapentin 300 MG CAPSULE PO (20:04)
--- NOTE | 2020-06-05 20:04 | PM.EVENT ---
Event Note Date of Service: 06/05/20 Event Note: GI Consult-Hx via patient, RN, and EMR Imp: UGI bleed and EtOH-hepatitis in a 59 yo male with hx of chronic EtOH abuse, on Eliquis for a DVT and PE, s/p bariatric surgeries with a sleeve gastrectomy in the past and most recently a gastric bypass in 10/[address] Donato, and now with approx 1 week of intermittent N/V/coffee grounds emesis. He denies melena nor hematemesis. His Hgb has been stable. He has had no further N/V/bleeding here in the hospital. He denies abdominal pain and his abdominal exam is benign. He denies aspirin nor NSAIDs. His Hgb has been stable. Diff dx: Esophagitis, Sana-Oden tear, Anastomotic ulcer, Gastritis. I don't think this reflects a variceal bleed. Rec: Monitor Hgb, try to correct the INR, PPI Rx, clear liquids, and upper endoscopy with MAC on Monday, 06/08. If he has active bleeding will proceed sooner. Full consent obtained for the endoscopy including risks of bleeding and perforation. D/W patient and he is comfortable with this plan. Thanks
--- NOTE | 2020-06-05 21:27 | CONS_ITS ---
DATE OF SERVICE: 06/05/2020 REQUESTING PHYSICIAN: Dr. Jameson REASON FOR CONSULTATION: Coffee-ground emesis and alcohol-induced hepatitis. HISTORY OF PRESENT ILLNESS: This has been obtained from the patient, his nurse, and the medical record. The patient is a 59-year-old male with a long-standing history of intermittent alcohol use and most recently, he describes drinking about 10 nips of vodka daily. He began having episodes of vomiting with coffee-ground material about 7 to 10 days ago. He denies any associated hematemesis. During this time, he was having some diffuse upper abdominal discomfort. He did not notice any melena nor hematochezia. He does not use any aspirin or NSAIDs, but has been on Eliquis. He came to the ER and has been admitted. Since he was admitted here, he has had no further signs of vomiting nor bleeding. He has not had a bowel movement. His hemoglobin has been stable and he has not needed any transfusions. The patient denies any previous history of ulcer disease nor GI bleeding. His history is notable for 2 bariatric surgeries. He initially had a gastric sleeve procedure and then had a gastric bypass in October [address] Donato. MEDICATIONS: At home included Eliquis, atorvastatin, vitamin D, folic acid, gabapentin, vitamins, omeprazole, oxycodone, and quetiapine. His medications here in the hospital include acetaminophen, atorvastatin, vitamin D, folic acid, gabapentin, insulin, magnesium, vitamins, Zofran, oxycodone, pantoprazole, phenobarbital, vitamin K, and quetiapine. PAST MEDICAL HISTORY: Two bariatric surgeries as above with most recent surgery being that of the gastric bypass in October of [address] Donato. Alcohol abuse. He describes DVT with pulmonary embolus. Hyperlipidemia. COVID infection in 2019. COPD. Depression. Diabetes mellitus. He had a colonoscopy in [address] Gurrola with removal of polyps which were tubular adenoma and hyperplastic. He denies any history of [place] nor stroke. History of sleep apnea. History of scrotal abscess. SOCIAL HISTORY: He lives with his significant other. He does not smoke. Alcohol abuse as above. FAMILY HISTORY: Noncontributory in this regard, although there is a family history of colon cancer in his mother at age 60. REVIEW OF SYSTEMS: CONSTITUTIONAL: In general, he has been feeling somewhat poorly at home with poor appetite. SKIN: No rash. No pruritus. CARDIAC: No chest pain. PULMONARY: No cough. No hemoptysis. GI: As above. PHYSICAL EXAMINATION: GENERAL: The patient is an alert, pleasant, cooperative male, in no distress. SKIN: Warm and dry. Nonjaundiced. EYES: Anterior sclerae. NECK: Supple. ABDOMEN: Soft, nondistended. Normal bowel sounds with some mild epigastric tenderness to palpation, but without mass or rebound. LABORATORY DATA: Hemoglobin on admission was 12.7 on June 04 and today is 11.6. White blood cell count 9.2. Platelets 85,000. His INR was 1.7 on May 19 and today is 2.1 with a PT of 24.6. Sodium 135, potassium 3.0, chloride 100, CO2 22, BUN 3, creatinine 0.5, calcium 6.9, magnesium 1.3, total bilirubin 3.2, direct bilirubin 2.4, AST 162, ALT 45, alkaline phosphatase 175, albumin 1.9. Abdominal ultrasound from yesterday showed echogenic liver with fatty infiltration. There is no mass nor biliary obstruction. There was hepatomegaly. The gallbladder wall had some mild thickening, but there was no pericholecystic fluid. No gallstones. The common bile duct was not identified. There was no ascites. IMPRESSION: Given the patient's presentation, this seems most consistent with upper GI bleeding in relation to his chronic alcohol abuse, Eliquis, and vomiting which could imply bleeding from esophagitis or a Sana Oden tear. Other possibilities would be that of gastritis or anastomotic ulcer in relation to the previous bariatric surgery. At this point, he appears stable. I would continue to monitor his hemoglobin closely and continue his IV PPI. I think he will be started on clear liquids. Of note, the plan was to have him undergo upper endoscopy today, but the anesthesiologist felt the things were not stable enough due to his ongoing alcohol withdrawal and metabolic abnormalities. Since he was not actively bleeding, we felt it would be safer to wait. Also, the fact that he was on Eliquis up until admission was other important deciding factor. Since things appear stable, he will be observed over the weekend and undergo upper endoscopy on June 08 with monitored anesthesia care. If there are any signs of active bleeding, we could proceed sooner. Full consent has been obtained from him for the endoscopy, including risks of bleeding and perforation. I would try to correct the INR with vitamin K and hold his Eliquis. Full consent has been obtained from him for the endoscopy including risks of bleeding and perforation. This has been discussed with him in detail. He is comfortable with the plan. Thank you for this consultation. MD SHERLYN Waldron/SABI / [id number]
[2020-06-06] VITALS (7 sets, daily range): BP systolic 110–143; BP diastolic 57–76; PULSE 95–116; RESP 18–20; TEMP 36.5–38.9; O2SAT 92–95
[2020-06-06] MEDS: oxyCODONE HCl Immed Release 5 MG TABLET PO ×2 (02:54→16:17)
[2020-06-06] MEDS: Acetaminophen 325 MG TABLET 650 MG PO (03:34)
[2020-06-06 06:08] LABS: MANUAL DIFF FLAG NO
[2020-06-06] MEDS: Pantoprazole Sodium 40 MG/10 ML VIAL IVPUSH ×2 (06:09→16:03)
[2020-06-06 06:22] LABS: Basophils Percent Auto 0.4 % (0-2); Eosinophils Percent Auto 0.1 % (0-4); Hematocrit 30.5 % (42-52); Hemoglobin 10.7 g/dl (14.0-18.0); INTERNATIONAL NORM RATIO 3.1 (0.9-1.1); Imm Gran Abs Auto 0.08 X10*3/uL (0.00-0.03); Mean Corpuscular HGB Conc 35.1 g/dl (31.0-36.0); Mean Corpuscular Hemoglobin 33.4 pg (27.0-33.0); Mean Corpuscular Volume 95.3 fL (80-98); Mean Platelet Volume 12.4 fL (9.4-12.4); Monocytes Absolute Auto 0.4 X10*3/uL (0.1-1.2); Monocytes Percent Auto 5.1 % (2-11); Neutrophils Absolute Auto 6.4 X10*3/uL (2.0-8.3); Neutrophils Percent Auto 80.4 % (45-73); Prothrombin Time 37.7 SEC (10.8-13.0); Red Cell Distribution Width 16.7 % (11.0-16.0)
[2020-06-06 06:36] LABS: Platelet Count 61 X10*3/uL (160-400)
[2020-06-06 06:46] LABS: Alanine Aminotransferase 36 U/L (0-40); Albumin Level 1.7 g/dL (3.5-5.0); Alkaline Phosphatase 142 U/L (39-117); Anion Gap 12 (12-20); Aspartate Amino Transferase 130 U/L (5-37); Bilirubin Direct 3.1 mg/dL (0.0-0.5); Blood Urea Nitrogen 5 mg/dL (9-16); Calcium 6.6 mg/dL (8.4-10.2); Carbon Dioxide 23 mmol/L (22-29); Chloride 101 mmol/L (96-108); Creatinine Clr Calc Pharmacy 170.7; Estimated Glomerular Filt Rate > 60; Glucose Fasting 57 mg/dL (60-99); Magnesium 1.4 mg/dL (1.6-2.6); Potassium 3.2 mmol/l (3.3-5.1); Sodium 133 mmol/L (135-145)
[2020-06-06 07:31] LABS: Glucose, Whole Blood 62 mg/dL (60-115)
[2020-06-06 08:33] LABS: Eosinophils Percent Auto 0.2 % (0-4); Hematocrit 31.7 % (42-52); Mean Corpuscular Hemoglobin 33.5 pg (27.0-33.0); Red Cell Distribution Width 16.7 % (11.0-16.0)
[2020-06-06 08:35] LABS: Basophils Percent Auto 0.5 % (0-2); Imm Gran Pct Auto 1.1 % (0.0-0.4); Lymphocytes Absolute Auto 1.4 X10*3/uL (1.2-4.9); Lymphocytes Percent Auto 15.6 % (20-40); Mean Corpuscular HGB Conc 34.7 g/dl (31.0-36.0); Mean Corpuscular Volume 96.6 fL (80-98); Mean Platelet Volume 12.7 fL (9.4-12.4); Monocytes Absolute Auto 0.5 X10*3/uL (0.1-1.2); Monocytes Percent Auto 5.3 % (2-11); Neutrophils Absolute Auto 6.7 X10*3/uL (2.0-8.3); Neutrophils Percent Auto 77.3 % (45-73); Red Blood Count 3.28 X10*6/uL (4.60-5.80); White Blood Count 8.7 X10*3/uL (4.8-10.8)
[2020-06-06 08:39] LABS: Platelet Count 62 X10*3/uL (160-400)
[2020-06-06 09:08] LABS: Anion Gap 12 (12-20); Blood Urea Nitrogen 5 mg/dL (9-16); Calcium 6.5 mg/dL (8.4-10.2); Carbon Dioxide 25 mmol/L (22-29); Chloride 101 mmol/L (96-108); Creatinine Clr Calc Pharmacy 162.2; Estimated Glomerular Filt Rate > 60; Glucose Random 53 mg/dL (60-115); Magnesium 1.5 mg/dL (1.6-2.6); Potassium 3.4 mmol/l (3.3-5.1); Sodium 135 mmol/L (135-145)
[2020-06-06 09:21] LABS: Glucose, Whole Blood 78 mg/dL (60-115)
[2020-06-06] MEDS: 0.9 % Sodium Chloride 1,000 ML 100 ML IVCONT ×2 (09:54→20:31)
[2020-06-06] MEDS: Folic Acid 1 MG TABLET PO (09:54)
[2020-06-06] MEDS: Cholecalciferol (Vitamin D3) 25 MCG TABLET PO (09:55)
[2020-06-06] MEDS: PHENobarbitaL 30 MG TABLET 60 MG PO ×2 (09:55→20:32)
[2020-06-06 11:39] LABS: Glucose, Whole Blood 81 mg/dL (60-115)
--- NOTE | 2020-06-06 12:46 | P.PNGS_ITS ---
Subjective Subjective Date of Service: 06/06/20 Interval history: He reports that he feels a little better today. Physical Exam Vital Signs: Vital Signs: Last Vital Signs Temp 100.4 F 06/06/20 11:54 Pulse 95 06/06/20 11:54 Resp 20 06/06/20 11:54 BP 117/63 06/06/20 11:54 Pulse Ox 92 06/06/20 11:54 Body Mass Index 33.5 Laboratory Results - last 24 hr 06/05/20 06/05/20 06/05/20 05:40 13:05 14:08 WBC RBC Hgb Hct MCV MCH MCHC RDW Plt Count MPV Immature Gran % (A uto) Neut % (Auto) Lymph % (Auto) [place] % (Auto) Eos % (Auto) Baso % (Auto) Lymph # (Auto) [place] # (Auto) Eos # (Auto) Baso # (Auto) Abs Immat Gran (au to) Absolute Neuts (au to) Absolute Nucleated RBC Nucleated RBC % (a uto) PT INR Sodium Potassium Chloride Carbon Dioxide Anion Gap BUN Creatinine Estim Creat Clear Calc Estimated GFR POC Glucose 98 Random Glucose Fasting Glucose Calcium Magnesium 1.3 L* Total Bilirubin 3.2 H Direct Bilirubin 2.4 H AST 162 H ALT 45 H Alkaline Phosphata se 175 H Total Protein 4.4 L Albumin 1.9 L Urine Color YELLOW Urine Appearance CLEAR Urine pH 5.5 Ur Specific Gravit y 1.025 Urine Protein NEG Urine Glucose (UA) NEG Urine Ketones NEG Urine Blood NEG Urine Nitrite NEG Ur Leukocyte Alissa ase NEG 06/05/20 06/05/20 06/06/20 16:17 19:44 05:56 WBC RBC Hgb Hct MCV MCH MCHC RDW Plt Count MPV Immature Gran % (A uto) Neut % (Auto) Lymph % (Auto) [place] % (Auto) Eos % (Auto) Baso % (Auto) Lymph # (Auto) [place] # (Auto) Eos # (Auto) Baso # (Auto) Abs Immat Gran (au to) Absolute Neuts (au to) Absolute Nucleated RBC Nucleated RBC % (a uto) PT INR Sodium 133 L Potassium 3.2 L Chloride 101 Carbon Dioxide 23 Anion Gap 12 BUN 5 L D Creatinine 0.57 Estim Creat Clear Calc 170.7 Estimated GFR > 60 POC Glucose 92 82 Random Glucose Fasting Glucose 57 L* Calcium 6.6 L Magnesium 1.4 L* Total Bilirubin 4.0 H Direct Bilirubin 3.1 H AST 130 H ALT 36 Alkaline Phosphata se 142 H Total Protein 4.0 L Albumin 1.7 L Urine Color Urine Appearance Urine pH Ur Specific Gravit y Urine Protein Urine Glucose (UA) Urine Ketones Urine Blood Urine Nitrite Ur Leukocyte [facility] 06/06/20 06/06/20 06/06/20 05:56 05:56 07:23 WBC 8.0 RBC 3.20 L Hgb 10.7 L Hct 30.5 L MCV 95.3 MCH 33.4 H MCHC 35.1 RDW 16.7 H Plt Count 61 L D MPV 12.4 Immature Gran % (A uto) 1.0 H Neut % (Auto) 80.4 H Lymph % (Auto) 13.0 L [place] % (Auto) 5.1 Eos % (Auto) 0.1 Baso % (Auto) 0.4 Lymph # (Auto) 1.0 L [place] # (Auto) 0.4 Eos # (Auto) 0.0 Baso # (Auto) 0.0 Abs Immat Gran (au to) 0.08 H Absolute Neuts (au to) 6.4 Absolute Nucleated RBC 0.000 Nucleated RBC % (a uto) 0.0 PT 37.7 H D INR 3.1 H Sodium Potassium Chloride Carbon Dioxide Anion Gap BUN Creatinine Estim Creat Clear Calc Estimated GFR POC Glucose 62 Random Glucose Fasting Glucose Calcium Magnesium Total Bilirubin Direct Bilirubin AST ALT Alkaline Phosphata se Total Protein Albumin Urine Color Urine Appearance Urine pH Ur Specific Gravit y Urine Protein Urine Glucose (UA) Urine Ketones Urine Blood Urine Nitrite Ur Leukocyte Al[facility] 06/06/20 06/06/20 06/06/20 08:08 08:08 09:12 WBC 8.7 RBC 3.28 L Hgb 11.0 L Hct 31.7 L MCV 96.6 MCH 33.5 H MCHC 34.7 RDW 16.7 H Plt Count 62 L MPV 12.7 H Immature Gran % (A uto) 1.1 H Neut % (Auto) 77.3 H Lymph % (Auto) 15.6 L [place] % (Auto) 5.3 Eos % (Auto) 0.2 Baso % (Auto) 0.5 Lymph # (Auto) 1.4 [place] # (Auto) 0.5 Eos # (Auto) 0.0 Baso # (Auto) 0.0 Abs Immat Gran (au to) 0.10 H Absolute Neuts (au to) 6.7 Absolute Nucleated RBC 0.000 Nucleated RBC % (a uto) 0.0 PT INR Sodium 135 Potassium 3.4 Chloride 101 Carbon Dioxide 25 Anion Gap 12 BUN 5 L Creatinine 0.60 Estim Creat Clear Calc 162.2 Estimated GFR > 60 POC Glucose 78 Random Glucose 53 L* Fasting Glucose Calcium 6.5 L Magnesium 1.5 L Total Bilirubin Direct Bilirubin AST ALT Alkaline Phosphata se Total Protein Albumin Urine Color Urine Appearance Urine pH Ur Specific Gravit y Urine Protein Urine Glucose (UA) Urine Ketones Urine Blood Urine Nitrite Ur Leukocyte Alissa ase 06/06/20 11:22 WBC RBC Hgb Hct MCV MCH MCHC RDW Plt Count MPV Immature Gran % (A uto) Neut % (Auto) Lymph % (Auto) [place] % (Auto) Eos % (Auto) Baso % (Auto) Lymph # (Auto) [place] # (Auto) Eos # (Auto) Baso # (Auto) Abs Immat Gran (au to) Absolute Neuts (au to) Absolute Nucleated RBC Nucleated RBC % (a uto) PT INR Sodium Potassium Chloride Carbon Dioxide Anion Gap BUN Creatinine Estim Creat Clear Calc Estimated GFR POC Glucose 81 Random Glucose Fasting Glucose Calcium Magnesium Total Bilirubin Direct Bilirubin AST ALT Alkaline Phosphata se Total Protein Albumin Urine Color Urine Appearance Urine pH Ur Specific Gravit y Urine Protein Urine Glucose (UA) Urine Ketones Urine Blood Urine Nitrite Ur Leukocyte Alissa ase Const: Other: Alert, appears comfortable Resp: Other: Clear to auscultation anteriorly Cardio: Rate: regular rate Rhythm: regular rhythm GI: Other: Soft, tender in subcostal areas bilaterally, no palpable masses Progress Note: A&P Assessment and plan (1) Abnormal findings on diagnostic imaging of gallbladder: Status: Acute Assessment and Plan: 59-year-old male admitted with GI bleeding, alcohol dependence, abdominal pain and abnormal imaging findings related to the gallbladder with very mild thickening of the gallbladder wall but no evidence of gallstones and no pericholecystic fluid. Examination findings remain more consistent with abdominal tenderness related to hepatic inflammation than to cholecystitis. Will continue to follow. Fall Risk Details Current Medications: Current Medications Generic Name Dose Route Start Last Admin Trade Name Freq PRN Reason Stop Dose Admin Acetaminophen 650 mg 06/04/20 19:55 06/06/20 03:34 Acetaminophen 325 Mg Tablet PO 650 mg Q6H PRN Administration Pain, Mild (Pain Scale 1-3) Atorvastatin Calcium 1,600 mg 06/05/20 09:00 06/06/20 09:56 Atorvastatin Calcium 40 Mg Tablet PO Not Given DAILY [facility] Folic Acid 1 mg 06/05/20 09:00 06/06/20 09:54 Folic Acid 1 Mg Tablet PO 1 mg DAILY ALEX Administration Gabapentin 300 mg 06/04/20 21:00 06/05/20 20:04 Gabapentin 300 Mg Capsule PO 300 mg BEDTIME ALEX Administration Sodium Chloride 1,000 mls @ 100 mls/hr 06/05/20 12:30 06/06/20 09:54 Ns IVCONT 100 mls/hr .Q10H ALEX Administration Ceftriaxone Sodium 1 gm/ 50 mls @ 100 mls/hr 06/05/20 13:30 06/05/20 14:43 Sodium Chloride IV Infused Q24H ALEX Infusion Insulin Human Lispro 0 unit 06/04/20 21:00 06/06/20 11:31 Insulin Lispro 100 Unit/Ml 3 Ml Vial SUBCUT Not Given QIDACHS [facility] Protocol Medication 1 each 06/05/20 09:00 No Benzodiazepines MISCELLANE DAILY [facility] Protocol Multivitamins/Minerals 1 tab 06/05/20 09:00 06/06/20 09:54 Multivitamin With Minerals Tablet PO 1 tab DAILY [facility] Administration Ondansetron HCl 4 mg 06/04/20 19:55 06/05/20 11:11 Ondansetron Hcl 4 Mg/2 Ml Vial IVPUSH 4 mg Q8H PRN Administration Nausea and Vomiting Oxycodone HCl 5 mg 06/04/20 19:55 06/06/20 02:54 Oxycodone Hcl Immed Release 5 Mg Tablet PO 5 mg Q6H PRN Administration Pain Pantoprazole Sodium 40 mg 06/05/20 06:30 06/06/20 06:09 Pantoprazole Sodium 40 Mg/10 Ml Vial IVPUSH 40 mg BID@0630,1630 [facility] Administration Pharmacy Consult 1 each 06/04/20 17:35 Consult Rx Perform Med Rec MISCELLANE ONCE PRN Consult order Phenobarbital 60 mg 06/05/20 09:00 06/06/20 09:55 Phenobarbital 30 Mg Tablet PO 06/06/20 21:01 60 mg BID ALEX Administration Protocol Phenobarbital 30 mg 06/07/20 09:00 Phenobarbital 30 Mg Tablet PO 06/08/20 21:01 BID ALEX Protocol Phenobarbital 30 mg 06/09/20 09:00 Phenobarbital 30 Mg Tablet PO 06/10/20 09:01 DAILY [facility] Protocol Quetiapine Fumarate 50 mg 06/04/20 21:00 06/05/20 20:04 Quetiapine Fumarate 50 Mg Tablet PO 50 mg BEDTIME ALEX Administration Sodium Chloride 3 ml 06/05/20 00:00 06/06/20 09:53 0.9 % Sodium Chloride Flush 3 Ml Syringe IVFLUSH Not Given QSHIFT [facility] Vitamin D 25 mcg 06/05/20 09:00 06/06/20 09:55 Cholecalciferol (Vitamin D3) 25 Mcg Tablet PO 25 mcg DAILY ALEX Administration Time Spent With Patient Time: Total time spent is greater than 50% in coordination of care (as documented) at patient's floor/unit and/or counseling patient: Time with patient: less than 15 minutes
--- NOTE | 2020-06-06 12:53 | P.PNIM_ITS ---
Subjective Subjective Date of Service: 06/06/20 Interval History: patient seen and examined at bedside patient denies any bloody vomiting Withdrawal symptoms little improving patient still spiking a fever Review of Systems Denies any recent fever chills or decrease in appetite SEE HPI cardiovascular is adjustment of any PND, Reported edema SEE HPI genitourinary denies any dysuria frequency or hematuria musculoskeletal denies any joint pain or swelling neuropsych denies any weakness or seizures all other systems reviewed are negative Physical Exam Vital Signs: Vital Signs: Last Vital Signs Temp 100.4 F 06/06/20 11:54 Pulse 95 06/06/20 11:54 Resp 20 06/06/20 11:54 BP 117/63 06/06/20 11:54 Pulse Ox 92 06/06/20 11:54 Body Mass Index 33.5 Const: General: cooperative, alert and anxious HENMT: Head: Yes normocephalic and Yes atraumatic Eyes: EOM: EOMs intact bilaterally Resp: Effort & Inspection: normal respiratory effort Auscultation: clear to auscultation bilaterally Cardio: Rate: regular rate Rhythm: regular rhythm GI: Other: Round, soft, moderate diffuse tenderness, no palpable masses, no obvious organomegaly Rectal Exam - Male: Yes deferred Extrem: Other: 1+ edema ankles and feet Psych: Other: Tearful Objective Data Current Medications Generic Name Dose Route Start Last Admin Trade Name Narenq PRN Reason Stop Dose Admin Acetaminophen 650 mg 06/04/20 19:55 06/06/20 03:34 Acetaminophen 325 Mg Tablet PO 650 mg Q6H PRN Administration Pain, Mild (Pain Scale 1-3) Atorvastatin Calcium 40 mg 06/07/20 09:00 Atorvastatin Calcium 40 Mg Tablet PO DAILY ALEX Folic Acid 1 mg 06/05/20 09:00 06/06/20 09:54 Folic Acid 1 Mg Tablet PO 1 mg DAILY ALEX Administration Gabapentin 300 mg 06/04/20 21:00 06/05/20 20:04 Gabapentin 300 Mg Capsule PO 300 mg BEDTIME ALEX Administration Sodium Chloride 1,000 mls @ 100 mls/hr 06/05/20 12:30 06/06/20 09:54 Ns IVCONT 100 mls/hr .Q10H ALEX Administration Ceftriaxone Sodium 1 gm/ 50 mls @ 100 mls/hr 06/05/20 13:30 06/05/20 14:43 Sodium Chloride IV Infused Q24H ALEX Infusion Phytonadione 10 mg/ Sodium 51 mls @ 51 mls/hr 06/06/20 12:47 Chloride IV 06/06/20 13:46 ONCE ONE Magnesium Sulfate 2 gm in 50 mls @ 25 mls/hr 06/06/20 12:48 IV 06/06/20 14:47 ONCE ONE Insulin Human Lispro 0 unit 06/04/20 21:00 06/06/20 11:31 Insulin Lispro 100 Unit/Ml 3 Ml Vial SUBCUT Not Given QIDACHS [facility] Protocol Medication 1 each 06/05/20 09:00 No Benzodiazepines MISCELLANE DAILY [facility] Protocol Multivitamins/Minerals 1 tab 06/05/20 09:00 06/06/20 09:54 Multivitamin With Minerals Tablet PO 1 tab DAILY [facility] Administration Ondansetron HCl 4 mg 06/04/20 19:55 06/05/20 11:11 Ondansetron Hcl 4 Mg/2 Ml Vial IVPUSH 4 mg Q8H PRN Administration Nausea and Vomiting Oxycodone HCl 5 mg 06/04/20 19:55 06/06/20 02:54 Oxycodone Hcl Immed Release 5 Mg Tablet PO 5 mg Q6H PRN Administration Pain Pantoprazole Sodium 40 mg 06/05/20 06:30 06/06/20 06:09 Pantoprazole Sodium 40 Mg/10 Ml Vial IVPUSH 40 mg BID@0630,1630 [facility] Administration Pharmacy Consult 1 each 06/04/20 17:35 Consult Rx Perform Med Rec MISCELLANE ONCE PRN Consult order Phenobarbital 60 mg 06/05/20 09:00 06/06/20 09:55 Phenobarbital 30 Mg Tablet PO 06/06/20 21:01 60 mg BID [facility] Administration Protocol Phenobarbital 30 mg 06/07/20 09:00 Phenobarbital 30 Mg Tablet PO 06/08/20 21:01 BID [facility] Protocol Phenobarbital 30 mg 06/09/20 09:00 Phenobarbital 30 Mg Tablet PO 06/10/20 09:01 DAILY [facility] Protocol Quetiapine Fumarate 50 mg 06/04/20 21:00 06/05/20 20:04 Quetiapine Fumarate 50 Mg Tablet PO 50 mg BEDTIME [facility] Administration Sodium Chloride 3 ml 06/05/20 00:00 06/06/20 09:53 0.9 % Sodium Chloride Flush 3 Ml Syringe IVFLUSH Not Given QSHIFT [facility] Vitamin D 25 mcg 06/05/20 09:00 06/06/20 09:55 Cholecalciferol (Vitamin D3) 25 Mcg Tablet PO 25 mcg DAILY [facility] Administration Labs CBC & Chem 7: 06/06/20 08:08 06/06/20 08:08 Microbiology Microbiology Results: Microbiology 06/05/20 10:00 Urine clean catch - Clean Catch Midstream Urine Culture - Final Assessment and Plan (1) Acute GI bleeding: Status: Acute (2) Hematemesis: Status: Acute Assessment and Plan: 59 year old man admitted with GI bleed secondary to anticoagulation and heavy alcohol abuse. Upper GI bleed/gastritis .On Anticoagulation hold Eliquis continue IV PPI seen by GI recommended EGD on Monday INR still high Eliquis on hold Will give vitamin K monitor H&H closely Significant lower extremity edema mildly elevated BNP Echocardiogram pending Lactic acidosis. Multifactorial, alcohol abuse, vomiting, dehydration. Improving with IV fluids. Transaminitis. Likely related to alcohol abuse ultrasound abdomen shows gallbladder wall thickening question of acute on chronic cholecystitis general surgery consulted reconciled cholecystitis less likely Fever etiology not clear Still spiking fever 101-102 Blood cultures and urine culture pending UA negative, chest x-ray shows no infiltrates Will get ID consult Will continue Rocephin until culture pending Alcohol abuse currently in withdrawals . Drinks 10-16 nips daily continue phenobarbital and CIWA protocol monitor on [employer] electrolytes hypokalemia and hypomagnesemia replaced monitor electrolytes DVT prophylaxis with Mechanical compression boots. given GI bleed
[2020-06-06] MEDS: cefTRIAXone sodium 1 GM in 0.9 % Sodium Chloride 50 ML IV (13:24)
[2020-06-06] MEDS: Potassium Chloride Packet 20 MEQ PACKET 40 MEQ PO (13:27)
[2020-06-06] MEDS: Phytonadione (Vit K1) 10 MG in 0.9 % Sodium Chloride 50 ML 51 MG IV (13:55)
[2020-06-06 14:04] LABS: Alanine Aminotransferase 38 U/L (0-40); Albumin Level 1.8 g/dL (3.5-5.0); Alkaline Phosphatase 146 U/L (39-117); Aspartate Amino Transferase 133 U/L (5-37); Bilirubin Direct 3.3 mg/dL (0.0-0.5); Bilirubin Total 3.9 mg/dL (0.0-1.0); Total Protein 3.9 g/dL (6.5-8.0)
[2020-06-06 15:54] LABS: Glucose, Whole Blood 84 mg/dL (60-115)
[2020-06-06] MEDS: Magnesium Sulfate/H2O 2 GM/50 ML PIGGYBACK IV (16:03)
[2020-06-06] MEDS: Magnesium Oxide 400 MG TABLET PO (16:03)
[2020-06-06] MEDS: 0.9 % Sodium Chloride Flush 3 ML SYRINGE IVFLUSH (16:08)
[2020-06-06] MEDS: ondansetron HCL 4 MG/2 ML VIAL IVPUSH (16:18)
[2020-06-06 20:03] LABS: Glucose, Whole Blood 74 mg/dL (60-115)
[2020-06-06] MEDS: QUEtiapine Fumarate 50 MG TABLET PO (20:32)
[2020-06-06] MEDS: Gabapentin 300 MG CAPSULE PO (20:32)
--- NOTE | 2020-06-06 21:53 | W.PM.IDCN ---
History of Present Illness Data of Consult Service Date: 06/06/20 Requesting physician: Misha Quintana Primary Care Provider: Yodit Flower NP HPI Reason for consult: fever of unknown origin He presents with temperature 101 He has no nausea or diarrhea He has discomfort RUQ on u/s exam Review of Systems Review of Systems: Yes all other systems are reviewed and are negative PMFSH Past Medical History Medical History Alcohol withdrawal COPD (chronic obstructive pulmonary disease) COVID-19 COVID-19 determined by clinical diagnostic criteria Depression Diabetes ETOH abuse Fever of undetermined origin Seizure Family History Family history: reviewed and not pertinent Surgical History Surgical History History of gastric bypass History of sleeve gastrectomy Social History Social History Household Members: Significant Other Housing: Apartment Alcohol intake: current Alcohol intake frequency: 3 or more drinks per day Alcohol type: hard liquor Smoking Status: Never smoker Tobacco Type: Cigarette Second Hand Smoke Exposure: Yes service: No Current occupational status: unemployed Meds Allergies Allergy/AdvReac Type Severity Reaction Status Date / Time No Known Allergies Allergy Verified 06/08/20 13:59 [No Known Allergies*] Home Medications Medication Instructions Recorded Confirmed Type atorvastatin 40 tab PO DAILY 03/02/20 06/04/20 History cholecalciferol (vitamin D3) 1 cap PO DAILY 03/02/20 06/04/20 History [Vitamin D3] folic acid 1 tab PO DAILY 03/02/20 06/04/20 History gabapentin 300 mg PO BEDTIME 03/02/20 06/04/20 History omeprazole 20 cap PO BID 03/02/20 06/04/20 History quetiapine 50 mg PO BEDTIME 03/02/20 06/04/20 History Certavite-Antioxidant 1 tab PO DAILY 06/04/20 06/04/20 History Eliquis 5 mg PO BID 06/04/20 06/04/20 History oxycodone 5 mg PO Q6H PRN 06/04/20 06/04/20 History Physical Exam Vital Signs: Vital Signs: Last Vital Signs Temp 97.7 F 06/06/20 19:19 Pulse 100 06/06/20 19:19 Resp 19 06/06/20 19:19 BP 143/76 H 06/06/20 19:19 Pulse Ox 92 06/06/20 19:19 Body Mass Index 33.5 Const: General: cooperative HENMT: Head: Yes normal to inspection Mouth: Normal oral and palatal mucosa present Eyes: General: appearance normal, both eyes and all related structures Resp: Effort & Inspection: normal respiratory effort Cardio: Rate: regular rate Rhythm: regular rhythm GI: Other: mild discomfort RUQ Inspection: Yes normal to inspection Skin: General skin exam: no rashes or lesions noted Extrem: General: Yes normal to inspection Assessment and Plan (1) Fever of undetermined origin: Problem details: There is concern over alcoholilc hepatitis There is concern over cholecystitis There is concern less so over SBP There is concern over alcohol withdrawal Status: Acute Would change to Zosyn for improved gram negative abdominal coverage Surgery evaluate gallbladder Watch for alcohol withdrawal Results Labs CBC & Chem 7: 06/19/20 06:03 06/19/20 06:03 Labs: Short CBC 06/06/20 06/06/20 Range/Units 05:56 08:08 WBC 8.0 8.7 (4.8-10.8) X10*3/uL Hgb 10.7 L 11.0 L (14.0-18.0) g/dl Hct 30.5 L 31.7 L (42-52) % Plt Count 61 L D 62 L (160-400) X10*3/uL BMP 06/06/20 06/06/20 05:56 08:08 Sodium 133 L 135 Potassium 3.2 L 3.4 Chloride 101 101 Carbon Dioxide 23 25 BUN 5 L D 5 L Creatinine 0.57 0.60 Calcium 6.6 L 6.5 L Liver Function 06/06/20 06/06/20 Range/Units 05:56 08:08 Total Bilirubin 4.0 H 3.9 H (0.0-1.0) mg/dL Direct Bilirubin 3.1 H 3.3 H (0.0-0.5) mg/dL AST 130 H 133 H (5-37) U/L ALT 36 38 (0-40) U/L Alkaline Phosphatase 142 H 146 H (39-117) U/L Albumin 1.7 L 1.8 L (3.5-5.0) g/dL Microbiology Microbiology Results: Microbiology 06/05/20 12:59 Blood - Venous Blood Culture - Preliminary No growth after 24 hours. 06/05/20 13:02 Blood - Venous Blood Culture - Preliminary No growth after 24 hours. 06/05/20 10:00 Urine clean catch - Clean Catch Midstream Urine Culture - Final
[2020-06-07] MEDS: Piperacillin Sodium/Tazobactam 3.375 GM in 0.9 % Sodium Chloride 50 ML IV ×4 (00:12→21:09)
[2020-06-07] MEDS: 0.9 % Sodium Chloride Flush 3 ML SYRINGE IVFLUSH ×3 (00:13→23:53)
[2020-06-07 04:00] VITALS: BP 103/62; PULSE 97; RESP 18; TEMP 37.6; O2SAT 92
[2020-06-07] MEDS: Pantoprazole Sodium 40 MG/10 ML VIAL IVPUSH ×2 (05:50→15:37)
[2020-06-07 06:18] LABS: MANUAL DIFF FLAG NO
[2020-06-07 06:26] LABS: Basophils Absolute Auto 0.1 X10*3/uL (0.0-0.2); Basophils Percent Auto 0.8 % (0-2); Eosinophils Absolute Auto 0.1 X10*3/uL (0.0-0.4); Eosinophils Percent Auto 1.6 % (0-4); Hemoglobin 10.7 g/dl (14.0-18.0); Imm Gran Abs Auto 0.22 X10*3/uL (0.00-0.03); Imm Gran Pct Auto 3.6 % (0.0-0.4); Lymphocytes Absolute Auto 1.3 X10*3/uL (1.2-4.9); Lymphocytes Percent Auto 21.1 % (20-40); Mean Corpuscular HGB Conc 34.5 g/dl (31.0-36.0); Mean Corpuscular Hemoglobin 33.3 pg (27.0-33.0); Mean Corpuscular Volume 96.6 fL (80-98); Monocytes Absolute Auto 0.4 X10*3/uL (0.1-1.2); Monocytes Percent Auto 6.2 % (2-11); Neutrophils Absolute Auto 4.1 X10*3/uL (2.0-8.3); Neutrophils Percent Auto 66.7 % (45-73); Red Blood Count 3.21 X10*6/uL (4.60-5.80); Red Cell Distribution Width 16.4 % (11.0-16.0); White Blood Count 6.2 X10*3/uL (4.8-10.8)
[2020-06-07 06:29] LABS: Platelet Count 63 X10*3/uL (160-400)
[2020-06-07 07:21] LABS: Alanine Aminotransferase 29 U/L (0-40); Albumin Level 1.7 g/dL (3.5-5.0); Alkaline Phosphatase 137 U/L (39-117); Anion Gap 11 (12-20); Aspartate Amino Transferase 91 U/L (5-37); Bilirubin Direct 4.3 mg/dL (0.0-0.5); Bilirubin Total 5.5 mg/dL (0.0-1.0); Blood Urea Nitrogen 4 mg/dL (9-16); Carbon Dioxide 24 mmol/L (22-29); Chloride 101 mmol/L (96-108); Creatinine Clr Calc Pharmacy 198.6; Estimated Glomerular Filt Rate > 60; Glucose Random 55 mg/dL (60-115); Potassium 3.1 mmol/l (3.3-5.1); Sodium 133 mmol/L (135-145)
[2020-06-07 07:22] LABS: Glucose, Whole Blood 63 mg/dL (60-115)
[2020-06-07 07:35] VITALS: BP 113/57; PULSE 96; RESP 20; TEMP 37.3; O2SAT 90
[2020-06-07 07:36] LABS: Calcium 6.7 mg/dL (8.4-10.2); Total Protein 3.8 g/dL (6.5-8.0)
[2020-06-07 08:02] LABS: INTERNATIONAL NORM RATIO 1.3 (0.9-1.1); Prothrombin Time 15.6 SEC (10.8-13.0)
[2020-06-07] MEDS: Magnesium Oxide 400 MG TABLET PO ×2 (09:11→17:33)
[2020-06-07] MEDS: Cholecalciferol (Vitamin D3) 25 MCG TABLET PO (09:11)
[2020-06-07] MEDS: Folic Acid 1 MG TABLET PO (09:11)
[2020-06-07] MEDS: PHENobarbitaL 30 MG TABLET PO ×2 (09:11→20:28)
[2020-06-07] MEDS: Potassium Chloride Packet 20 MEQ PACKET 40 MEQ PO (09:12)
[2020-06-07] MEDS: Dextrose 5 % and 0.9 % NaCl 1,000 ML 80 ML IVCONT ×2 (09:12→20:50)
[2020-06-07 11:45] LABS: Glucose, Whole Blood 83 mg/dL (60-115)
--- NOTE | 2020-06-07 11:48 | P.PNIM_ITS ---
Subjective Subjective Date of Service: 06/07/20 Interval History: patient seen and examined at bedside patient denies any bloody vomiting Withdrawal symptoms little improving patient still spiking a fever Review of Systems Denies any recent fever chills or decrease in appetite SEE HPI cardiovascular is adjustment of any PND, Reported edema SEE HPI genitourinary denies any dysuria frequency or hematuria musculoskeletal denies any joint pain or swelling neuropsych denies any weakness or seizures all other systems reviewed are negative Physical Exam Vital Signs: Vital Signs: Last Vital Signs Temp 99.2 F 06/07/20 07:35 Pulse 96 06/07/20 07:35 Resp 20 06/07/20 07:35 BP 113/57 L 06/07/20 07:35 Pulse Ox 90 L 06/07/20 07:35 Body Mass Index 33.5 Const: General: cooperative, alert and anxious HENMT: Head: Yes normocephalic and Yes atraumatic Eyes: EOM: EOMs intact bilaterally Resp: Effort & Inspection: normal respiratory effort Auscultation: clear to auscultation bilaterally Cardio: Rate: regular rate Rhythm: regular rhythm GI: Other: Round, soft, moderate diffuse tenderness, no palpable masses, no obvious organomegaly Rectal Exam - Male: Yes deferred Extrem: Other: 1+ edema ankles and feet Psych: Other: Tearful Objective Data Current Medications Generic Name Dose Route Start Last Admin Trade Name Narenq PRN Reason Stop Dose Admin Folic Acid 1 mg 06/05/20 09:00 06/07/20 09:11 Folic Acid 1 Mg Tablet PO 1 mg DAILY ALEX Administration Gabapentin 300 mg 06/04/20 21:00 06/06/20 20:32 Gabapentin 300 Mg Capsule PO 300 mg BEDTIME ALEX Administration Piperacillin Sod/Tazobactam 50 mls @ 100 mls/hr 06/06/20 22:00 06/07/20 05:58 Sod 3.375 gm/ Sodium Chloride IV Infused Q8H ALEX Infusion Dextrose/Sodium Chloride 1,000 mls @ 80 mls/hr 06/07/20 08:45 06/07/20 09:12 D5ns IVCONT 80 mls/hr .[id number] ALEX Administration Insulin Human Lispro 0 unit 06/04/20 21:00 06/07/20 07:59 Insulin Lispro 100 Unit/Ml 3 Ml Vial SUBCUT Not Given QIDACHS [facility] Protocol Magnesium Oxide 400 mg 06/06/20 17:30 06/07/20 09:11 Magnesium Oxide 400 Mg Tablet PO 400 mg BIDPC [facility] Administration Medication 1 each 06/05/20 09:00 No Benzodiazepines MISCELLANE DAILY [facility] Protocol Multivitamins/Minerals 1 tab 06/05/20 09:00 06/07/20 09:12 Multivitamin With Minerals Tablet PO 1 tab DAILY [facility] Administration Ondansetron HCl 4 mg 06/04/20 19:55 06/06/20 16:18 Ondansetron Hcl 4 Mg/2 Ml Vial IVPUSH 4 mg Q8H PRN Administration Nausea and Vomiting Oxycodone HCl 5 mg 06/04/20 19:55 06/06/20 16:17 Oxycodone Hcl Immed Release 5 Mg Tablet PO 5 mg Q6H PRN Administration Pain Pantoprazole Sodium 40 mg 06/05/20 06:30 06/07/20 05:50 Pantoprazole Sodium 40 Mg/10 Ml Vial IVPUSH 40 mg BID@0630,1630 [facility] Administration Pharmacy Consult 1 each 06/04/20 17:35 Consult Rx Perform Med Rec MISCELLANE ONCE PRN Consult order Phenobarbital 30 mg 06/07/20 09:00 06/07/20 09:11 Phenobarbital 30 Mg Tablet PO 06/08/20 21:01 30 mg BID [facility] Administration Protocol Phenobarbital 30 mg 06/09/20 09:00 Phenobarbital 30 Mg Tablet PO 06/10/20 09:01 DAILY [facility] Protocol Quetiapine Fumarate 50 mg 06/04/20 21:00 06/06/20 20:32 Quetiapine Fumarate 50 Mg Tablet PO 50 mg BEDTIME [facility] Administration Sodium Chloride 3 ml 06/05/20 00:00 06/07/20 07:59 0.9 % Sodium Chloride Flush 3 Ml Syringe IVFLUSH Not Given QSHIFT [facility] Vitamin D 25 mcg 06/05/20 09:00 06/07/20 09:11 Cholecalciferol (Vitamin D3) 25 Mcg Tablet PO 25 mcg DAILY [facility] Administration Labs CBC & Chem 7: 06/07/20 05:19 06/07/20 05:19 Microbiology Microbiology Results: Microbiology 06/05/20 12:59 Blood - Venous Blood Culture - Preliminary No growth after 24 hours. 06/05/20 13:02 Blood - Venous Blood Culture - Preliminary No growth after 24 hours. 06/05/20 10:00 Urine clean catch - Clean Catch Midstream Urine Culture - Final Assessment and Plan (1) Acute GI bleeding: Status: Acute (2) Hematemesis: Status: Acute Assessment and Plan: 59 year old man admitted with GI bleed secondary to anticoagulation and heavy alcohol abuse. Upper GI bleed/gastritis .On Anticoagulation hold Eliquis continue IV PPI seen by GI recommended EGD on Monday INR was high Eliquis on hold recieved Vitamin K INR trended down to 1.3 monitor H&H closely Lower extremity edema mildly elevated BNP Echocardiogram pending Transaminitis. Likely related to alcohol abuse ultrasound abdomen shows gallbladder wall thickening question of acute on chronic cholecystitis general surgery consulted reconciled cholecystitis less likely Fever etiology not clear fever resolving Blood cultures and urine culture pending UA negative, chest x-ray shows no infiltrates ID consult pending continue Rocephin until culture pending Alcohol abuse currently in withdrawals . Drinks 10-16 nips daily continue phenobarbital and CIWA protocol monitor on [employer] electrolytes hypokalemia and hypomagnesemia replaced monitor electrolytes DVT prophylaxis with Mechanical compression boots. given GI bleed
[2020-06-07 11:56] VITALS: BP 120/77; PULSE 89; RESP 20; TEMP 37.6; O2SAT 93
--- NOTE | 2020-06-07 12:11 | PM.PNGS ---
Subjective Subjective Date of Service: 06/07/20 Interval history: Feels unwell. Offering no specific complaints, but on questioning reports that abdominal discomfort is essentially the same. Physical Exam Vital Signs: Vital Signs: Last Vital Signs Temp 99.7 F 06/07/20 11:56 Pulse 89 06/07/20 11:56 Resp 20 06/07/20 11:56 BP 120/77 06/07/20 11:56 Pulse Ox 93 06/07/20 11:56 T-max past 24 hours 100.4 Body Mass Index 33.5 Laboratory Results - last 24 hr 06/06/20 06/06/20 06/06/20 08:08 15:44 19:47 WBC RBC Hgb Hct MCV MCH MCHC RDW Plt Count MPV Immature Gran % (A uto) Neut % (Auto) Lymph % (Auto) Harrison % (Auto) Eos % (Auto) Baso % (Auto) Lymph # (Auto) Harrison # (Auto) Eos # (Auto) Baso # (Auto) Abs Immat Gran (au to) Absolute Neuts (au to) Absolute Nucleated RBC Nucleated RBC % (a uto) PT INR Sodium Potassium Chloride Carbon Dioxide Anion Gap BUN Creatinine Estim Creat Clear Calc Estimated GFR POC Glucose 84 74 Random Glucose Calcium Total Bilirubin 3.9 H Direct Bilirubin 3.3 H AST 133 H ALT 38 Alkaline Phosphata se 146 H Total Protein 3.9 L Albumin 1.8 L 06/07/20 06/07/20 06/07/20 05:19 05:19 05:19 WBC 6.2 RBC 3.21 L Hgb 10.7 L Hct 31.0 L MCV 96.6 MCH 33.3 H MCHC 34.5 RDW 16.4 H Plt Count 63 L MPV 13.0 H Immature Gran % (A uto) 3.6 H Neut % (Auto) 66.7 Lymph % (Auto) 21.1 Harrison % (Auto) 6.2 Eos % (Auto) 1.6 Baso % (Auto) 0.8 Lymph # (Auto) 1.3 Harrison # (Auto) 0.4 Eos # (Auto) 0.1 Baso # (Auto) 0.1 Abs Immat Gran (au to) 0.22 H Absolute Neuts (au to) 4.1 Absolute Nucleated RBC 0.000 Nucleated RBC % (a uto) 0.0 PT 15.6 H D INR 1.3 H Sodium 133 L Potassium 3.1 L Chloride 101 Carbon Dioxide 24 Anion Gap 11 L BUN 4 L Creatinine 0.49 L Estim Creat Clear Calc 198.6 Estimated GFR > 60 POC Glucose Random Glucose 55 L* Calcium 6.7 L Total Bilirubin 5.5 H Direct Bilirubin 4.3 H AST 91 H ALT 29 Alkaline Phosphata se 137 H Total Protein 3.8 L Albumin 1.7 L 06/07/20 06/07/20 07:12 11:24 WBC RBC Hgb Hct MCV MCH MCHC RDW Plt Count MPV Immature Gran % (A uto) Neut % (Auto) Lymph % (Auto) Harrison % (Auto) Eos % (Auto) Baso % (Auto) Lymph # (Auto) Harrison # (Auto) Eos # (Auto) Baso # (Auto) Abs Immat Gran (au to) Absolute Neuts (au to) Absolute Nucleated RBC Nucleated RBC % (a uto) PT INR Sodium Potassium Chloride Carbon Dioxide Anion Gap BUN Creatinine Estim Creat Clear Calc Estimated GFR POC Glucose 63 83 Random Glucose Calcium Total Bilirubin Direct Bilirubin AST ALT Alkaline Phosphata se Total Protein Albumin Const: General: cooperative, alert and ill appearing Resp: Effort & Inspection: normal respiratory effort Auscultation: clear to auscultation bilaterally Cardio: Rate: regular rate Rhythm: regular rhythm GI: Other: Round, bowel sounds active, tender over liver right upper quadrant and left subcostal area, no palpable masses Skin: Other: Warm and dry Progress Note: A&P Assessment and plan (1) Abnormal findings on diagnostic imaging of gallbladder: Status: Acute Assessment and Plan: He has diffuse upper abdominal tenderness and hepatomegaly. Exam findings are more consistent with alcoholic hepatitis them acute cholecystitis, but cholecystitis cannot be ruled out. HIDA scan ordered. (2) Acute GI bleeding: Status: Acute Assessment and Plan: Appears stable. EGD to be done by Dr. Oden when patient is medically stable (3) Fever of undetermined origin: Problem details: There is concern over alcoholilc hepatitis There is concern over cholecystitis There is concern less so over SBP There is concern over alcohol withdrawal Status: Acute Assessment and Plan: Etiology of a fever unclear. Lower past 24 hours. On Zosyn. HIDA scan ordered to evaluate for cholecystitis. Fall Risk Details Current Medications: Current Medications Generic Name Dose Route Start Last Admin Trade Name Freq PRN Reason Stop Dose Admin Folic Acid 1 mg 06/05/20 09:00 06/07/20 09:11 Folic Acid 1 Mg Tablet PO 1 mg DAILY [facility] Administration Gabapentin 300 mg 06/04/20 21:00 06/06/20 20:32 Gabapentin 300 Mg Capsule PO 300 mg BEDTIME [facility] Administration Piperacillin Sod/Tazobactam 50 mls @ 100 mls/hr 06/06/20 22:00 06/07/20 05:58 Sod 3.375 gm/ Sodium Chloride IV Infused Q8H [facility] Infusion Dextrose/Sodium Chloride 1,000 mls @ 80 mls/hr 06/07/20 08:45 06/07/20 09:12 D5ns IVCONT 80 mls/hr .[id number] [facility] Administration Insulin Human Lispro 0 unit 06/04/20 21:00 06/07/20 07:59 Insulin Lispro 100 Unit/Ml 3 Ml Vial SUBCUT Not Given QIDACHS [facility] Protocol Magnesium Oxide 400 mg 06/06/20 17:30 06/07/20 09:11 Magnesium Oxide 400 Mg Tablet PO 400 mg BIDPC [facility] Administration Medication 1 each 06/05/20 09:00 No Benzodiazepines MISCELLANE DAILY [facility] Protocol Multivitamins/Minerals 1 tab 06/05/20 09:00 06/07/20 09:12 Multivitamin With Minerals Tablet PO 1 tab DAILY [facility] Administration Ondansetron HCl 4 mg 06/04/20 19:55 06/06/20 16:18 Ondansetron Hcl 4 Mg/2 Ml Vial IVPUSH 4 mg Q8H PRN Administration Nausea and Vomiting Oxycodone HCl 5 mg 06/04/20 19:55 06/06/20 16:17 Oxycodone Hcl Immed Release 5 Mg Tablet PO 5 mg Q6H PRN Administration Pain Pantoprazole Sodium 40 mg 06/05/20 06:30 06/07/20 05:50 Pantoprazole Sodium 40 Mg/10 Ml Vial IVPUSH 40 mg BID@0630,1630 [facility] Administration Pharmacy Consult 1 each 06/04/20 17:35 Consult Rx Perform Med Rec MISCELLANE ONCE PRN Consult order Phenobarbital 30 mg 06/07/20 09:00 06/07/20 09:11 Phenobarbital 30 Mg Tablet PO 06/08/20 21:01 30 mg BID ALEX Administration Protocol Phenobarbital 30 mg 06/09/20 09:00 Phenobarbital 30 Mg Tablet PO 06/10/20 09:01 DAILY [facility] Protocol Quetiapine Fumarate 50 mg 06/04/20 21:00 06/06/20 20:32 Quetiapine Fumarate 50 Mg Tablet PO 50 mg BEDTIME [facility] Administration Sodium Chloride 3 ml 06/05/20 00:00 06/07/20 07:59 0.9 % Sodium Chloride Flush 3 Ml Syringe IVFLUSH Not Given QSHIFT [facility] Vitamin D 25 mcg 06/05/20 09:00 06/07/20 09:11 Cholecalciferol (Vitamin D3) 25 Mcg Tablet PO 25 mcg DAILY [facility] Administration Time Spent With Patient Time: Total time spent is greater than 50% in coordination of care (as documented) at patient's floor/unit and/or counseling patient: Time with patient: less than 15 minutes
[2020-06-07 12:29] LABS: Magnesium 1.7 mg/dL (1.6-2.6)
[2020-06-07 15:48] LABS: Glucose, Whole Blood 74 mg/dL (60-115)
[2020-06-07 16:00] VITALS: BP 142/89; PULSE 99; RESP 18; TEMP 36.6; O2SAT 94
[2020-06-07 20:00] VITALS: BP 136/84; PULSE 90; RESP 20; TEMP 36.7; O2SAT 94
[2020-06-07] MEDS: QUEtiapine Fumarate 50 MG TABLET PO (20:27)
[2020-06-07] MEDS: Gabapentin 300 MG CAPSULE PO (20:27)
[2020-06-07 20:33] LABS: Glucose, Whole Blood 86 mg/dL (60-115)
[2020-06-07 23:53] VITALS: BP 133/65; PULSE 93; RESP 20; TEMP 37; O2SAT 95
[2020-06-08] VITALS (7 sets, daily range): BP systolic 98–146; BP diastolic 62–87; PULSE 78–100; RESP 16–20; TEMP 36.4–37.6; O2SAT 93–96
[2020-06-08 04:54] LABS: MANUAL DIFF FLAG NO
[2020-06-08 05:00] LABS: Basophils Percent Auto 0.6 % (0-2); Eosinophils Absolute Auto 0.1 X10*3/uL (0.0-0.4); Eosinophils Percent Auto 1.1 % (0-4); Hematocrit 30.9 % (42-52); Hemoglobin 10.4 g/dl (14.0-18.0); Imm Gran Abs Auto 0.05 X10*3/uL (0.00-0.03); Imm Gran Pct Auto 0.8 % (0.0-0.4); Lymphocytes Absolute Auto 1.1 X10*3/uL (1.2-4.9); Lymphocytes Percent Auto 18.3 % (20-40); Mean Corpuscular HGB Conc 33.7 g/dl (31.0-36.0); Mean Corpuscular Hemoglobin 33.1 pg (27.0-33.0); Mean Corpuscular Volume 98.4 fL (80-98); Mean Platelet Volume 12.4 fL (9.4-12.4); Monocytes Absolute Auto 0.8 X10*3/uL (0.1-1.2); Monocytes Percent Auto 13.1 % (2-11); Neutrophils Absolute Auto 4.1 X10*3/uL (2.0-8.3); Neutrophils Percent Auto 66.1 % (45-73); Red Blood Count 3.14 X10*6/uL (4.60-5.80); White Blood Count 6.2 X10*3/uL (4.8-10.8)
[2020-06-08 05:03] LABS: Platelet Count 79 X10*3/uL (160-400)
[2020-06-08 05:04] LABS: INTERNATIONAL NORM RATIO 1.1 (0.9-1.1); Prothrombin Time 13.5 SEC (10.8-13.0)
[2020-06-08] MEDS: Piperacillin Sodium/Tazobactam 3.375 GM in 0.9 % Sodium Chloride 50 ML IV ×2 (05:16→16:30)
[2020-06-08] MEDS: Pantoprazole Sodium 40 MG/10 ML VIAL IVPUSH (05:17)
[2020-06-08 05:35] LABS: Alanine Aminotransferase 26 U/L (0-40); Albumin Level 1.7 g/dL (3.5-5.0); Alkaline Phosphatase 137 U/L (39-117); Anion Gap 11 (12-20); Aspartate Amino Transferase 82 U/L (5-37); Bilirubin Total 5.1 mg/dL (0.0-1.0); Blood Urea Nitrogen 4 mg/dL (9-16); Calcium 6.9 mg/dL (8.4-10.2); Carbon Dioxide 24 mmol/L (22-29); Chloride 103 mmol/L (96-108); Creatinine Clr Calc Pharmacy 202.8; Estimated Glomerular Filt Rate > 60; Glucose Random 77 mg/dL (60-115); Potassium 3.3 mmol/l (3.3-5.1); Sodium 135 mmol/L (135-145); Total Protein 4.1 g/dL (6.5-8.0)
[2020-06-08 07:28] LABS: Glucose, Whole Blood 91 mg/dL (60-115)
--- NOTE | 2020-06-08 08:00 | NM_ITS ---
EXAMINATION: BILIARY TRACT IMAGING STUDY CLINICAL INFORMATION: Possible acute cholecystitis. Nausea, vomiting and bloating. Increased LFTs.. COMPARISON: No previous biliary scan is available for comparison. Abdominal ultrasound dated 06/04/[address] scan of the abdomen and pelvis dated 05/19/2020 are available for comparison.. TECHNIQUE: Serial gamma scintillation camera images were obtained over the abdomen for a total observation period of 125 minutes following the intravenous administration of 5 mCi Tc-99m Mebrofenin. FINDINGS: There is good concentration of activity in the liver by 5 minutes post injection. Biliary activity is well visualized by 20 minutes. Small bowel is well visualized by 20 minutes. The gallbladder is is not visualized at any time during the study up to 125 minutes post injection. At the end of the study there is diffuse abnormal retention of activity in the liver. NM/NM hepatobiliary wo pharm IMPRESSION: Nonvisualization the gallbladder is evidence of an obstructed cystic duct and strong evidence to suggest the diagnosis of acute cholecystitis. This could also be seen with chronic cholecystitis. The common bile duct is patent. Prolonged retention of activity in the liver is abnormal and evidence of diffuse hepatocellular disease.
[2020-06-08] MEDS: Dextrose 5 % and 0.9 % NaCl 1,000 ML 80 ML IVCONT (09:39)
--- NOTE | 2020-06-08 12:50 | HO.PM.IMPN ---
Subjective Subjective Date of Service: 06/08/20 Interval History: patient seen and examined at bedside patient denies any bloody vomiting withdrawal symptoms improving Review of Systems Denies any recent fever chills or decrease in appetite SEE HPI cardiovascular is adjustment of any PND, Reported edema SEE HPI genitourinary denies any dysuria frequency or hematuria musculoskeletal denies any joint pain or swelling neuropsych denies any weakness or seizures all other systems reviewed are negative Physical Exam Vital Signs: Vital Signs: Last Vital Signs Temp 97.5 F 06/08/20 07:30 Pulse 92 06/08/20 07:30 Resp 20 06/08/20 07:30 BP 146/86 H 06/08/20 07:30 Pulse Ox 93 06/08/20 07:30 Body Mass Index 33.5 Const: General: cooperative, alert and anxious HENMT: Head: Yes normocephalic and Yes atraumatic Eyes: EOM: EOMs intact bilaterally Resp: Effort & Inspection: normal respiratory effort Auscultation: clear to auscultation bilaterally Cardio: Rate: regular rate Rhythm: regular rhythm GI: Other: Round, soft, moderate diffuse tenderness, no palpable masses, no obvious organomegaly Rectal Exam - Male: Yes deferred Extrem: Other: 1+ edema ankles and feet Psych: Other: Tearful Objective Data Current Medications Generic Name Dose Route Start Last Admin Trade Name Narenq PRN Reason Stop Dose Admin Folic Acid 1 mg 06/05/20 09:00 06/08/20 07:52 Folic Acid 1 Mg Tablet PO Not Given DAILY [facility] Gabapentin 300 mg 06/04/20 21:00 06/07/20 20:27 Gabapentin 300 Mg Capsule PO 300 mg BEDTIME [facility] Administration Piperacillin Sod/Tazobactam 50 mls @ 100 mls/hr 06/06/20 22:00 06/08/20 06:03 Sod 3.375 gm/ Sodium Chloride IV Infused Q8H [facility] Infusion Dextrose/Sodium Chloride 1,000 mls @ 80 mls/hr 06/07/20 08:45 06/08/20 09:39 D5ns IVCONT 80 mls/hr .[id number] [facility] Administration Insulin Human Lispro 0 unit 06/04/20 21:00 06/08/20 12:00 Insulin Lispro 100 Unit/Ml 3 Ml Vial SUBCUT Not Given QIDACHS [facility] Protocol Magnesium Oxide 400 mg 06/06/20 17:30 06/08/20 07:52 Magnesium Oxide 400 Mg Tablet PO Not Given BIDPC [facility] Medication 1 each 06/05/20 09:00 No Benzodiazepines MISCELLANE DAILY [facility] Protocol Multivitamins/Minerals 1 tab 06/05/20 09:00 06/08/20 07:52 Multivitamin With Minerals Tablet PO Not Given DAILY [facility] Ondansetron HCl 4 mg 06/04/20 19:55 06/06/20 16:18 Ondansetron Hcl 4 Mg/2 Ml Vial IVPUSH 4 mg Q8H PRN Administration Nausea and Vomiting Oxycodone HCl 5 mg 06/04/20 19:55 06/06/20 16:17 Oxycodone Hcl Immed Release 5 Mg Tablet PO 5 mg Q6H PRN Administration Pain Pharmacy Consult 1 each 06/04/20 17:35 Consult Rx Perform Med Rec MISCELLANE ONCE PRN Consult order Phenobarbital 30 mg 06/07/20 09:00 06/08/20 09:39 Phenobarbital 30 Mg Tablet PO 06/08/20 21:01 Not Given BID [facility] Protocol Phenobarbital 30 mg 06/09/20 09:00 Phenobarbital 30 Mg Tablet PO 06/10/20 09:01 DAILY [facility] Protocol Quetiapine Fumarate 50 mg 06/04/20 21:00 06/07/20 20:27 Quetiapine Fumarate 50 Mg Tablet PO 50 mg BEDTIME [facility] Administration Sodium Chloride 3 ml 06/05/20 00:00 06/08/20 07:52 0.9 % Sodium Chloride Flush 3 Ml Syringe IVFLUSH Not Given QSHIFT [facility] Vitamin D 25 mcg 06/05/20 09:00 06/08/20 07:52 Cholecalciferol (Vitamin D3) 25 Mcg Tablet PO Not Given DAILY [facility] Labs CBC & Chem 7: 06/08/20 04:07 06/08/20 04:07 Microbiology Microbiology Results: Microbiology 06/05/20 13:02 Blood - Venous Blood Culture - Preliminary No growth after 48 hours. 06/05/20 12:59 Blood - Venous Blood Culture - Preliminary No growth after 48 hours. 06/05/20 10:00 Urine clean catch - Clean Catch Midstream Urine Culture - Final Assessment and Plan (1) Acute GI bleeding: Status: Acute (2) Hematemesis: Status: Acute Assessment and Plan: 59 year old man admitted with GI bleed secondary to anticoagulation and heavy alcohol abuse. Upper GI bleed/gastritis .On Anticoagulation hold Eliquis continue IV PPI seen by GI plan for EGD today INR was high Eliquis on hold recieved Vitamin K INR trended down to 1.3 monitor H&H closely Lower extremity edema mildly elevated BNP Echocardiogram pending Transaminitis. Likely related to alcohol abuse ultrasound abdomen shows gallbladder wall thickening question of acute on chronic cholecystitis general surgery consulted given elevated LFTs and fever plan for HIDA scan today LFTs trending up monitor LFTs Fever etiology not clear yet fever resolving Blood cultures and urine culture preliminary negative UA negative, chest x-ray shows no infiltrates ID consult pending continue Rocephin for now Alcohol abuse with withdrawal . 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 given GI bleed
--- NOTE | 2020-06-08 13:18 | MHC.RECOVSUP ---
Recovery Support note: Recovery Support Team attempted to see this patient however patient was off unit at this time. Discussed case with RN and patient will be off unit for several hours. Plan for team to return tomorrow morning to discuss alcohol use and treatment options with patient.
--- NOTE | 2020-06-08 13:36 | MHC.CM.PN ---
per rounds pt to have egd and hydra scan today ..no dc date at this time
[2020-06-08 14:05] LABS: Glucose, Whole Blood 75 mg/dL (60-115)
--- NOTE | 2020-06-08 14:30 | P.CONAN_ITS ---
HPI - Anesthesia Eval Consult details Narrative: 59 M w/ upper GIB p/f endoscopy PMFSH Past Medical History Medical History Alcohol withdrawal COPD (chronic obstructive pulmonary disease) COVID-19 COVID-19 determined by clinical diagnostic criteria Depression Diabetes ETOH abuse Fever of undetermined origin Seizure Surgical History Surgical History History of gastric bypass History of sleeve gastrectomy Social History Social History Household Members: Significant Other Housing: Apartment Do you presently have visiting nurse or other home services: No Alcohol intake: current Alcohol intake frequency: 3 or more drinks per day Alcohol type: hard liquor Smoking Status: Never smoker Tobacco Type: Cigarette Second Hand Smoke Exposure: Yes Use of substances other than those prescribed or required for medical reasons: No Currently Displaying Signs/Symptoms of Drug Intoxication Withdrawal: No Have you been hit, kicked, punched, or otherwise hurt by someone within the past year? If so, by whom?: No Do you feel safe in your current relationship?: Yes Is there a partner from a previous relationship who is making you feel unsafe now?: No Are you made to feel afraid or neglected: No Advance Directives: No Advance Directives Information Provided: No Do you have thoughts of harming others: None Do you have a plan to hurt others: No Plan Recently lost weight without trying: No service: No Current occupational status: unemployed Meds Allergies Allergy/AdvReac Type Severity Reaction Status Date / Time No Known Allergies Allergy Verified 06/08/20 13:59 [No Known Allergies*] Home Medications Medication Instructions Recorded Confirmed Type atorvastatin 40 tab PO DAILY 03/02/20 06/04/20 History cholecalciferol (vitamin D3) 1 cap PO DAILY 03/02/20 06/04/20 History [Vitamin D3] folic acid 1 tab PO DAILY 03/02/20 06/04/20 History gabapentin 300 mg PO BEDTIME 03/02/20 06/04/20 History omeprazole 20 cap PO BID 03/02/20 06/04/20 History quetiapine 50 mg PO BEDTIME 03/02/20 06/04/20 History apixaban [Eliquis] 5 mg PO BID 06/04/20 06/04/20 History boxtevbkhhsb-hezq-trfin acid 1 tab PO DAILY 06/04/20 06/04/20 History [Certavite-Antioxidant] oxycodone 5 mg PO Q6H PRN 06/04/20 06/04/20 History Exam Exam Date and Time: June 08, 2020 1430 Height,Weight and Vital Signs: Height 5 ft 11 in Weight 108.862 kg Last Vital Signs Temp 98.7 F 06/08/20 14:01 Pulse 95 06/08/20 14:01 Resp 18 06/08/20 14:01 BP 128/87 06/08/20 14:01 Pulse Ox 96 06/08/20 14:01 Pertinent Lab Results Pertinent Lab Results: Laboratory Tests 06/04/20 06/04/20 06/04/20 13:25 13:25 13:25 WBC RBC Hgb Hct MCV MCH MCHC RDW Plt Count MPV Immature Gran % (Auto) Neut % (Auto) Lymph % (Auto) [place] % (Auto) Eos % (Auto) Baso % (Auto) Lymph # (Auto) [place] # (Auto) Eos # (Auto) Baso # (Auto) Abs Immat Gran (auto) Absolute Neuts (auto) Absolute Nucleated RBC Nucleated RBC % (auto) PT 24.6 H D INR 2.1 H APTT 41.2 H Sodium 135 Potassium 3.4 Chloride 99 Carbon Dioxide 21 L Anion Gap 18 BUN 4 L Creatinine 0.66 Estim Creat Clear Calc 147.5 Estimated GFR > 60 POC Glucose Random Glucose 132 H D Fasting Glucose Lactic Acid Lactic Acid Fup @ 2Hr Lactic Acid Fup @ 4Hr Calcium 7.3 L Magnesium 1.5 L Total Bilirubin 1.8 H Direct Bilirubin 1.1 H AST 174 H ALT 57 H Alkaline Phosphatase 197 H D B-Natriuretic Peptide 105 H Total Protein 4.9 L Albumin 2.2 L Lipase 6 L Urine Color Urine Appearance Urine pH Ur Specific [place] Urine Protein Urine Glucose (UA) Urine Ketones Urine Blood Urine Nitrite Ur Leukocyte Esterase Ethyl Alcohol Coronavirus (PCR) Influenza Type A (PCR) Influenza Type B (PCR) RSV RNA Qual (PCR) Blood Type Antibody Screen 06/04/20 06/04/20 06/04/20 13:25 13:26 13:26 WBC 9.5 RBC 3.83 L Hgb 12.7 L Hct 37.0 L MCV 96.6 MCH 33.2 H MCHC 34.3 RDW 15.7 Plt Count 110 L D MPV 11.8 Immature Gran % (Auto) 0.4 Neut % (Auto) 81.5 H Lymph % (Auto) 11.9 L [place] % (Auto) 5.8 Eos % (Auto) 0.0 Baso % (Auto) 0.4 Lymph # (Auto) 1.1 L [place] # (Auto) 0.6 Eos # (Auto) 0.0 Baso # (Auto) 0.0 Abs Immat Gran (auto) 0.04 H Absolute Neuts (auto) 7.8 Absolute Nucleated RBC 0.000 Nucleated RBC % (auto) 0.0 PT INR APTT Sodium Cancelled Potassium Cancelled Chloride Cancelled Carbon Dioxide Cancelled Anion Gap Cancelled BUN Cancelled Creatinine Cancelled Estim Creat Clear Calc Cancelled Estimated GFR Cancelled POC Glucose Random Glucose Cancelled Fasting Glucose Lactic Acid Lactic Acid Fup @ 2Hr Lactic Acid Fup @ 4Hr Calcium Cancelled Magnesium Cancelled Total Bilirubin Cancelled Direct Bilirubin Cancelled AST Cancelled ALT Cancelled Alkaline Phosphatase Cancelled B-Natriuretic Peptide Total Protein Cancelled Albumin Cancelled Lipase Urine Color Urine Appearance Urine pH Ur Specific [place] Urine Protein Urine Glucose (UA) Urine Ketones Urine Blood Urine Nitrite Ur Leukocyte Esterase Ethyl Alcohol 130 Coronavirus (PCR) Influenza Type A (PCR) Influenza Type B (PCR) RSV RNA Qual (PCR) Blood Type Antibody Screen 06/04/20 06/04/20 06/04/20 13:26 13:26 16:57 WBC RBC Hgb Hct MCV MCH MCHC RDW Plt Count MPV Immature Gran % (Auto) Neut % (Auto) Lymph % (Auto) [place] % (Auto) Eos % (Auto) Baso % (Auto) Lymph # (Auto) [place] # (Auto) Eos # (Auto) Baso # (Auto) Abs Immat Gran (auto) Absolute Neuts (auto) Absolute Nucleated RBC Nucleated RBC % (auto) PT INR APTT Sodium Potassium Chloride Carbon Dioxide Anion Gap BUN Creatinine Estim Creat Clear Calc Estimated GFR POC Glucose Random Glucose Fasting Glucose Lactic Acid 7.9 H* Lactic Acid Fup @ 2Hr Lactic Acid Fup @ 4Hr Calcium Magnesium Total Bilirubin Direct Bilirubin AST ALT Alkaline Phosphatase B-Natriuretic Peptide Total Protein Albumin Lipase Urine Color Urine Appearance Urine pH Ur Specific [place] Urine Protein Urine Glucose (UA) Urine Ketones Urine Blood Urine Nitrite Ur Leukocyte Esterase Ethyl Alcohol Coronavirus (PCR) NEGATIVE Influenza Type A (PCR) NEGATIVE Influenza Type B (PCR) NEGATIVE RSV RNA Qual (PCR) NEGATIVE Blood Type O Positive Antibody Screen NEGATIVE 06/04/20 06/04/20 06/04/20 16:57 19:47 21:28 WBC RBC Hgb Hct MCV MCH MCHC RDW Plt Count MPV Immature Gran % (Auto) Neut % (Auto) Lymph % (Auto) [place] % (Auto) Eos % (Auto) Baso % (Auto) Lymph # (Auto) [place] # (Auto) Eos # (Auto) Baso # (Auto) Abs Immat Gran (auto) Absolute Neuts (auto) Absolute Nucleated RBC Nucleated RBC % (auto) PT INR APTT Sodium Potassium Chloride Carbon Dioxide Anion Gap BUN Creatinine Estim Creat Clear Calc Estimated GFR POC Glucose 97 Random Glucose Fasting Glucose Lactic Acid Lactic Acid Fup @ 2Hr 6.2 H* Lactic Acid Fup @ 4Hr 5.0 H* Calcium Magnesium Total Bilirubin Direct Bilirubin AST ALT Alkaline Phosphatase B-Natriuretic Peptide Total Protein Albumin Lipase Urine Color Urine Appearance Urine pH Ur Specific [place] Urine Protein Urine Glucose (UA) Urine Ketones Urine Blood Urine Nitrite Ur Leukocyte Esterase Ethyl Alcohol Coronavirus (PCR) Influenza Type A (PCR) Influenza Type B (PCR) RSV RNA Qual (PCR) Blood Type Antibody Screen 06/05/20 06/05/20 06/05/20 00:47 05:40 05:40 WBC 9.2 RBC 3.47 L Hgb 12.5 L 11.6 L Hct 35.6 L 32.8 L MCV 94.5 MCH 33.4 H MCHC 35.4 RDW 16.1 H Plt Count 85 L MPV 12.4 Immature Gran % (Auto) 0.3 Neut % (Auto) 83.4 H Lymph % (Auto) 11.5 L [place] % (Auto) 4.3 Eos % (Auto) 0.1 Baso % (Auto) 0.4 Lymph # (Auto) 1.1 L [place] # (Auto) 0.4 Eos # (Auto) 0.0 Baso # (Auto) 0.0 Abs Immat Gran (auto) 0.03 Absolute Neuts (auto) 7.7 Absolute Nucleated RBC 0.000 Nucleated RBC % (auto) 0.0 PT INR APTT Sodium 135 Potassium 3.0 L Chloride 100 Carbon Dioxide 22 Anion Gap 16 BUN 3 L Creatinine 0.54 Estim Creat Clear Calc 180.2 Estimated GFR > 60 POC Glucose Random Glucose 76 D Fasting Glucose Lactic Acid Lactic Acid Fup @ 2Hr Lactic Acid Fup @ 4Hr Calcium 6.9 L Magnesium 1.3 L* Total Bilirubin 3.2 H Direct Bilirubin 2.4 H AST 162 H ALT 45 H Alkaline Phosphatase 175 H B-Natriuretic Peptide Total Protein 4.4 L Albumin 1.9 L Lipase Urine Color Urine Appearance Urine pH Ur Specific [place] Urine Protein Urine Glucose (UA) Urine Ketones Urine Blood Urine Nitrite Ur Leukocyte Esterase Ethyl Alcohol Coronavirus (PCR) Influenza Type A (PCR) Influenza Type B (PCR) RSV RNA Qual (PCR) Blood Type Antibody Screen 06/05/20 06/05/20 06/05/20 08:37 13:05 14:08 WBC RBC Hgb Hct MCV MCH MCHC RDW Plt Count MPV Immature Gran % (Auto) Neut % (Auto) Lymph % (Auto) [place] % (Auto) Eos % (Auto) Baso % (Auto) Lymph # (Auto) [place] # (Auto) Eos # (Auto) Baso # (Auto) Abs Immat Gran (auto) Absolute Neuts (auto) Absolute Nucleated RBC Nucleated RBC % (auto) PT INR APTT Sodium Potassium Chloride Carbon Dioxide Anion Gap BUN Creatinine Estim Creat Clear Calc Estimated GFR POC Glucose 90 98 Random Glucose Fasting Glucose Lactic Acid Lactic Acid Fup @ 2Hr Lactic Acid Fup @ 4Hr Calcium Magnesium Total Bilirubin Direct Bilirubin AST ALT Alkaline Phosphatase B-Natriuretic Peptide Total Protein Albumin Lipase Urine Color YELLOW Urine Appearance CLEAR Urine pH 5.5 Ur Specific [place] 1.025 Urine Protein NEG Urine Glucose (UA) NEG Urine Ketones NEG Urine Blood NEG Urine Nitrite NEG Ur Leukocyte Esterase NEG Ethyl Alcohol Coronavirus (PCR) Influenza Type A (PCR) Influenza Type B (PCR) RSV RNA Qual (PCR) Blood Type Antibody Screen 06/05/20 06/05/20 06/06/20 16:17 19:44 05:56 WBC RBC Hgb Hct MCV MCH MCHC RDW Plt Count MPV Immature Gran % (Auto) Neut % (Auto) Lymph % (Auto) [place] % (Auto) Eos % (Auto) Baso % (Auto) Lymph # (Auto) [place] # (Auto) Eos # (Auto) Baso # (Auto) Abs Immat Gran (auto) Absolute Neuts (auto) Absolute Nucleated RBC Nucleated RBC % (auto) PT INR APTT Sodium 133 L Potassium 3.2 L Chloride 101 Carbon Dioxide 23 Anion Gap 12 BUN 5 L D Creatinine 0.57 Estim Creat Clear Calc 170.7 Estimated GFR > 60 POC Glucose 92 82 Random Glucose Fasting Glucose 57 L* Lactic Acid Lactic Acid Fup @ 2Hr Lactic Acid Fup @ 4Hr Calcium 6.6 L Magnesium 1.4 L* Total Bilirubin 4.0 H Direct Bilirubin 3.1 H AST 130 H ALT 36 Alkaline Phosphatase 142 H B-Natriuretic Peptide Total Protein 4.0 L Albumin 1.7 L Lipase Urine Color Urine Appearance Urine pH Ur Specific [place] Urine Protein Urine Glucose (UA) Urine Ketones Urine Blood Urine Nitrite Ur Leukocyte Esterase Ethyl Alcohol Coronavirus (PCR) Influenza Type A (PCR) Influenza Type B (PCR) RSV RNA Qual (PCR) Blood Type Antibody Screen 06/06/20 06/06/20 06/06/20 05:56 05:56 07:23 WBC 8.0 RBC 3.20 L Hgb 10.7 L Hct 30.5 L MCV 95.3 MCH 33.4 H MCHC 35.1 RDW 16.7 H Plt Count 61 L D MPV 12.4 Immature Gran % (Auto) 1.0 H Neut % (Auto) 80.4 H Lymph % (Auto) 13.0 L [place] % (Auto) 5.1 Eos % (Auto) 0.1 Baso % (Auto) 0.4 Lymph # (Auto) 1.0 L [place] # (Auto) 0.4 Eos # (Auto) 0.0 Baso # (Auto) 0.0 Abs Immat Gran (auto) 0.08 H Absolute Neuts (auto) 6.4 Absolute Nucleated RBC 0.000 Nucleated RBC % (auto) 0.0 PT 37.7 H D INR 3.1 H APTT Sodium Potassium Chloride Carbon Dioxide Anion Gap BUN Creatinine Estim Creat Clear Calc Estimated GFR POC Glucose 62 Random Glucose Fasting Glucose Lactic Acid Lactic Acid Fup @ 2Hr Lactic Acid Fup @ 4Hr Calcium Magnesium Total Bilirubin Direct Bilirubin AST ALT Alkaline Phosphatase B-Natriuretic Peptide Total Protein Albumin Lipase Urine Color Urine Appearance Urine pH Ur Specific [place] Urine Protein Urine Glucose (UA) Urine Ketones Urine Blood Urine Nitrite Ur Leukocyte Esterase Ethyl Alcohol Coronavirus (PCR) Influenza Type A (PCR) Influenza Type B (PCR) RSV RNA Qual (PCR) Blood Type Antibody Screen 06/06/20 06/06/20 06/06/20 08:08 08:08 09:12 WBC 8.7 RBC 3.28 L Hgb 11.0 L Hct 31.7 L MCV 96.6 MCH 33.5 H MCHC 34.7 RDW 16.7 H Plt Count 62 L MPV 12.7 H Immature Gran % (Auto) 1.1 H Neut % (Auto) 77.3 H Lymph % (Auto) 15.6 L [place] % (Auto) 5.3 Eos % (Auto) 0.2 Baso % (Auto) 0.5 Lymph # (Auto) 1.4 [place] # (Auto) 0.5 Eos # (Auto) 0.0 Baso # (Auto) 0.0 Abs Immat Gran (auto) 0.10 H Absolute Neuts (auto) 6.7 Absolute Nucleated RBC 0.000 Nucleated RBC % (auto) 0.0 PT INR APTT Sodium 135 Potassium 3.4 Chloride 101 Carbon Dioxide 25 Anion Gap 12 BUN 5 L Creatinine 0.60 Estim Creat Clear Calc 162.2 Estimated GFR > 60 POC Glucose 78 Random Glucose 53 L* Fasting Glucose Lactic Acid Lactic Acid Fup @ 2Hr Lactic Acid Fup @ 4Hr Calcium 6.5 L Magnesium 1.5 L Total Bilirubin 3.9 H Direct Bilirubin 3.3 H AST 133 H ALT 38 Alkaline Phosphatase 146 H B-Natriuretic Peptide Total Protein 3.9 L Albumin 1.8 L Lipase Urine Color Urine Appearance Urine pH Ur Specific [place] Urine Protein Urine Glucose (UA) Urine Ketones Urine Blood Urine Nitrite Ur Leukocyte Esterase Ethyl Alcohol Coronavirus (PCR) Influenza Type A (PCR) Influenza Type B (PCR) RSV RNA Qual (PCR) Blood Type Antibody Screen 06/06/20 06/06/20 06/06/20 11:22 15:44 19:47 WBC RBC Hgb Hct MCV MCH MCHC RDW Plt Count MPV Immature Gran % (Auto) Neut % (Auto) Lymph % (Auto) [place] % (Auto) Eos % (Auto) Baso % (Auto) Lymph # (Auto) [place] # (Auto) Eos # (Auto) Baso # (Auto) Abs Immat Gran (auto) Absolute Neuts (auto) Absolute Nucleated RBC Nucleated RBC % (auto) PT INR APTT Sodium Potassium Chloride Carbon Dioxide Anion Gap BUN Creatinine Estim Creat Clear Calc Estimated GFR POC Glucose 81 84 74 Random Glucose Fasting Glucose Lactic Acid Lactic Acid Fup @ 2Hr Lactic Acid Fup @ 4Hr Calcium Magnesium Total Bilirubin Direct Bilirubin AST ALT Alkaline Phosphatase B-Natriuretic Peptide Total Protein Albumin Lipase Urine Color Urine Appearance Urine pH Ur Specific [place] Urine Protein Urine Glucose (UA) Urine Ketones Urine Blood Urine Nitrite Ur Leukocyte Esterase Ethyl Alcohol Coronavirus (PCR) Influenza Type A (PCR) Influenza Type B (PCR) RSV RNA Qual (PCR) Blood Type Antibody Screen 06/07/20 06/07/20 06/07/20 05:19 05:19 05:19 WBC 6.2 RBC 3.21 L Hgb 10.7 L Hct 31.0 L MCV 96.6 MCH 33.3 H MCHC 34.5 RDW 16.4 H Plt Count 63 L MPV 13.0 H Immature Gran % (Auto) 3.6 H Neut % (Auto) 66.7 Lymph % (Auto) 21.1 [place] % (Auto) 6.2 Eos % (Auto) 1.6 Baso % (Auto) 0.8 Lymph # (Auto) 1.3 [place] # (Auto) 0.4 Eos # (Auto) 0.1 Baso # (Auto) 0.1 Abs Immat Gran (auto) 0.22 H Absolute Neuts (auto) 4.1 Absolute Nucleated RBC 0.000 Nucleated RBC % (auto) 0.0 PT 15.6 H D INR 1.3 H APTT Sodium 133 L Potassium 3.1 L Chloride 101 Carbon Dioxide 24 Anion Gap 11 L BUN 4 L Creatinine 0.49 L Estim Creat Clear Calc 198.6 Estimated GFR > 60 POC Glucose Random Glucose 55 L* Fasting Glucose Lactic Acid Lactic Acid Fup @ 2Hr Lactic Acid Fup @ 4Hr Calcium 6.7 L Magnesium 1.7 Total Bilirubin 5.5 H Direct Bilirubin 4.3 H AST 91 H ALT 29 Alkaline Phosphatase 137 H B-Natriuretic Peptide Total Protein 3.8 L Albumin 1.7 L Lipase Urine Color Urine Appearance Urine pH Ur Specific [place] Urine Protein Urine Glucose (UA) Urine Ketones Urine Blood Urine Nitrite Ur Leukocyte Esterase Ethyl Alcohol Coronavirus (PCR) Influenza Type A (PCR) Influenza Type B (PCR) RSV RNA Qual (PCR) Blood Type Antibody Screen 06/07/20 06/07/20 06/07/20 07:12 11:24 15:43 WBC RBC Hgb Hct MCV MCH MCHC RDW Plt Count MPV Immature Gran % (Auto) Neut % (Auto) Lymph % (Auto) [place] % (Auto) Eos % (Auto) Baso % (Auto) Lymph # (Auto) [place] # (Auto) Eos # (Auto) Baso # (Auto) Abs Immat Gran (auto) Absolute Neuts (auto) Absolute Nucleated RBC Nucleated RBC % (auto) PT INR APTT Sodium Potassium Chloride Carbon Dioxide Anion Gap BUN Creatinine Estim Creat Clear Calc Estimated GFR POC Glucose 63 83 74 Random Glucose Fasting Glucose Lactic Acid Lactic Acid Fup @ 2Hr Lactic Acid Fup @ 4Hr Calcium Magnesium Total Bilirubin Direct Bilirubin AST ALT Alkaline Phosphatase B-Natriuretic Peptide Total Protein Albumin Lipase Urine Color Urine Appearance Urine pH Ur Specific [place] Urine Protein Urine Glucose (UA) Urine Ketones Urine Blood Urine Nitrite Ur Leukocyte Esterase Ethyl Alcohol Coronavirus (PCR) Influenza Type A (PCR) Influenza Type B (PCR) RSV RNA Qual (PCR) Blood Type Antibody Screen 06/07/20 06/08/20 06/08/20 20:27 04:07 04:07 WBC 6.2 RBC 3.14 L Hgb 10.4 L Hct 30.9 L MCV 98.4 H MCH 33.1 H MCHC 33.7 RDW 16.0 Plt Count 79 L D MPV 12.4 Immature Gran % (Auto) 0.8 H Neut % (Auto) 66.1 Lymph % (Auto) 18.3 L [place] % (Auto) 13.1 H Eos % (Auto) 1.1 Baso % (Auto) 0.6 Lymph # (Auto) 1.1 L [place] # (Auto) 0.8 Eos # (Auto) 0.1 Baso # (Auto) 0.0 Abs Immat Gran (auto) 0.05 H Absolute Neuts (auto) 4.1 Absolute Nucleated RBC 0.000 Nucleated RBC % (auto) 0.0 PT INR APTT Sodium 135 Potassium 3.3 Chloride 103 Carbon Dioxide 24 Anion Gap 11 L BUN 4 L Creatinine 0.48 L Estim Creat Clear Calc 202.8 Estimated GFR > 60 POC Glucose 86 Random Glucose 77 D Fasting Glucose Lactic Acid Lactic Acid Fup @ 2Hr Lactic Acid Fup @ 4Hr Calcium 6.9 L Magnesium Total Bilirubin 5.1 H Direct Bilirubin 4.0 H AST 82 H ALT 26 Alkaline Phosphatase 137 H B-Natriuretic Peptide Total Protein 4.1 L Albumin 1.7 L Lipase Urine Color Urine Appearance Urine pH Ur Specific [place] Urine Protein Urine Glucose (UA) Urine Ketones Urine Blood Urine Nitrite Ur Leukocyte Esterase Ethyl Alcohol Coronavirus (PCR) Influenza Type A (PCR) Influenza Type B (PCR) RSV RNA Qual (PCR) Blood Type Antibody Screen 06/08/20 06/08/20 06/08/20 04:07 07:16 14:01 WBC RBC Hgb Hct MCV MCH MCHC RDW Plt Count MPV Immature Gran % (Auto) Neut % (Auto) Lymph % (Auto) [place] % (Auto) Eos % (Auto) Baso % (Auto) Lymph # (Auto) [place] # (Auto) Eos # (Auto) Baso # (Auto) Abs Immat Gran (auto) Absolute Neuts (auto) Absolute Nucleated RBC Nucleated RBC % (auto) PT 13.5 H INR 1.1 APTT Sodium Potassium Chloride Carbon Dioxide Anion Gap BUN Creatinine Estim Creat Clear Calc Estimated GFR POC Glucose 91 75 Random Glucose Fasting Glucose Lactic Acid Lactic Acid Fup @ 2Hr Lactic Acid Fup @ 4Hr Calcium Magnesium Total Bilirubin Direct Bilirubin AST ALT Alkaline Phosphatase B-Natriuretic Peptide Total Protein Albumin Lipase Urine Color Urine Appearance Urine pH Ur Specific [place] Urine Protein Urine Glucose (UA) Urine Ketones Urine Blood Urine Nitrite Ur Leukocyte Esterase Ethyl Alcohol Coronavirus (PCR) Influenza Type A (PCR) Influenza Type B (PCR) RSV RNA Qual (PCR) Blood Type Antibody Screen Airway Mallampati Class: III TM Dist: >3cm Loose/Missing/Broken Teeth: Yes Heart: RRR Lungs: NL Assessment and Plan Assessment Anesthesia Assessment: Anesthesia Plan Discussed and Chart Reviewed Final Anesthetic Review NPO: Yes ASA Class: III Final Preanesthetic Review: No Changes in Pt Med Stat, Meds/Allgs Chart Reviewed, Consent Obtained/Reviewed and Anes Risks/Benef Reviewed Patient Risk: Intermediate Procedure Risk: Low Anesthetic Plan Anesthetic Plan: MAC: Disposition: Standard PACU
--- NOTE | 2020-06-08 15:38 | PM.PNGS ---
Subjective Subjective Date of Service: 06/08/20 Interval history: Primary complaint today is back pain, which is exacerbated by turning side to side. No complaint of abdominal pain today. HIDA scan done. Awaiting EGD. Physical Exam Vital Signs: Vital Signs: Last Vital Signs Temp 98.7 F 06/08/20 14:01 Pulse 95 06/08/20 14:01 Resp 18 06/08/20 14:01 BP 128/87 06/08/20 14:01 Pulse Ox 96 06/08/20 14:01 Body Mass Index 33.5 Laboratory Results - last 24 hr 06/07/20 06/07/20 06/08/20 15:43 20:27 04:07 WBC 6.2 RBC 3.14 L Hgb 10.4 L Hct 30.9 L MCV 98.4 H MCH 33.1 H MCHC 33.7 RDW 16.0 Plt Count 79 L D MPV 12.4 Immature Gran % (A uto) 0.8 H Neut % (Auto) 66.1 Lymph % (Auto) 18.3 L [place] % (Auto) 13.1 H Eos % (Auto) 1.1 Baso % (Auto) 0.6 Lymph # (Auto) 1.1 L [place] # (Auto) 0.8 Eos # (Auto) 0.1 Baso # (Auto) 0.0 Abs Immat Gran (au to) 0.05 H Absolute Neuts (au to) 4.1 Absolute Nucleated RBC 0.000 Nucleated RBC % (a uto) 0.0 PT INR Sodium Potassium Chloride Carbon Dioxide Anion Gap BUN Creatinine Estim Creat Clear Calc Estimated GFR POC Glucose 74 86 Random Glucose Calcium Total Bilirubin Direct Bilirubin AST ALT Alkaline Phosphata se Total Protein Albumin 06/08/20 06/08/20 06/08/20 04:07 04:07 07:16 WBC RBC Hgb Hct MCV MCH MCHC RDW Plt Count MPV Immature Gran % (A uto) Neut % (Auto) Lymph % (Auto) [place] % (Auto) Eos % (Auto) Baso % (Auto) Lymph # (Auto) [place] # (Auto) Eos # (Auto) Baso # (Auto) Abs Immat Gran (au to) Absolute Neuts (au to) Absolute Nucleated RBC Nucleated RBC % (a uto) PT 13.5 H INR 1.1 Sodium 135 Potassium 3.3 Chloride 103 Carbon Dioxide 24 Anion Gap 11 L BUN 4 L Creatinine 0.48 L Estim Creat Clear Calc 202.8 Estimated GFR > 60 POC Glucose 91 Random Glucose 77 D Calcium 6.9 L Total Bilirubin 5.1 H Direct Bilirubin 4.0 H AST 82 H ALT 26 Alkaline Phosphata se 137 H Total Protein 4.1 L Albumin 1.7 L 06/08/20 14:01 WBC RBC Hgb Hct MCV MCH MCHC RDW Plt Count MPV Immature Gran % (A uto) Neut % (Auto) Lymph % (Auto) [place] % (Auto) Eos % (Auto) Baso % (Auto) Lymph # (Auto) [place] # (Auto) Eos # (Auto) Baso # (Auto) Abs Immat Gran (au to) Absolute Neuts (au to) Absolute Nucleated RBC Nucleated RBC % (a uto) PT INR Sodium Potassium Chloride Carbon Dioxide Anion Gap BUN Creatinine Estim Creat Clear Calc Estimated GFR POC Glucose 75 Random Glucose Calcium Total Bilirubin Direct Bilirubin AST ALT Alkaline Phosphata se Total Protein Albumin HIDA scan results: IMPRESSION: Nonvisualization the gallbladder is evidence of an obstructed cystic duct and strong evidence to suggest the diagnosis of acute cholecystitis. This could also be seen with chronic cholecystitis. The common bile duct is patent. Prolonged retention of activity in the liver is abnormal and evidence of diffuse hepatocellular disease. Const: Other: Alert, no acute distress Resp: Effort & Inspection: normal respiratory effort Auscultation: clear to auscultation bilaterally Cardio: Rate: regular rate Rhythm: regular rhythm GI: Other: Round, somewhat firm, nontender, normal bowel sounds Progress Note: A&P Assessment and plan (1) Abnormal findings on diagnostic imaging of gallbladder: Status: Acute Assessment and Plan: HIDA scan was carried out to 2 hours. The gallbladder was not demonstrated, which could be an indication of acute cholecystitis or of chronic cholecystitis. Discussed with Dr. Brian and with Dr. Bettencourt. Will request repeat ultrasound to assess for any changes that may indicate the presence of acute cholecystitis. Abdominal examination is improved clinically. He has been afebrile for the past 48 hours and remains on antibiotics. Liver function studies are improving. (2) Fever of undetermined origin: Problem details: There is concern over alcoholilc hepatitis There is concern over cholecystitis There is concern less so over SBP There is concern over alcohol withdrawal Status: Acute Assessment and Plan: As above, continue antibiotics, repeat ultrasound to reassess gallbladder. Fall Risk Details Current Medications: Current Medications Generic Name Dose Route Start Last Admin Trade Name Freq PRN Reason Stop Dose Admin Folic Acid 1 mg 06/05/20 09:00 06/08/20 07:52 Folic Acid 1 Mg Tablet PO Not Given DAILY ALEX Gabapentin 300 mg 06/04/20 21:00 06/07/20 20:27 Gabapentin 300 Mg Capsule PO 300 mg BEDTIME ALEX Administration Piperacillin Sod/Tazobactam 50 mls @ 100 mls/hr 06/06/20 22:00 06/08/20 06:03 Sod 3.375 gm/ Sodium Chloride IV Infused Q8H ALEX Infusion Dextrose/Sodium Chloride 1,000 mls @ 80 mls/hr 06/07/20 08:45 06/08/20 09:39 D5ns IVCONT 80 mls/hr .[id number] ALEX Administration Insulin Human Lispro 0 unit 06/04/20 21:00 06/08/20 12:00 Insulin Lispro 100 Unit/Ml 3 Ml Vial SUBCUT Not Given QIDACHS [facility] Protocol Magnesium Oxide 400 mg 06/06/20 17:30 06/08/20 07:52 Magnesium Oxide 400 Mg Tablet PO Not Given BIDPC [facility] Medication 1 each 06/05/20 09:00 No Benzodiazepines MISCELLANE DAILY [facility] Protocol Multivitamins/Minerals 1 tab 06/05/20 09:00 06/08/20 07:52 Multivitamin With Minerals Tablet PO Not Given DAILY [facility] Ondansetron HCl 4 mg 06/04/20 19:55 06/06/20 16:18 Ondansetron Hcl 4 Mg/2 Ml Vial IVPUSH 4 mg Q8H PRN Administration Nausea and Vomiting Oxycodone HCl 5 mg 06/04/20 19:55 06/06/20 16:17 Oxycodone Hcl Immed Release 5 Mg Tablet PO 5 mg Q6H PRN Administration Pain Pharmacy Consult 1 each 06/04/20 17:35 Consult Rx Perform Med Rec MISCELLANE ONCE PRN Consult order Phenobarbital 30 mg 06/07/20 09:00 06/08/20 09:39 Phenobarbital 30 Mg Tablet PO 06/08/20 21:01 Not Given BID ALEX Protocol Phenobarbital 30 mg 06/09/20 09:00 Phenobarbital 30 Mg Tablet PO 01/20/21 09:01 DAILY ALEX Protocol Quetiapine Fumarate 50 mg 06/04/20 21:00 06/07/20 20:27 Quetiapine Fumarate 50 Mg Tablet PO 50 mg BEDTIME ALEX Administration Sodium Chloride 3 ml 06/05/20 00:00 06/08/20 07:52 0.9 % Sodium Chloride Flush 3 Ml Syringe IVFLUSH Not Given QSHIFT ALEX Vitamin D 25 mcg 06/05/20 09:00 06/08/20 07:52 Cholecalciferol (Vitamin D3) 25 Mcg Tablet PO Not Given DAILY ALEX Time Spent With Patient Time: Total time spent is greater than 50% in coordination of care (as documented) at patient's floor/unit and/or counseling patient: Time with patient: 15 - 24 minutes
--- NOTE | 2020-06-08 16:06 | PM.OP ---
Brief Operative Note Date of Service: 06/08/20 Pre-op diagnosis: UGI Bleed Post-op diagnosis: other (Mild gastritis near anastomosis. No bleeding, no ulcers, no varices. Small hiatal hernia) Procedure: EGD Surgeon: Barrington Oden Anesthesia: MAC Estimated blood loss (mL): 0 Pathology: none sent Condition: stable Disposition: PACU
--- NOTE | 2020-06-08 16:07 | PM.EVENT ---
Event Note Date of Service: 06/08/20 Event Note: GI-EGD-Full note dictated Findings: 1. Normal gastric bypass anastomosis and small bowel--minimal gastritis near the anastomosis. 2. No bleeding, no ulcer, no varices Rec: Continue PPI, advance diet as tolerated, and F/U Hgb. I think his alcoholic hepatitis is resolving with some residual cholestasis. I don't think he has any biliary disease based on the imaging studies. I don't think his gallbladder is an issue given no specific symptoms at this time. Continue to follow LFT's. If he has ascites then he should have a diagnostic tap to R/O SBP with specimens sent for culture, cell count, and gram stain. Thanks.
[2020-06-08] MEDS: Magnesium Oxide 400 MG TABLET PO (16:32)
[2020-06-08] MEDS: Omeprazole 20 MG CAPSULE.DR 40 MG PO (16:32)
[2020-06-08] MEDS: oxyCODONE HCl Immed Release 5 MG TABLET PO (16:40)
[2020-06-08] MEDS: 0.9 % Sodium Chloride Flush 3 ML SYRINGE IVFLUSH ×2 (16:42→20:45)
[2020-06-08 16:47] LABS: Glucose, Whole Blood 77 mg/dL (60-115)
--- NOTE | 2020-06-08 17:14 | OP_ITS ---
SURGEON: Barrington Oden MD INDICATIONS: The patient presents for evaluation of upper GI bleeding. Full consent has been obtained from him for this, including risks of bleeding and perforation. PREOPERATIVE DIAGNOSIS: Upper gastrointestinal bleeding. POSTOPERATIVE DIAGNOSIS: PROCEDURE PERFORMED: Esophagogastroduodenoscopy. ESTIMATED BLOOD LOSS: COMPLICATIONS: ANESTHESIA: Monitored anesthesia care. ASSISTANTS: SPECIMENS: POSTOPERATIVE DIAGNOSES: Upper gastrointestinal bleeding, mild gastritis, small hiatal hernia. DESCRIPTION OF PROCEDURE: The patient was placed in the left lateral decubitus position. The Olympus video gastroscope was passed in the posterior oropharynx and upper esophagus under direct vision. The scope was passed slowly into the distal esophagus. The gastroesophageal junction appeared normal at 36 cm. There was no sign of any esophagitis nor varices. There was a small hiatal hernia. The scope was entered into the stomach. The scope was advanced through the anastomosis from his bypass surgery. The small bowel was cannulated and appeared normal. The scope was withdrawn back in the stomach. The anastomosis appeared normal without any sign of ulceration nor mass. There was a very minimal friability near some of the residual zohra at the anastomosis, but no sign of any active bleeding nor ulceration. The anastomosis was widely patent and without any sign of stricture. The scope was retroflexed in the stomach, which appeared normal, without any sign of mass or ulceration. The scope was straightened out and withdrawn back into the esophagus. The esophageal mucosa appeared normal. The scope was withdrawn from the patient. He tolerated the procedure well and was returned to the recovery area in stable condition. IMPRESSION: 1. Minimal gastritis around the anastomosis from his previous bypass surgery. 2. Small hiatal hernia. PLAN: The patient will have his diet advanced. He will continue on his oral PPI. His hemoglobin will be followed. I do think his alcohol hepatitis is improving given the enzymes that are decreasing. He does have some mild cholestasis with a slightly elevated bilirubin. I do not think he has biliary disease based on his imaging studies thus far. MD SHERLYN Waldron/SABI / [phone] MTDD
--- NOTE | 2020-06-08 18:00 | CA_ITS ---
Transthoracic Echocardiogram Patient (Last, First, Middle): Deshaun Ma E Gender: Male Date of : 1960 Age: 59 Procedure Date: 06/08/2020 Procedure Type: Transthoracic [place] [facility] [place]: 180.34 cm Weight: 108.86 kg BSA: 2.28 m2 Heart Rate: bpm BP: 121 / 65 mmHg Apple Turner: Referring MD: Osei Brian MD Symptoms: CHF, assess LVF Study Quality: Technically Difficult ECG Rhythm: Sinus Conclusions: - The left ventricular systolic function is mildly decreased. The visually estimated ejection fraction is between 45-50%. - No obvious valvular pathology seen on this study. - There is mild dilatation of the ascending aorta measuring 4.00 cm. Findings Procedure Information Contrast agent, definity, is being given per protocol without apparent complications. Left Ventricle Normal left ventricular cavity size. There is mildly increased left ventricular wall thickness. The left ventricular systolic function is mildly decreased. The visually estimated ejection fraction is between 45-50%. There is mild global hypokinesis. E/E prime ratio is between 8 and 15 consistent with indeterminate filling pressures. Evidence suggests grade I (mild) diastolic dysfunction. Right Ventricle Normal right ventricular cavity size and systolic function. Atria The left atrium is normal in size. The right atrium is normal in size. Aortic Valve There is a normal trileaflet aortic valve. There is no aortic valve stenosis. There is no aortic valve regurgitation. Mitral Valve The mitral valve appears normal. There is trace mitral valve regurgitation. There is no mitral valve stenosis. Pulmonic Valve The pulmonic valve was not well visualized. Tricuspid Valve Normal tricuspid valve structure. There is trace tricuspid valve regurgitation. The pulmonary artery systolic pressure is normal. Great Vessels There is mild dilatation of the ascending aorta measuring 4.00 cm. Venous The inferior vena cava is normal in size and collapses less than 50% with inspiration. Pericardium/Pleural There is no evidence of pericardial effusion. Prior Study Comparison Changes noted compared to prior study dated: 03/20/2014. LVEF lower than prior but due to image quality, difficult to compare. Recommendations, Care & Conclusions No obvious valvular pathology seen on this study. Measurements 2D Linear Measurements IVSd: 1.22 0.6-0.9/0.6-1.0 cm LVIDd: 5.09 3.9-5.3/4.2-5.9 cm LVIDd Index: 2.23 2.4-3.2/2.2-3.1 cm/m2 LVIDs: 3.05 2.0-3.6 cm LVPWd: 1.22 0.7-1.1 cm Ao Root: 4.10 2.1-3.5 cm LA Diam: 3.80 2.7-3.8/3.0-4.0 cm LAIDs Index: 1.67 1.5-2.3 cm/m2 LV Mass: 306.89 67-162/88-224 g LV Mass Index: 134.60 43-95/49-115 g/m2 LVOT Diam: 2.50 3.0+(-)1.3 cm 2D Systolic Function EF 4C: 64.40 >55% EF 2C: 39.00 >55% Mitral Valve MV Pk E: 0.64 MV PK A: 1.17 MV Decel Time: 144.00 E/A: 0.50 E'Lateral: 6.58 E'Medial: 5.13 E/E' Med: 12.50 E/E' Lat: 9.70 PHT: 42.00 MVA PHT: 5.24 Decel Grimes: 4.44 Aortic Valve AoV Pk Tray: 1.41 AoV Mn Tray: 0.96 AoV VTI: 0.31 AoV Pk Grad: 8.00 Aov Mn Grad: 4.00 MARY LOU Cont.VTI: 3.50 LVOT LVOT Pk Tray: 1.07 LVOT Mn Tray: 0.78 LVOT VTI: 0.22 LVOT Pk Grad: 5.00 LVOT Mn Grad: 3.00 LVOT Diam: 2.50 LVOT Area: 4.91 Diastolic Function MV Pk E: 0.64 MV Pk A: 1.17 E/A: 0.50 E'Medial: 5.13 E/E' Med: 12.50 E' Laterial: 6.58 E/E' Lat: 9.70 Tricuspid Valve TR Pk Tray: 1.90 TR Pk Grad: 14.00 RA Press: 8.00 RVSP: 22.00 Great Vessels Aorta Ao Root-2D: 4.10 2.0-3.7 cm Ao Asc: 4.00 2.1-3.4 cm Pulmonary Valve PV Pk Tray: 0.94 Peak PV Grad: 4.00 Updated in Other Vendor System with Status of Final Kenny Huber MD electronically signed on 06/08/2020 11:22:28 AM with status of Final
--- NOTE | 2020-06-08 18:45 | PC.NURSE ---
Pt off floor most of the day for testing. Pt alert, oriented but sometimes confused on place - comes in and out. Some nausea in am - resolved. Gave PRN oxicodone for generalized pain. Lungs fine crackles throughout. 2-3+ pitting edema bilateral lower extremities. 1 assist to commode, incontinent x1 in afternoon. Pt still in SR. getting IV abx and fluids at this time. high fall risk measures remain in place.
[2020-06-08 20:28] LABS: Glucose, Whole Blood 79 mg/dL (60-115)
[2020-06-08] MEDS: QUEtiapine Fumarate 50 MG TABLET PO (20:45)
[2020-06-08] MEDS: Gabapentin 300 MG CAPSULE PO (20:45)
[2020-06-08] MEDS: PHENobarbitaL 30 MG TABLET PO (20:45)
--- NOTE | 2020-06-08 22:10 | PC.NURSE ---
Patient assessed at 2200 - covered in urine. Hygiene preformed. Patient cursing and yelling about being woken up for care. Spoke to patient about importance of skin care, repositioning and not sitting in urine for skin breakdown. Patient stating he does not care and that he is not to be woken up for the rest of the night even if he is covered in urine or feces. Attempted to educate patient about need for care. Patient yelling and cursing. Patient cleaned, back in bed resting, with bed alarm on and telesitter at bedside.
[2020-06-09 06:27] LABS: MANUAL DIFF FLAG SCAN; PLT CLUMP 1; Red Cell Distribution Width 16.5 % (11.0-16.0); SCAN SMEAR FLAG 1
[2020-06-09 06:29] LABS: Basophils Absolute Auto 0.1 X10*3/uL (0.0-0.2); Basophils Percent Auto 0.9 % (0-2); Eosinophils Absolute Auto 0.1 X10*3/uL (0.0-0.4); Eosinophils Percent Auto 0.7 % (0-4); Hemoglobin 10.3 g/dl (14.0-18.0); Imm Gran Abs Auto 0.08 X10*3/uL (0.00-0.03); Imm Gran Pct Auto 1.2 % (0.0-0.4); Lymphocytes Absolute Auto 1.1 X10*3/uL (1.2-4.9); Lymphocytes Percent Auto 16.1 % (20-40); Mean Corpuscular HGB Conc 34.3 g/dl (31.0-36.0); Mean Corpuscular Hemoglobin 33.7 pg (27.0-33.0); Mean Platelet Volume 11.6 fL (9.4-12.4); Monocytes Absolute Auto 1.3 X10*3/uL (0.1-1.2); Monocytes Percent Auto 18.6 % (2-11); Neutrophils Absolute Auto 4.2 X10*3/uL (2.0-8.3); Neutrophils Percent Auto 62.5 % (45-73); Platelet Count 101 X10*3/uL (160-400); Red Blood Count 3.06 X10*6/uL (4.60-5.80); White Blood Count 6.8 X10*3/uL (4.8-10.8)
[2020-06-09 06:57] LABS: Alanine Aminotransferase 23 U/L (0-40); Anion Gap 12 (12-20); Aspartate Amino Transferase 72 U/L (5-37); Bilirubin Direct 3.2 mg/dL (0.0-0.5); Bilirubin Total 4.1 mg/dL (0.0-1.0); Blood Urea Nitrogen 4 mg/dL (9-16); Carbon Dioxide 24 mmol/L (22-29); Chloride 104 mmol/L (96-108); Creatinine Clr Calc Pharmacy 194.7; Estimated Glomerular Filt Rate > 60; Glucose Random 81 mg/dL (60-115); Potassium 3.9 mmol/l (3.3-5.1); Sodium 136 mmol/L (135-145); Total Protein 4.2 g/dL (6.5-8.0)
[2020-06-09 06:58] LABS: Albumin Level 1.8 g/dL (3.5-5.0); Alkaline Phosphatase 135 U/L (39-117)
[2020-06-09 07:27] LABS: SLIDE REVIEW VERIFIED
[2020-06-09 08:00] VITALS: BP 128/71; PULSE 95; RESP 20; TEMP 36.8; O2SAT 90
--- NOTE | 2020-06-09 08:00 | US_ITS ---
EXAMINATION: US ABDOMEN LIMITED CLINICAL INFORMATION: Reassess gallbladder. COMPARISON: Previous abdominal ultrasound 06/04/[address] most recent 05/19/2020 TECHNIQUE: Real-time imaging of the right upper quadrant abdominal viscera. FINDINGS: PANCREAS: Normal. LIVER: Liver echotexture is increased suggestive of fatty infiltration. There is mild intrahepatic biliary duct dilatation. GALLBLADDER: The gallbladder is dilated measuring 14 x 4.5 x 5 cm in dimension. There is echogenic material in the gallbladder suggestive of sludge. Gallbladder wall appears thickened measuring between 4 and 7 mm. There is question of a new cystic area measuring 7 mm in the high anterior gallbladder wall. The cardiology technologist reports the patient is tender over the gallbladder. COMMON BILE DUCT: The common bile duct is difficult to visualize. The visualized common bile duct appears dilated measuring 1.2 cm. US/US abdomen limited IMPRESSION: Dilated gallbladder increased in size from previous exam. Low-level echoes in the gallbladder suggestive of sludge. Increasing gallbladder wall thickening measuring up to 0.7 cm and question small focal cystic area in the anterior high gallbladder wall. The cardiology technologist reports the patient is tender over the gallbladder. Ultrasound appearance is concerning for acute cholecystitis. New intra and extrahepatic biliary duct dilatation. The common bile duct measures 1.2 cm.
[2020-06-09 08:06] LABS: Glucose, Whole Blood 80 mg/dL (60-115)
[2020-06-09] MEDS: Piperacillin Sodium/Tazobactam 3.375 GM in 0.9 % Sodium Chloride 50 ML IV ×3 (08:52→22:04)
[2020-06-09] MEDS: PHENobarbitaL 30 MG TABLET PO (08:52)
[2020-06-09] MEDS: 0.9 % Sodium Chloride Flush 3 ML SYRINGE IVFLUSH ×3 (08:53→23:54)
[2020-06-09] MEDS: Cholecalciferol (Vitamin D3) 25 MCG TABLET PO (08:53)
[2020-06-09] MEDS: Folic Acid 1 MG TABLET PO (08:53)
[2020-06-09] MEDS: Omeprazole 20 MG CAPSULE.DR 40 MG PO ×2 (08:53→17:04)
[2020-06-09] MEDS: Magnesium Oxide 400 MG TABLET PO ×2 (08:53→17:04)
--- NOTE | 2020-06-09 10:59 | MHC.RECOVSUP ---
Recovery Support note: Patient is a 59 year old Polish speaking male who presented to [facility] [facility] due to n/v/d and abdominal pain. Patient was intoxicated when he arrived. This senior copywriter met with patient in room 450-1 of [facility] [place] [place] to discuss his alcohol use and treatment options. Patient presented as tired however was able to engage in consultation. Patient reports a desire to stop drinking alcohol. Reports he has tried to stop in the past but his efforts have been unsuccessful. Patient acknowledges the detrimental impact alcohol is having on his overall health. Discussed AA and IOP with patient. Patient reports he has tried AA in the past but has not been to an IOP. Educated patient on IOP and provided information on this resource as well as information on AA groups and how to get connected. Patient reports he currently has a therapist and that he is taking Campral as a medication to reduce his cravings. Encouraged patient to continue with those supports. Discussed relapsed prevention with patient. Provided patient with business card so he can get in touch with this senior copywriter if he has any questions regarding resources provided or if he is interested in additional supports down the road. Discussed case with patient's RN, Annette. This senior copywriter is available to return if patient is interested in further discussing his alcohol use prior to discharge.
--- NOTE | 2020-06-09 11:08 | PC.NURSE ---
Patient alert and oriented x 3, yelling, swearing. Agitated with care. Refusing POC and vital signs to be taken. Patient repositioned and personal care completed.
--- NOTE | 2020-06-09 14:57 | HO.POSTANES ---
Post Anesthesia Evaluation Post Anesthesia Evaluation Vital Signs: Vital Signs Temp Pulse Resp BP Pulse Ox 06/09/20 08:00 98.2 F 95 20 128/71 90 L Anesthesia: Monitored Mental Status: Awake Pain Control: Satisfactory Nausea/Vomiting: None Hydration: Adequate Anesthesia-Related Issues: No Anes. Related Issues
--- NOTE | 2020-06-09 15:18 | P.PNGS_ITS ---
Subjective Subjective Date of Service: 06/09/20 Interval history: He is feeling better today. He reports pain in his right upper back with movement. No abdominal pain. Would like to get moving. Physical Exam Vital Signs: Vital Signs: Last Vital Signs Temp 98.2 F 06/09/20 08:00 Pulse 95 06/09/20 08:00 Resp 20 06/09/20 08:00 BP 128/71 06/09/20 08:00 Pulse Ox 90 L 06/09/20 08:00 Body Mass Index 33.5 Laboratory Results - last 24 hr 06/08/20 06/08/20 06/09/20 16:43 20:23 05:12 WBC 6.8 RBC 3.06 L Hgb 10.3 L Hct 30.0 L MCV 98.0 MCH 33.7 H MCHC 34.3 RDW 16.5 H Plt Count 101 L D MPV 11.6 Immature Gran % (A uto) 1.2 H Neut % (Auto) 62.5 Lymph % (Auto) 16.1 L [place] % (Auto) 18.6 H Eos % (Auto) 0.7 Baso % (Auto) 0.9 Lymph # (Auto) 1.1 L [place] # (Auto) 1.3 H Eos # (Auto) 0.1 Baso # (Auto) 0.1 Abs Immat Gran (au to) 0.08 H Absolute Neuts (au to) 4.2 Absolute Nucleated RBC 0.000 Nucleated RBC % (a uto) 0.0 Smear Tech's Comme nts VERIFIED Sodium Potassium Chloride Carbon Dioxide Anion Gap BUN Creatinine Estim Creat Clear Calc Estimated GFR POC Glucose 77 79 Random Glucose Calcium Total Bilirubin Direct Bilirubin AST ALT Alkaline Phosphata se Total Protein Albumin 06/09/20 06/09/20 05:12 08:03 WBC RBC Hgb Hct MCV MCH MCHC RDW Plt Count MPV Immature Gran % (A uto) Neut % (Auto) Lymph % (Auto) [place] % (Auto) Eos % (Auto) Baso % (Auto) Lymph # (Auto) [place] # (Auto) Eos # (Auto) Baso # (Auto) Abs Immat Gran (au to) Absolute Neuts (au to) Absolute Nucleated RBC Nucleated RBC % (a uto) Smear Tech's Comme nts Sodium 136 Potassium 3.9 Chloride 104 Carbon Dioxide 24 Anion Gap 12 BUN 4 L Creatinine 0.50 Estim Creat Clear Calc 194.7 Estimated GFR > 60 POC Glucose 80 Random Glucose 81 Calcium 7.0 L Total Bilirubin 4.1 H Direct Bilirubin 3.2 H AST 72 H ALT 23 Alkaline Phosphata se 135 H Total Protein 4.2 L Albumin 1.8 L Const: Other: Alert, appears comfortable Resp: Effort & Inspection: normal respiratory effort Auscultation: clear to auscultation bilaterally Cardio: Rate: regular rate Rhythm: regular rhythm GI: Other: Round, soft, nontender Palpation (GI): Hepatomegaly present Progress Note: A&P Assessment and plan (1) Abnormal findings on diagnostic imaging of gallbladder: Status: Acute Assessment and Plan: There is no clinical evidence of acute cholecystitis. His abdominal pain has resolved. Abdomen is nontender. He has been afebrile. Follow-up ultrasound has been ordered but may not be necessary given overall clinical improvement. Physical therapy evaluation requested. (2) Fever of undetermined origin: Problem details: There is concern over alcoholilc hepatitis There is concern over cholecystitis There is concern less so over SBP There is concern over alcohol withdrawal Status: Acute Assessment and Plan: Etiology remains unclear. Continue antibiotics. (3) Acute GI bleeding: Problem details: Resolved. EGD revealed findings consistent with mild gastritis. Status: Acute Fall Risk Details Current Medications: Current Medications Generic Name Dose Route Start Last Admin Trade Name Narenq PRN Reason Stop Dose Admin Folic Acid 1 mg 06/05/20 09:00 06/09/20 08:53 Folic Acid 1 Mg Tablet PO 1 mg DAILY ALEX Administration Gabapentin 300 mg 06/04/20 21:00 06/08/20 20:45 Gabapentin 300 Mg Capsule PO 300 mg BEDTIME ALEX Administration Piperacillin Sod/Tazobactam 50 mls @ 100 mls/hr 06/06/20 22:00 06/09/20 14:47 Sod 3.375 gm/ Sodium Chloride IV Infused Q8H [facility] Infusion Dextrose/Sodium Chloride 1,000 mls @ 80 mls/hr 06/07/20 08:45 06/09/20 12:32 D5ns IVCONT Not Given .[id number] [facility] Insulin Human Lispro 0 unit 06/04/20 21:00 06/09/20 12:33 Insulin Lispro 100 Unit/Ml 3 Ml Vial SUBCUT Not Given QIDACHS [facility] Protocol Magnesium Oxide 400 mg 06/06/20 17:30 06/09/20 08:53 Magnesium Oxide 400 Mg Tablet PO 400 mg BIDPC ALEX Administration Medication 1 each 06/05/20 09:00 No Benzodiazepines MISCELLANE DAILY ALEX Protocol Multivitamins/Minerals 1 tab 06/05/20 09:00 06/09/20 08:52 Multivitamin With Minerals Tablet PO 1 tab DAILY ALEX Administration Omeprazole 40 mg 06/08/20 16:30 06/09/20 08:53 Omeprazole 20 Mg Capsule. PO 40 mg BID@0630,1630 ALEX Administration Ondansetron HCl 4 mg 06/04/20 19:55 06/06/20 16:18 Ondansetron Hcl 4 Mg/2 Ml Vial IVPUSH 4 mg Q8H PRN Administration Nausea and Vomiting Oxycodone HCl 5 mg 06/04/20 19:55 06/08/20 16:40 Oxycodone Hcl Immed Release 5 Mg Tablet PO 5 mg Q6H PRN Administration Pain Pharmacy Consult 1 each 06/04/20 17:35 Consult Rx Perform Med Rec MISCELLANE ONCE PRN Consult order Phenobarbital 30 mg 06/09/20 09:00 06/09/20 08:52 Phenobarbital 30 Mg Tablet PO 06/10/20 09:01 30 mg DAILY ALEX Administration Protocol Quetiapine Fumarate 50 mg 06/04/20 21:00 06/08/20 20:45 Quetiapine Fumarate 50 Mg Tablet PO 50 mg BEDTIME ALEX Administration Sodium Chloride 3 ml 06/05/20 00:00 06/09/20 08:53 0.9 % Sodium Chloride Flush 3 Ml Syringe IVFLUSH 3 ml QSHIFT ALEX Administration Vitamin D 25 mcg 06/05/20 09:00 06/09/20 08:53 Cholecalciferol (Vitamin D3) 25 Mcg Tablet PO 25 mcg DAILY ALEX Administration Time Spent With Patient Time: Total time spent is greater than 50% in coordination of care (as documented) at patient's floor/unit and/or counseling patient: Time with patient: less than 15 minutes
--- NOTE | 2020-06-09 15:33 | HO.PM.IMPN ---
Subjective Subjective Date of Service: 06/09/20 Interval History: Patient seen and examined at bedside Patient reported weakness withdrawal symptoms improving Review of Systems Denies any recent fever chills or decrease in appetite SEE HPI cardiovascular is adjustment of any PND, Reported edema SEE HPI genitourinary denies any dysuria frequency or hematuria musculoskeletal denies any joint pain or swelling neuropsych denies any weakness or seizures all other systems reviewed are negative Physical Exam Vital Signs: Vital Signs: Last Vital Signs Temp 98.2 F 06/09/20 08:00 Pulse 95 06/09/20 08:00 Resp 20 06/09/20 08:00 BP 128/71 06/09/20 08:00 Pulse Ox 90 L 06/09/20 08:00 Body Mass Index 33.5 Const: General: cooperative, alert and anxious HENMT: Head: Yes normocephalic and Yes atraumatic Eyes: EOM: EOMs intact bilaterally Resp: Effort & Inspection: normal respiratory effort Auscultation: clear to auscultation bilaterally Cardio: Rate: regular rate Rhythm: regular rhythm GI: Other: Round, soft, moderate diffuse tenderness, no palpable masses, no obvious organomegaly Rectal Exam - Male: Yes deferred Extrem: Other: 1+ edema ankles and feet Psych: Other: Tearful Objective Data Current Medications Generic Name Dose Route Start Last Admin Trade Name Freq PRN Reason Stop Dose Admin Folic Acid 1 mg 06/05/20 09:00 06/09/20 08:53 Folic Acid 1 Mg Tablet PO 1 mg DAILY [facility] Administration Gabapentin 300 mg 06/04/20 21:00 06/08/20 20:45 Gabapentin 300 Mg Capsule PO 300 mg BEDTIME [facility] Administration Piperacillin Sod/Tazobactam 50 mls @ 100 mls/hr 06/06/20 22:00 06/09/20 14:47 Sod 3.375 gm/ Sodium Chloride IV Infused Q8H [facility] Infusion Dextrose/Sodium Chloride 1,000 mls @ 80 mls/hr 06/07/20 08:45 06/09/20 12:32 D5ns IVCONT Not Given .[id number] [facility] Insulin Human Lispro 0 unit 06/04/20 21:00 06/09/20 12:33 Insulin Lispro 100 Unit/Ml 3 Ml Vial SUBCUT Not Given QIDACHS [facility] Protocol Magnesium Oxide 400 mg 06/06/20 17:30 06/09/20 08:53 Magnesium Oxide 400 Mg Tablet PO 400 mg BIDPC [facility] Administration Medication 1 each 06/05/20 09:00 No Benzodiazepines MISCELLANE DAILY [facility] Protocol Multivitamins/Minerals 1 tab 06/05/20 09:00 06/09/20 08:52 Multivitamin With Minerals Tablet PO 1 tab DAILY [facility] Administration Omeprazole 40 mg 06/08/20 16:30 06/09/20 08:53 Omeprazole 20 Mg Capsule. PO 40 mg BID@0630,1120 [facility] Administration Ondansetron HCl 4 mg 06/04/20 19:55 06/06/20 16:18 Ondansetron Hcl 4 Mg/2 Ml Vial IVPUSH 4 mg Q8H PRN Administration Nausea and Vomiting Oxycodone HCl 5 mg 06/04/20 19:55 06/08/20 16:40 Oxycodone Hcl Immed Release 5 Mg Tablet PO 5 mg Q6H PRN Administration Pain Pharmacy Consult 1 each 06/04/20 17:35 Consult Rx Perform Med Rec MISCELLANE ONCE PRN Consult order Phenobarbital 30 mg 06/09/20 09:00 06/09/20 08:52 Phenobarbital 30 Mg Tablet PO 06/10/20 09:01 30 mg DAILY [facility] Administration Protocol Quetiapine Fumarate 50 mg 06/04/20 21:00 06/08/20 20:45 Quetiapine Fumarate 50 Mg Tablet PO 50 mg BEDTIME [facility] Administration Sodium Chloride 3 ml 06/05/20 00:00 06/09/20 08:53 0.9 % Sodium Chloride Flush 3 Ml Syringe IVFLUSH 3 ml QSHIFT [facility] Administration Vitamin D 25 mcg 06/05/20 09:00 06/09/20 08:53 Cholecalciferol (Vitamin D3) 25 Mcg Tablet PO 25 mcg DAILY [facility] Administration Labs CBC & Chem 7: 06/09/20 05:12 06/09/20 05:12 Microbiology Microbiology Results: Microbiology 06/05/20 13:02 Blood - Venous Blood Culture - Preliminary No growth after 48 hours. 06/05/20 12:59 Blood - Venous Blood Culture - Preliminary No growth after 48 hours. 06/05/20 10:00 Urine clean catch - Clean Catch Midstream Urine Culture - Final Assessment and Plan (1) Acute GI bleeding: Problem details: Resolved. EGD revealed findings consistent with mild gastritis. Status: Acute (2) Hematemesis: Status: Acute Assessment and Plan: 59 year old man admitted with GI bleed secondary to anticoagulation and heavy alcohol abuse. Upper GI bleed/gastritis Status post EGD shows mild gastritis .On Anticoagulation hold Eliquis continue PPI monitor H&H closely Lower extremity edema mildly elevated BNP Echocardiogram done shows EF 40-45% with mild global hypokinesis and grade 1 diastolic dysfunction edema improved Transaminitis. Likely related to alcohol abuse ultrasound abdomen shows gallbladder wall thickening question of acute on chronic cholecystitis general surgery consulted reconciled cholecystitis less likely Seen by GI reconciled cholecystitis less likely and elevated LFTs are likely secondary to alcohol abuse LFTs peaked trending down monitor LFTs Fever etiology not clear yet fever resolved Blood cultures and urine culture preliminary negative UA negative, chest x-ray shows no infiltrates On antibiotic if cultures remain negative. Will stop Antibiotic Alcohol abuse with withdrawal resolved . 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 given GI bleed
[2020-06-09 16:48] LABS: Glucose, Whole Blood 81 mg/dL (60-115)
[2020-06-09 20:00] VITALS: BP 130/74; PULSE 95; RESP 20; TEMP 36.6; O2SAT 92
[2020-06-09 20:36] LABS: Glucose, Whole Blood 104 mg/dL (60-115)
[2020-06-09] MEDS: Gabapentin 300 MG CAPSULE PO (22:04)
[2020-06-09] MEDS: Dextrose 5 % and 0.9 % NaCl 1,000 ML 80 ML IVCONT (22:04)
[2020-06-09] MEDS: QUEtiapine Fumarate 50 MG TABLET PO (22:04)
--- NOTE | 2020-06-10 | MR_ITS ---
EXAMINATION: MR ABDOMEN WITHOUT CONTRAST CLINICAL INFORMATION: Dilated gallbladder and ducts. COMPARISON: None. TECHNIQUE: MR abdomen is performed without gadolinium contrast. FINDINGS: LUNG BASES: The visualized lung bases are unremarkable. LIVER, GALLBLADDER, AND BILIARY TREE: The liver is normal in size, smooth in contour, and normal in signal. On dual-phase exam, there is dropout of signal suggestive of fatty infiltration. No focal lesion is seen. The gallbladder is distended with echogenic debris visualized in the dependent portion. Small stones cannot be excluded. The CBD is suboptimally visualized, however, there is no focal distention visualized. PANCREAS: Unremarkable. SPLEEN: Unremarkable. ADRENAL GLANDS: The adrenal glands are symmetrical and normal. KIDNEYS AND URETERS: The kidneys are normal in size and shape. No hydronephrosis. No perinephric stranding. There is 2.2 x 2.3 cm lesion in upper pole left kidney, bright on fat suppressed T1 sequence and slightly hyperintense on T2 fat-sat FSE sequence. This probably represent a small complex cyst. No additional lesions seen. GASTROINTESTINAL TRACT: No bowel obstruction. No ascites or fluid collection. ABDOMINAL WALL: No significant hernia is appreciated. LYMPH NODES: No lymphadenopathy. VASCULAR: Unremarkable. OSSEOUS STRUCTURES: Marrow signal normal. MR/MR MRCP IMPRESSION: Diffuse fatty infiltration of liver without any focal lesion. The gallbladder is mildly distended with hyperintense dependent debris but no wall thickening seen. There is suboptimal evaluation of CBD due to to patient breathing artifact. On the visualized T2 sequences, no intraluminal filling defects seen in mid or distal CBD. No Intrahepatic ductal dilatation visualized by MRI.
[2020-06-10] MEDS: Omeprazole 20 MG CAPSULE.DR 40 MG PO ×2 (06:07→16:19)
[2020-06-10] MEDS: Piperacillin Sodium/Tazobactam 3.375 GM in 0.9 % Sodium Chloride 50 ML IV ×3 (06:07→21:09)
[2020-06-10 06:28] LABS: MANUAL DIFF FLAG NO
[2020-06-10 06:45] LABS: Basophils Percent Auto 0.4 % (0-2); Eosinophils Absolute Auto 0.1 X10*3/uL (0.0-0.4); Eosinophils Percent Auto 0.6 % (0-4); Hematocrit 30.6 % (42-52); Hemoglobin 10.3 g/dl (14.0-18.0); Imm Gran Abs Auto 0.19 X10*3/uL (0.00-0.03); Imm Gran Pct Auto 2.4 % (0.0-0.4); Lymphocytes Absolute Auto 1.5 X10*3/uL (1.2-4.9); Lymphocytes Percent Auto 18.3 % (20-40); Mean Corpuscular HGB Conc 33.7 g/dl (31.0-36.0); Mean Corpuscular Hemoglobin 33.7 pg (27.0-33.0); Mean Platelet Volume 11.7 fL (9.4-12.4); Monocytes Absolute Auto 1.1 X10*3/uL (0.1-1.2); Monocytes Percent Auto 14.3 % (2-11); NRBC Pct Auto 0.4 /100WBC (0.0-0.2); Neutrophils Absolute Auto 5.1 X10*3/uL (2.0-8.3); Platelet Count 151 X10*3/uL (160-400); Red Blood Count 3.06 X10*6/uL (4.60-5.80); Red Cell Distribution Width 16.4 % (11.0-16.0)
[2020-06-10 07:21] VITALS: BP 122/69; PULSE 92; RESP 22; TEMP 38.2; O2SAT 94
[2020-06-10 07:21] LABS: Glucose, Whole Blood 84 mg/dL (60-115)
[2020-06-10 07:24] LABS: Alanine Aminotransferase 22 U/L (0-40); Albumin Level 1.8 g/dL (3.5-5.0); Alkaline Phosphatase 128 U/L (39-117); Anion Gap 8 (12-20); Aspartate Amino Transferase 62 U/L (5-37); Bilirubin Total 3.8 mg/dL (0.0-1.0); Blood Urea Nitrogen 3 mg/dL (9-16); Carbon Dioxide 27 mmol/L (22-29); Chloride 102 mmol/L (96-108); Creatinine Clr Calc Pharmacy 198.6; Estimated Glomerular Filt Rate > 60; Glucose Random 84 mg/dL (60-115); Potassium 3.3 mmol/l (3.3-5.1); Sodium 134 mmol/L (135-145); Total Protein 4.3 g/dL (6.5-8.0)
[2020-06-10 07:53] VITALS: BP 122/69; PULSE 92; O2SAT 94
--- NOTE | 2020-06-10 08:23 | P.CDIC_ITS ---
CDI Concurrent Query Service Date: 06/10/20 Documentation Clarification: Please clarify if you are treating a proba ble/suspected/likely or confirmed: Acute on chronic diastolic and/or systolic Congestive heart failure Chronic diastolic and/or systolic Congestive heart failure Please specify if known Provider Response: Other (Chronic diastolic and systolic CHF) Other Diagnosis: Chronic diastolic and systolic CHF PLEASE DO NOT DELETE/MODIFY EXISTING CONTENT Additional information is needed in order to code to the highest accuracy and appropriate Severity of Illness (SOI). Please clarify the information noted below in your progress notes and discharge summary. Risk Factors/Clinical Indicators/Treatments H&P: CHF - no history of CHF, IV lasix BNP 105 Cardiology consult Echo ordered - echo performed 06/08 Transaminitis - likely related to CHF and alcohol intoxication. PN: 06/08 - lower extremity edema mild elevation of BNP CDS: Lia Elias CCS, CDIS Contact Number: [phone] Please Review the information above and exercise your independent professional judgment in responding to the query. If you concur, pleas document in the PROGRESS NOTES and DISCHARGE SUMMARY. If you do not agree with the query, please document in the query above. THIS QUERY IS PART OF THE PERMANENT MEDICAL RECORD
[2020-06-10] MEDS: PHENobarbitaL 30 MG TABLET PO (10:29)
[2020-06-10] MEDS: Cholecalciferol (Vitamin D3) 25 MCG TABLET PO (10:29)
[2020-06-10] MEDS: Magnesium Oxide 400 MG TABLET PO ×2 (10:29→16:19)
[2020-06-10] MEDS: Folic Acid 1 MG TABLET PO (10:29)
[2020-06-10 11:19] VITALS: BP 120/77; PULSE 93; RESP 24; TEMP 37.7; O2SAT 92
[2020-06-10 11:19] LABS: Glucose, Whole Blood 93 mg/dL (60-115)
--- NOTE | 2020-06-10 11:45 | MHC.CM.PN ---
per multidis rounds pt to have mri today ,lfts are still rising ?gall blader surgery
--- NOTE | 2020-06-10 13:54 | P.PNGS_ITS ---
Subjective Subjective Date of Service: 06/10/20 Interval history: He reports that he is feeling somewhat better today. He still is having some abdominal pain, but says that it is significantly improved from the time of admission. He was out of bed today and ambulating with physical therapist. MRI of the abdomen was done. No official reading yet, but I reviewed the images with Dr. Butcher. The gallbladder appears dilated and there is sludge present. The biliary ducts and common duct do not appear dilated. Physical Exam Vital Signs: Vital Signs: Last Vital Signs Temp 99.9 F 06/10/20 11:19 Pulse 93 06/10/20 11:19 Resp 24 H 06/10/20 11:19 BP 120/77 06/10/20 11:19 Pulse Ox 92 06/10/20 11:19 Body Mass Index 33.5 Const: Other: Alert, appears comfortable GI: Other: Round, soft, mildly tender high and epigastrium Palpation (GI): Hepatosplenomegaly present Progress Note: A&P Assessment and plan (1) Abnormal findings on diagnostic imaging of gallbladder: Status: Acute Assessment and Plan: Findings are consistent with acalculous cholecystitis. He appears to be improving, though he had a fever again this morning. His location of abdominal tenderness does not correlate anatomically with his gallbladder and may be related to hepatic congestion. He is at least a moderate risk for surgery given recent history of DVT and pulmonary embolus, at alcoholic hepatitis and hepatomegaly. Continue antibiotic therapy. Diet advanced to low fat. Fall Risk Details Current Medications: Current Medications Generic Name Dose Route Start Last Admin Trade Name Narenq PRN Reason Stop Dose Admin Folic Acid 1 mg 06/05/20 09:00 06/10/20 10:29 Folic Acid 1 Mg Tablet PO 1 mg DAILY [facility] Administration Gabapentin 300 mg 06/04/20 21:00 06/09/20 22:04 Gabapentin 300 Mg Capsule PO 300 mg BEDTIME [facility] Administration Piperacillin Sod/Tazobactam 50 mls @ 100 mls/hr 06/06/20 22:00 06/10/20 06:37 Sod 3.375 gm/ Sodium Chloride IV Infused Q8H [facility] Infusion Insulin Human Lispro 0 unit 06/04/20 21:00 06/10/20 11:32 Insulin Lispro 100 Unit/Ml 3 Ml Vial SUBCUT Not Given QIDACHS REPLACED BY [facility] Protocol Magnesium Oxide 400 mg 06/06/20 17:30 06/10/20 10:29 Magnesium Oxide 400 Mg Tablet PO 400 mg BIDPC [facility] Administration Medication 1 each 06/05/20 09:00 No Benzodiazepines MISCELLANE DAILY [facility] Protocol Multivitamins/Minerals 1 tab 06/05/20 09:00 06/10/20 10:29 Multivitamin With Minerals Tablet PO 1 tab DAILY [facility] Administration Omeprazole 40 mg 06/08/20 16:30 06/10/20 06:07 Omeprazole 20 Mg Capsule. PO 40 mg BID@0630,7950 [facility] Administration Ondansetron HCl 4 mg 06/04/20 19:55 06/06/20 16:18 Ondansetron Hcl 4 Mg/2 Ml Vial IVPUSH 4 mg Q8H PRN Administration Nausea and Vomiting Pharmacy Consult 1 each 06/04/20 17:35 Consult Rx Perform Med Rec MISCELLANE ONCE PRN Consult order Quetiapine Fumarate 50 mg 06/04/20 21:00 06/09/20 22:04 Quetiapine Fumarate 50 Mg Tablet PO 50 mg BEDTIME [facility] Administration Sodium Chloride 3 ml 06/05/20 00:00 06/10/20 10:30 0.9 % Sodium Chloride Flush 3 Ml Syringe IVFLUSH Not Given QSHIFT [facility] Vitamin D 25 mcg 06/05/20 09:00 06/10/20 10:29 Cholecalciferol (Vitamin D3) 25 Mcg Tablet PO 25 mcg DAILY [facility] Administration Time Spent With Patient Time: Total time spent is greater than 50% in coordination of care (as documented) at patient's floor/unit and/or counseling patient: Time with patient: less than 15 minutes
--- NOTE | 2020-06-10 15:04 | HO.PM.IMPN ---
Subjective Subjective Date of Service: 06/10/20 Interval History: Patient seen and examined at bedside Patient reported weakness withdrawal symptoms improving Review of Systems Denies any recent fever chills or decrease in appetite SEE HPI cardiovascular is adjustment of any PND, Reported edema SEE HPI genitourinary denies any dysuria frequency or hematuria musculoskeletal denies any joint pain or swelling neuropsych denies any weakness or seizures all other systems reviewed are negative Physical Exam Vital Signs: Vital Signs: Last Vital Signs Temp 99.9 F 06/10/20 11:19 Pulse 93 06/10/20 11:19 Resp 24 H 06/10/20 11:19 BP 120/77 06/10/20 11:19 Pulse Ox 92 06/10/20 11:19 Body Mass Index 33.5 Const: General: cooperative, alert and anxious HENMT: Head: Yes normocephalic and Yes atraumatic Eyes: EOM: EOMs intact bilaterally Resp: Effort & Inspection: normal respiratory effort Auscultation: clear to auscultation bilaterally Cardio: Rate: regular rate Rhythm: regular rhythm GI: Other: Round, soft, moderate diffuse tenderness, no palpable masses, no obvious organomegaly Rectal Exam - Male: Yes deferred Extrem: Other: 1+ edema ankles and feet Psych: Other: Tearful Objective Data Current Medications Generic Name Dose Route Start Last Admin Trade Name Abhi PRN Reason Stop Dose Admin Folic Acid 1 mg 06/05/20 09:00 06/10/20 10:29 Folic Acid 1 Mg Tablet PO 1 mg DAILY [facility] Administration Gabapentin 300 mg 06/04/20 21:00 06/09/20 22:04 Gabapentin 300 Mg Capsule PO 300 mg BEDTIME [facility] Administration Piperacillin Sod/Tazobactam 50 mls @ 100 mls/hr 06/06/20 22:00 06/10/20 14:38 Sod 3.375 gm/ Sodium Chloride IV 100 mls/hr Q8H [facility] Administration Insulin Human Lispro 0 unit 06/04/20 21:00 06/10/20 11:32 Insulin Lispro 100 Unit/Ml 3 Ml Vial SUBCUT Not Given QIDACHS [facility] Protocol Magnesium Oxide 400 mg 06/06/20 17:30 06/10/20 10:29 Magnesium Oxide 400 Mg Tablet PO 400 mg BIDPC [facility] Administration Medication 1 each 06/05/20 09:00 No Benzodiazepines MISCELLANE DAILY [facility] Protocol Multivitamins/Minerals 1 tab 06/05/20 09:00 06/10/20 10:29 Multivitamin With Minerals Tablet PO 1 tab DAILY [facility] Administration Omeprazole 40 mg 06/08/20 16:30 06/10/20 06:07 Omeprazole 20 Mg Capsule. PO 40 mg BID@0630,9940 [facility] Administration Ondansetron HCl 4 mg 06/04/20 19:55 06/06/20 16:18 Ondansetron Hcl 4 Mg/2 Ml Vial IVPUSH 4 mg Q8H PRN Administration Nausea and Vomiting Pharmacy Consult 1 each 06/04/20 17:35 Consult Rx Perform Med Rec MISCELLANE ONCE PRN Consult order Quetiapine Fumarate 50 mg 06/04/20 21:00 06/09/20 22:04 Quetiapine Fumarate 50 Mg Tablet PO 50 mg BEDTIME [facility] Administration Sodium Chloride 3 ml 06/05/20 00:00 06/10/20 10:30 0.9 % Sodium Chloride Flush 3 Ml Syringe IVFLUSH Not Given QSHIFT [facility] Vitamin D 25 mcg 06/05/20 09:00 06/10/20 10:29 Cholecalciferol (Vitamin D3) 25 Mcg Tablet PO 25 mcg DAILY [facility] Administration Labs CBC & Chem 7: 06/10/20 05:28 06/10/20 05:28 Microbiology Microbiology Results: Microbiology 06/05/20 13:02 Blood - Venous Blood Culture - Preliminary No growth after 48 hours. 06/05/20 12:59 Blood - Venous Blood Culture - Preliminary No growth after 48 hours. 06/05/20 10:00 Urine clean catch - Clean Catch Midstream Urine Culture - Final Assessment and Plan (1) Acute GI bleeding: Problem details: Resolved. EGD revealed findings consistent with mild gastritis. Status: Acute (2) Hematemesis: Status: Acute Assessment and Plan: 59 year old man admitted with GI bleed secondary to anticoagulation and heavy alcohol abuse. Upper GI bleed/gastritis resolved Status post EGD shows mild gastritis .On Anticoagulation hold Eliquis continue PPI monitor H&H closely Chronic diastolic and systolic CHF Lower extremity edema mildly elevated BNP Echocardiogram done shows EF 40-45% with mild global hypokinesis and grade 1 diastolic dysfunction edema improved Will need cardiology follow-up as outpatient Transaminitis. Likely related to alcohol abuse and possible CBD stone ultrasound abdomen shows gallbladder wall thickening question of acute on chronic cholecystitis general surgery consulted repeat ultrasound shows acute cholecystitis and CBD dilatation on 06/09/2020 Plan for MRCP today LFTs peaked trending down monitor LFTs Fever etiology not clear yet fever resolved Blood cultures and urine culture preliminary negative UA negative, chest x-ray shows no infiltrates On antibiotic if cultures remain negative. Will stop Antibiotic Alcohol abuse with withdrawal resolved . Drinks 10-16 nips daily symptoms resolving continue phenobarbital and CIWA protocol monitor on hand rounder electrolytes Hypokalemia and Hypomagnesemia replaced and resolving monitor electrolytes DVT prophylaxis with Mechanical compression boots. given GI bleed
[2020-06-10 15:34] VITALS: BP 127/86; PULSE 101; RESP 18; TEMP 36.6; O2SAT 96
[2020-06-10 16:17] LABS: Glucose, Whole Blood 116 mg/dL (60-115)
[2020-06-10] MEDS: 0.9 % Sodium Chloride Flush 3 ML SYRINGE IVFLUSH ×2 (16:19→23:07)
--- NOTE | 2020-06-10 17:11 | P.EN_ITS ---
Event Note Date of Service: 06/10/20 Event Note: He experienced recurrent severe epigastric pain about [address] eating lunch this afternoon. He did not have nausea or vomiting. MRCP findings are consistent with acute cholecystitis. There is evidence of sludge but no stones. He is significantly malnourished, albumin 1.8 and has alcohol-related hepatitis with hepatomegaly. 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 There is a high likelihood that if surgical treatment is undertaken, open cholecystectomy will be needed. He also has a recent history of DVT and PE. At this time, I feel that percutaneous cholecystostomy is a more appropriate treatment option for him than cholecystectomy. I discussed this with him. He agrees. We will request percutaneous cholecystostomy in Interventional Radiology tomorrow.
[2020-06-10 20:00] VITALS: BP 118/57; PULSE 87; RESP 18; TEMP 37; O2SAT 93
[2020-06-10] MEDS: QUEtiapine Fumarate 50 MG TABLET PO (20:09)
[2020-06-10] MEDS: Gabapentin 300 MG CAPSULE PO (20:09)
[2020-06-10 20:43] LABS: Glucose, Whole Blood 89 mg/dL (60-115)
[2020-06-10] MEDS: Morphine Sulfate 4 MG/ML CARTRIDGE IVPUSH (21:08)
[2020-06-11] VITALS (9 sets, daily range): BP systolic 97–146; BP diastolic 60–86; PULSE 75–100; RESP 18; TEMP 36.2–37.6; O2SAT 92–98
[2020-06-11] MEDS: Omeprazole 20 MG CAPSULE.DR 40 MG PO ×2 (06:24→15:51)
[2020-06-11] MEDS: Piperacillin Sodium/Tazobactam 3.375 GM in 0.9 % Sodium Chloride 50 ML IV ×3 (06:24→20:37)
[2020-06-11 07:11] LABS: Alanine Aminotransferase 22 U/L (0-40); Alkaline Phosphatase 133 U/L (39-117); Aspartate Amino Transferase 58 U/L (5-37); Bilirubin Direct 2.5 mg/dL (0.0-0.5); Bilirubin Total 3.1 mg/dL (0.0-1.0); Total Protein 4.5 g/dL (6.5-8.0)
[2020-06-11 07:14] LABS: Glucose, Whole Blood 81 mg/dL (60-115)
[2020-06-11] MEDS: Magnesium Oxide 400 MG TABLET PO ×2 (08:31→17:20)
[2020-06-11] MEDS: Cholecalciferol (Vitamin D3) 25 MCG TABLET PO (08:32)
[2020-06-11] MEDS: Folic Acid 1 MG TABLET PO (08:32)
--- NOTE | 2020-06-11 09:00 | CT_ITS ---
PROCEDURE: CT-GUIDED ABSCESS DRAINAGE CLINICAL INFORMATION: Acute acalculus cholecystitis. COMPARISON: None TECHNIQUE: Following explanation of CT fluoroscopy-guided cholecystostomy and drainage catheter procedure, benefits and risk, a written consent was obtained from the patient. A written consent was also obtained for conscious sedation to be performed by our nursing. Patient was placed supine on CT fluoroscopy table and preliminary CT imaging was obtained through the upper abdomen. An optimal site was selected along the right upper quadrant and marked. The marked site was cleaned and draped in usual sterile manner with 2% Chlorhexidine solution. 1% lidocaine was injected at the puncture site. A 5 Citizen [place] 10 cm long [id number] catheter was inserted from the skin through the liver into the gallbladder under fluoroscopy. After observing needle tip within the gallbladder, stylet was withdrawn and 035 J-wire was inserted through the sheath and the sheath removed. A 10.5 [place] APD catheter with stiffener was advanced over the guidewire and placed in the gallbladder. The stiffener and guidewire were removed and repeat imaging was performed to confirm position of the catheter in the gallbladder. The wire was folded a pigtail was formed. The catheter was connected to a drainage bag via connecting cannula and two way valve. The catheter was anchored to the skin with 3-0 nonabsorbable nylon sutures. A sterile dressing was placed as well. The catheter was then connected to suction bulb after noticing a thick consistency fluid on initial aspiration. Conscious sedation was utilized for approximately 30 minutes with Versed and fentanyl. Patient tolerated procedure extremely well. This CT examination was performed using dose optimization techniques as appropriate, variously including the following: *Automated exposure control *Adjustment of mA and/or kV according to patient size (this includes techniques or standardized protocols for targeted exams where dose is matched to indication/reason for exam; i.e. extremities or head) *Use of iterative reconstruction technique DLP: 365 mGy-cm FINDINGS: On the preliminary CT imaging there is diffuse fatty infiltration of liver with mild hepatomegaly. The gallbladder is homogeneous in density. Visualized spleen, atrophic pancreas, bilateral adrenal glands and the kidneys appear unremarkable. A 10.5 [place] APD catheter was placed within the gallbladder and approximately 50 mL of thick dark green bilious fluid was collected in a bag. Part of this fluid was sent to pathology for culture, sensitivity and Gram stain. CT/CT guided drainage IMPRESSION: Successful ultrasound-guided transhepatic cholecystostomy performed with 10.5 [place] APD catheter left in place connected to a suction bulb.
[2020-06-11 11:11] LABS: Glucose, Whole Blood 90 mg/dL (60-115)
--- NOTE | 2020-06-11 13:03 | P.PNIM_ITS ---
Subjective Subjective Date of Service: 06/11/20 Interval History: Patient seen and examined at bedside Patient reported weakness withdrawal symptoms improving Review of Systems Denies any recent fever chills or decrease in appetite SEE HPI cardiovascular is adjustment of any PND, Reported edema SEE HPI genitourinary denies any dysuria frequency or hematuria musculoskeletal denies any joint pain or swelling neuropsych denies any weakness or seizures all other systems reviewed are negative Physical Exam Vital Signs: Vital Signs: Last Vital Signs Temp 97.6 F 06/11/20 10:47 Pulse 87 06/11/20 10:47 Resp 18 06/11/20 10:47 BP 125/68 06/11/20 10:47 Pulse Ox 98 06/11/20 10:47 Body Mass Index 33.5 Const: General: cooperative, alert and anxious HENMT: Head: Yes normocephalic and Yes atraumatic Eyes: EOM: EOMs intact bilaterally Resp: Effort & Inspection: normal respiratory effort Auscultation: clear to auscultation bilaterally Cardio: Rate: regular rate Rhythm: regular rhythm GI: Other: Round, soft, moderate diffuse tenderness, no palpable masses, no obvious organomegaly Rectal Exam - Male: Yes deferred Extrem: Other: 1+ edema ankles and feet Psych: Other: Tearful Objective Data Current Medications Generic Name Dose Route Start Last Admin Trade Name Narenq PRN Reason Stop Dose Admin Folic Acid 1 mg 06/05/20 09:00 06/11/20 08:32 Folic Acid 1 Mg Tablet PO 1 mg DAILY ALEX Administration Gabapentin 300 mg 06/04/20 21:00 06/10/20 20:09 Gabapentin 300 Mg Capsule PO 300 mg BEDTIME ALEX Administration Piperacillin Sod/Tazobactam 50 mls @ 100 mls/hr 06/06/20 22:00 06/11/20 08:21 Sod 3.375 gm/ Sodium Chloride IV Infused Q8H ALEX Infusion Insulin Human Lispro 0 unit 06/04/20 21:00 06/11/20 11:28 Insulin Lispro 100 Unit/Ml 3 Ml Vial SUBCUT Not Given QIDACHS ALEX Protocol Magnesium Oxide 400 mg 06/06/20 17:30 06/11/20 08:31 Magnesium Oxide 400 Mg Tablet PO 400 mg BIDPC ALEX Administration Medication 1 each 06/05/20 09:00 No Benzodiazepines MISCELLANE DAILY [facility] Protocol Morphine Sulfate 4 mg 06/10/20 20:27 06/10/20 21:08 Morphine Sulfate 4 Mg/Ml Cartridge IVPUSH 4 mg Q6H PRN Administration Pain, Severe (Pain Scale 7-10) Multivitamins/Minerals 1 tab 06/05/20 09:00 06/11/20 08:33 Multivitamin With Minerals Tablet PO 1 tab DAILY ALEX Administration Omeprazole 40 mg 06/08/20 16:30 06/11/20 06:24 Omeprazole 20 Mg Capsule. PO 40 mg BID@0630,2290 ALEX Administration Ondansetron HCl 4 mg 06/04/20 19:55 06/06/20 16:18 Ondansetron Hcl 4 Mg/2 Ml Vial IVPUSH 4 mg Q8H PRN Administration Nausea and Vomiting Pharmacy Consult 1 each 06/04/20 17:35 Consult Rx Perform Med Rec MISCELLANE ONCE PRN Consult order Quetiapine Fumarate 50 mg 06/04/20 21:00 06/10/20 20:09 Quetiapine Fumarate 50 Mg Tablet PO 50 mg BEDTIME ALEX Administration Sodium Chloride 3 ml 06/05/20 00:00 06/11/20 09:12 0.9 % Sodium Chloride Flush 3 Ml Syringe IVFLUSH Not Given QSHIFT ALEX Vitamin D 25 mcg 06/05/20 09:00 06/11/20 08:32 Cholecalciferol (Vitamin D3) 25 Mcg Tablet PO 25 mcg DAILY ALEX Administration Labs CBC & Chem 7: 06/10/20 05:28 06/10/20 05:28 Microbiology Microbiology Results: Microbiology 06/05/20 13:02 Blood - Venous Blood Culture - Final No growth after 5 days. 06/05/20 12:59 Blood - Venous Blood Culture - Final No growth after 5 days. 06/05/20 10:00 Urine clean catch - Clean Catch Midstream Urine Culture - Final Assessment and Plan (1) Acute GI bleeding: Problem details: Resolved. EGD revealed findings consistent with mild gastritis. Status: Acute (2) Hematemesis: Status: Acute Assessment and Plan: 59 year old man admitted with GI bleed secondary to anticoagulation and heavy alcohol abuse. Patient underwent EGD shows mild gastritis, Ultrasound on admission shows question of cholecystitis, patient was seen by surgery Patient underwent HIDA scan which shows acute cholecystitis, given patient is high risk surgery recommended cholecystotomy, patient underwent cholecystotomy on 06/11 Acute cholecystitis ultrasound abdomen shows gallbladder wall thickening question of acute on chronic cholecystitis General surgery consulted repeat ultrasound shows acute cholecystitis and CBD dilatation on 06/09/2020 MRCP shows no CBD stone Blood cultures and urine culture negative Continue antibiotic Seen by surgery given high risk surgery recommended cholecystotomy Plan for cholecystotomy today Upper GI bleed/gastritis resolved Status post EGD shows mild gastritis .On Anticoagulation hold Eliquis continue PPI monitor H&H closely stable Chronic diastolic and systolic CHF Lower extremity edema mildly elevated BNP Echocardiogram done shows EF 40-45% with mild global hypokinesis and grade 1 diastolic dysfunction edema improved Will need cardiology follow-up as outpatient Transaminitis. Likely related to alcohol abuse ultrasound abdomen shows gallbladder wall thickening question of acute on chronic cholecystitis general surgery consulted repeat ultrasound shows acute cholecystitis and CBD dilatation on 06/09/2020 MRCP shows no CBD stone LFTs peaked trending down monitor LFTs Alcohol abuse with withdrawal resolved . Drinks 10-16 nips daily symptoms resolving continue phenobarbital and CIWA protocol monitor on digital account coordinator electrolytes Hypokalemia and Hypomagnesemia replaced and resolving monitor electrolytes History of DVT Anticoagulation were held for GI bleed and possible surgery for cholecystectomy H&H stable now Will resume anticoagulation after code cholecystotomy DVT prophylaxis with Mechanical compression boots will restart on Lovenox after procedure
[2020-06-11] MEDS: Lidocaine HCl 1 % MPF 5 ML VIAL 10 ML SUBCUT (15:46)
--- NOTE | 2020-06-11 16:02 | MHC.CM.PN ---
At this time, PT is recommending STR and will re eval Patient tomorrow.CM received a call from Patient's /Lilli ([phone], who expressed concerns about being able to care for Patient at home. Per this discussion and PT's current recommendation, referrals have been made to [place] and surrounding area SNFs. CM will follow.
[2020-06-11 16:19] LABS: Glucose, Whole Blood 75 mg/dL (60-115)
[2020-06-11] MEDS: 0.9 % Sodium Chloride Flush 3 ML SYRINGE IVFLUSH ×2 (17:03→20:37)
--- NOTE | 2020-06-11 18:13 | P.PNGS_ITS ---
Subjective Subjective Date of Service: 06/11/20 Interval history: Ambulating in room this evening. Had supper. He reports that he did not have any pain. The cholecystostomy tube was inserted earlier today. Physical Exam Vital Signs: Vital Signs: Last Vital Signs Temp 97.6 F 06/11/20 17:30 Pulse 97 06/11/20 17:30 Resp 18 06/11/20 17:30 BP 104/78 06/11/20 17:30 Pulse Ox 98 06/11/20 17:30 Body Mass Index 33.5 Const: Other: Alert, comfortable, in no apparent distress GI: Other: Round, nontender, cholecystostomy drain present right upper quadrant. Only a few cc of dark thick brown material present in suction bulb Progress Note: A&P Assessment and plan (1) Acalculous cholecystitis: Status: Acute Assessment and Plan: He is symptomatically improved following insertion of cholecystostomy tube. Continue Zosyn, regular diet. Home when medically stable. I will be off for the next few days. Dr. Nicolas will be covering. Fall Risk Details Current Medications: Current Medications Generic Name Dose Route Start Last Admin Trade Name Freq PRN Reason Stop Dose Admin Folic Acid 1 mg 06/05/20 09:00 06/11/20 08:32 Folic Acid 1 Mg Tablet PO 1 mg DAILY ALEX Administration Gabapentin 300 mg 06/04/20 21:00 06/10/20 20:09 Gabapentin 300 Mg Capsule PO 300 mg BEDTIME ALEX Administration Piperacillin Sod/Tazobactam 50 mls @ 100 mls/hr 06/06/20 22:00 06/11/20 16:59 Sod 3.375 gm/ Sodium Chloride IV Infused Q8H ALEX Infusion Insulin Human Lispro 0 unit 06/04/20 21:00 06/11/20 16:59 Insulin Lispro 100 Unit/Ml 3 Ml Vial SUBCUT Not Given QIDACHS [facility] [place] Protocol Magnesium Oxide 400 mg 06/06/20 17:30 06/11/20 17:20 Magnesium Oxide 400 Mg Tablet PO 400 mg BIDPC ALEX Administration Medication 1 each 06/05/20 09:00 No Benzodiazepines MISCELLANE DAILY [facility] Protocol Morphine Sulfate 4 mg 06/10/20 20:27 06/10/20 21:08 Morphine Sulfate 4 Mg/Ml Cartridge IVPUSH 4 mg Q6H PRN Administration Pain, Severe (Pain Scale 7-10) Multivitamins/Minerals 1 tab 06/05/20 09:00 06/11/20 08:33 Multivitamin With Minerals Tablet PO 1 tab DAILY ALEX Administration Omeprazole 40 mg 06/08/20 16:30 06/11/20 15:51 Omeprazole 20 Mg Capsule. PO 40 mg BID@0630,0930 ALEX Administration Ondansetron HCl 4 mg 06/04/20 19:55 06/06/20 16:18 Ondansetron Hcl 4 Mg/2 Ml Vial IVPUSH 4 mg Q8H PRN Administration Nausea and Vomiting Pharmacy Consult 1 each 06/04/20 17:35 Consult Rx Perform Med Rec MISCELLANE ONCE PRN Consult order Quetiapine Fumarate 50 mg 06/04/20 21:00 06/10/20 20:09 Quetiapine Fumarate 50 Mg Tablet PO 50 mg BEDTIME ALEX Administration Sodium Chloride 3 ml 06/05/20 00:00 06/11/20 17:03 0.9 % Sodium Chloride Flush 3 Ml Syringe IVFLUSH 3 ml QSHIFT ALEX Administration Vitamin D 25 mcg 06/05/20 09:00 06/11/20 08:32 Cholecalciferol (Vitamin D3) 25 Mcg Tablet PO 25 mcg DAILY ALEX Administration Time Spent With Patient Time: Total time spent is greater than 50% in coordination of care (as documented) at patient's floor/unit and/or counseling patient: Time with patient: less than 15 minutes
[2020-06-11 20:29] LABS: Glucose, Whole Blood 86 mg/dL (60-115)
[2020-06-11] MEDS: QUEtiapine Fumarate 50 MG TABLET PO (20:37)
[2020-06-11] MEDS: Gabapentin 300 MG CAPSULE PO (20:37)
[2020-06-12] VITALS (11 sets, daily range): BP systolic 96–155; BP diastolic 49–82; PULSE 76–103; RESP 14–20; TEMP 36.1–37.3; O2SAT 93–98
--- NOTE | 2020-06-12 05:13 | PC.NURSE ---
Pt high fall risk, refusing bed alarms and telesitter. A&Ox2, vague and forgetful. Impulsive. Swearing at staff. Appears steady with ambulation but needing frequent education and reinforcement with plan of care. Hourly rounding for pt safety.
[2020-06-12] MEDS: Omeprazole 20 MG CAPSULE.DR 40 MG PO ×2 (05:28→15:52)
[2020-06-12] MEDS: Piperacillin Sodium/Tazobactam 3.375 GM in 0.9 % Sodium Chloride 50 ML IV ×3 (05:28→22:20)
[2020-06-12 06:30] LABS: MANUAL DIFF FLAG NO
[2020-06-12 07:03] LABS: Basophils Absolute Auto 0.1 X10*3/uL (0.0-0.2); Basophils Percent Auto 0.9 % (0-2); Eosinophils Percent Auto 0.5 % (0-4); Hematocrit 30.2 % (42-52); Hemoglobin 10.4 g/dl (14.0-18.0); Imm Gran Abs Auto 0.16 X10*3/uL (0.00-0.03); Lymphocytes Absolute Auto 1.5 X10*3/uL (1.2-4.9); Lymphocytes Percent Auto 18.5 % (20-40); Mean Corpuscular HGB Conc 34.4 g/dl (31.0-36.0); Mean Corpuscular Hemoglobin 34.3 pg (27.0-33.0); Mean Corpuscular Volume 99.7 fL (80-98); Monocytes Absolute Auto 0.4 X10*3/uL (0.1-1.2); Monocytes Percent Auto 4.9 % (2-11); Neutrophils Absolute Auto 5.8 X10*3/uL (2.0-8.3); Neutrophils Percent Auto 73.2 % (45-73); Platelet Count 260 X10*3/uL (160-400); Red Blood Count 3.03 X10*6/uL (4.60-5.80); Red Cell Distribution Width 16.8 % (11.0-16.0)
[2020-06-12 07:17] LABS: Alanine Aminotransferase 25 U/L (0-40); Albumin Level 1.9 g/dL (3.5-5.0); Alkaline Phosphatase 133 U/L (39-117); Anion Gap 12 (12-20); Aspartate Amino Transferase 68 U/L (5-37); Bilirubin Direct 2.1 mg/dL (0.0-0.5); Bilirubin Total 2.6 mg/dL (0.0-1.0); Blood Urea Nitrogen 3 mg/dL (9-16); Calcium 6.9 mg/dL (8.4-10.2); Carbon Dioxide 23 mmol/L (22-29); Chloride 103 mmol/L (96-108); Creatinine Clr Calc Pharmacy 216.3; Estimated Glomerular Filt Rate > 60; Glucose Random 86 mg/dL (60-115); Potassium 3.1 mmol/l (3.3-5.1); Sodium 135 mmol/L (135-145); Total Protein 4.5 g/dL (6.5-8.0)
[2020-06-12 08:05] LABS: Glucose, Whole Blood 89 mg/dL (60-115)
--- NOTE | 2020-06-12 08:17 | PC.NURSE ---
pt refused am labs. aware
[2020-06-12] MEDS: 0.9 % Sodium Chloride Flush 3 ML SYRINGE IVFLUSH ×3 (08:30→20:30)
[2020-06-12] MEDS: Potassium Chloride ER 20 MEQ TAB.ER.PRT 40 MEQ PO (08:30)
[2020-06-12] MEDS: Magnesium Oxide 400 MG TABLET PO ×2 (08:31→15:52)
[2020-06-12] MEDS: Folic Acid 1 MG TABLET PO (08:31)
[2020-06-12] MEDS: Cholecalciferol (Vitamin D3) 25 MCG TABLET PO (08:31)
[2020-06-12] MEDS: Enoxaparin Sodium 120 MG/0.8 ML SYRINGE 110 MG SUBCUT ×2 (08:34→20:22)
[2020-06-12] MEDS: Morphine Sulfate 4 MG/ML CARTRIDGE IVPUSH ×2 (08:44→22:29)
[2020-06-12 11:35] LABS: Glucose, Whole Blood 91 mg/dL (60-115)
--- NOTE | 2020-06-12 12:11 | P.PNGS_ITS ---
Subjective Subjective Date of Service: 06/12/20 Interval history: says he feels well denies abdl pain had cholecystostomy tube placed yesterday Physical Exam Vital Signs: Vital Signs: Last Vital Signs Temp 97.8 F 06/12/20 07:56 Pulse 103 H 06/12/20 09:42 Resp 14 06/12/20 09:45 BP 96/57 L 06/12/20 09:42 Pulse Ox 96 06/12/20 09:42 Body Mass Index 33.5 Chemistry 06/10/20 06/12/20 05:28 05:25 Sodium 134 L 135 Potassium 3.3 3.1 L Carbon Dioxide 27 23 BUN 3 L 3 L Creatinine 0.49 L 0.45 L Calcium 7.0 L 6.9 L Hematology 06/10/20 06/12/20 05:28 05:25 WBC 8.0 8.0 Hgb 10.3 L 10.4 L Plt Count 151 L D 260 D Const: General: comfortable and no acute distress Cardio: Rhythm: regular rhythm GI: Other: soft, no guarding or rebound, cholecystostomy tube draining - bilious Progress Note: A&P Assessment and plan (1) Acalculous cholecystitis: Status: Acute Assessment and Plan: s/p tube cholecystostomy with IR doing well abd benign tube draining well on ZOsyn WBC normal continue current care will follow Fall Risk Details Current Medications: Current Medications Generic Name Dose Route Start Last Admin Trade Name Freq PRN Reason Stop Dose Admin Enoxaparin Sodium 110 mg 06/12/20 08:00 06/12/20 08:34 Enoxaparin Sodium 120 Mg/0.8 Ml Syringe 1 mg/kg (110 mg) 110 mg SUBCUT Administration Q12H ALEX Folic Acid 1 mg 06/05/20 09:00 06/12/20 08:31 Folic Acid 1 Mg Tablet PO 1 mg DAILY ALEX Administration Gabapentin 300 mg 06/04/20 21:00 06/11/20 20:37 Gabapentin 300 Mg Capsule PO 300 mg BEDTIME ALEX Administration Piperacillin Sod/Tazobactam 50 mls @ 100 mls/hr 06/06/20 22:00 06/12/20 05:59 Sod 3.375 gm/ Sodium Chloride IV Infused Q8H ALEX Infusion Insulin Human Lispro 0 unit 06/04/20 21:00 06/12/20 11:45 Insulin Lispro 100 Unit/Ml 3 Ml Vial SUBCUT Not Given QIDACHS [facility] Protocol Magnesium Oxide 400 mg 06/06/20 17:30 06/12/20 08:31 Magnesium Oxide 400 Mg Tablet PO 400 mg BIDPC ALEX Administration Medication 1 each 06/05/20 09:00 No Benzodiazepines MISCELLANE DAILY [facility] Protocol Morphine Sulfate 4 mg 06/10/20 20:27 06/12/20 08:44 Morphine Sulfate 4 Mg/Ml Cartridge IVPUSH 4 mg Q6H PRN Administration Pain, Severe (Pain Scale 7-10) Multivitamins/Minerals 1 tab 06/05/20 09:00 06/12/20 08:31 Multivitamin With Minerals Tablet PO 1 tab DAILY ALEX Administration Omeprazole 40 mg 06/08/20 16:30 06/12/20 05:28 Omeprazole 20 Mg Capsule.Dr PO 40 mg BID@4214,4116 ALEX Administration Ondansetron HCl 4 mg 06/04/20 19:55 06/06/20 16:18 Ondansetron Hcl 4 Mg/2 Ml Vial IVPUSH 4 mg Q8H PRN Administration Nausea and Vomiting Pharmacy Consult 1 each 06/04/20 17:35 Consult Rx Perform Med Rec MISCELLANE ONCE PRN Consult order Quetiapine Fumarate 50 mg 06/04/20 21:00 06/11/20 20:37 Quetiapine Fumarate 50 Mg Tablet PO 50 mg BEDTIME ALEX Administration Sodium Chloride 3 ml 06/05/20 00:00 06/12/20 08:30 0.9 % Sodium Chloride Flush 3 Ml Syringe IVFLUSH 3 ml QSHIFT ALEX Administration Vitamin D 25 mcg 06/05/20 09:00 06/12/20 08:31 Cholecalciferol (Vitamin D3) 25 Mcg Tablet PO 25 mcg DAILY ALEX Administration Time Spent With Patient Time: Total time spent is greater than 50% in coordination of care (as documented) at patient's floor/unit and/or counseling patient: Time with patient: 15 - 24 minutes
--- NOTE | 2020-06-12 12:51 | HO.PM.IMPN ---
Subjective Subjective Date of Service: 06/12/20 Interval History: Patient seen and examined at bedside Patient reported weakness Patient was reporting pain at surgical site Review of Systems Denies any recent fever chills or decrease in appetite cardiovascular denies PND, Reported edema genitourinary denies any dysuria frequency or hematuria musculoskeletal denies any joint pain or swelling neuropsych denies any weakness or seizures Physical Exam Vital Signs: Vital Signs: Last Vital Signs Temp 97.8 F 06/12/20 07:56 Pulse 103 H 06/12/20 09:42 Resp 14 06/12/20 09:45 BP 96/57 L 06/12/20 09:42 Pulse Ox 96 06/12/20 09:42 Body Mass Index 33.5 Const: General: cooperative, alert and anxious HENMT: Head: Yes normocephalic and Yes atraumatic Eyes: EOM: EOMs intact bilaterally Resp: Effort & Inspection: normal respiratory effort Auscultation: clear to auscultation bilaterally Cardio: Rate: regular rate Rhythm: regular rhythm GI: Other: Soft, mild tender at surgical site, cholecystotomy drain in place Rectal Exam - Male: Yes deferred Objective Data Current Medications Generic Name Dose Route Start Last Admin Trade Name Freq PRN Reason Stop Dose Admin Enoxaparin Sodium 110 mg 06/12/20 08:00 06/12/20 08:34 Enoxaparin Sodium 120 Mg/0.8 Ml Syringe 1 mg/kg (110 mg) 110 mg SUBCUT Administration Q12H [facility] Folic Acid 1 mg 06/05/20 09:00 06/12/20 08:31 Folic Acid 1 Mg Tablet PO 1 mg DAILY ALEX Administration Gabapentin 300 mg 06/04/20 21:00 06/11/20 20:37 Gabapentin 300 Mg Capsule PO 300 mg BEDTIME ALEX Administration Piperacillin Sod/Tazobactam 50 mls @ 100 mls/hr 06/06/20 22:00 06/12/20 05:59 Sod 3.375 gm/ Sodium Chloride IV Infused Q8H [facility] Infusion Insulin Human Lispro 0 unit 06/04/20 21:00 06/12/20 11:45 Insulin Lispro 100 Unit/Ml 3 Ml Vial SUBCUT Not Given QIDACHS [facility] Protocol Magnesium Oxide 400 mg 06/06/20 17:30 06/12/20 08:31 Magnesium Oxide 400 Mg Tablet PO 400 mg BIDPC ALEX Administration Medication 1 each 06/05/20 09:00 No Benzodiazepines MISCELLANE DAILY [facility] Protocol Morphine Sulfate 4 mg 06/10/20 20:27 06/12/20 08:44 Morphine Sulfate 4 Mg/Ml Cartridge IVPUSH 4 mg Q6H PRN Administration Pain, Severe (Pain Scale 7-10) Multivitamins/Minerals 1 tab 06/05/20 09:00 06/12/20 08:31 Multivitamin With Minerals Tablet PO 1 tab DAILY ALEX Administration Omeprazole 40 mg 06/08/20 16:30 06/12/20 05:28 Omeprazole 20 Mg Capsule. PO 40 mg BID@5586,1169 [facility] Administration Ondansetron HCl 4 mg 06/04/20 19:55 06/06/20 16:18 Ondansetron Hcl 4 Mg/2 Ml Vial IVPUSH 4 mg Q8H PRN Administration Nausea and Vomiting Pharmacy Consult 1 each 06/04/20 17:35 Consult Rx Perform Med Rec MISCELLANE ONCE PRN Consult order Quetiapine Fumarate 50 mg 06/04/20 21:00 06/11/20 20:37 Quetiapine Fumarate 50 Mg Tablet PO 50 mg BEDTIME ALEX Administration Sodium Chloride 3 ml 06/05/20 00:00 06/12/20 08:30 0.9 % Sodium Chloride Flush 3 Ml Syringe IVFLUSH 3 ml QSHIFT [facility] Administration Vitamin D 25 mcg 06/05/20 09:00 06/12/20 08:31 Cholecalciferol (Vitamin D3) 25 Mcg Tablet PO 25 mcg DAILY ALEX Administration Labs CBC & Chem 7: 06/12/20 05:25 06/12/20 05:25 Microbiology Microbiology Results: Microbiology 06/11/20 14:28 Paracentesis Fluid Gram Stain - Final 06/11/20 14:28 Paracentesis Fluid Anaerobic Culture - Preliminary Culture in progress. 06/11/20 14:28 Paracentesis Fluid Body Fluid Culture - Preliminary Culture in progress. 06/05/20 13:02 Blood - Venous Blood Culture - Final No growth after 5 days. 06/05/20 12:59 Blood - Venous Blood Culture - Final No growth after 5 days. 06/05/20 10:00 Urine clean catch - Clean Catch Midstream Urine Culture - Final Assessment and Plan (1) Acute GI bleeding: Problem details: Resolved. EGD revealed findings consistent with mild gastritis. Status: Acute (2) Hematemesis: Status: Acute Assessment and Plan: 59 year old man admitted with GI bleed secondary to anticoagulation and heavy alcohol abuse. Patient underwent EGD shows mild gastritis, Ultrasound on admission shows question of cholecystitis, patient was seen by surgery Patient underwent HIDA scan which shows acute cholecystitis, given patient is high risk surgery recommended cholecystotomy, patient underwent cholecystotomy on 06/11 Acute cholecystitis ultrasound abdomen shows gallbladder wall thickening question of acute on chronic cholecystitis General surgery consulted repeat ultrasound shows acute cholecystitis and CBD dilatation on 06/09/2020 MRCP shows no CBD stone s/p cholecystotomy on 06/11/2020 Blood cultures and urine culture negative Continue zosyn day 7 Seen by surgery given high risk surgery recommended cholecystotomy underwent cholecystotomy on 06/11/20 Upper GI bleed/gastritis resolved Status post EGD shows mild gastritis continue PPI H&H stable Discussed with GI Dr. Cecille arrieta to resume anticoagulation, started on Lovenox therapeutic dose on 06/12/2020 Monitor H&H closely as started on Lovenox Chronic diastolic and systolic CHF not in exacerbation Lower extremity edema resolving mildly elevated BNP Echocardiogram done shows EF 40-45% with mild global hypokinesis and grade 1 diastolic dysfunction edema improved Will need cardiology follow-up as outpatient Transaminitis. Likely related to alcohol abuse trending down ultrasound abdomen shows gallbladder wall thickening question of acute on chronic cholecystitis general surgery consulted repeat ultrasound shows acute cholecystitis and CBD dilatation on 06/09/2020 MRCP shows no CBD stone LFTs peaked trending down monitor LFTs Alcohol abuse with withdrawal resolved . Drinks 10-16 nips daily symptoms resolving Completed phenobarbital monitor on offset label rewinder electrolytes Hypokalemia and Hypomagnesemia replaced and resolving monitor electrolytes History of DVT Anticoagulation were held for GI bleed and for cholecystotomy H&H stable now On Eliquis at home Will start Lovenox therapeutic dose today , given patient may need cholecystectomy at some point Monitor H&H closely as started on anticoagulation DVT prophylaxis with Lovenox Debility weakness evaluated by Physical therapy recommended short-term rehab, possible discharge in 1-2 days if H&H remains stable and once cleared by surgery
--- NOTE | 2020-06-12 14:11 | MHC.CM.PN ---
per rounds possible dc over the weekend several facilies following
[2020-06-12 17:24] LABS: Glucose, Whole Blood 88 mg/dL (60-115)
--- NOTE | 2020-06-12 18:41 | PC.NURSE ---
pt a & o x 3. anxious in beginning of shift when refusing labs. upon assessment, states 10/10 right upper quadrant area around surgical site. 4 mg prn morphine administered with positive effect. pt slept for approx 3 hours. incontinent of urine x 1. marika drain with 150 ml of dark brown thick drainage this shift. ciwa 1 at this time.
[2020-06-12 19:36] LABS: Glucose, Whole Blood 94 mg/dL (60-115)
[2020-06-12] MEDS: Gabapentin 300 MG CAPSULE PO (20:22)
[2020-06-12] MEDS: QUEtiapine Fumarate 50 MG TABLET PO (20:22)
[2020-06-13 03:10] VITALS: BP 120/71; PULSE 86; RESP 18; TEMP 37.1; O2SAT 97
[2020-06-13] MEDS: Piperacillin Sodium/Tazobactam 3.375 GM in 0.9 % Sodium Chloride 50 ML IV ×3 (06:06→21:51)
[2020-06-13] MEDS: Omeprazole 20 MG CAPSULE.DR 40 MG PO ×2 (06:06→17:08)
[2020-06-13 06:19] LABS: MANUAL DIFF FLAG NO
[2020-06-13 06:28] LABS: Basophils Absolute Auto 0.1 X10*3/uL (0.0-0.2); Basophils Percent Auto 0.8 % (0-2); Eosinophils Percent Auto 0.4 % (0-4); Hematocrit 29.6 % (42-52); Hemoglobin 9.9 g/dl (14.0-18.0); Imm Gran Abs Auto 0.16 X10*3/uL (0.00-0.03); Imm Gran Pct Auto 1.7 % (0.0-0.4); Lymphocytes Absolute Auto 1.4 X10*3/uL (1.2-4.9); Lymphocytes Percent Auto 14.6 % (20-40); Mean Corpuscular HGB Conc 33.4 g/dl (31.0-36.0); Mean Corpuscular Hemoglobin 33.7 pg (27.0-33.0); Mean Corpuscular Volume 100.7 fL (80-98); Mean Platelet Volume 11.1 fL (9.4-12.4); Monocytes Absolute Auto 0.4 X10*3/uL (0.1-1.2); Monocytes Percent Auto 4.5 % (2-11); Neutrophils Absolute Auto 7.4 X10*3/uL (2.0-8.3); Platelet Count 320 X10*3/uL (160-400); Red Blood Count 2.94 X10*6/uL (4.60-5.80); Red Cell Distribution Width 17.2 % (11.0-16.0); White Blood Count 9.5 X10*3/uL (4.8-10.8)
[2020-06-13 06:37] LABS: INTERNATIONAL NORM RATIO 1.2 (0.9-1.1); Prothrombin Time 13.9 SEC (10.8-13.0)
[2020-06-13 06:59] LABS: Alanine Aminotransferase 23 U/L (0-40); Albumin Level 1.9 g/dL (3.5-5.0); Alkaline Phosphatase 131 U/L (39-117); Anion Gap 13 (12-20); Aspartate Amino Transferase 55 U/L (5-37); Bilirubin Direct 1.8 mg/dL (0.0-0.5); Bilirubin Total 2.2 mg/dL (0.0-1.0); Blood Urea Nitrogen 3 mg/dL (9-16); Calcium 7.1 mg/dL (8.4-10.2); Carbon Dioxide 22 mmol/L (22-29); Chloride 104 mmol/L (96-108); Creatinine Clr Calc Pharmacy 202.8; Estimated Glomerular Filt Rate > 60; Glucose Random 74 mg/dL (60-115); Potassium 3.7 mmol/l (3.3-5.1); Sodium 135 mmol/L (135-145); Total Protein 4.5 g/dL (6.5-8.0)
[2020-06-13 07:27] VITALS: BP 128/75; PULSE 96; RESP 18; TEMP 36.8; O2SAT 92
[2020-06-13] MEDS: Cholecalciferol (Vitamin D3) 25 MCG TABLET PO (08:15)
[2020-06-13] MEDS: Folic Acid 1 MG TABLET PO (08:15)
[2020-06-13] MEDS: 0.9 % Sodium Chloride Flush 3 ML SYRINGE IVFLUSH ×2 (08:16→17:10)
[2020-06-13] MEDS: Enoxaparin Sodium 120 MG/0.8 ML SYRINGE 110 MG SUBCUT ×2 (08:16→20:02)
[2020-06-13] MEDS: Magnesium Oxide 400 MG TABLET PO ×2 (08:16→17:10)
[2020-06-13] MEDS: ondansetron HCL 4 MG/2 ML VIAL IVPUSH ×2 (08:18→17:10)
[2020-06-13] MEDS: Morphine Sulfate 4 MG/ML CARTRIDGE IVPUSH ×3 (08:26→20:02)
[2020-06-13 08:51] LABS: Glucose, Whole Blood 85 mg/dL (60-115)
--- NOTE | 2020-06-13 10:18 | P.PNGS_ITS ---
Subjective Subjective Date of Service: 06/13/20 Interval history: complaioned of some pain earlier no events reported Physical Exam Vital Signs: Vital Signs: Last Vital Signs Temp 98.2 F 06/13/20 07:27 Pulse 96 06/13/20 07:27 Resp 18 06/13/20 07:27 BP 128/75 06/13/20 07:27 Pulse Ox 92 06/13/20 07:27 Body Mass Index 33.5 Chemistry 06/12/20 06/13/20 05:25 05:34 Sodium 135 135 Potassium 3.1 L 3.7 Carbon Dioxide 23 22 BUN 3 L 3 L Creatinine 0.45 L 0.48 L Calcium 6.9 L 7.1 L Hematology 06/12/20 06/13/20 05:25 05:34 WBC 8.0 9.5 Hgb 10.4 L 9.9 L Plt Count 260 D 320 Const: General: comfortable, no acute distress and anxious Resp: Effort & Inspection: normal respiratory effort GI: Other: cholecystostomy tube in place; draining bile Palpation (GI): Soft to palpation, nontender and no guarding Progress Note: A&P Assessment and plan (1) Acalculous cholecystitis: Status: Acute Assessment and Plan: S/P tube cholecystostomy tube functioning diet as tolerated on abx has multiple medical issues the rest of care as per medical service Fall Risk Details Current Medications: Current Medications Generic Name Dose Route Start Last Admin Trade Name Freq PRN Reason Stop Dose Admin Enoxaparin Sodium 110 mg 06/12/20 08:00 06/13/20 08:16 Enoxaparin Sodium 120 Mg/0.8 Ml Syringe 1 mg/kg (110 mg) 110 mg SUBCUT Administration Q12H ALEX Folic Acid 1 mg 06/05/20 09:00 06/13/20 08:15 Folic Acid 1 Mg Tablet PO 1 mg DAILY ALEX Administration Gabapentin 300 mg 06/04/20 21:00 06/12/20 20:22 Gabapentin 300 Mg Capsule PO 300 mg BEDTIME ALEX Administration Piperacillin Sod/Tazobactam 50 mls @ 100 mls/hr 06/06/20 22:00 06/13/20 06:52 Sod 3.375 gm/ Sodium Chloride IV Infused Q8H [facility]LEX Infusion Insulin Human Lispro 0 unit 06/04/20 21:00 06/13/20 08:12 Insulin Lispro 100 Unit/Ml 3 Ml Vial SUBCUT Not Given QIDACHS [facility] Protocol Magnesium Oxide 400 mg 06/06/20 17:30 06/13/20 08:16 Magnesium Oxide 400 Mg Tablet PO 400 mg BIDPC ALEX Administration Medication 1 each 06/05/20 09:00 No Benzodiazepines MISCELLANE DAILY [facility] Protocol Morphine Sulfate 4 mg 06/10/20 20:27 06/13/20 08:26 Morphine Sulfate 4 Mg/Ml Cartridge IVPUSH 4 mg Q6H PRN Administration Pain, Severe (Pain Scale 7-10) Multivitamins/Minerals 1 tab 06/05/20 09:00 06/13/20 08:15 Multivitamin With Minerals Tablet PO 1 tab DAILY ALEX Administration Omeprazole 40 mg 06/08/20 16:30 06/13/20 06:06 Omeprazole 20 Mg Capsule.Dr PO 40 mg BID@5201,9580 ALEX Administration Ondansetron HCl 4 mg 06/04/20 19:55 06/13/20 08:18 Ondansetron Hcl 4 Mg/2 Ml Vial IVPUSH 4 mg Q8H PRN Administration Nausea and Vomiting Pharmacy Consult 1 each 06/04/20 17:35 Consult Rx Perform Med Rec MISCELLANE ONCE PRN Consult order Quetiapine Fumarate 50 mg 06/04/20 21:00 06/12/20 20:22 Quetiapine Fumarate 50 Mg Tablet PO 50 mg BEDTIME ALEX Administration Sodium Chloride 3 ml 06/05/20 00:00 06/13/20 08:16 0.9 % Sodium Chloride Flush 3 Ml Syringe IVFLUSH 3 ml QSHIFT [facility]LEX Administration Vitamin D 25 mcg 06/05/20 09:00 06/13/20 08:15 Cholecalciferol (Vitamin D3) 25 Mcg Tablet PO 25 mcg DAILY ALEX Administration Time Spent With Patient Time: Total time spent is greater than 50% in coordination of care (as documented) at patient's floor/unit and/or counseling patient: Time with patient: 15 - 24 minutes
[2020-06-13 12:00] VITALS: BP 116/63; PULSE 81; RESP 18; TEMP 36.2; O2SAT 93
[2020-06-13 12:06] LABS: Glucose, Whole Blood 103 mg/dL (60-115)
[2020-06-13] MEDS: Furosemide 20 MG/2 ML VIAL IVPUSH (12:18)
--- NOTE | 2020-06-13 13:19 | P.PNIM_ITS ---
Subjective Subjective Date of Service: 06/13/20 Interval History: The patient was seen and evaluated this morning Laying in bed, feels comfortable but reported overall weakness But reports overall weakness pain at the side of surgery Denies any fever, chills or shortness of breath No reported other overnight events. Systemic review: No fever, chills or weakness No chest pain, palpitation No shortness of breath or coughing Site of surgery abdominal pain, nausea or vomiting No urinary symptoms No any rash or wounds Physical Exam Vital Signs: Vital Signs: Last Vital Signs Temp 97.2 F 06/13/20 12:00 Pulse 81 06/13/20 12:00 Resp 18 06/13/20 12:00 BP 116/63 06/13/20 12:00 Pulse Ox 93 06/13/20 12:00 Body Mass Index 33.5 Const: Other: Constitutional : Alert, oriented, not in distress Neck : Normal inspection, Supple Cardiovascular : RRR, S1 S2, +2 bilateral lower extremity edema Respiratory : Good bilateral air entry, no crackles, wheezes or rhonchi Gastrointestinal: soft, lax, Normal bowel sounds, site of surgery covered, no drainage noted, drain in place, mild superficial tenderness Skin : Warm/Dry, No rash Neurological : Alert & oriented x3, No focal deficit Objective Data Current Medications Generic Name Dose Route Start Last Admin Trade Name Abhi PRN Reason Stop Dose Admin Enoxaparin Sodium 110 mg 06/12/20 08:00 06/13/20 08:16 Enoxaparin Sodium 120 Mg/0.8 Ml Syringe 1 mg/kg (110 mg) 110 mg SUBCUT Administration Q12H ALEX Folic Acid 1 mg 06/05/20 09:00 06/13/20 08:15 Folic Acid 1 Mg Tablet PO 1 mg DAILY ALEX Administration Furosemide 20 mg 06/13/20 11:20 06/13/20 12:18 Furosemide 20 Mg/2 Ml Vial IVPUSH 20 mg DAILY ALEX Administration Protocol Gabapentin 300 mg 06/04/20 21:00 06/12/20 20:22 Gabapentin 300 Mg Capsule PO 300 mg BEDTIME ALEX Administration Piperacillin Sod/Tazobactam 50 mls @ 100 mls/hr 06/06/20 22:00 06/13/20 06:52 Sod 3.375 gm/ Sodium Chloride IV Infused Q8H ALEX Infusion Insulin Human Lispro 0 unit 06/04/20 21:00 06/13/20 12:05 Insulin Lispro 100 Unit/Ml 3 Ml Vial SUBCUT Not Given QIDACHS [facility] [place] Protocol Magnesium Oxide 400 mg 06/06/20 17:30 06/13/20 08:16 Magnesium Oxide 400 Mg Tablet PO 400 mg BIDPC ALEX Administration Medication 1 each 06/05/20 09:00 No Benzodiazepines MISCELLANE DAILY [facility] [place] Protocol Morphine Sulfate 4 mg 06/10/20 20:27 06/13/20 08:26 Morphine Sulfate 4 Mg/Ml Cartridge IVPUSH 4 mg Q6H PRN Administration Pain, Severe (Pain Scale 7-10) Multivitamins/Minerals 1 tab 06/05/20 09:00 06/13/20 08:15 Multivitamin With Minerals Tablet PO 1 tab DAILY [facility] Administration Omeprazole 40 mg 06/08/20 16:30 06/13/20 06:06 Omeprazole 20 Mg Capsule. PO 40 mg BID@0633,6170 [facility] [place] Administration Ondansetron HCl 4 mg 06/04/20 19:55 06/13/20 08:18 Ondansetron Hcl 4 Mg/2 Ml Vial IVPUSH 4 mg Q8H PRN Administration Nausea and Vomiting Pharmacy Consult 1 each 06/04/20 17:35 Consult Rx Perform Med Rec MISCELLANE ONCE PRN Consult order Quetiapine Fumarate 50 mg 06/04/20 21:00 06/12/20 20:22 Quetiapine Fumarate 50 Mg Tablet PO 50 mg BEDTIME ALEX Administration Sodium Chloride 3 ml 06/05/20 00:00 06/13/20 08:16 0.9 % Sodium Chloride Flush 3 Ml Syringe IVFLUSH 3 ml QSHIFT [facility] [place] Administration Vitamin D 25 mcg 06/05/20 09:00 06/13/20 08:15 Cholecalciferol (Vitamin D3) 25 Mcg Tablet PO 25 mcg DAILY [facility] Administration Labs CBC & Chem 7: 06/13/20 05:34 06/13/20 05:34 Microbiology Microbiology Results: Microbiology 06/11/20 14:28 Paracentesis Fluid Gram Stain - Final 06/11/20 14:28 Paracentesis Fluid Anaerobic Culture - Preliminary No growth to date. 06/11/20 14:28 Paracentesis Fluid Body Fluid Culture - Final No growth after 2 days 06/05/20 13:02 Blood - Venous Blood Culture - Final No growth after 5 days. 06/05/20 12:59 Blood - Venous Blood Culture - Final No growth after 5 days. 06/05/20 10:00 Urine clean catch - Clean Catch Midstream Urine Culture - Final Assessment and Plan (1) Acute GI bleeding: Problem details: Resolved. EGD revealed findings consistent with mild gastritis. Status: Acute (2) Hematemesis: Status: Acute (3) Acalculous cholecystitis: Status: Acute (4) Abnormal findings on diagnostic imaging of gallbladder: Status: Acute Assessment and Plan: 59 year old man admitted with GI bleed secondary to anticoagulation and heavy alcohol abuse. Patient underwent EGD shows mild gastritis, Ultrasound on admission shows question of cholecystitis, patient was seen by surgery Patient underwent HIDA scan which shows acute cholecystitis, given patient is high risk surgery recommended cholecystotomy, patient underwent cholecystotomy on 06/11 Acute cholecystitis post cholecystotomy ultrasound abdomen suggested acute on chronic cholecystitis repeat ultrasound shows acute cholecystitis and CBD dilatation on 06/09/2020 MRCP shows no CBD stone s/p cholecystotomy on 06/11/2020 Blood cultures and urine culture negative Continue zosyn day 8 Seen by surgery given high risk surgery recommended cholecystotomy underwent cholecystotomy on 06/11/20 Upper GI bleed/gastritis resolved Status post EGD shows mild gastritis continue PPI H&H stable Discussed with GI Dr. Cecille arrieta to resume anticoagulation, started on Lovenox therapeutic dose on 06/12/2020 Monitor H&H closely as started on Lovenox, to restart home med Acute on Chronic diastolic and systolic CHF Lower extremity edema +2 mildly elevated BNP Echocardiogram done shows EF 40-45% with mild global hypokinesis and grade 1 diastolic dysfunction Start IV Lasix Will need cardiology follow-up as outpatient Transaminitis. 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
[2020-06-13 15:19] VITALS: BP 118/75; PULSE 78; RESP 16; TEMP 36.6; O2SAT 97
[2020-06-13 16:25] LABS: Glucose, Whole Blood 85 mg/dL (60-115)
[2020-06-13 19:23] VITALS: BP 140/93; RESP 18; TEMP 37; O2SAT 98
[2020-06-13 20:36] LABS: Glucose, Whole Blood 89 mg/dL (60-115)
[2020-06-13] MEDS: Gabapentin 300 MG CAPSULE PO (21:50)
[2020-06-13] MEDS: QUEtiapine Fumarate 50 MG TABLET PO (21:50)
[2020-06-13 23:47] VITALS: BP 109/56; PULSE 79; RESP 18; TEMP 36.6; O2SAT 93
[2020-06-14] MEDS: 0.9 % Sodium Chloride Flush 3 ML SYRINGE IVFLUSH ×4 (00:46→20:58)
[2020-06-14 03:24] VITALS: BP 120/62; PULSE 74; RESP 18; TEMP 36.6; O2SAT 94
[2020-06-14] MEDS: Omeprazole 20 MG CAPSULE.DR 40 MG PO ×2 (06:21→15:32)
[2020-06-14 06:50] LABS: MANUAL DIFF FLAG NO
[2020-06-14 07:06] LABS: INTERNATIONAL NORM RATIO 1.1 (0.9-1.1); Prothrombin Time 13.6 SEC (10.8-13.0)
[2020-06-14 07:18] LABS: Basophils Absolute Auto 0.1 X10*3/uL (0.0-0.2); Basophils Percent Auto 0.8 % (0-2); Eosinophils Percent Auto 0.4 % (0-4); Hematocrit 31.1 % (42-52); Hemoglobin 10.2 g/dl (14.0-18.0); Imm Gran Abs Auto 0.12 X10*3/uL (0.00-0.03); Imm Gran Pct Auto 1.1 % (0.0-0.4); Lymphocytes Absolute Auto 1.6 X10*3/uL (1.2-4.9); Lymphocytes Percent Auto 14.4 % (20-40); Mean Corpuscular HGB Conc 32.8 g/dl (31.0-36.0); Mean Corpuscular Volume 103.7 fL (80-98); Mean Platelet Volume 10.9 fL (9.4-12.4); Monocytes Absolute Auto 0.4 X10*3/uL (0.1-1.2); Monocytes Percent Auto 3.8 % (2-11); Neutrophils Absolute Auto 8.6 X10*3/uL (2.0-8.3); Neutrophils Percent Auto 79.5 % (45-73); Platelet Count 353 X10*3/uL (160-400); Red Cell Distribution Width 17.2 % (11.0-16.0); White Blood Count 10.8 X10*3/uL (4.8-10.8)
[2020-06-14 07:39] LABS: Anion Gap 11 (12-20); Carbon Dioxide 26 mmol/L (22-29); Chloride 105 mmol/L (96-108); Creatinine Clr Calc Pharmacy 187.2; Estimated Glomerular Filt Rate > 60; Glucose Random 74 mg/dL (60-115); Potassium 3.6 mmol/l (3.3-5.1); Sodium 138 mmol/L (135-145)
[2020-06-14 08:00] VITALS: BP 134/77; PULSE 84; RESP 18; TEMP 36.9; O2SAT 92
[2020-06-14 08:00] LABS: Alanine Aminotransferase 21 U/L (0-40); Alkaline Phosphatase 123 U/L (39-117); Aspartate Amino Transferase 45 U/L (5-37); Bilirubin Direct 1.7 mg/dL (0.0-0.5); Blood Urea Nitrogen 2 mg/dL (9-16); Calcium 7.3 mg/dL (8.4-10.2); Total Protein 4.6 g/dL (6.5-8.0)
[2020-06-14 08:17] LABS: Glucose, Whole Blood 85 mg/dL (60-115)
[2020-06-14] MEDS: Enoxaparin Sodium 120 MG/0.8 ML SYRINGE 110 MG SUBCUT (09:13)
[2020-06-14] MEDS: Furosemide 20 MG/2 ML VIAL IVPUSH (09:13)
[2020-06-14] MEDS: Morphine Sulfate 4 MG/ML CARTRIDGE IVPUSH ×3 (09:13→20:58)
[2020-06-14] MEDS: Cholecalciferol (Vitamin D3) 25 MCG TABLET PO (09:14)
[2020-06-14] MEDS: Magnesium Oxide 400 MG TABLET PO ×2 (09:14→18:14)
[2020-06-14] MEDS: Folic Acid 1 MG TABLET PO (09:14)
--- NOTE | 2020-06-14 09:20 | PC.NURSE ---
pt refusing bed alarm. educated on safety
--- NOTE | 2020-06-14 10:35 | P.PNIM_ITS ---
Subjective Subjective Date of Service: 06/14/20 Interval History: The patient was seen and evaluated this morning Laying in bed, feels comfortable and stronger with no reported pain overnight Denies any fever, chills or shortness of breath No reported other overnight events. Systemic review: No fever, chills or weakness No chest pain, palpitation No shortness of breath or coughing Site of surgery abdominal pain, nausea or vomiting No urinary symptoms No any rash or wounds Physical Exam Vital Signs: Vital Signs: Last Vital Signs Temp 98.4 F 06/14/20 08:00 Pulse 84 06/14/20 08:00 Resp 18 06/14/20 08:00 BP 134/77 06/14/20 08:00 Pulse Ox 92 06/14/20 08:00 Body Mass Index 33.5 Const: Other: Constitutional : Alert, oriented, not in distress Neck : Normal inspection, Supple Cardiovascular : RRR, S1 S2, +1 bilateral lower extremity edema Respiratory : Good bilateral air entry, no crackles, wheezes or rhonchi Gastrointestinal: soft, lax, Normal bowel sounds, site of surgery covered, no drainage noted, drain in place, mild superficial tenderness Skin : Warm/Dry, No rash Neurological : Alert & oriented x3, No focal deficit Objective Data Current Medications Generic Name Dose Route Start Last Admin Trade Name Freq PRN Reason Stop Dose Admin Apixaban 5 mg 06/14/20 21:00 Apixaban 5 Mg Tablet PO BID ALEX Folic Acid 1 mg 06/05/20 09:00 06/14/20 09:14 Folic Acid 1 Mg Tablet PO 1 mg DAILY ALEX Administration Furosemide 20 mg 06/13/20 11:20 06/14/20 09:13 Furosemide 20 Mg/2 Ml Vial IVPUSH 20 mg DAILY ALEX Administration Protocol Gabapentin 300 mg 06/04/20 21:00 06/13/20 21:50 Gabapentin 300 Mg Capsule PO 300 mg BEDTIME ALEX Administration Insulin Human Lispro 0 unit 06/04/20 21:00 06/14/20 08:34 Insulin Lispro 100 Unit/Ml 3 Ml Vial SUBCUT Not Given QIDACHS ALEX Protocol Magnesium Oxide 400 mg 06/06/20 17:30 06/14/20 09:14 Magnesium Oxide 400 Mg Tablet PO 400 mg BIDPC ALEX Administration Medication 1 each 06/05/20 09:00 No Benzodiazepines MISCELLANE DAILY [facility] Protocol Morphine Sulfate 4 mg 06/13/20 13:53 06/14/20 09:13 Morphine Sulfate 4 Mg/Ml Cartridge IVPUSH 4 mg Q4H PRN Administration Pain, Severe (Pain Scale 7-10) Multivitamins/Minerals 1 tab 06/05/20 09:00 06/14/20 09:14 Multivitamin With Minerals Tablet PO 1 tab DAILY ALEX Administration Omeprazole 40 mg 06/08/20 16:30 06/14/20 06:21 Omeprazole 20 Mg Capsule. PO 40 mg BID@7819,6830 ALEX Administration Ondansetron HCl 4 mg 06/04/20 19:55 06/13/20 17:10 Ondansetron Hcl 4 Mg/2 Ml Vial IVPUSH 4 mg Q8H PRN Administration Nausea and Vomiting Pharmacy Consult 1 each 06/04/20 17:35 Consult Rx Perform Med Rec MISCELLANE ONCE PRN Consult order Quetiapine Fumarate 50 mg 06/04/20 21:00 06/13/20 21:50 Quetiapine Fumarate 50 Mg Tablet PO 50 mg BEDTIME ALEX Administration Sodium Chloride 3 ml 06/05/20 00:00 06/14/20 09:13 0.9 % Sodium Chloride Flush 3 Ml Syringe IVFLUSH 3 ml QSHIFT ALEX Administration Vitamin D 25 mcg 06/05/20 09:00 06/14/20 09:14 Cholecalciferol (Vitamin D3) 25 Mcg Tablet PO 25 mcg DAILY ALEX Administration Labs CBC & Chem 7: 06/14/20 05:43 06/14/20 05:43 Microbiology Microbiology Results: Microbiology 06/11/20 14:28 Paracentesis Fluid Gram Stain - Final 06/11/20 14:28 Paracentesis Fluid Anaerobic Culture - Preliminary No growth to date. 06/11/20 14:28 Paracentesis Fluid Body Fluid Culture - Final No growth after 2 days 06/05/20 13:02 Blood - Venous Blood Culture - Final No growth after 5 days. 06/05/20 12:59 Blood - Venous Blood Culture - Final No growth after 5 days. 06/05/20 10:00 Urine clean catch - Clean Catch Midstream Urine Culture - Final Assessment and Plan (1) Acute GI bleeding: Problem details: Resolved. EGD revealed findings consistent with mild gastritis. Status: Acute (2) Hematemesis: Status: Acute (3) Acalculous cholecystitis: Status: Acute (4) Abnormal findings on diagnostic imaging of gallbladder: Status: Acute Assessment and Plan: 59 year old man admitted with GI bleed secondary to anticoagulation and heavy alcohol abuse. Patient underwent EGD shows mild gastritis, Ultrasound on admission shows question of cholecystitis, patient was seen by surgery Patient underwent HIDA scan which shows acute cholecystitis, given patient is high risk surgery recommended cholecystotomy, patient underwent cholecystotomy on 06/11 Acute cholecystitis post cholecystotomy ultrasound abdomen suggested acute on chronic cholecystitis repeat ultrasound shows acute cholecystitis and CBD dilatation on 06/09/2020 MRCP shows no CBD stone s/p cholecystotomy on 06/11/2020 Blood cultures and urine culture negative Continue zosyn day 9 Seen by surgery given high risk surgery recommended cholecystotomy underwent cholecystotomy on 06/11/20 Upper GI bleed/gastritis resolved Status post EGD shows mild gastritis continue PPI H&H stable Discussed with GI Dr. Cecille arrieta to resume anticoagulation, started on Lovenox therapeutic dose on 06/12/2020 Monitor H&H closely as started on Lovenox, to restart home med Acute on Chronic diastolic and systolic CHF Lower extremity edema +1 mildly elevated BNP Echocardiogram done shows EF 40-45% with mild global hypokinesis and grade 1 diastolic dysfunction Start IV Lasix Will need cardiology follow-up as outpatient Transaminitis. 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
--- NOTE | 2020-06-14 10:58 | P.PNGS_ITS ---
Subjective Subjective Date of Service: 06/14/20 Interval history: says he feels better oral intake much improved Physical Exam Vital Signs: Vital Signs: Last Vital Signs Temp 98.4 F 06/14/20 08:00 Pulse 84 06/14/20 08:00 Resp 18 06/14/20 08:00 BP 134/77 06/14/20 08:00 Pulse Ox 92 06/14/20 08:00 Body Mass Index 33.5 Const: General: comfortable and no acute distress Eyes: Sclerae: sclerae normal Resp: Effort & Inspection: normal respiratory effort GI: Other: cholecystostomy tube in place, output bilious Palpation (GI): Soft to palpation, not firm and nontender Progress Note: A&P Assessment and plan (1) Acalculous cholecystitis: Status: Acute Assessment and Plan: S/P tube cholecystostomy looks well much improved will need VNA for tube care on discharge abd soft, nontender now Fall Risk Details Current Medications: Current Medications Generic Name Dose Route Start Last Admin Trade Name Freq PRN Reason Stop Dose Admin Apixaban 5 mg 06/14/20 21:00 Apixaban 5 Mg Tablet PO BID ALEX Folic Acid 1 mg 06/05/20 09:00 06/14/20 09:14 Folic Acid 1 Mg Tablet PO 1 mg DAILY ALEX Administration Furosemide 20 mg 06/13/20 11:20 06/14/20 09:13 Furosemide 20 Mg/2 Ml Vial IVPUSH 20 mg DAILY ALEX Administration Protocol Gabapentin 300 mg 06/04/20 21:00 06/13/20 21:50 Gabapentin 300 Mg Capsule PO 300 mg BEDTIME ALEX Administration Insulin Human Lispro 0 unit 06/04/20 21:00 06/14/20 08:34 Insulin Lispro 100 Unit/Ml 3 Ml Vial SUBCUT Not Given QIDACHS [facility] Protocol Magnesium Oxide 400 mg 06/06/20 17:30 06/14/20 09:14 Magnesium Oxide 400 Mg Tablet PO 400 mg BIDPC ALEX Administration Medication 1 each 06/05/20 09:00 No Benzodiazepines MISCELLANE DAILY [facility] Protocol Morphine Sulfate 4 mg 06/13/20 13:53 06/14/20 09:13 Morphine Sulfate 4 Mg/Ml Cartridge IVPUSH 4 mg Q4H PRN Administration Pain, Severe (Pain Scale 7-10) Multivitamins/Minerals 1 tab 06/05/20 09:00 06/14/20 09:14 Multivitamin With Minerals Tablet PO 1 tab DAILY ALEX Administration Omeprazole 40 mg 06/08/20 16:30 06/14/20 06:21 Omeprazole 20 Mg Capsule. PO 40 mg BID@0630,8220 ALEX Administration Ondansetron HCl 4 mg 06/04/20 19:55 06/13/20 17:10 Ondansetron Hcl 4 Mg/2 Ml Vial IVPUSH 4 mg Q8H PRN Administration Nausea and Vomiting Pharmacy Consult 1 each 06/04/20 17:35 Consult Rx Perform Med Rec MISCELLANE ONCE PRN Consult order Quetiapine Fumarate 50 mg 06/04/20 21:00 06/13/20 21:50 Quetiapine Fumarate 50 Mg Tablet PO 50 mg BEDTIME ALEX Administration Sodium Chloride 3 ml 06/05/20 00:00 06/14/20 09:13 0.9 % Sodium Chloride Flush 3 Ml Syringe IVFLUSH 3 ml QSHIFT ALEX Administration Vitamin D 25 mcg 06/05/20 09:00 06/14/20 09:14 Cholecalciferol (Vitamin D3) 25 Mcg Tablet PO 25 mcg DAILY ALEX Administration Time Spent With Patient Time: Total time spent is greater than 50% in coordination of care (as docum ented) at patient's floor/unit and/or counseling patient: Time with patient: 15 - 24 minutes
[2020-06-14 11:44] LABS: Glucose, Whole Blood 80 mg/dL (60-115)
[2020-06-14 12:00] VITALS: BP 122/70; PULSE 85; RESP 18; TEMP 36.7; O2SAT 95
[2020-06-14 15:06] VITALS: BP 125/91; PULSE 78; RESP 19; TEMP 37.6; O2SAT 96
[2020-06-14 16:24] LABS: Glucose, Whole Blood 88 mg/dL (60-115)
[2020-06-14 19:17] VITALS: BP 123/71; PULSE 78; RESP 19; TEMP 37.3; O2SAT 94
[2020-06-14 20:31] LABS: Glucose, Whole Blood 93 mg/dL (60-115)
[2020-06-14] MEDS: Gabapentin 300 MG CAPSULE PO (20:57)
[2020-06-14 20:58] VITALS: RESP 18
[2020-06-14] MEDS: QUEtiapine Fumarate 50 MG TABLET PO (20:58)
[2020-06-14] MEDS: Apixaban 5 MG TABLET PO (20:58)
[2020-06-15] VITALS (11 sets, daily range): BP systolic 98–140; BP diastolic 60–80; PULSE 72–108; RESP 18–20; TEMP 36.2–37.2; O2SAT 93–98
[2020-06-15] MEDS: Omeprazole 20 MG CAPSULE.DR 40 MG PO ×2 (05:32→16:44)
[2020-06-15] MEDS: Morphine Sulfate 4 MG/ML CARTRIDGE IVPUSH ×3 (06:05→16:43)
[2020-06-15 06:11] LABS: MANUAL DIFF FLAG NO
[2020-06-15 06:16] LABS: Basophils Absolute Auto 0.1 X10*3/uL (0.0-0.2); Basophils Percent Auto 0.8 % (0-2); Eosinophils Absolute Auto 0.1 X10*3/uL (0.0-0.4); Eosinophils Percent Auto 0.7 % (0-4); Hematocrit 31.9 % (42-52); Hemoglobin 10.4 g/dl (14.0-18.0); Imm Gran Abs Auto 0.12 X10*3/uL (0.00-0.03); Imm Gran Pct Auto 1.2 % (0.0-0.4); Lymphocytes Absolute Auto 1.6 X10*3/uL (1.2-4.9); Lymphocytes Percent Auto 15.6 % (20-40); Mean Corpuscular HGB Conc 32.6 g/dl (31.0-36.0); Mean Corpuscular Hemoglobin 34.1 pg (27.0-33.0); Mean Corpuscular Volume 104.6 fL (80-98); Mean Platelet Volume 10.6 fL (9.4-12.4); Monocytes Absolute Auto 0.3 X10*3/uL (0.1-1.2); Neutrophils Absolute Auto 8.1 X10*3/uL (2.0-8.3); Neutrophils Percent Auto 78.7 % (45-73); Platelet Count 369 X10*3/uL (160-400); Red Blood Count 3.05 X10*6/uL (4.60-5.80); Red Cell Distribution Width 16.9 % (11.0-16.0); White Blood Count 10.3 X10*3/uL (4.8-10.8)
[2020-06-15 06:22] LABS: INTERNATIONAL NORM RATIO 1.2 (0.9-1.1); Prothrombin Time 14.3 SEC (10.8-13.0)
[2020-06-15 06:55] LABS: Anion Gap 14 (12-20); Blood Urea Nitrogen 2 mg/dL (9-16); Calcium 7.6 mg/dL (8.4-10.2); Carbon Dioxide 26 mmol/L (22-29); Chloride 106 mmol/L (96-108); Creatinine Clr Calc Pharmacy 183.6; Estimated Glomerular Filt Rate > 60; Glucose Random 74 mg/dL (60-115); Potassium 4.5 mmol/l (3.3-5.1); Sodium 141 mmol/L (135-145)
[2020-06-15 07:30] LABS: Glucose, Whole Blood 89 mg/dL (60-115)
[2020-06-15] MEDS: Folic Acid 1 MG TABLET PO (07:43)
[2020-06-15] MEDS: Apixaban 5 MG TABLET PO ×2 (07:43→20:06)
[2020-06-15] MEDS: Furosemide 20 MG/2 ML VIAL IVPUSH ×2 (07:43→10:45)
[2020-06-15] MEDS: 0.9 % Sodium Chloride Flush 3 ML SYRINGE IVFLUSH ×2 (07:43→16:45)
[2020-06-15] MEDS: Magnesium Oxide 400 MG TABLET PO ×2 (07:43→16:44)
[2020-06-15] MEDS: Cholecalciferol (Vitamin D3) 25 MCG TABLET PO (07:43)
--- NOTE | 2020-06-15 10:56 | P.PNIM_ITS ---
Subjective Subjective Date of Service: 06/15/20 Interval History: The patient was seen and evaluated this morning Laying in bed, feels comfortable and stronger with mild reported pain overnight Denies any fever, chills or shortness of breath No reported other overnight events. Systemic review: No fever, chills or weakness No chest pain, palpitation No shortness of breath or coughing Site of surgery abdominal pain, nausea or vomiting No urinary symptoms No any rash or wounds Physical Exam Vital Signs: Vital Signs: Last Vital Signs Temp 97.9 F 06/15/20 08:00 Pulse 108 H 06/15/20 08:00 Resp 20 06/15/20 08:00 BP 98/60 06/15/20 08:00 Pulse Ox 94 06/15/20 08:00 Body Mass Index 33.5 Const: Other: Constitutional : Alert, oriented, not in distress Neck : Normal inspection, Supple Cardiovascular : RRR, S1 S2, +2 bilateral lower extremity edema Respiratory : Good bilateral air entry, no crackles, wheezes or rhonchi Gastrointestinal: soft, lax, Normal bowel sounds, site of surgery covered, no drainage noted, drain in place, mild superficial tenderness Skin : Warm/Dry, No rash Neurological : Alert & oriented x3, No focal deficit Objective Data Current Medications Generic Name Dose Route Start Last Admin Trade Name Freq PRN Reason Stop Dose Admin Apixaban 5 mg 06/14/20 21:00 06/15/20 07:43 Apixaban 5 Mg Tablet PO 5 mg BID ALEX Administration Folic Acid 1 mg 06/05/20 09:00 06/15/20 07:43 Folic Acid 1 Mg Tablet PO 1 mg DAILY ALEX Administration Furosemide 40 mg 06/15/20 18:00 Furosemide 20 Mg/2 Ml Vial IVPUSH BID@0900,1800 [facility] Protocol Gabapentin 300 mg 06/04/20 21:00 06/14/20 20:57 Gabapentin 300 Mg Capsule PO 300 mg BEDTIME ALEX Administration Insulin Human Lispro 0 unit 06/04/20 21:00 06/15/20 07:51 Insulin Lispro 100 Unit/Ml 3 Ml Vial SUBCUT Not Given QIDACHS ALEX Protocol Magnesium Oxide 400 mg 06/06/20 17:30 06/15/20 07:43 Magnesium Oxide 400 Mg Tablet PO 400 mg BIDPC ALEX Administration Medication 1 each 06/05/20 09:00 No Benzodiazepines MISCELLANE DAILY [facility] Protocol Morphine Sulfate 4 mg 06/13/20 13:53 06/15/20 10:45 Morphine Sulfate 4 Mg/Ml Cartridge IVPUSH 4 mg Q4H PRN Administration Pain, Severe (Pain Scale 7-10) Multivitamins/Minerals 1 tab 06/05/20 09:00 06/15/20 07:43 Multivitamin With Minerals Tablet PO 1 tab DAILY ALEX Administration Omeprazole 40 mg 06/08/20 16:30 06/15/20 05:32 Omeprazole 20 Mg Capsule. PO 40 mg BID@0630,7200 ALEX Administration Ondansetron HCl 4 mg 06/04/20 19:55 06/13/20 17:10 Ondansetron Hcl 4 Mg/2 Ml Vial IVPUSH 4 mg Q8H PRN Administration Nausea and Vomiting Pharmacy Consult 1 each 06/04/20 17:35 Consult Rx Perform Med Rec MISCELLANE ONCE PRN Consult order Quetiapine Fumarate 50 mg 06/04/20 21:00 06/14/20 20:58 Quetiapine Fumarate 50 Mg Tablet PO 50 mg BEDTIME ALEX Administration Sodium Chloride 3 ml 06/05/20 00:00 06/15/20 07:43 0.9 % Sodium Chloride Flush 3 Ml Syringe IVFLUSH 3 ml QSHIFT ALEX Administration Vitamin D 25 mcg 06/05/20 09:00 06/15/20 07:43 Cholecalciferol (Vitamin D3) 25 Mcg Tablet PO 25 mcg DAILY ALEX Administration Labs CBC & Chem 7: 06/15/20 05:39 06/15/20 05:39 Microbiology Microbiology Results: Microbiology 06/11/20 14:28 Paracentesis Fluid Gram Stain - Final 06/11/20 14:28 Paracentesis Fluid Anaerobic Culture - Preliminary No growth to date. 06/11/20 14:28 Paracentesis Fluid Body Fluid Culture - Final No growth after 2 days 06/05/20 13:02 Blood - Venous Blood Culture - Final No growth after 5 days. 06/05/20 12:59 Blood - Venous Blood Culture - Final No growth after 5 days. 06/05/20 10:00 Urine clean catch - Clean Catch Midstream Urine Culture - Final Assessment and Plan (1) Acute GI bleeding: Status: Acute (2) Hematemesis: Status: Acute (3) Acalculous cholecystitis: Status: Acute (4) Abnormal findings on diagnostic imaging of gallbladder: Status: Acute Assessment and Plan: 59 year old man admitted with GI bleed secondary to anticoagulation and heavy alcohol abuse. Patient underwent EGD shows mild gastritis, Ultrasound on admission shows question of cholecystitis, patient was seen by surgery Patient underwent HIDA scan which shows acute cholecystitis, given patient is high risk surgery recommended cholecystotomy, patient underwent cholecystotomy on 06/11 Acute cholecystitis post cholecystotomy ultrasound abdomen suggested acute on chronic cholecystitis repeat ultrasound shows acute cholecystitis and CBD dilatation on 06/09/2020 MRCP shows no CBD stone s/p cholecystotomy on 06/11/2020 Blood cultures and urine culture negative Finish total of 7 days of Zosyn Seen by surgery given high risk surgery recommended cholecystotomy underwent cholecystotomy on 06/11/20 Upper GI bleed/gastritis resolved Status post EGD shows mild gastritis continue PPI H&H stable Discussed with GI Dr. Cecille arrieta to resume anticoagulation, started on Lovenox therapeutic dose on 06/12/2020 Monitor H&H closely as started on Lovenox, to restart home med Acute on Chronic diastolic and systolic CHF Lower extremity edema +2 mildly elevated BNP Echocardiogram done shows EF 40-45% with mild global hypokinesis and grade 1 diastolic dysfunction Increased IV Lasix Follow intake and output Will need cardiology follow-up as outpatient Transaminitis. 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
[2020-06-15 11:21] LABS: Glucose, Whole Blood 97 mg/dL (60-115)
--- NOTE | 2020-06-15 13:27 | PM.PNGS ---
Subjective Subjective Date of Service: 06/15/20 Interval history: States he continues to feel better Denies significant abdominal pain Tolerating diet He says oral intake is improving Physical Exam Vital Signs: Vital Signs: Last Vital Signs Temp 97.8 F 06/15/20 11:20 Pulse 87 06/15/20 11:20 Resp 20 06/15/20 11:20 BP 127/79 06/15/20 11:20 Pulse Ox 93 06/15/20 11:20 Body Mass Index 33.5 Chemistry 06/13/20 06/14/20 06/15/20 05:34 05:43 05:39 Sodium 135 138 141 Potassium 3.7 3.6 4.5 D Carbon Dioxide 22 26 26 BUN 3 L 2 L 2 L Creatinine 0.48 L 0.52 0.53 Calcium 7.1 L 7.3 L 7.6 L Hematology 06/13/20 06/14/20 06/15/20 05:34 05:43 05:39 WBC 9.5 10.8 10.3 Hgb 9.9 L 10.2 L 10.4 L Plt Count 320 353 369 Const: General: comfortable and no acute distress Eyes: Sclerae: sclerae normal GI: Other: Cholecystostomy tube in place, with bilious output Palpation (GI): Soft to palpation, nontender and no guarding Progress Note: A&P Assessment and plan (1) Acalculous cholecystitis: Status: Acute Assessment and Plan: Status post cholecystostomy tube placement He continues to do well Push p.o. intake Out of bed to chair Drain care The rest of care as per hospitalist service Fall Risk Details Current Medications: Current Medications Generic Name Dose Route Start Last Admin Trade Name Abhi PRN Reason Stop Dose Admin Apixaban 5 mg 06/14/20 21:00 06/15/20 07:43 Apixaban 5 Mg Tablet PO 5 mg BID ALEX Administration Folic Acid 1 mg 06/05/20 09:00 06/15/20 07:43 Folic Acid 1 Mg Tablet PO 1 mg DAILY ALEX Administration Furosemide 40 mg 06/15/20 18:00 Furosemide 20 Mg/2 Ml Vial IVPUSH BID@0900,1800 [facility] Protocol Gabapentin 300 mg 06/04/20 21:00 06/14/20 20:57 Gabapentin 300 Mg Capsule PO 300 mg BEDTIME ALEX Administration Insulin Human Lispro 0 unit 06/04/20 21:00 06/15/20 11:30 Insulin Lispro 100 Unit/Ml 3 Ml Vial SUBCUT Not Given QIDACHS [facility] Protocol Magnesium Oxide 400 mg 06/06/20 17:30 06/15/20 07:43 Magnesium Oxide 400 Mg Tablet PO 400 mg BIDPC ALEX Administration Medication 1 each 06/05/20 09:00 No Benzodiazepines MISCELLANE DAILY ALEX Protocol Morphine Sulfate 4 mg 06/13/20 13:53 06/15/20 10:45 Morphine Sulfate 4 Mg/Ml Cartridge IVPUSH 4 mg Q4H PRN Administration Pain, Severe (Pain Scale 7-10) Multivitamins/Minerals 1 tab 06/05/20 09:00 06/15/20 07:43 Multivitamin With Minerals Tablet PO 1 tab DAILY ALEX Administration Omeprazole 40 mg 06/08/20 16:30 06/15/20 05:32 Omeprazole 20 Mg Capsule. PO 40 mg BID@0630,2200 ALEX Administration Ondansetron HCl 4 mg 06/04/20 19:55 06/13/20 17:10 Ondansetron Hcl 4 Mg/2 Ml Vial IVPUSH 4 mg Q8H PRN Administration Nausea and Vomiting Pharmacy Consult 1 each 06/04/20 17:35 Consult Rx Perform Med Rec MISCELLANE ONCE PRN Consult order Quetiapine Fumarate 50 mg 06/04/20 21:00 06/14/20 20:58 Quetiapine Fumarate 50 Mg Tablet PO 50 mg BEDTIME ALEX Administration Sodium Chloride 3 ml 06/05/20 00:00 06/15/20 07:43 0.9 % Sodium Chloride Flush 3 Ml Syringe IVFLUSH 3 ml QSHIFT ALEX Administration Vitamin D 25 mcg 06/05/20 09:00 06/15/20 07:43 Cholecalciferol (Vitamin D3) 25 Mcg Tablet PO 25 mcg DAILY ALEX Administration Time Spent With Patient Time: Total time spent is greater than 50% in coordination of care (as documented) at patient's floor/unit and/or counseling patient: Time with patient: 15 - 24 minutes
--- NOTE | 2020-06-15 13:34 | MHC.CLN ---
F/U PO INTAKE 75-100% DIET RX: REGULAR 1500CC FLUID RESTRICTION-RECOMMEND 2000DM DIET R/T HX DM WILL UPDATE DIET FOLLOWING
[2020-06-15 16:53] LABS: Glucose, Whole Blood 91 mg/dL (60-115)
[2020-06-15] MEDS: Furosemide 20 MG/2 ML VIAL 40 MG IVPUSH (18:46)
--- NOTE | 2020-06-15 19:06 | PC.NURSE ---
BIA drain flushed with 10 ml of NS ,10 ml of brownish drainage aspirated back
[2020-06-15] MEDS: QUEtiapine Fumarate 50 MG TABLET PO (20:06)
[2020-06-15] MEDS: Gabapentin 300 MG CAPSULE PO (20:06)
[2020-06-15 20:27] LABS: Glucose, Whole Blood 114 mg/dL (60-115)
[2020-06-16] VITALS (8 sets, daily range): BP systolic 90–124; BP diastolic 55–76; PULSE 79–101; RESP 15–18; TEMP 36.5–37.1; O2SAT 95–97
--- NOTE | 2020-06-16 | ECG_ITS ---
Test Reason : QTC PROLONGATION Blood Pressure : / mmHG Vent. Rate : 089 BPM Atrial Rate : 089 BPM P-R Int : 152 ms QRS Dur : 076 ms QT Int : 406 ms P-R-T Axes : 023 000 053 degrees QTc Int : 493 ms Normal sinus rhythm Prolonged QT Abnormal ECG When compared with ECG of 04-JUN-2020 13:45, QT has shortened Referred By: Ritu Bermeo Electronically Signed By:Fermin Bonner
[2020-06-16] MEDS: 0.9 % Sodium Chloride Flush 3 ML SYRINGE IVFLUSH ×4 (00:09→20:34)
[2020-06-16] MEDS: Morphine Sulfate 4 MG/ML CARTRIDGE IVPUSH ×3 (03:23→21:10)
[2020-06-16] MEDS: Omeprazole 20 MG CAPSULE.DR 40 MG PO ×2 (06:13→17:12)
[2020-06-16 07:00] LABS: INTERNATIONAL NORM RATIO 1.1 (0.9-1.1); Prothrombin Time 13.6 SEC (10.8-13.0)
[2020-06-16 07:08] LABS: Alanine Aminotransferase 22 U/L (0-40); Albumin Level 2.1 g/dL (3.5-5.0); Alkaline Phosphatase 112 U/L (39-117); Anion Gap 13 (12-20); Aspartate Amino Transferase 45 U/L (5-37); Bilirubin Direct 1.5 mg/dL (0.0-0.5); Bilirubin Total 1.8 mg/dL (0.0-1.0); Blood Urea Nitrogen 3 mg/dL (9-16); Calcium 7.5 mg/dL (8.4-10.2); Carbon Dioxide 26 mmol/L (22-29); Chloride 104 mmol/L (96-108); Creatinine Clr Calc Pharmacy 190.8; Estimated Glomerular Filt Rate > 60; Glucose Random 79 mg/dL (60-115); Potassium 3.7 mmol/l (3.3-5.1); Sodium 139 mmol/L (135-145); Total Protein 4.8 g/dL (6.5-8.0)
[2020-06-16] MEDS: Magnesium Oxide 400 MG TABLET PO ×2 (07:41→17:12)
[2020-06-16] MEDS: Folic Acid 1 MG TABLET PO (07:42)
[2020-06-16] MEDS: Cholecalciferol (Vitamin D3) 25 MCG TABLET PO (07:42)
[2020-06-16] MEDS: Apixaban 5 MG TABLET PO ×2 (07:42→20:32)
[2020-06-16 08:07] LABS: Glucose, Whole Blood 83 mg/dL (60-115)
[2020-06-16] MEDS: oxyCODONE HCl Immed Release 5 MG TABLET PO ×2 (08:16→14:21)
--- NOTE | 2020-06-16 08:47 | P.PNGS_ITS ---
Subjective Subjective Date of Service: 06/16/20 Interval history: He reports right upper quadrant pain this morning. He says that he has been having similar pain for the past 3 days or so. It is relieved by pain medication. It comes and goes. He does not report nausea or vomiting and is feeling well otherwise. Physical Exam Vital Signs: Vital Signs: Last Vital Signs Temp 97.7 F 06/16/20 07:25 Pulse 101 H 06/16/20 07:25 Resp 16 06/16/20 07:25 BP 90/55 L 06/16/20 07:25 Pulse Ox 97 06/16/20 07:25 Body Mass Index 33.5 Laboratory Results - last 24 hr 06/15/20 06/15/20 06/15/20 11:17 16:49 20:20 PT INR Sodium Potassium Chloride Carbon Dioxide Anion Gap BUN Creatinine Estim Creat Clear Calc Estimated GFR POC Glucose 97 91 114 Random Glucose Calcium Total Bilirubin Direct Bilirubin AST ALT Alkaline Phosphata se Total Protein Albumin 06/16/20 06/16/20 06/16/20 05:59 05:59 07:23 PT 13.6 H INR 1.1 Sodium 139 Potassium 3.7 Chloride 104 Carbon Dioxide 26 Anion Gap 13 BUN 3 L Creatinine 0.51 Estim Creat Clear Calc 190.8 Estimated GFR > 60 POC Glucose 83 Random Glucose 79 Calcium 7.5 L Total Bilirubin 1.8 H Direct Bilirubin 1.5 H AST 45 H ALT 22 Alkaline Phosphata se 112 Total Protein 4.8 L Albumin 2.1 L Const: Other: Alert, appears comfortable HENMT: Head: Yes normocephalic and Yes atraumatic Resp: Other: Clear to auscultation bilaterally Cardio: Rate: regular rate Rhythm: regular rhythm GI: Other: Soft, bowel sounds normal, no palpable masses, tender around cholecystostomy tube insertion site-no erythema or edema at site Progress Note: A&P Assessment and plan (1) Acalculous cholecystitis: Status: Acute Assessment and Plan: Admitted with concern for GI bleeding, alcoholism and alcohol-related hepatitis. He developed acalculous cholecystitis that did not respond to conservative treatment. A cholecystostomy tube was placed 06/11/2020. The tube is draining bilious fluid, 230 cc over past 24 hours, suggesting that cystic duct is now patent. He appears stable with regard to the acalculous cholecystitis but is having pain associated with the tube insertion site. Oxycodone added for pain management. Appears surgically stable for transfer to short-term rehab or discharge when medically stable. Fall Risk Details Current Medications: Current Medications Generic Name Dose Route Start Last Admin Trade Name Freq PRN Reason Stop Dose Admin Apixaban 5 mg 06/14/20 21:00 06/16/20 07:42 Apixaban 5 Mg Tablet PO 5 mg BID ALEX Administration Folic Acid 1 mg 06/05/20 09:00 06/16/20 07:42 Folic Acid 1 Mg Tablet PO 1 mg DAILY ALEX Administration Furosemide 40 mg 06/15/20 18:00 06/16/20 07:48 Furosemide 20 Mg/2 Ml Vial IVPUSH Not Given BID@0900,1800 [facility] Protocol Gabapentin 300 mg 06/04/20 21:00 06/15/20 20:06 Gabapentin 300 Mg Capsule PO 300 mg BEDTIME ALEX Administration Insulin Human Lispro 0 unit 06/04/20 21:00 06/16/20 08:20 Insulin Lispro 100 Unit/Ml 3 Ml Vial SUBCUT Not Given QIDACHS [facility] Protocol Magnesium Oxide 400 mg 06/06/20 17:30 06/16/20 07:41 Magnesium Oxide 400 Mg Tablet PO 400 mg BIDPC ALEX Administration Medication 1 each 06/05/20 09:00 No Benzodiazepines MISCELLANE DAILY [facility] Protocol Morphine Sulfate 4 mg 06/13/20 13:53 06/16/20 03:23 Morphine Sulfate 4 Mg/Ml Cartridge IVPUSH 4 mg Q4H PRN Administration Pain, Severe (Pain Scale 7-10) Multivitamins/Minerals 1 tab 06/05/20 09:00 06/16/20 07:42 Multivitamin With Minerals Tablet PO 1 tab DAILY ALEX Administration Omeprazole 40 mg 06/08/20 16:30 06/16/20 06:13 Omeprazole 20 Mg Capsule. PO 40 mg BID@0630,1630 [facility] Administration Ondansetron HCl 4 mg 06/04/20 19:55 06/13/20 17:10 Ondansetron Hcl 4 Mg/2 Ml Vial IVPUSH 4 mg Q8H PRN Administration Nausea and Vomiting Oxycodone HCl 5 mg 06/16/20 07:57 06/16/20 08:16 Oxycodone Hcl Immed Release 5 Mg Tablet PO 5 mg Q4H PRN Administration Pain, Moderate (Pain Scale 4-6 Pharmacy Consult 1 each 06/04/20 17:35 Consult Rx Perform Med Rec MISCELLANE ONCE PRN Consult order Quetiapine Fumarate 50 mg 06/04/20 21:00 06/15/20 20:06 Quetiapine Fumarate 50 Mg Tablet PO 50 mg BEDTIME ALEX Administration Sodium Chloride 3 ml 06/05/20 00:00 06/16/20 08:17 0.9 % Sodium Chloride Flush 3 Ml Syringe IVFLUSH 3 ml QSHIFT ALEX Administration Vitamin D 25 mcg 06/05/20 09:00 06/16/20 07:42 Cholecalciferol (Vitamin D3) 25 Mcg Tablet PO 25 mcg DAILY ALEX Administration Time Spent With Patient Time: Total time spent is greater than 50% in coordination of care (as documented) at patient's floor/unit and/or counseling patient: Time with patient: less than 15 minutes
[2020-06-16 11:44] LABS: Glucose, Whole Blood 110 mg/dL (60-115)
--- NOTE | 2020-06-16 12:43 | P.CDIC_ITS ---
CDI Concurrent Query Service Date: 06/16/20 Documentation Clarification: Please clarify if you are treating a proba ble/suspected/likely or confirmed: Specifics: Malnutrition, mild, moderate or severe Cachectic Nutritional deficiency Please specify if known Provider Response: Moderate Protein-Calorie Malnutrition PLEASE DO NOT DELETE/MODIFY EXISTING CONTENT Additional information is needed in order to code to the highest accuracy and appropriate Severity of Illness (SOI). Please clarify the information noted below in your progress notes and discharge summary. Risk Factors/Clinical Indicators/Treatments BMI 33 Albumin 1.8 Total protein 4.4 Surgery noted patient seems to be malnourished. Debility weakness Nutrition recommends 2000DM diet CDS: Lia Elias CCS, CDIS Contact Number: [phone] Please Review the information above and exercise your independent professional judgment in responding to the query. If you concur, pleas document in the PROGRESS NOTES and DISCHARGE SUMMARY. If you do not agree with the query, please document in the query above. THIS QUERY IS PART OF THE PERMANENT MEDICAL RECORD
--- NOTE | 2020-06-16 13:30 | HO.PM.IMPN ---
Subjective Subjective Date of Service: 06/16/20 Interval History: The patient was seen and evaluated this morning Laying in bed, feels sick to his stomach and was vomiting in the morning blood pressure running on the lower end Denies any fever, chills or shortness of breath No reported other overnight events. Systemic review: No fever, chills or weakness No chest pain, palpitation No shortness of breath or coughing Site of surgery abdominal pain, reporting nausea and vomiting No urinary symptoms No any rash or wounds Physical Exam Vital Signs: Vital Signs: Last Vital Signs Temp 98.0 F 06/16/20 11:39 Pulse 85 06/16/20 11:39 Resp 15 06/16/20 11:39 BP 124/76 06/16/20 11:39 Pulse Ox 96 06/16/20 11:39 Body Mass Index 33.5 Const: Other: Constitutional : Alert, oriented, not in distress Neck : Normal inspection, Supple Cardiovascular : RRR, S1 S2, +2 bilateral lower extremity edema Respiratory : Good bilateral air entry, no crackles, wheezes or rhonchi Gastrointestinal: soft, lax, Normal bowel sounds, site of surgery covered, no drainage noted, drain in place, mild superficial tenderness Skin : Warm/Dry, No rash Neurological : Alert & oriented x3, No focal deficit Objective Data Current Medications Generic Name Dose Route Start Last Admin Trade Name Abhi PRN Reason Stop Dose Admin Apixaban 5 mg 06/14/20 21:00 06/16/20 07:42 Apixaban 5 Mg Tablet PO 5 mg BID ALEX Administration Folic Acid 1 mg 06/05/20 09:00 06/16/20 07:42 Folic Acid 1 Mg Tablet PO 1 mg DAILY ALEX Administration Gabapentin 300 mg 06/04/20 21:00 06/15/20 20:06 Gabapentin 300 Mg Capsule PO 300 mg BEDTIME ALEX Administration Insulin Human Lispro 0 unit 06/04/20 21:00 06/16/20 11:54 Insulin Lispro 100 Unit/Ml 3 Ml Vial SUBCUT Not Given QIDACHS ALEX Protocol Magnesium Oxide 400 mg 06/06/20 17:30 06/16/20 07:41 Magnesium Oxide 400 Mg Tablet PO 400 mg BIDPC ALEX Administration Medication 1 each 06/05/20 09:00 No Benzodiazepines MISCELLANE DAILY ALEX Protocol Morphine Sulfate 4 mg 06/13/20 13:53 06/16/20 03:23 Morphine Sulfate 4 Mg/Ml Cartridge IVPUSH 4 mg Q4H PRN Administration Pain, Severe (Pain Scale 7-10) Multivitamins/Minerals 1 tab 06/05/20 09:00 06/16/20 07:42 Multivitamin With Minerals Tablet PO 1 tab DAILY ALEX Administration Omeprazole 40 mg 06/08/20 16:30 06/16/20 06:13 Omeprazole 20 Mg Capsule.Dr PO 40 mg BID@0630,4370 ALEX Administration Ondansetron HCl 4 mg 06/04/20 19:55 06/13/20 17:10 Ondansetron Hcl 4 Mg/2 Ml Vial IVPUSH 4 mg Q8H PRN Administration Nausea and Vomiting Oxycodone HCl 5 mg 06/16/20 07:57 06/16/20 08:16 Oxycodone Hcl Immed Release 5 Mg Tablet PO 5 mg Q4H PRN Administration Pain, Moderate (Pain Scale 4-6 Pharmacy Consult 1 each 06/04/20 17:35 Consult Rx Perform Med Rec MISCELLANE ONCE PRN Consult order Quetiapine Fumarate 50 mg 06/04/20 21:00 06/15/20 20:06 Quetiapine Fumarate 50 Mg Tablet PO 50 mg BEDTIME ALEX Administration Sodium Chloride 3 ml 06/05/20 00:00 06/16/20 08:17 0.9 % Sodium Chloride Flush 3 Ml Syringe IVFLUSH 3 ml QSHIFT ALEX Administration Vitamin D 25 mcg 06/05/20 09:00 06/16/20 07:42 Cholecalciferol (Vitamin D3) 25 Mcg Tablet PO 25 mcg DAILY ALEX Administration Labs CBC & Chem 7: 06/15/20 05:39 06/16/20 05:59 Microbiology Microbiology Results: Microbiology 06/11/20 14:28 Paracentesis Fluid Gram Stain - Final 06/11/20 14:28 Paracentesis Fluid Anaerobic Culture - Final NO GROWTH AFTER 5 DAYS 06/11/20 14:28 Paracentesis Fluid Body Fluid Culture - Final No growth after 2 days 06/05/20 13:02 Blood - Venous Blood Culture - Final No growth after 5 days. 06/05/20 12:59 Blood - Venous Blood Culture - Final No growth after 5 days. 06/05/20 10:00 Urine clean catch - Clean Catch Midstream Urine Culture - Final Assessment and Plan (1) Acute GI bleeding: Status: Acute (2) Hematemesis: Status: Acute (3) Acalculous cholecystitis: Status: Acute (4) Abnormal findings on diagnostic imaging of gallbladder: Status: Acute Assessment and Plan: 59 year old man admitted with GI bleed secondary to anticoagulation and heavy alcohol abuse. Patient underwent EGD shows mild gastritis, Ultrasound on admission shows question of cholecystitis, patient was seen by surgery Patient underwent HIDA scan which shows acute cholecystitis, given patient is high risk surgery recommended cholecystotomy, patient underwent cholecystotomy on 06/11. Hypotension Blood pressure of 90 over 50s Likely secondary to dehydration with usage of Lasix Hold Lasix for now next Lyme carriage p.o. intake and consider IV bolus Nausea and vomiting Related to opioid use age most likely To take oxycodone on full stomach Use Zofran as needed Moderate protein malnutrition secondary to chronic alcoholism Albumin of 1.8 Start Ensure Acute cholecystitis post cholecystotomy ultrasound abdomen suggested acute on chronic cholecystitis repeat ultrasound shows acute cholecystitis and CBD dilatation on 06/09/2020 MRCP shows no CBD stone s/p cholecystotomy on 06/11/2020 Blood cultures and urine culture negative Finish total of 7 days of Zosyn Seen by surgery given high risk surgery recommended cholecystotomy underwent cholecystotomy on 06/11/20 Upper GI bleed/gastritis resolved Status post EGD shows mild gastritis continue PPI H&H stable Discussed with GI Dr. Cecille arrieta to resume anticoagulation, started on Lovenox therapeutic dose on 06/12/2020 Monitor H&H closely as started on Lovenox, to restart home med Acute on Chronic diastolic and systolic CHF Lower extremity edema +2 Likely secondary to chronic alcoholism Echocardiogram done shows EF 45-50% with mild global hypokinesis and grade 1 diastolic dysfunction Discontinue IV Lasix Follow intake and output Cardiology input appreciated, start low-dose metoprolol and hold Lasix for now Monitor blood pressure in house Transaminitis. 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
--- NOTE | 2020-06-16 14:07 | PM.CNCAR ---
History of Present Illness History of Present Illness Date of Service: 06/16/20 Requesting physician: Ritu Bermeo Chief complaint: Cardiomyopathy Narrative: 59-year-old gentleman with alcoholism, acalculous cholecystitis and alcoholic ketoacidosis. He had cholecystostomy tube placement and has been doing well. He had an echocardiogram which showed mildly reduced ejection fraction of 40 45%. Clinically he did not have any heart failure symptoms. He had lower extremity edema for which he was getting diuretics. On discussion with him he was not physically active preceding his admission. He has been drinking vodka for long time. No other drug abuse. No chest pain or shortness of breath. Review of Systems Review of Systems: Yes all other systems are reviewed and are negative PMFSH Past Medical History Medical History Alcohol withdrawal COPD (chronic obstructive pulmonary disease) COVID-19 COVID-19 determined by clinical diagnostic criteria Depression Diabetes ETOH abuse Fever of undetermined origin Seizure Family History Family history: reviewed and not pertinent Surgical History Surgical History History of gastric bypass History of sleeve gastrectomy Social History Social History Household Members: Significant Other Housing: Apartment Do you presently have visiting nurse or other home services: No Alcohol intake: current Alcohol intake frequency: 3 or more drinks per day Alcohol type: hard liquor Smoking Status: Never smoker Tobacco Type: Cigarette Second Hand Smoke Exposure: Yes Use of substances other than those prescribed or required for medical reasons: No Currently Displaying Signs/Symptoms of Drug Intoxication Withdrawal: No Have you been hit, kicked, punched, or otherwise hurt by someone within the past year? If so, by whom?: No Do you feel safe in your current relationship?: Yes Is there a partner from a previous relationship who is making you feel unsafe now?: No Are you made to feel afraid or neglected: No Advance Directives: No Advance Directives Information Provided: No Do you have thoughts of harming others: None Do you have a plan to hurt others: No Plan Recently lost weight without trying: No service: No Current occupational status: unemployed Meds Allergies Allergy/AdvReac Type Severity Reaction Status Date / Time No Known Allergies Allergy Verified 06/08/20 13:59 [No Known Allergies*] Home Medications Medication Instructions Recorded Confirmed Type atorvastatin 40 tab PO DAILY 03/02/20 06/04/20 History cholecalciferol (vitamin D3) 1 cap PO DAILY 03/02/20 06/04/20 History [Vitamin D3] folic acid 1 tab PO DAILY 03/02/20 06/04/20 History gabapentin 300 mg PO BEDTIME 03/02/20 06/04/20 History omeprazole 20 cap PO BID 03/02/20 06/04/20 History quetiapine 50 mg PO BEDTIME 03/02/20 06/04/20 History apixaban [Eliquis] 5 mg PO BID 06/04/20 06/04/20 History iskimhjzeriy-svpm-zaphy acid 1 tab PO DAILY 06/04/20 06/04/20 History [Certavite-Antioxidant] oxycodone 5 mg PO Q6H PRN 06/04/20 06/04/20 History Physical Exam Vital Signs: Vital Signs: Last Vital Signs Temp 98.0 F 06/16/20 11:39 Pulse 85 06/16/20 11:39 Resp 15 06/16/20 11:39 BP 124/76 06/16/20 11:39 Pulse Ox 96 06/16/20 11:39 Body Mass Index 33.5 GENERAL APPEARANCE: in no acute distress, well developed, well nourished. HEENT: unremarkable. HEAD: normocephalic, atraumatic. NECK/THYROID: no carotid bruit, no jugular venous distention. SKIN: no suspicious lesions, warm and dry. HEART: no murmurs, regular rate and rhythm, S1, S2 normal. LUNGS: clear to auscultation bilaterally. ABDOMEN: soft, cholecystostomy attached to drain. EXTREMITIES: no clubbing, cyanosis, or edema. PERIPHERAL PULSES: equal. NEUROLOGIC: nonfocal, alert and oriented. PSYCH: mood/affect full range. Results Labs and Meds Result diagrams: 06/15/20 05:39 06/16/20 05:59 Lab results: Laboratory Results - last 24 hr 06/15/20 06/15/20 06/16/20 16:49 20:20 05:59 PT 13.6 H INR 1.1 Sodium Potassium Chloride Carbon Dioxide Anion Gap BUN Creatinine Estim Creat Clear Calc Estimated GFR POC Glucose 91 114 Random Glucose Calcium Total Bilirubin Direct Bilirubin AST ALT Alkaline Phosphatase Total Protein Albumin 06/16/20 06/16/20 06/16/20 05:59 07:23 11:36 PT INR Sodium 139 Potassium 3.7 Chloride 104 Carbon Dioxide 26 Anion Gap 13 BUN 3 L Creatinine 0.51 Estim Creat Clear Calc 190.8 Estimated GFR > 60 POC Glucose 83 110 Random Glucose 79 Calcium 7.5 L Total Bilirubin 1.8 H Direct Bilirubin 1.5 H AST 45 H ALT 22 Alkaline Phosphatase 112 Total Protein 4.8 L Albumin 2.1 L Assessment and Plan (1) Acalculous cholecystitis: Status: Acute (2) Alcoholism: Status: Acute (3) Cardiomyopathy: Status: Acute 59-year-old gentleman with a catheterization risk for cystitis and alcoholism. His echocardiogram has shown mildly reduced ejection fraction. Clinically not in heart failure has been drinking water for long time. I think the likely cause for cardiomyopathy alcoholism. We discussed about abstinence from alcohol. He also has been noticed to be tachycardic and hypotensive. No fever spikes have been noticed. He has been on diuretics to palpate e-mail. I think this could be related to hypovolemia. Please check orthostatic vital signs. If he truly is orthostatic then he should get some IV fluids back. If his blood pressure improves and consider low-dose Toprol at 25 mg once a day. We will see him as outpatient and will titrate medications further. Depending on his symptoms we will consider ischemic evaluation. Thank you for allowing me to participate in the care of your patient. Please feel free to contact me if you have any questions.
[2020-06-16] MEDS: Metoprolol Tartrate 12.5 MG HALFTAB PO ×2 (14:20→20:31)
[2020-06-16 16:31] LABS: Glucose, Whole Blood 96 mg/dL (60-115)
[2020-06-16] MEDS: Gabapentin 300 MG CAPSULE PO (20:32)
[2020-06-16] MEDS: QUEtiapine Fumarate 50 MG TABLET PO (20:32)
[2020-06-16 21:17] LABS: Glucose, Whole Blood 94 mg/dL (60-115)
[2020-06-17] VITALS (7 sets, daily range): BP systolic 99–169; BP diastolic 60–89; PULSE 79–98; RESP 15–20; TEMP 36.1–37.4; O2SAT 93–97
[2020-06-17] MEDS: Morphine Sulfate 4 MG/ML CARTRIDGE IVPUSH ×2 (04:14→09:05)
[2020-06-17] MEDS: Omeprazole 20 MG CAPSULE.DR 40 MG PO ×2 (05:36→16:27)
[2020-06-17 08:09] LABS: Glucose, Whole Blood 81 mg/dL (60-115)
[2020-06-17] MEDS: Apixaban 5 MG TABLET PO ×2 (09:05→20:30)
[2020-06-17] MEDS: Cholecalciferol (Vitamin D3) 25 MCG TABLET PO (09:05)
[2020-06-17] MEDS: 0.9 % Sodium Chloride Flush 3 ML SYRINGE IVFLUSH ×3 (09:06→20:33)
[2020-06-17] MEDS: Magnesium Oxide 400 MG TABLET PO ×2 (09:06→16:28)
[2020-06-17] MEDS: Metoprolol Tartrate 12.5 MG HALFTAB PO ×2 (09:06→20:31)
[2020-06-17] MEDS: Folic Acid 1 MG TABLET PO (09:06)
--- NOTE | 2020-06-17 09:14 | PM.PNGS ---
Subjective Subjective Date of Service: 06/17/20 Interval history: Alert, reports intermittent nausea related to eating and waxing and waning pain around cholecystostomy tube insertion site. Says oxycodone is making him nauseated so taking IV morphine for pain instead. Physical Exam Vital Signs: Vital Signs: Last Vital Signs Temp 99.3 F 06/17/20 07:51 Pulse 81 06/17/20 07:51 Resp 16 06/17/20 07:51 BP 112/60 06/17/20 07:51 Pulse Ox 93 06/17/20 07:51 Body Mass Index 33.5 Const: General: cooperative, no acute distress and alert HENMT: Head: Yes normocephalic and Yes atraumatic Mouth: Normal oral and palatal mucosa present Resp: Effort & Inspection: normal respiratory effort Auscultation: clear to auscultation bilaterally Cardio: Rate: regular rate Rhythm: regular rhythm GI: Other: Soft, nontender, no palpable masses, normal bowel sounds, cholecystostomy tube insertion site is clean, BIA bulb contains light greenish brown bilious appearing fluid Skin: Other: Normal color, warm and dry Progress Note: A&P Assessment and plan (1) Acalculous cholecystitis: Status: Acute Assessment and Plan: He appears improved overall. Hepatitis an acalculous cholecystitis both are improved. He continues to complain of intermittent nausea and pain around his cholecystostomy tube insertion site. Will discontinue oxycodone and try oral morphine to see if he is able to tolerate this better. It is unclear whether his complaints of intermittent nausea are related to his gallbladder. 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 In these cases, cholecystectomy often is not necessary. He remains weak and malnourished and is not an ideal candidate for surgery at this time. Cholecystostomy tube will need to remain in place for 4-6 weeks at least to allow the tract to mature before removing it. He will need a tube study to ensure that the cystic duct is patent before removing the tube. Fall Risk Details Current Medications: Current Medications Generic Name Dose Route Start Last Admin Trade Name Freq PRN Reason Stop Dose Admin Apixaban 5 mg 06/14/20 21:00 06/17/20 09:05 Apixaban 5 Mg Tablet PO 5 mg BID ALEX Administration Folic Acid 1 mg 06/05/20 09:00 06/17/20 09:06 Folic Acid 1 Mg Tablet PO 1 mg DAILY ALEX Administration Gabapentin 300 mg 06/04/20 21:00 06/16/20 20:32 Gabapentin 300 Mg Capsule PO 300 mg BEDTIME ALEX Administration Insulin Human Lispro 0 unit 06/04/20 21:00 06/17/20 09:06 Insulin Lispro 100 Unit/Ml 3 Ml Vial SUBCUT Not Given QIDACHS [facility] Protocol Magnesium Oxide 400 mg 06/06/20 17:30 06/17/20 09:06 Magnesium Oxide 400 Mg Tablet PO 400 mg BIDPC ALEX Administration Medication 1 each 06/05/20 09:00 No Benzodiazepines MISCELLANE DAILY [facility] Protocol Metoprolol Tartrate 12.5 mg 06/16/20 13:40 06/17/20 09:06 Metoprolol Tartrate 12.5 Mg Halftab PO 12.5 mg BID ALEX Administration Protocol Morphine Sulfate 4 mg 06/13/20 13:53 06/17/20 09:05 Morphine Sulfate 4 Mg/Ml Cartridge IVPUSH 4 mg Q4H PRN Administration Pain, Severe (Pain Scale 7-10) Morphine Sulfate 15 mg 06/17/20 09:07 Morphine Sulfate Immed Release 15 Mg Tablet PO Q4H PRN Pain, Moderate (Pain Scale 4-6 Multivitamins/Minerals 1 tab 06/05/20 09:00 06/17/20 09:06 Multivitamin With Minerals Tablet PO 1 tab DAILY ALEX Administration Omeprazole 40 mg 06/08/20 16:30 06/17/20 05:36 Omeprazole 20 Mg Capsule.Dr PO 40 mg BID@1930,5560 [facility] Administration Ondansetron HCl 4 mg 06/04/20 19:55 06/13/20 17:10 Ondansetron Hcl 4 Mg/2 Ml Vial IVPUSH 4 mg Q8H PRN Administration Nausea and Vomiting Pharmacy Consult 1 each 06/04/20 17:35 Consult Rx Perform Med Rec MISCELLANE ONCE PRN Consult order Quetiapine Fumarate 50 mg 06/04/20 21:00 06/16/20 20:32 Quetiapine Fumarate 50 Mg Tablet PO 50 mg BEDTIME [facility] Administration Sodium Chloride 3 ml 06/05/20 00:00 06/17/20 09:06 0.9 % Sodium Chloride Flush 3 Ml Syringe IVFLUSH 3 ml QSHIFT [facility] Administration Vitamin D 25 mcg 06/05/20 09:00 06/17/20 09:05 Cholecalciferol (Vitamin D3) 25 Mcg Tablet PO 25 mcg DAILY ALEX Administration Time Spent With Patient Time: Total time spent is greater than 50% in coordination of care (as documented) at patient's floor/unit and/or counseling patient: Time with patient: 15 - 24 minutes
[2020-06-17 11:55] LABS: Glucose, Whole Blood 109 mg/dL (60-115)
[2020-06-17] MEDS: Morphine Sulfate Immed Release 15 MG TABLET PO ×3 (12:31→20:31)
--- NOTE | 2020-06-17 13:13 | MHC.CM.PN ---
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 ELECTRONIC MEDICAL RECORD REVIEWED ALONG WITH CASE DISCUSSED ON MULTIPLE DISCIPLINARY ROUNDS PER DOCUMENTATION PATIENT WITH HISTORY OF ALCOHOLISM, CHLECYSTITIS HE HAD A CHOLECYSTOMY TUBE P[LACED THE J-P DRAIN NATY STILL REMAINS TO BE DRAINING IS STILL COMPANYING OF INTERMITTENT BOUTS OF NAUSEA AND ABDOMINAL PAIN ,(HE THINKS IT IS FROM THE [facility]Al analgesics, and is now taking iv morphine per surgeons note patient is malnourished,WEAK AND NOT A CANDIDATE FOR SURGERY AT THIS TIME SURGEON HAS DOCUMENTED THAT PATIENT WILL NEED TO REMAIN IN PLACE FOR 4-6 WEEKS HE WILL NEED A TUBE STUDY TO ENSURE THAT THE CYSTIC DUCT IS PATENT BEFORE REMOVING THE TUBE DISCHARGE PLAN 1. PATIENT WAS ON ELIQUIS AT HOME 2 RESUMPTION OF CARE TENDERS [facility] 3 PCP [facility] PATIENT INSTRUCTED TO CALL FOR POST HOSPITAL DISCHARGE
--- NOTE | 2020-06-17 13:26 | P.PNIM_ITS ---
Subjective Subjective Date of Service: 06/17/20 Interval History: The patient was seen and evaluated this morning Laying in bed, feels sick to his stomach and was vomiting and nausea since yesterday Denies any fever, chills or shortness of breath No reported other overnight events. Systemic review: No fever, chills or weakness No chest pain, palpitation No shortness of breath or coughing Site of surgery abdominal pain, reporting nausea and vomiting No urinary symptoms No any rash or wounds Physical Exam Vital Signs: Vital Signs: Last Vital Signs Temp 97.0 F 06/17/20 11:20 Pulse 88 06/17/20 11:20 Resp 16 06/17/20 11:20 BP 99/68 06/17/20 11:20 Pulse Ox 97 06/17/20 11:20 Body Mass Index 33.5 Const: Other: Constitutional : Alert, oriented, not in distress Neck : Normal inspection, Supple Cardiovascular : RRR, S1 S2, +2 bilateral lower extremity edema Respiratory : Good bilateral air entry, no crackles, wheezes or rhonchi Gastrointestinal: soft, lax, Normal bowel sounds, site of surgery covered, no drainage noted, drain in place, mild superficial tenderness Skin : Warm/Dry, No rash Neurological : Alert & oriented x3, No focal deficit Objective Data Current Medications Generic Name Dose Route Start Last Admin Trade Name Abhi PRN Reason Stop Dose Admin Apixaban 5 mg 06/14/20 21:00 06/17/20 09:05 Apixaban 5 Mg Tablet PO 5 mg BID ALEX Administration Folic Acid 1 mg 06/05/20 09:00 06/17/20 09:06 Folic Acid 1 Mg Tablet PO 1 mg DAILY ALEX Administration Gabapentin 300 mg 06/04/20 21:00 06/16/20 20:32 Gabapentin 300 Mg Capsule PO 300 mg BEDTIME [facility] Administration Insulin Human Lispro 0 unit 06/04/20 21:00 06/17/20 12:17 Insulin Lispro 100 Unit/Ml 3 Ml Vial SUBCUT Not Given QIDACHS [facility] Protocol Magnesium Oxide 400 mg 06/06/20 17:30 06/17/20 09:06 Magnesium Oxide 400 Mg Tablet PO 400 mg BIDPC ALEX Administration Medication 1 each 06/05/20 09:00 No Benzodiazepines MISCELLANE DAILY [facility] Protocol Metoprolol Tartrate 12.5 mg 06/16/20 13:40 06/17/20 09:06 Metoprolol Tartrate 12.5 Mg Halftab PO 12.5 mg BID ALEX Administration Protocol Morphine Sulfate 15 mg 06/17/20 09:07 06/17/20 12:31 Morphine Sulfate Immed Release 15 Mg Tablet PO 15 mg Q4H PRN Administration Pain, Moderate (Pain Scale 4-6 Multivitamins/Minerals 1 tab 06/05/20 09:00 06/17/20 09:06 Multivitamin With Minerals Tablet PO 1 tab DAILY [facility]LEX Administration Omeprazole 40 mg 06/08/20 16:30 06/17/20 05:36 Omeprazole 20 Mg Capsule. PO 40 mg BID@6077,8836 [facility] Administration Ondansetron HCl 4 mg 06/04/20 19:55 06/13/20 17:10 Ondansetron Hcl 4 Mg/2 Ml Vial IVPUSH 4 mg Q8H PRN Administration Nausea and Vomiting Pharmacy Consult 1 each 06/04/20 17:35 Consult Rx Perform Med Rec MISCELLANE ONCE PRN Consult order Quetiapine Fumarate 50 mg 06/04/20 21:00 06/16/20 20:32 Quetiapine Fumarate 50 Mg Tablet PO 50 mg BEDTIME [facility] Administration Sodium Chloride 3 ml 06/05/20 00:00 06/17/20 09:06 0.9 % Sodium Chloride Flush 3 Ml Syringe IVFLUSH 3 ml QSHIFT [facility] Administration Vitamin D 25 mcg 06/05/20 09:00 06/17/20 09:05 Cholecalciferol (Vitamin D3) 25 Mcg Tablet PO 25 mcg DAILY ALEX Administration Labs CBC & Chem 7: 06/15/20 05:39 06/16/20 05:59 Microbiology Microbiology Results: Microbiology 06/11/20 14:28 Paracentesis Fluid Gram Stain - Final 06/11/20 14:28 Paracentesis Fluid Anaerobic Culture - Final NO GROWTH AFTER 5 DAYS 06/11/20 14:28 Paracentesis Fluid Body Fluid Culture - Final No growth after 2 days 06/05/20 13:02 Blood - Venous Blood Culture - Final No growth after 5 days. 06/05/20 12:59 Blood - Venous Blood Culture - Final No growth after 5 days. 06/05/20 10:00 Urine clean catch - Clean Catch Midstream Urine Culture - Final Assessment and Plan (1) Acute GI bleeding: Status: Acute (2) Hematemesis: Status: Acute (3) Acalculous cholecystitis: Status: Acute (4) Abnormal findings on diagnostic imaging of gallbladder: Status: Acute Assessment and Plan: 59 year old man admitted with GI bleed secondary to anticoagulation and heavy alcohol abuse. Patient underwent EGD shows mild gastritis, Ultrasound on admission shows question of cholecystitis, patient was seen by surgery Patient underwent HIDA scan which shows acute cholecystitis, given patient is high risk surgery recommended cholecystotomy, patient underwent cholecystotomy on 06/11. Hypotension Improved Likely secondary to dehydration with usage of Lasix Hold Lasix Nausea and vomiting Related to opioid use age most likely Discontinue oxycodone Use morphine as needed for pain Use Zofran as needed Moderate protein malnutrition secondary to chronic alcoholism Albumin of 1.8 Start Ensure Acute cholecystitis post cholecystotomy ultrasound abdomen suggested acute on chronic cholecystitis repeat ultrasound shows acute cholecystitis and CBD dilatation on 06/09/2020 MRCP shows no CBD stone s/p cholecystotomy on 06/11/2020 Blood cultures and urine culture negative Finish total of 7 days of Zosyn Seen by surgery given high risk surgery recommended cholecystotomy underwent cholecystotomy on 06/11/20 Upper GI bleed/gastritis resolved Status post EGD shows mild gastritis continue PPI H&H stable Discussed with GI Dr. Cecilel arrieta to resume anticoagulation, started on Lovenox therapeutic dose on 06/12/2020 Monitor H&H closely as started on Lovenox, to restart home med Acute on Chronic diastolic and systolic CHF Lower extremity edema +2 Likely secondary to chronic alcoholism Echocardiogram done shows EF 45-50% with mild global hypokinesis and grade 1 diastolic dysfunction Discontinue IV Lasix Follow intake and output Cardiology input appreciated, start low-dose metoprolol and hold Lasix for now Monitor blood pressure in house Transaminitis. 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
--- NOTE | 2020-06-17 15:25 | MHC.CM.PN ---
pt mcleared by physical therapy 06/15 to return home with home pt thru [facility]
[2020-06-17 16:43] LABS: Glucose, Whole Blood 92 mg/dL (60-115)
[2020-06-17] MEDS: Gabapentin 300 MG CAPSULE PO (20:30)
[2020-06-17] MEDS: QUEtiapine Fumarate 50 MG TABLET PO (20:30)
[2020-06-17 20:41] LABS: Glucose, Whole Blood 83 mg/dL (60-115)
[2020-06-18] VITALS (7 sets, daily range): BP systolic 106–131; BP diastolic 64–82; PULSE 77–96; RESP 18–20; TEMP 36.3–37.2; O2SAT 90–97
--- NOTE | 2020-06-18 | FL_ITS ---
EXAMINATION: XR FLUOROSCOPY WITH IMAGES CLINICAL INFORMATION: Patency of cystic duct. COMPARISON: CT abdomen and pelvis 06/11/2020. TECHNIQUE: Fluoroscopy performed by Dr. Bettencourt. Fluoroscopy time: 0.7 minutes DAP: 20.8 Gycm2 Images: 15 FINDINGS: Approximately 10 to 15 mL of Omnipaque 300 was injected through existing cholecystostomy tube under fluoroscopy. There is good opacification of small gallbladder and proximal cystic duct. The entire cystic duct and the CBD could not be opacified from mural thickening or radiolucent stone. FL/FL guidance in treatment room IMPRESSION: Well-opacified small gallbladder with no intraluminal filling defect. Partially visualized cystic duct is unremarkable. The entire cystic duct and CBD were not opacified. Underlying lesion, radiolucent stone or stricture in distal cystic duct or CBD cannot be excluded.
[2020-06-18] MEDS: Morphine Sulfate Immed Release 15 MG TABLET PO ×5 (00:41→19:57)
[2020-06-18] MEDS: 0.9 % Sodium Chloride Flush 3 ML SYRINGE IVFLUSH ×3 (00:47→21:53)
[2020-06-18] MEDS: Omeprazole 20 MG CAPSULE.DR 40 MG PO ×2 (06:36→17:01)
[2020-06-18 08:22] LABS: Glucose, Whole Blood 113 mg/dL (60-115)
[2020-06-18] MEDS: Metoprolol Tartrate 12.5 MG HALFTAB PO (09:05)
[2020-06-18] MEDS: Magnesium Oxide 400 MG TABLET PO ×2 (09:05→17:01)
[2020-06-18] MEDS: Apixaban 5 MG TABLET PO ×2 (09:05→21:47)
[2020-06-18] MEDS: Folic Acid 1 MG TABLET PO (09:05)
[2020-06-18] MEDS: Cholecalciferol (Vitamin D3) 25 MCG TABLET PO (09:05)
--- NOTE | 2020-06-18 10:01 | P.PNGS_ITS ---
Subjective Subjective Date of Service: 06/18/20 Interval history: Feels well overall. He continues to report right upper quadrant discomfort around the cholecystostomy tube site. The oral morphine is working, but only lasts for about an hour. Appetite is good. He reports that the drain output has increased in the last day or so. Physical Exam Vital Signs: Vital Signs: Last Vital Signs Temp 98.9 F 06/18/20 07:49 Pulse 89 06/18/20 07:49 Resp 18 06/18/20 07:49 BP 106/68 06/18/20 07:49 Pulse Ox 91 L 06/18/20 07:49 Body Mass Index 33.5 Const: General: cooperative, no acute distress and alert GI: Other: Soft, nontender, nondistended, bilious fluid present in drain collecting device Progress Note: A&P Assessment and plan (1) Acalculous cholecystitis: Status: Acute Assessment and Plan: He appears improved overall. He is having ongoing difficulty with right upper quadrant discomfort that appears to be related to the cholecystostomy tube. He has been taking a more doses of pain medication, perhaps because the oral form is not providing sustained relief. The cholecystostomy output is bilious and volume has increased. Will check with Interventional Radiology regarding timing for a tube study and the possibility of capping the drain. The drain itself will need to stay in place for at least a few more weeks to allow for maturation of the drain tract. Fall Risk Details Current Medications: Current Medications Generic Name Dose Route Start Last Admin Trade Name Freq PRN Reason Stop Dose Admin Apixaban 5 mg 06/14/20 21:00 06/18/20 09:05 Apixaban 5 Mg Tablet PO 5 mg BID ALEX Administration Folic Acid 1 mg 06/05/20 09:00 06/18/20 09:05 Folic Acid 1 Mg Tablet PO 1 mg DAILY ALEX Administration Gabapentin 300 mg 06/04/20 21:00 06/17/20 20:30 Gabapentin 300 Mg Capsule PO 300 mg BEDTIME ALEX Administration Insulin Human Lispro 0 unit 06/04/20 21:00 06/18/20 09:05 Insulin Lispro 100 Unit/Ml 3 Ml Vial SUBCUT Not Given QIDACHS [facility] Protocol Magnesium Hydroxide 30 ml 06/18/20 09:31 Milk Of Magnesia 30 Ml Oral.Susp PO TID PRN Constipation Magnesium Oxide 400 mg 06/06/20 17:30 06/18/20 09:05 Magnesium Oxide 400 Mg Tablet PO 400 mg BIDPC ALEX Administration Medication 1 each 06/05/20 09:00 No Benzodiazepines MISCELLANE DAILY [facility] Protocol Metoprolol Tartrate 12.5 mg 06/16/20 13:40 06/18/20 09:05 Metoprolol Tartrate 12.5 Mg Halftab PO 12.5 mg BID ALEX Administration Protocol Morphine Sulfate 15 mg 06/17/20 09:07 06/18/20 06:36 Morphine Sulfate Immed Release 15 Mg Tablet PO 15 mg Q4H PRN Administration Pain, Moderate (Pain Scale 4-6 Multivitamins/Minerals 1 tab 06/05/20 09:00 06/18/20 09:05 Multivitamin With Minerals Tablet PO 1 tab DAILY ALEX Administration Omeprazole 40 mg 06/08/20 16:30 06/18/20 06:36 Omeprazole 20 Mg Capsule.Dr PO 40 mg BID@0630,1630 ALEX Administration Ondansetron HCl 4 mg 06/04/20 19:55 06/13/20 17:10 Ondansetron Hcl 4 Mg/2 Ml Vial IVPUSH 4 mg Q8H PRN Administration Nausea and Vomiting Pharmacy Consult 1 each 06/04/20 17:35 Consult Rx Perform Med Rec MISCELLANE ONCE PRN Consult order Quetiapine Fumarate 50 mg 06/04/20 21:00 06/17/20 20:30 Quetiapine Fumarate 50 Mg Tablet PO 50 mg BEDTIME ALEX Administration Sodium Chloride 3 ml 06/05/20 00:00 06/18/20 00:47 0.9 % Sodium Chloride Flush 3 Ml Syringe IVFLUSH 3 ml QSHIFT [facility] Administration Vitamin D 25 mcg 06/05/20 09:00 06/18/20 09:05 Cholecalciferol (Vitamin D3) 25 Mcg Tablet PO 25 mcg DAILY ALEX Administration Time Spent With Patient Time: Total time spent is greater than 50% in coordination of care (as documented) at patient's floor/unit and/or counseling patient: Time with patient: less than 15 minutes
--- NOTE | 2020-06-18 11:52 | P.PNIM_ITS ---
Subjective Subjective Date of Service: 06/18/20 Interval History: The patient was seen and evaluated this morning Laying in bed, nausea better controlled but he is complaining of pain at the side of tube Tube is draining biliary fluids Denies any fever, chills or shortness of breath No reported other overnight events. Systemic review: No fever, chills or weakness No chest pain, palpitation No shortness of breath or coughing Site of surgery abdominal pain, reporting nausea and vomiting mildly better No urinary symptoms No any rash or wounds Physical Exam Vital Signs: Vital Signs: Last Vital Signs Temp 98.9 F 06/18/20 07:49 Pulse 89 06/18/20 07:49 Resp 18 06/18/20 07:49 BP 106/68 06/18/20 07:49 Pulse Ox 91 L 06/18/20 07:49 Body Mass Index 33.5 Const: Other: Constitutional : Alert, oriented, not in distress Neck : Normal inspection, Supple Cardiovascular : RRR, S1 S2, +2 bilateral lower extremity edema Respiratory : Good bilateral air entry, no crackles, wheezes or rhonchi Gastrointestinal: soft, lax, Normal bowel sounds, site of surgery covered, no drainage noted, drain in place, mild superficial tenderness on right upper quadrant around surgical site Skin : Warm/Dry, No rash Neurological : Alert & oriented x3, No focal deficit Objective Data Current Medications Generic Name Dose Route Start Last Admin Trade Name Freq PRN Reason Stop Dose Admin Apixaban 5 mg 06/14/20 21:00 06/18/20 09:05 Apixaban 5 Mg Tablet PO 5 mg BID ALEX Administration Folic Acid 1 mg 06/05/20 09:00 06/18/20 09:05 Folic Acid 1 Mg Tablet PO 1 mg DAILY ALEX Administration Gabapentin 300 mg 06/04/20 21:00 06/17/20 20:30 Gabapentin 300 Mg Capsule PO 300 mg BEDTIME ALEX Administration Insulin Human Lispro 0 unit 06/04/20 21:00 06/18/20 09:05 Insulin Lispro 100 Unit/Ml 3 Ml Vial SUBCUT Not Given QIDACHS [facility] Protocol Magnesium Hydroxide 30 ml 06/18/20 09:31 Milk Of Magnesia 30 Ml Oral.Susp PO TID PRN Constipation Magnesium Oxide 400 mg 06/06/20 17:30 06/18/20 09:05 Magnesium Oxide 400 Mg Tablet PO 400 mg BIDPC ALEX Administration Medication 1 each 06/05/20 09:00 No Benzodiazepines MISCELLANE DAILY [facility] Protocol Metoprolol Tartrate 12.5 mg 06/16/20 13:40 06/18/20 09:05 Metoprolol Tartrate 12.5 Mg Halftab PO 12.5 mg BID ALEX Administration Protocol Morphine Sulfate 15 mg 06/17/20 09:07 06/18/20 06:36 Morphine Sulfate Immed Release 15 Mg Tablet PO 15 mg Q4H PRN Administration Pain, Moderate (Pain Scale 4-6 Multivitamins/Minerals 1 tab 06/05/20 09:00 06/18/20 09:05 Multivitamin With Minerals Tablet PO 1 tab DAILY [facility] Administration Omeprazole 40 mg 06/08/20 16:30 06/18/20 06:36 Omeprazole 20 Mg Capsule.Dr PO 40 mg BID@0630,2210 [facility] Administration Ondansetron HCl 4 mg 06/04/20 19:55 06/13/20 17:10 Ondansetron Hcl 4 Mg/2 Ml Vial IVPUSH 4 mg Q8H PRN Administration Nausea and Vomiting Pharmacy Consult 1 each 06/04/20 17:35 Consult Rx Perform Med Rec MISCELLANE ONCE PRN Consult order Quetiapine Fumarate 50 mg 06/04/20 21:00 06/17/20 20:30 Quetiapine Fumarate 50 Mg Tablet PO 50 mg BEDTIME [facility] Administration Sodium Chloride 3 ml 06/05/20 00:00 06/18/20 00:47 0.9 % Sodium Chloride Flush 3 Ml Syringe IVFLUSH 3 ml QSHIFT [facility] Administration Vitamin D 25 mcg 06/05/20 09:00 06/18/20 09:05 Cholecalciferol (Vitamin D3) 25 Mcg Tablet PO 25 mcg DAILY ALEX Administration Labs CBC & Chem 7: 06/15/20 05:39 06/16/20 05:59 Microbiology Microbiology Results: Microbiology 06/11/20 14:28 Paracentesis Fluid Gram Stain - Final 06/11/20 14:28 Paracentesis Fluid Anaerobic Culture - Final NO GROWTH AFTER 5 DAYS 06/11/20 14:28 Paracentesis Fluid Body Fluid Culture - Final No growth after 2 days 06/05/20 13:02 Blood - Venous Blood Culture - Final No growth after 5 days. 06/05/20 12:59 Blood - Venous Blood Culture - Final No growth after 5 days. 06/05/20 10:00 Urine clean catch - Clean Catch Midstream Urine Culture - Final Assessment and Plan (1) Acute GI bleeding: Status: Acute (2) Hematemesis: Status: Acute (3) Acalculous cholecystitis: Status: Acute (4) Abnormal findings on diagnostic imaging of gallbladder: Status: Acute Assessment and Plan: 59 year old man admitted with GI bleed secondary to anticoagulation and heavy alcohol abuse. Patient underwent EGD shows mild gastritis, Ultrasound on admission shows question of cholecystitis, patient was seen by surgery Patient underwent HIDA scan which shows acute cholecystitis, given patient is high risk surgery recommended cholecystotomy, patient underwent cholecystotomy on 06/11. Nausea and vomiting Related to opioid use age most likely Discontinue oxycodone Use morphine as needed for pain Use Zofran as needed Moderate protein malnutrition secondary to chronic alcoholism Albumin of 1.8 Start Ensure Acute cholecystitis post cholecystotomy Finish total of 7 days of Zosyn per surgery Seen by surgery given high risk surgery recommended cholecystotomy underwent cholecystotomy on 06/11/20 Drainage tube will remain in place for couple of weeks Plan for IR procedure to check for tube drainage and to place a cap later today Upper GI bleed/gastritis resolved Status post EGD shows mild gastritis continue PPI H&H stable Discussed with GI Dr. Cecille arrieta to resume anticoagulation, started on Lovenox therapeutic dose on 06/12/2020 Monitor H&H closely as started on Lovenox, to restart home med systolic CHF Exacerbation resolved Likely secondary to chronic alcoholism Echocardiogram done shows EF 45-50% with mild global hypokinesis and grade 1 d iastolic dysfunction Discontinue IV Lasix Cardiology input appreciated, start low-dose metoprolol and DC Lasix Consider discharge on low-dose Lasix Monitor blood pressure in house Transaminitis. 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 PT recommended STR though.
[2020-06-18 12:12] LABS: Glucose, Whole Blood 83 mg/dL (60-115)
[2020-06-18 16:41] LABS: Glucose, Whole Blood 126 mg/dL (60-115)
[2020-06-18 20:44] LABS: Glucose, Whole Blood 128 mg/dL (60-115)
[2020-06-18] MEDS: QUEtiapine Fumarate 50 MG TABLET PO (21:46)
[2020-06-18] MEDS: Gabapentin 300 MG CAPSULE PO (21:46)
[2020-06-18] MEDS: Metoprolol Tartrate 25 MG TABLET PO (21:47)
[2020-06-19] VITALS (7 sets, daily range): BP systolic 106–131; BP diastolic 65–96; PULSE 62–94; RESP 16–18; TEMP 35.7–37.6; O2SAT 93–100
[2020-06-19] MEDS: Morphine Sulfate Immed Release 15 MG TABLET PO ×6 (00:31→21:07)
[2020-06-19] MEDS: Omeprazole 20 MG CAPSULE.DR 40 MG PO ×2 (05:48→17:04)
[2020-06-19 06:53] LABS: Hematocrit 32.9 % (42-52); Hemoglobin 10.7 g/dl (14.0-18.0); Mean Corpuscular HGB Conc 32.5 g/dl (31.0-36.0); Mean Corpuscular Hemoglobin 34.4 pg (27.0-33.0); Mean Corpuscular Volume 105.8 fL (80-98); Platelet Count 388 X10*3/uL (160-400); Red Blood Count 3.11 X10*6/uL (4.60-5.80); Red Cell Distribution Width 15.5 % (11.0-16.0); White Blood Count 10.7 X10*3/uL (4.8-10.8)
[2020-06-19 07:11] LABS: Blood Urea Nitrogen 5 mg/dL (9-16); Calcium 7.7 mg/dL (8.4-10.2); Estimated Glomerular Filt Rate > 60; Glucose Random 83 mg/dL (60-115)
[2020-06-19 07:32] LABS: Glucose, Whole Blood 77 mg/dL (60-115)
[2020-06-19 07:33] LABS: Anion Gap 12 (12-20); Carbon Dioxide 28 mmol/L (22-29); Chloride 102 mmol/L (96-108); Potassium 4.5 mmol/l (3.3-5.1); Sodium 137 mmol/L (135-145)
[2020-06-19] MEDS: Apixaban 5 MG TABLET PO ×2 (09:05→21:06)
[2020-06-19] MEDS: Folic Acid 1 MG TABLET PO (09:06)
[2020-06-19] MEDS: Metoprolol Tartrate 25 MG TABLET PO ×2 (09:06→21:06)
[2020-06-19] MEDS: Magnesium Oxide 400 MG TABLET PO ×2 (09:06→17:05)
[2020-06-19] MEDS: 0.9 % Sodium Chloride Flush 3 ML SYRINGE IVFLUSH ×2 (09:24→17:06)
[2020-06-19] MEDS: Cholecalciferol (Vitamin D3) 25 MCG TABLET PO (09:25)
[2020-06-19 11:32] LABS: Glucose, Whole Blood 80 mg/dL (60-115)
--- NOTE | 2020-06-19 12:50 | HO.PM.IMPN ---
Subjective Subjective Date of Service: 06/19/20 Interval History: no new issue Physical Exam Vital Signs: Vital Signs: Last Vital Signs Temp 98.9 F 06/19/20 11:26 Pulse 62 06/19/20 11:26 Resp 18 06/19/20 11:26 BP 106/65 06/19/20 11:26 Pulse Ox 93 06/19/20 11:26 Body Mass Index 33.5 Const: Other: Constitutional : Alert, oriented, not in distress Neck : Normal inspection, Supple Cardiovascular : RRR, S1 S2, +2 bilateral lower extremity edema Respiratory : Good bilateral air entry, no crackles, wheezes or rhonchi Gastrointestinal: soft, lax, Normal bowel sounds, site of surgery covered, no drainage noted, drain in place, mild superficial tenderness on right upper quadrant around surgical site Skin : Warm/Dry, No rash Neurological : Alert & oriented x3, No focal deficit Objective Data Current Medications Generic Name Dose Route Start Last Admin Trade Name Freq PRN Reason Stop Dose Admin Apixaban 5 mg 06/14/20 21:00 06/19/20 09:05 Apixaban 5 Mg Tablet PO 5 mg BID ALEX Administration Folic Acid 1 mg 06/05/20 09:00 06/19/20 09:06 Folic Acid 1 Mg Tablet PO 1 mg DAILY ALEX Administration Gabapentin 300 mg 06/04/20 21:00 06/18/20 21:46 Gabapentin 300 Mg Capsule PO 300 mg BEDTIME ALEX Administration Insulin Human Lispro 0 unit 06/04/20 21:00 06/19/20 12:06 Insulin Lispro 100 Unit/Ml 3 Ml Vial SUBCUT Not Given QIDACHS [facility] Protocol Magnesium Hydroxide 30 ml 06/18/20 09:31 Milk Of Magnesia 30 Ml Oral.Susp PO TID PRN Constipation Magnesium Oxide 400 mg 06/06/20 17:30 06/19/20 09:06 Magnesium Oxide 400 Mg Tablet PO 400 mg BIDPC ALEX Administration Medication 1 each 06/05/20 09:00 No Benzodiazepines MISCELLANE DAILY [facility] Protocol Metoprolol Tartrate 25 mg 06/18/20 21:00 06/19/20 09:06 Metoprolol Tartrate 25 Mg Tablet PO 25 mg BID ALEX Administration Protocol Morphine Sulfate 15 mg 06/17/20 09:07 06/19/20 09:06 Morphine Sulfate Immed Release 15 Mg Tablet PO 15 mg Q4H PRN Administration Pain, Moderate (Pain Scale 4-6 Multivitamins/Minerals 1 tab 06/05/20 09:00 06/19/20 09:06 Multivitamin With Minerals Tablet PO 1 tab DAILY ALEX Administration Omeprazole 40 mg 06/08/20 16:30 06/19/20 05:48 Omeprazole 20 Mg Capsule. PO 40 mg BID@0630,0780 ALEX Administration Ondansetron HCl 4 mg 06/04/20 19:55 06/13/20 17:10 Ondansetron Hcl 4 Mg/2 Ml Vial IVPUSH 4 mg Q8H PRN Administration Nausea and Vomiting Pharmacy Consult 1 each 06/04/20 17:35 Consult Rx Perform Med Rec MISCELLANE ONCE PRN Consult order Quetiapine Fumarate 50 mg 06/04/20 21:00 06/18/20 21:46 Quetiapine Fumarate 50 Mg Tablet PO 50 mg BEDTIME ALEX Administration Sodium Chloride 3 ml 06/05/20 00:00 06/19/20 09:24 0.9 % Sodium Chloride Flush 3 Ml Syringe IVFLUSH 3 ml QSHIFT ALEX Administration Vitamin D 25 mcg 06/05/20 09:00 06/19/20 09:25 Cholecalciferol (Vitamin D3) 25 Mcg Tablet PO 25 mcg DAILY ALEX Administration Labs CBC & Chem 7: 06/19/20 06:03 06/19/20 06:03 Microbiology Microbiology Results: Microbiology 06/11/20 14:28 Paracentesis Fluid Gram Stain - Final 06/11/20 14:28 Paracentesis Fluid Anaerobic Culture - Final NO GROWTH AFTER 5 DAYS 06/11/20 14:28 Paracentesis Fluid Body Fluid Culture - Final No growth after 2 days 06/05/20 13:02 Blood - Venous Blood Culture - Final No growth after 5 days. 06/05/20 12:59 Blood - Venous Blood Culture - Final No growth after 5 days. 06/05/20 10:00 Urine clean catch - Clean Catch Midstream Urine Culture - Final Assessment and Plan (1) Acute GI bleeding: Status: Acute (2) Hematemesis: Status: Acute (3) Acalculous cholecystitis: Status: Acute (4) Abnormal findings on diagnostic imaging of gallbladder: Status: Acute Assessment and Plan: 59 year old man admitted with GI bleed secondary to anticoagulation and heavy alcohol abuse. Patient underwent EGD shows mild gastritis, Ultrasound on admission shows question of cholecystitis, patient was seen by surgery Patient underwent HIDA scan which shows acute cholecystitis, given patient is high risk surgery recommended cholecystotomy, patient underwent cholecystotomy on 06/11. Nausea and vomiting--improved Related to opioid use age most likely Use Zofran as needed Moderate protein malnutrition secondary to chronic alcoholism Albumin of 1.8 Start Ensure Acute cholecystitis post cholecystotomy Finish total of 7 days of Zosyn per surgery Seen by surgery given high risk surgery recommended cholecystotomy underwent cholecystotomy on 06/11/20 Drainage tube will remain in place for couple of weeks Plan for IR procedure to check for tube drainage and to place a cap later today Upper GI bleed/gastritis resolved Status post EGD shows mild gastritis continue PPI H&H stable systolic CHF Exacerbation resolved Likely secondary to chronic alcoholism Echocardiogram done shows EF 45-50% with mild global hypokinesis and grade 1 diastolic dysfunction Discontinue IV Lasix Cardiology input appreciated, start low-dose metoprolol and DC Lasix Consider discharge on low-dose Lasix Monitor blood pressure in house Transaminitis. 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
[2020-06-19 16:49] LABS: Glucose, Whole Blood 66 mg/dL (60-115)
[2020-06-19 20:58] LABS: Glucose, Whole Blood 77 mg/dL (60-115)
[2020-06-19] MEDS: QUEtiapine Fumarate 50 MG TABLET PO (21:06)
[2020-06-19] MEDS: Gabapentin 300 MG CAPSULE PO (21:07)
[2020-06-19 21:26] LABS: Glucose, Whole Blood 88 mg/dL (60-115)
[2020-06-20] VITALS (8 sets, daily range): BP systolic 94–115; BP diastolic 58–71; PULSE 64–89; RESP 14–18; TEMP 36.1–37.2; O2SAT 80–100
[2020-06-20] MEDS: Morphine Sulfate Immed Release 15 MG TABLET PO ×6 (01:02→21:02)
[2020-06-20] MEDS: 0.9 % Sodium Chloride Flush 3 ML SYRINGE IVFLUSH ×3 (01:03→17:06)
[2020-06-20] MEDS: Omeprazole 20 MG CAPSULE.DR 40 MG PO ×2 (05:04→17:06)
[2020-06-20 08:26] LABS: Glucose, Whole Blood 76 mg/dL (60-115)
[2020-06-20] MEDS: Cholecalciferol (Vitamin D3) 25 MCG TABLET PO (09:05)
[2020-06-20] MEDS: Folic Acid 1 MG TABLET PO (09:05)
[2020-06-20] MEDS: Metoprolol Tartrate 25 MG TABLET PO ×2 (09:05→21:03)
[2020-06-20] MEDS: Magnesium Oxide 400 MG TABLET PO ×2 (09:05→17:07)
[2020-06-20] MEDS: Apixaban 5 MG TABLET PO ×2 (09:05→21:02)
--- NOTE | 2020-06-20 09:46 | PM.PNGS ---
Subjective Subjective Date of Service: 06/20/20 Interval history: Overall the patient feels improved with occasional pain in the range of 5-7 out of 10. The pain is increased when lying on the right side. He denies nausea or vomiting. Physical Exam Vital Signs: Vital Signs: Last Vital Signs Temp 99.0 F 06/20/20 07:45 Pulse 80 06/20/20 09:05 Resp 18 06/20/20 07:45 BP 115/71 06/20/20 09:05 Pulse Ox 80 L 06/20/20 07:45 Body Mass Index 33.5 Const: General: cooperative, healthy appearing, comfortable and no acute distress Resp: Other: Breathing comfortably on room air, no shortness of breath GI: Other: Cholecystostomy tube is intact draining a small amount of clear bilious fluid. Insertion site is clean and intact without surrounding erythema. Abdomen is otherwise soft and nondistended. Skin: Other: No edema Progress Note: A&P Assessment and plan (1) Acalculous cholecystitis: Status: Acute Assessment and Plan: Patient appears to be more comfortable today and the drainage tube is functioning properly. Will need to leave the cholecystostomy tube in for several more weeks before can be removed. Should probably have a repeat tube check prior to tube removal to assure no distal obstruction. Fall Risk Details Current Medications: Current Medications Generic Name Dose Route Start Last Admin Trade Name Freq PRN Reason Stop Dose Admin Apixaban 5 mg 06/14/20 21:00 06/20/20 09:05 Apixaban 5 Mg Tablet PO 5 mg BID ALEX Administration Folic Acid 1 mg 06/05/20 09:00 06/20/20 09:05 Folic Acid 1 Mg Tablet PO 1 mg DAILY ALEX Administration Gabapentin 300 mg 06/04/20 21:00 06/19/20 21:07 Gabapentin 300 Mg Capsule PO 300 mg BEDTIME ALEX Administration Insulin Human Lispro 0 unit 06/04/20 21:00 06/20/20 08:24 Insulin Lispro 100 Unit/Ml 3 Ml Vial SUBCUT Not Given QIDACHS [facility]1983 Protocol Magnesium Hydroxide 30 ml 06/18/20 09:31 Milk Of Magnesia 30 Ml Oral.Susp PO TID PRN Constipation Magnesium Oxide 400 mg 06/06/20 17:30 06/20/20 09:05 Magnesium Oxide 400 Mg Tablet PO 400 mg BIDPC ALEX Administration Medication 1 each 06/05/20 09:00 No Benzodiazepines MISCELLANE DAILY ALEX Protocol Metoprolol Tartrate 25 mg 06/18/20 21:00 06/20/20 09:05 Metoprolol Tartrate 25 Mg Tablet PO 25 mg BID ALEX Administration Protocol Morphine Sulfate 15 mg 06/17/20 09:07 06/20/20 09:05 Morphine Sulfate Immed Release 15 Mg Tablet PO 15 mg Q4H PRN Administration Pain, Moderate (Pain Scale 4-6 Multivitamins/Minerals 1 tab 06/05/20 09:00 06/20/20 09:05 Multivitamin With Minerals Tablet PO 1 tab DAILY ALEX Administration Omeprazole 40 mg 06/08/20 16:30 06/20/20 05:04 Omeprazole 20 Mg Capsule.Dr PO 40 mg BID@0630,2880 ALEX Administration Ondansetron HCl 4 mg 06/04/20 19:55 06/13/20 17:10 Ondansetron Hcl 4 Mg/2 Ml Vial IVPUSH 4 mg Q8H PRN Administration Nausea and Vomiting Pharmacy Consult 1 each 06/04/20 17:35 Consult Rx Perform Med Rec MISCELLANE ONCE PRN Consult order Quetiapine Fumarate 50 mg 06/04/20 21:00 06/19/20 21:06 Quetiapine Fumarate 50 Mg Tablet PO 50 mg BEDTIME ALEX Administration Sodium Chloride 3 ml 06/05/20 00:00 06/20/20 09:01 0.9 % Sodium Chloride Flush 3 Ml Syringe IVFLUSH 3 ml QSHIFT ALEX Administration Vitamin D 25 mcg 06/05/20 09:00 06/20/20 09:05 Cholecalciferol (Vitamin D3) 25 Mcg Tablet PO 25 mcg DAILY ALEX Administration Time Spent With Patient Time: Total time spent is greater than 50% in coordination of care (as documented) at patient's floor/unit and/or counseling patient: Time with patient: 15 - 24 minutes
[2020-06-20 11:49] LABS: Glucose, Whole Blood 86 mg/dL (60-115)
--- NOTE | 2020-06-20 13:07 | MHC.CM.PN ---
PATIENT IS ACCEPTED AT [facility]. currently awaiting hospitalist conversation with hcp/spouse. case management to continue to follow for patient discharge
--- NOTE | 2020-06-20 16:13 | P.PNIM_ITS ---
Subjective Subjective Date of Service: 06/20/20 Interval History: Has no new issue, says he wasn't aware he was going to [facility] Physical Exam Vital Signs: Vital Signs: Last Vital Signs Temp 98.9 F 06/20/20 16:00 Pulse 72 06/20/20 16:00 Resp 14 06/20/20 16:00 BP 114/58 L 06/20/20 16:00 Pulse Ox 97 06/20/20 16:00 Body Mass Index 33.5 Const: Other: Constitutional : Alert, oriented, not in distress Neck : Normal inspection, Supple Cardiovascular : RRR, S1 S2, +2 bilateral lower extremity edema Respiratory : Good bilateral air entry, no crackles, wheezes or rhonchi Gastrointestinal: soft, lax, Normal bowel sounds, site of surgery covered, no drainage noted, drain in place, mild superficial tenderness on right upper quadrant around surgical site Skin : Warm/Dry, No rash Neurological : alerrt, not oriente Objective Data Current Medications Generic Name Dose Route Start Last Admin Trade Name Freq PRN Reason Stop Dose Admin Apixaban 5 mg 06/14/20 21:00 06/20/20 09:05 Apixaban 5 Mg Tablet PO 5 mg BID ALEX Administration Folic Acid 1 mg 06/05/20 09:00 06/20/20 09:05 Folic Acid 1 Mg Tablet PO 1 mg DAILY ALEX Administration Gabapentin 300 mg 06/04/20 21:00 06/19/20 21:07 Gabapentin 300 Mg Capsule PO 300 mg BEDTIME ALEX Administration Insulin Human Lispro 0 unit 06/04/20 21:00 06/20/20 11:57 Insulin Lispro 100 Unit/Ml 3 Ml Vial SUBCUT Not Given QIDACHS [facility] Protocol Magnesium Hydroxide 30 ml 06/18/20 09:31 Milk Of Magnesia 30 Ml Oral.Susp PO TID PRN Constipation Magnesium Oxide 400 mg 06/06/20 17:30 06/20/20 09:05 Magnesium Oxide 400 Mg Tablet PO 400 mg BIDPC ALEX Administration Medication 1 each 06/05/20 09:00 No Benzodiazepines MISCELLANE DAILY [facility] Protocol Metoprolol Tartrate 25 mg 06/18/20 21:00 06/20/20 09:05 Metoprolol Tartrate 25 Mg Tablet PO 25 mg BID ALEX Administration Protocol Morphine Sulfate 15 mg 06/17/20 09:07 06/20/20 13:02 Morphine Sulfate Immed Release 15 Mg Tablet PO 15 mg Q4H PRN Administration Pain, Moderate (Pain Scale 4-6 Multivitamins/Minerals 1 tab 06/05/20 09:00 06/20/20 09:05 Multivitamin With Minerals Tablet PO 1 tab DAILY ALEX Administration Omeprazole 40 mg 06/08/20 16:30 06/20/20 05:04 Omeprazole 20 Mg Capsule.Dr PO 40 mg BID@8682,7670 ALEX Administration Ondansetron HCl 4 mg 06/04/20 19:55 06/13/20 17:10 Ondansetron Hcl 4 Mg/2 Ml Vial IVPUSH 4 mg Q8H PRN Administration Nausea and Vomiting Pharmacy Consult 1 each 06/04/20 17:35 Consult Rx Perform Med Rec MISCELLANE ONCE PRN Consult order Quetiapine Fumarate 50 mg 06/04/20 21:00 06/19/20 21:06 Quetiapine Fumarate 50 Mg Tablet PO 50 mg BEDTIME ALEX Administration Sodium Chloride 3 ml 06/05/20 00:00 06/20/20 09:01 0.9 % Sodium Chloride Flush 3 Ml Syringe IVFLUSH 3 ml QSHIFT ALEX Administration Vitamin D 25 mcg 06/05/20 09:00 06/20/20 09:05 Cholecalciferol (Vitamin D3) 25 Mcg Tablet PO 25 mcg DAILY ALEX Administration Labs CBC & Chem 7: 06/19/20 06:03 06/19/20 06:03 Microbiology Microbiology Results: Microbiology 06/11/20 14:28 Paracentesis Fluid Gram Stain - Final 06/11/20 14:28 Paracentesis Fluid Anaerobic Culture - Final NO GROWTH AFTER 5 DAYS 06/11/20 14:28 Paracentesis Fluid Body Fluid Culture - Final No growth after 2 days 06/05/20 13:02 Blood - Venous Blood Culture - Final No growth after 5 days. 06/05/20 12:59 Blood - Venous Blood Culture - Final No growth after 5 days. 06/05/20 10:00 Urine clean catch - Clean Catch Midstream Urine Culture - Final Assessment and Plan (1) Acute GI bleeding: Status: Acute (2) Hematemesis: Status: Acute (3) Acalculous cholecystitis: Status: Acute (4) Abnormal findings on diagnostic imaging of gallbladder: Status: Acute Assessment and Plan: 59 year old man admitted with GI bleed secondary to anticoagulation and heavy alcohol abuse. Patient underwent EGD shows mild gastritis, Ultrasound on admission shows question of cholecystitis, patient was seen by surgery Patient underwent HIDA scan which shows acute cholecystitis, given patient is high risk surgery recommended cholecystotomy, patient underwent cholecystotomy on 06/11. Nausea and vomiting--improved Related to opioid use age most likely Use Zofran as needed Moderate protein malnutrition secondary to chronic alcoholism Albumin of 1.8 Ensure PRN Acute cholecystitis post cholecystotomy Finish total of 7 days of Zosyn per surgery Seen by surgery given high risk surgery recommended cholecystotomy underwent cholecystotomy on 06/11/20 Drainage tube will remain in place for couple of weeks Plan for IR procedure to check for tube drainage and to place a cap later today Upper GI bleed/gastritis resolved Status post EGD shows mild gastritis continue PPI H&H stable systolic CHF Exacerbation resolved Likely secondary to chronic alcoholism Echocardiogram done shows EF 45-50% with mild global hypokinesis and grade 1 diastolic dysfunction Discontinue IV Lasix Cardiology input appreciated, start low-dose metoprolol and DC Lasix Consider discharge on low-dose Lasix Monitor blood pressure in house Transaminitis. 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
--- NOTE | 2020-06-20 16:17 | MHC.CM.PN ---
HCP, TOMAS ([phone]) IS AWARE THAT PATIENT WILL DC TO SNF TOMORROW 06/21. SHE IS AWARE THAT [facility], AND IS AGREEABLE TO EITHER FACILITY. IMM 06/20 IN CHART. TOMAS ASKS THAT [facility]IGINAL BE SENT WITH PATIENT'S BELONGINGS.
[2020-06-20 16:48] LABS: Glucose, Whole Blood 97 mg/dL (60-115)
[2020-06-20 20:34] LABS: Glucose, Whole Blood 100 mg/dL (60-115)
[2020-06-20] MEDS: QUEtiapine Fumarate 50 MG TABLET PO (21:02)
[2020-06-20] MEDS: Gabapentin 300 MG CAPSULE PO (21:03)
[2020-06-21] VITALS: BP 100/68; PULSE 90; RESP 18; TEMP 35.8; O2SAT 96
[2020-06-21] MEDS: Morphine Sulfate Immed Release 15 MG TABLET PO ×4 (01:07→13:04)
[2020-06-21 04:00] VITALS: BP 101/70; PULSE 82; RESP 16; TEMP 36.8; O2SAT 94
[2020-06-21] MEDS: Omeprazole 20 MG CAPSULE.DR 40 MG PO (05:02)
[2020-06-21 07:40] VITALS: BP 126/76; PULSE 85; RESP 17; TEMP 36.4; O2SAT 96
--- NOTE | 2020-06-21 07:42 | PC.NURSE ---
PT POC Glucose was 67, pt asymptomatic, given 4oz of orange juice. Will recheck POC glucose in 15mins.
[2020-06-21 07:49] LABS: Glucose, Whole Blood 67 mg/dL (60-115)
[2020-06-21 08:56] VITALS: BP 126/76; PULSE 85
[2020-06-21] MEDS: 0.9 % Sodium Chloride Flush 3 ML SYRINGE IVFLUSH (08:56)
[2020-06-21] MEDS: Apixaban 5 MG TABLET PO (08:56)
[2020-06-21] MEDS: Folic Acid 1 MG TABLET PO (08:56)
[2020-06-21] MEDS: Cholecalciferol (Vitamin D3) 25 MCG TABLET PO (08:56)
[2020-06-21] MEDS: Metoprolol Tartrate 25 MG TABLET PO (08:56)
[2020-06-21] MEDS: Magnesium Oxide 400 MG TABLET PO (08:56)
--- NOTE | 2020-06-21 09:03 | PM.DS ---
DS: Providers Provider Date of Service: 06/22/20 Date of admission: 06/04/20 19:55 Primary care physician: Yodit Flower NP Consults: 06/05/20 00:32 Consult to Gastroenterology Routine Consulting Provider: Barrington Oden Reason for consultation: gi bleed, alcohol abuse Has provider been notified: No 06/05/20 11:01 Consult to Care Team Routine Comment: Reason for consultation: etoh abuse Has provider been notified: Yes 06/05/20 12:19 Consult to General Surgery Routine Consulting Provider: Pamella Love Reason for consultation: abdominal pain usg shows possible cholecystitis Has provider been notified: No 06/06/20 12:52 Consult to Infectious Diseases Routine Consulting Provider: Sofia Adam Reason for consultation: fever of unknown etiology 06/16/20 07:56 Consult to Cardiology Routine Consulting Provider: Fermin Bonner Reason for consultation: Newly diagnosed sCHF, Alcoholism, for Medication advise & establish care DS: Diagnosis Discharge Diagnosis (1) Acute GI bleeding: Status: Acute (2) Hematemesis: Status: Acute (3) Acalculous cholecystitis: Status: Acute (4) Abnormal findings on diagnostic imaging of gallbladder: Status: Acute DS: Medications Discharge Medications Home Medications: Home Medications Medication Instructions Recorded Confirmed atorvastatin 40 tab PO DAILY 03/02/20 06/04/20 cholecalciferol (vitamin D3) 1 cap PO DAILY 03/02/20 06/04/20 [Vitamin D3] folic acid 1 tab PO DAILY 03/02/20 06/04/20 gabapentin 300 mg PO BEDTIME 03/02/20 06/04/20 omeprazole 20 cap PO BID 03/02/20 06/04/20 quetiapine 50 mg PO BEDTIME 03/02/20 06/04/20 apixaban [Eliquis] 5 mg PO BID 06/04/20 06/04/20 wkdvykxmhxue-ccih-feyhm acid 1 tab PO DAILY 06/04/20 06/04/20 [Certavite-Antioxidant] oxycodone 5 mg PO Q6H PRN 06/04/20 06/04/20 DS: Summary Hospital Course Hospital Course: 06/02/20 Chief Complaint: Alcohol withdrawal 59-year-old male with past medical history of alcohol abuse who was brought into the hospital by his girlfriend for alcohol binge and inability to take care of himself. Patient's girlfriend is also stating that he has been making suicidal statements. He has also not been taking any of his meds for diabetes or seizures. Patient was covered positive on 01/27 as Covert positive today. Patient currently denies having any suicidal ideation. He was retested for Covert on this presentation and is COVID-19 positive at this time. patient has no shortness of breath, no fever or chills, no cough, no sputum production, no abdominal pain nausea or vomiting, no diarrhea or constipation, no lower extremity edema on arrival to the ED hemodynamically stable with no significant abnormal Vitals Lab significant for magnesium of 1.4, total bili of 1.7, AST of 133, ALT of 93, albumin 3.0, UDS positive for barbiturates, PCP, benzodiazepine, and he is COVID-19 PCR is positive Chest x-ray shows no acute abnormality of the chest Past medical history: Alcohol abuse, hypertension, COPD, liver cirrhosis, HLD, seizure disorder Hospital course: 59 year old man admitted with GI bleed secondary to anticoagulation and heavy alcohol abuse. Patient underwent EGD shows mild gastritis, Ultrasound on admission shows question of cholecystitis, patient was seen by surgery Patient underwent HIDA scan which shows acute cholecystitis, given patient is high risk surgery recommended cholecystotomy, patient underwent cholecystotomy on 06/11. Upper GI Bleed: Underwent EGD by Dr. Oden on 06/08/20 with the following findin. Normal gastric bypass anastomosis and small bowel--minimal gastritis near the anastomosis. 2. No bleeding, no ulcer, no varices. Recommendation PPI and to avoid alcohol, Eliquis was on hold briefly and has been restarted without complications. Hematocrit on admission was 37 and most recently on 06/19/20 was 32. NO active bleeding and he did not require transfusion. Acute cholecystitis s/ppost cholecystotomy on 06/11/20 by IR with drain in place and is to remain in place for weeks. He has completed 7 days of Zosyn and no evidence of active infection at this time. He was deem high risk for surgery and hence cholecystotomy. The tube was recheck by IR on 06/18/20 and was patent and cap was replaced. Seen by surgery given high risk surgery recommended cholecystotomy underwent cholecystotomy on 06/11/20. He should follow up with Dr. Love( general surgeon) Moderate protein malnutrition--secondary to chronic alcoholism Albumin of 1.8. Given Ensure Systolic CHF with underlying cardiomyopathy. EF 45-50% with mild global hypokinesis and grade 1 diastolic dysfunction. He was treated with IV Lasix with resulition. Was seen by cardiology and recommend Metoprolol by Dr. Bonner. Transaminitis. Due to aloholic hepatitis, LFTs have trended down. Alcohol abuse with withdrawal, resolved. Drinks 10-16 nips daily. Treated with alcohol withdrawal with Phenobarbital and has resolve History of DVT--He takes Eliquis. Anticoagulation was on hold for GI bleed and for cholecystotomy H&H stable no. He is back on Eliquis Patient will be dishcarge to short term rehab Status at Discharge Functional status at discharge: independent ambulation Time Spent with Patient Time attestation: Total time spent providing and/or coordinating discharge services: Discharge coordination time: Greater than 30 minutes Physical Exam Vital Signs: Vital Signs: Last Vital Signs Temp 97.6 F 06/21/20 07:40 Pulse 85 06/21/20 08:56 Resp 17 06/21/20 07:40 BP 126/76 06/21/20 08:56 Pulse Ox 96 06/21/20 07:40 Body Mass Index 33.5 Const: Other: Constitutional : Alert, oriented, not in distress Neck : Normal inspection, Supple Cardiovascular : RRR, S1 S2, +2 bilateral lower extremity edema Respiratory : Good bilateral air entry, no crackles, wheezes or rhonchi Gastrointestinal: soft, lax, Normal bowel sounds, site of surgery covered, no drainage noted, drain in place, mild superficial tenderness on right upper quadrant around surgical site Skin : Warm/Dry, No rash Neurological : alerrt, not oriente DS: Data Data Completed and Pending Completed studies during hospitalization [Text1]: Procedures Detoxification Services for Substance Abuse Treatment (03/02/20) Labs on day of discharge: Laboratory Tests 06/04/20 06/04/20 06/04/20 13:25 13:25 13:25 WBC RBC Hgb Hct MCV MCH MCHC RDW Plt Count MPV Immature Gran % (Auto) Neut % (Auto) Lymph % (Auto) [place] % (Auto) Eos % (Auto) Baso % (Auto) Lymph # (Auto) [place] # (Auto) Eos # (Auto) Baso # (Auto) Abs Immat Gran (auto) Absolute Neuts (auto) Absolute Nucleated RBC Nucleated RBC % (auto) Smear Tech's Comments PT 24.6 H D INR 2.1 H APTT 41.2 H Sodium 135 Potassium 3.4 Chloride 99 Carbon Dioxide 21 L Anion Gap 18 BUN 4 L Creatinine 0.66 Estim Creat Clear Calc 147.5 Estimated GFR > 60 POC Glucose Random Glucose 132 H D Fasting Glucose Lactic Acid Lactic Acid Fup @ 2Hr Lactic Acid Fup @ 4Hr Calcium 7.3 L Magnesium 1.5 L Total Bilirubin 1.8 H Direct Bilirubin 1.1 H AST 174 H ALT 57 H Alkaline Phosphatase 197 H D B-Natriuretic Peptide 105 H Total Protein 4.9 L Albumin 2.2 L Lipase 6 L Urine Color Urine Appearance Urine pH Ur Specific [place] Urine Protein Urine Glucose (UA) Urine Ketones Urine Blood Urine Nitrite Ur Leukocyte Esterase Ethyl Alcohol Coronavirus (PCR) Influenza Type A (PCR) Influenza Type B (PCR) RSV RNA Qual (PCR) Blood Type Antibody Screen 06/04/20 06/04/20 06/04/20 13:25 13:26 13:26 WBC 9.5 RBC 3.83 L Hgb 12.7 L Hct 37.0 L MCV 96.6 MCH 33.2 H MCHC 34.3 RDW 15.7 Plt Count 110 L D MPV 11.8 Immature Gran % (Auto) 0.4 Neut % (Auto) 81.5 H Lymph % (Auto) 11.9 L [place] % (Auto) 5.8 Eos % (Auto) 0.0 Baso % (Auto) 0.4 Lymph # (Auto) 1.1 L [place] # (Auto) 0.6 Eos # (Auto) 0.0 Baso # (Auto) 0.0 Abs Immat Gran (auto) 0.04 H Absolute Neuts (auto) 7.8 Absolute Nucleated RBC 0.000 Nucleated RBC % (auto) 0.0 Smear Tech's Comments PT INR APTT Sodium Cancelled Potassium Cancelled Chloride Cancelled Carbon Dioxide Cancelled Anion Gap Cancelled BUN Cancelled Creatinine Cancelled Estim Creat Clear Calc Cancelled Estimated GFR Cancelled POC Glucose Random Glucose Cancelled Fasting Glucose Lactic Acid Lactic Acid Fup @ 2Hr Lactic Acid Fup @ 4Hr Calcium Cancelled Magnesium Cancelled Total Bilirubin Cancelled Direct Bilirubin Cancelled AST Cancelled ALT Cancelled Alkaline Phosphatase Cancelled B-Natriuretic Peptide Total Protein Cancelled Albumin Cancelled Lipase Urine Color Urine Appearance Urine pH Ur Specific [place] Urine Protein Urine Glucose (UA) Urine Ketones Urine Blood Urine Nitrite Ur Leukocyte Esterase Ethyl Alcohol 130 Coronavirus (PCR) Influenza Type A (PCR) Influenza Type B (PCR) RSV RNA Qual (PCR) Blood Type Antibody Screen 06/04/20 06/04/20 06/04/20 13:26 13:26 16:57 WBC RBC Hgb Hct MCV MCH MCHC RDW Plt Count MPV Immature Gran % (Auto) Neut % (Auto) Lymph % (Auto) [place] % (Auto) Eos % (Auto) Baso % (Auto) Lymph # (Auto) [place] # (Auto) Eos # (Auto) Baso # (Auto) Abs Immat Gran (auto) Absolute Neuts (auto) Absolute Nucleated RBC Nucleated RBC % (auto) Smear Tech's Comments PT INR APTT Sodium Potassium Chloride Carbon Dioxide Anion Gap BUN Creatinine Estim Creat Clear Calc Estimated GFR POC Glucose Random Glucose Fasting Glucose Lactic Acid 7.9 H* Lactic Acid Fup @ 2Hr Lactic Acid Fup @ 4Hr Calcium Magnesium Total Bilirubin Direct Bilirubin AST ALT Alkaline Phosphatase B-Natriuretic Peptide Total Protein Albumin Lipase Urine Color Urine Appearance Urine pH Ur Specific [place] Urine Protein Urine Glucose (UA) Urine Ketones Urine Blood Urine Nitrite Ur Leukocyte Esterase Ethyl Alcohol Coronavirus (PCR) NEGATIVE Influenza Type A (PCR) NEGATIVE Influenza Type B (PCR) NEGATIVE RSV RNA Qual (PCR) NEGATIVE Blood Type O Positive Antibody Screen NEGATIVE 06/04/20 06/04/20 06/04/20 16:57 19:47 21:28 WBC RBC Hgb Hct MCV MCH MCHC RDW Plt Count MPV Immature Gran % (Auto) Neut % (Auto) Lymph % (Auto) [place] % (Auto) Eos % (Auto) Baso % (Auto) Lymph # (Auto) [place] # (Auto) Eos # (Auto) Baso # (Auto) Abs Immat Gran (auto) Absolute Neuts (auto) Absolute Nucleated RBC Nucleated RBC % (auto) Smear Tech's Comments PT INR APTT Sodium Potassium Chloride Carbon Dioxide Anion Gap BUN Creatinine Estim Creat Clear Calc Estimated GFR POC Glucose 97 Random Glucose Fasting Glucose Lactic Acid Lactic Acid Fup @ 2Hr 6.2 H* Lactic Acid Fup @ 4Hr 5.0 H* Calcium Magnesium Total Bilirubin Direct Bilirubin AST ALT Alkaline Phosphatase B-Natriuretic Peptide Total Protein Albumin Lipase Urine Color Urine Appearance Urine pH Ur Specific [place] Urine Protein Urine Glucose (UA) Urine Ketones Urine Blood Urine Nitrite Ur Leukocyte Esterase Ethyl Alcohol Coronavirus (PCR) Influenza Type A (PCR) Influenza Type B (PCR) RSV RNA Qual (PCR) Blood Type Antibody Screen 06/05/20 06/05/20 06/05/20 00:47 05:40 05:40 WBC 9.2 RBC 3.47 L Hgb 12.5 L 11.6 L Hct 35.6 L 32.8 L MCV 94.5 MCH 33.4 H MCHC 35.4 RDW 16.1 H Plt Count 85 L MPV 12.4 Immature Gran % (Auto) 0.3 Neut % (Auto) 83.4 H Lymph % (Auto) 11.5 L [place] % (Auto) 4.3 Eos % (Auto) 0.1 Baso % (Auto) 0.4 Lymph # (Auto) 1.1 L [place] # (Auto) 0.4 Eos # (Auto) 0.0 Baso # (Auto) 0.0 Abs Immat Gran (auto) 0.03 Absolute Neuts (auto) 7.7 Absolute Nucleated RBC 0.000 Nucleated RBC % (auto) 0.0 Smear Tech's Comments PT INR APTT Sodium 135 Potassium 3.0 L Chloride 100 Carbon Dioxide 22 Anion Gap 16 BUN 3 L Creatinine 0.54 Estim Creat Clear Calc 180.2 Estimated GFR > 60 POC Glucose Random Glucose 76 D Fasting Glucose Lactic Acid Lactic Acid Fup @ 2Hr Lactic Acid Fup @ 4Hr Calcium 6.9 L Magnesium 1.3 L* Total Bilirubin 3.2 H Direct Bilirubin 2.4 H AST 162 H ALT 45 H Alkaline Phosphatase 175 H B-Natriuretic Peptide Total Protein 4.4 L Albumin 1.9 L Lipase Urine Color Urine Appearance Urine pH Ur Specific [place] Urine Protein Urine Glucose (UA) Urine Ketones Urine Blood Urine Nitrite Ur Leukocyte Esterase Ethyl Alcohol Coronavirus (PCR) Influenza Type A (PCR) Influenza Type B (PCR) RSV RNA Qual (PCR) Blood Type Antibody Screen 06/05/20 06/05/20 06/05/20 08:37 13:05 14:08 WBC RBC Hgb Hct MCV MCH MCHC RDW Plt Count MPV Immature Gran % (Auto) Neut % (Auto) Lymph % (Auto) [place] % (Auto) Eos % (Auto) Baso % (Auto) Lymph # (Auto) [place] # (Auto) Eos # (Auto) Baso # (Auto) Abs Immat Gran (auto) Absolute Neuts (auto) Absolute Nucleated RBC Nucleated RBC % (auto) Smear Tech's Comments PT INR APTT Sodium Potassium Chloride Carbon Dioxide Anion Gap BUN Creatinine Estim Creat Clear Calc Estimated GFR POC Glucose 90 98 Random Glucose Fasting Glucose Lactic Acid Lactic Acid Fup @ 2Hr Lactic Acid Fup @ 4Hr Calcium Magnesium Total Bilirubin Direct Bilirubin AST ALT Alkaline Phosphatase B-Natriuretic Peptide Total Protein Albumin Lipase Urine Color YELLOW Urine Appearance CLEAR Urine pH 5.5 Ur Specific [place] 1.025 Urine Protein NEG Urine Glucose (UA) NEG Urine Ketones NEG Urine Blood NEG Urine Nitrite NEG Ur Leukocyte Esterase NEG Ethyl Alcohol Coronavirus (PCR) Influenza Type A (PCR) Influenza Type B (PCR) RSV RNA Qual (PCR) Blood Type Antibody Screen 06/05/20 06/05/20 06/06/20 16:17 19:44 05:56 WBC RBC Hgb Hct MCV MCH MCHC RDW Plt Count MPV Immature Gran % (Auto) Neut % (Auto) Lymph % (Auto) [place] % (Auto) Eos % (Auto) Baso % (Auto) Lymph # (Auto) [place] # (Auto) Eos # (Auto) Baso # (Auto) Abs Immat Gran (auto) Absolute Neuts (auto) Absolute Nucleated RBC Nucleated RBC % (auto) Smear Tech's Comments PT INR APTT Sodium 133 L Potassium 3.2 L Chloride 101 Carbon Dioxide 23 Anion Gap 12 BUN 5 L D Creatinine 0.57 Estim Creat Clear Calc 170.7 Estimated GFR > 60 POC Glucose 92 82 Random Glucose Fasting Glucose 57 L* Lactic Acid Lactic Acid Fup @ 2Hr Lactic Acid Fup @ 4Hr Calcium 6.6 L Magnesium 1.4 L* Total Bilirubin 4.0 H Direct Bilirubin 3.1 H AST 130 H ALT 36 Alkaline Phosphatase 142 H B-Natriuretic Peptide Total Protein 4.0 L Albumin 1.7 L Lipase Urine Color Urine Appearance Urine pH Ur Specific [place] Urine Protein Urine Glucose (UA) Urine Ketones Urine Blood Urine Nitrite Ur Leukocyte Esterase Ethyl Alcohol Coronavirus (PCR) Influenza Type A (PCR) Influenza Type B (PCR) RSV RNA Qual (PCR) Blood Type Antibody Screen 06/06/20 06/06/20 06/06/20 05:56 05:56 07:23 WBC 8.0 RBC 3.20 L Hgb 10.7 L Hct 30.5 L MCV 95.3 MCH 33.4 H MCHC 35.1 RDW 16.7 H Plt Count 61 L D MPV 12.4 Immature Gran % (Auto) 1.0 H Neut % (Auto) 80.4 H Lymph % (Auto) 13.0 L [place] % (Auto) 5.1 Eos % (Auto) 0.1 Baso % (Auto) 0.4 Lymph # (Auto) 1.0 L [place] # (Auto) 0.4 Eos # (Auto) 0.0 Baso # (Auto) 0.0 Abs Immat Gran (auto) 0.08 H Absolute Neuts (auto) 6.4 Absolute Nucleated RBC 0.000 Nucleated RBC % (auto) 0.0 Smear Tech's Comments PT 37.7 H D INR 3.1 H APTT Sodium Potassium Chloride Carbon Dioxide Anion Gap BUN Creatinine Estim Creat Clear Calc Estimated GFR POC Glucose 62 Random Glucose Fasting Glucose Lactic Acid Lactic Acid Fup @ 2Hr Lactic Acid Fup @ 4Hr Calcium Magnesium Total Bilirubin Direct Bilirubin AST ALT Alkaline Phosphatase B-Natriuretic Peptide Total Protein Albumin Lipase Urine Color Urine Appearance Urine pH Ur Specific [place] Urine Protein Urine Glucose (UA) Urine Ketones Urine Blood Urine Nitrite Ur Leukocyte Esterase Ethyl Alcohol Coronavirus (PCR) Influenza Type A (PCR) Influenza Type B (PCR) RSV RNA Qual (PCR) Blood Type Antibody Screen 06/06/20 06/06/20 06/06/20 08:08 08:08 09:12 WBC 8.7 RBC 3.28 L Hgb 11.0 L Hct 31.7 L MCV 96.6 MCH 33.5 H MCHC 34.7 RDW 16.7 H Plt Count 62 L MPV 12.7 H Immature Gran % (Auto) 1.1 H Neut % (Auto) 77.3 H Lymph % (Auto) 15.6 L [place] % (Auto) 5.3 Eos % (Auto) 0.2 Baso % (Auto) 0.5 Lymph # (Auto) 1.4 [place] # (Auto) 0.5 Eos # (Auto) 0.0 Baso # (Auto) 0.0 Abs Immat Gran (auto) 0.10 H Absolute Neuts (auto) 6.7 Absolute Nucleated RBC 0.000 Nucleated RBC % (auto) 0.0 Smear Tech's Comments PT INR APTT Sodium 135 Potassium 3.4 Chloride 101 Carbon Dioxide 25 Anion Gap 12 BUN 5 L Creatinine 0.60 Estim Creat Clear Calc 162.2 Estimated GFR > 60 POC Glucose 78 Random Glucose 53 L* Fasting Glucose Lactic Acid Lactic Acid Fup @ 2Hr Lactic Acid Fup @ 4Hr Calcium 6.5 L Magnesium 1.5 L Total Bilirubin 3.9 H Direct Bilirubin 3.3 H AST 133 H ALT 38 Alkaline Phosphatase 146 H B-Natriuretic Peptide Total Protein 3.9 L Albumin 1.8 L Lipase Urine Color Urine Appearance Urine pH Ur Specific [place] Urine Protein Urine Glucose (UA) Urine Ketones Urine Blood Urine Nitrite Ur Leukocyte Esterase Ethyl Alcohol Coronavirus (PCR) Influenza Type A (PCR) Influenza Type B (PCR) RSV RNA Qual (PCR) Blood Type Antibody Screen 06/06/20 06/06/20 06/06/20 11:22 15:44 19:47 WBC RBC Hgb Hct MCV MCH MCHC RDW Plt Count MPV Immature Gran % (Auto) Neut % (Auto) Lymph % (Auto) [place] % (Auto) Eos % (Auto) Baso % (Auto) Lymph # (Auto) [place] # (Auto) Eos # (Auto) Baso # (Auto) Abs Immat Gran (auto) Absolute Neuts (auto) Absolute Nucleated RBC Nucleated RBC % (auto) Smear Tech's Comments PT INR APTT Sodium Potassium Chloride Carbon Dioxide Anion Gap BUN Creatinine Estim Creat Clear Calc Estimated GFR POC Glucose 81 84 74 Random Glucose Fasting Glucose Lactic Acid Lactic Acid Fup @ 2Hr Lactic Acid Fup @ 4Hr Calcium Magnesium Total Bilirubin Direct Bilirubin AST ALT Alkaline Phosphatase B-Natriuretic Peptide Total Protein Albumin Lipase Urine Color Urine Appearance Urine pH Ur Specific [place] Urine Protein Urine Glucose (UA) Urine Ketones Urine Blood Urine Nitrite Ur Leukocyte Esterase Ethyl Alcohol Coronavirus (PCR) Influenza Type A (PCR) Influenza Type B (PCR) RSV RNA Qual (PCR) Blood Type Antibody Screen 06/07/20 06/07/20 06/07/20 05:19 05:19 05:19 WBC 6.2 RBC 3.21 L Hgb 10.7 L Hct 31.0 L MCV 96.6 MCH 33.3 H MCHC 34.5 RDW 16.4 H Plt Count 63 L MPV 13.0 H Immature Gran % (Auto) 3.6 H Neut % (Auto) 66.7 Lymph % (Auto) 21.1 [place] % (Auto) 6.2 Eos % (Auto) 1.6 Baso % (Auto) 0.8 Lymph # (Auto) 1.3 [place] # (Auto) 0.4 Eos # (Auto) 0.1 Baso # (Auto) 0.1 Abs Immat Gran (auto) 0.22 H Absolute Neuts (auto) 4.1 Absolute Nucleated RBC 0.000 Nucleated RBC % (auto) 0.0 Smear Tech's Comments PT 15.6 H D INR 1.3 H APTT Sodium 133 L Potassium 3.1 L Chloride 101 Carbon Dioxide 24 Anion Gap 11 L BUN 4 L Creatinine 0.49 L Estim Creat Clear Calc 198.6 Estimated GFR > 60 POC Glucose Random Glucose 55 L* Fasting Glucose Lactic Acid Lactic Acid Fup @ 2Hr Lactic Acid Fup @ 4Hr Calcium 6.7 L Magnesium 1.7 Total Bilirubin 5.5 H Direct Bilirubin 4.3 H AST 91 H ALT 29 Alkaline Phosphatase 137 H B-Natriuretic Peptide Total Protein 3.8 L Albumin 1.7 L Lipase Urine Color Urine Appearance Urine pH Ur Specific [place] Urine Protein Urine Glucose (UA) Urine Ketones Urine Blood Urine Nitrite Ur Leukocyte Esterase Ethyl Alcohol Coronavirus (PCR) Influenza Type A (PCR) Influenza Type B (PCR) RSV RNA Qual (PCR) Blood Type Antibody Screen 06/07/20 06/07/20 06/07/20 07:12 11:24 15:43 WBC RBC Hgb Hct MCV MCH MCHC RDW Plt Count MPV Immature Gran % (Auto) Neut % (Auto) Lymph % (Auto) [place] % (Auto) Eos % (Auto) Baso % (Auto) Lymph # (Auto) [place] # (Auto) Eos # (Auto) Baso # (Auto) Abs Immat Gran (auto) Absolute Neuts (auto) Absolute Nucleated RBC Nucleated RBC % (auto) Smear Tech's Comments PT INR APTT Sodium Potassium Chloride Carbon Dioxide Anion Gap BUN Creatinine Estim Creat Clear Calc Estimated GFR POC Glucose 63 83 74 Random Glucose Fasting Glucose Lactic Acid Lactic Acid Fup @ 2Hr Lactic Acid Fup @ 4Hr Calcium Magnesium Total Bilirubin Direct Bilirubin AST ALT Alkaline Phosphatase B-Natriuretic Peptide Total Protein Albumin Lipase Urine Color Urine Appearance Urine pH Ur Specific [place] Urine Protein Urine Glucose (UA) Urine Ketones Urine Blood Urine Nitrite Ur Leukocyte Esterase Ethyl Alcohol Coronavirus (PCR) Influenza Type A (PCR) Influenza Type B (PCR) RSV RNA Qual (PCR) Blood Type Antibody Screen 06/07/20 06/08/20 06/08/20 20:27 04:07 04:07 WBC 6.2 RBC 3.14 L Hgb 10.4 L Hct 30.9 L MCV 98.4 H MCH 33.1 H MCHC 33.7 RDW 16.0 Plt Count 79 L D MPV 12.4 Immature Gran % (Auto) 0.8 H Neut % (Auto) 66.1 Lymph % (Auto) 18.3 L [place] % (Auto) 13.1 H Eos % (Auto) 1.1 Baso % (Auto) 0.6 Lymph # (Auto) 1.1 L [place] # (Auto) 0.8 Eos # (Auto) 0.1 Baso # (Auto) 0.0 Abs Immat Gran (auto) 0.05 H Absolute Neuts (auto) 4.1 Absolute Nucleated RBC 0.000 Nucleated RBC % (auto) 0.0 Smear Tech's Comments PT INR APTT Sodium 135 Potassium 3.3 Chloride 103 Carbon Dioxide 24 Anion Gap 11 L BUN 4 L Creatinine 0.48 L Estim Creat Clear Calc 202.8 Estimated GFR > 60 POC Glucose 86 Random Glucose 77 D Fasting Glucose Lactic Acid Lactic Acid Fup @ 2Hr Lactic Acid Fup @ 4Hr Calcium 6.9 L Magnesium Total Bilirubin 5.1 H Direct Bilirubin 4.0 H AST 82 H ALT 26 Alkaline Phosphatase 137 H B-Natriuretic Peptide Total Protein 4.1 L Albumin 1.7 L Lipase Urine Color Urine Appearance Urine pH Ur Specific [place] Urine Protein Urine Glucose (UA) Urine Ketones Urine Blood Urine Nitrite Ur Leukocyte Esterase Ethyl Alcohol Coronavirus (PCR) Influenza Type A (PCR) Influenza Type B (PCR) RSV RNA Qual (PCR) Blood Type Antibody Screen 06/08/20 06/08/20 06/08/20 04:07 07:16 14:01 WBC RBC Hgb Hct MCV MCH MCHC RDW Plt Count MPV Immature Gran % (Auto) Neut % (Auto) Lymph % (Auto) [place] % (Auto) Eos % (Auto) Baso % (Auto) Lymph # (Auto) [place] # (Auto) Eos # (Auto) Baso # (Auto) Abs Immat Gran (auto) Absolute Neuts (auto) Absolute Nucleated RBC Nucleated RBC % (auto) Smear Tech's Comments PT 13.5 H INR 1.1 APTT Sodium Potassium Chloride Carbon Dioxide Anion Gap BUN Creatinine Estim Creat Clear Calc Estimated GFR POC Glucose 91 75 Random Glucose Fasting Glucose Lactic Acid Lactic Acid Fup @ 2Hr Lactic Acid Fup @ 4Hr Calcium Magnesium Total Bilirubin Direct Bilirubin AST ALT Alkaline Phosphatase B-Natriuretic Peptide Total Protein Albumin Lipase Urine Color Urine Appearance Urine pH Ur Specific [place] Urine Protein Urine Glucose (UA) Urine Ketones Urine Blood Urine Nitrite Ur Leukocyte Esterase Ethyl Alcohol Coronavirus (PCR) Influenza Type A (PCR) Influenza Type B (PCR) RSV RNA Qual (PCR) Blood Type Antibody Screen 06/08/20 06/08/20 06/09/20 16:43 20:23 05:12 WBC 6.8 RBC 3.06 L Hgb 10.3 L Hct 30.0 L MCV 98.0 MCH 33.7 H MCHC 34.3 RDW 16.5 H Plt Count 101 L D MPV 11.6 Immature Gran % (Auto) 1.2 H Neut % (Auto) 62.5 Lymph % (Auto) 16.1 L [place] % (Auto) 18.6 H Eos % (Auto) 0.7 Baso % (Auto) 0.9 Lymph # (Auto) 1.1 L [place] # (Auto) 1.3 H Eos # (Auto) 0.1 Baso # (Auto) 0.1 Abs Immat Gran (auto) 0.08 H Absolute Neuts (auto) 4.2 Absolute Nucleated RBC 0.000 Nucleated RBC % (auto) 0.0 Smear Tech's Comments VERIFIED PT INR APTT Sodium Potassium Chloride Carbon Dioxide Anion Gap BUN Creatinine Estim Creat Clear Calc Estimated GFR POC Glucose 77 79 Random Glucose Fasting Glucose Lactic Acid Lactic Acid Fup @ 2Hr Lactic Acid Fup @ 4Hr Calcium Magnesium Total Bilirubin Direct Bilirubin AST ALT Alkaline Phosphatase B-Natriuretic Peptide Total Protein Albumin Lipase Urine Color Urine Appearance Urine pH Ur Specific [place] Urine Protein Urine Glucose (UA) Urine Ketones Urine Blood Urine Nitrite Ur Leukocyte Esterase Ethyl Alcohol Coronavirus (PCR) Influenza Type A (PCR) Influenza Type B (PCR) RSV RNA Qual (PCR) Blood Type Antibody Screen 06/09/20 06/09/20 06/09/20 05:12 08:03 16:44 WBC RBC Hgb Hct MCV MCH MCHC RDW Plt Count MPV Immature Gran % (Auto) Neut % (Auto) Lymph % (Auto) [place] % (Auto) Eos % (Auto) Baso % (Auto) Lymph # (Auto) [place] # (Auto) Eos # (Auto) Baso # (Auto) Abs Immat Gran (auto) Absolute Neuts (auto) Absolute Nucleated RBC Nucleated RBC % (auto) Smear Tech's Comments PT INR APTT Sodium 136 Potassium 3.9 Chloride 104 Carbon Dioxide 24 Anion Gap 12 BUN 4 L Creatinine 0.50 Estim Creat Clear Calc 194.7 Estimated GFR > 60 POC Glucose 80 81 Random Glucose 81 Fasting Glucose Lactic Acid Lactic Acid Fup @ 2Hr Lactic Acid Fup @ 4Hr Calcium 7.0 L Magnesium Total Bilirubin 4.1 H Direct Bilirubin 3.2 H AST 72 H ALT 23 Alkaline Phosphatase 135 H B-Natriuretic Peptide Total Protein 4.2 L Albumin 1.8 L Lipase Urine Color Urine Appearance Urine pH Ur Specific [place] Urine Protein Urine Glucose (UA) Urine Ketones Urine Blood Urine Nitrite Ur Leukocyte Esterase Ethyl Alcohol Coronavirus (PCR) Influenza Type A (PCR) Influenza Type B (PCR) RSV RNA Qual (PCR) Blood Type Antibody Screen 06/09/20 06/10/20 06/10/20 20:11 05:28 05:28 WBC 8.0 RBC 3.06 L Hgb 10.3 L Hct 30.6 L MCV 100.0 H MCH 33.7 H MCHC 33.7 RDW 16.4 H Plt Count 151 L D MPV 11.7 Immature Gran % (Auto) 2.4 H Neut % (Auto) 64.0 Lymph % (Auto) 18.3 L [place] % (Auto) 14.3 H Eos % (Auto) 0.6 Baso % (Auto) 0.4 Lymph # (Auto) 1.5 [place] # (Auto) 1.1 Eos # (Auto) 0.1 Baso # (Auto) 0.0 Abs Immat Gran (auto) 0.19 H Absolute Neuts (auto) 5.1 Absolute Nucleated RBC 0.030 H Nucleated RBC % (auto) 0.4 H Smear Tech's Comments PT INR APTT Sodium 134 L Potassium 3.3 Chloride 102 Carbon Dioxide 27 Anion Gap 8 L BUN 3 L Creatinine 0.49 L Estim Creat Clear Calc 198.6 Estimated GFR > 60 POC Glucose 104 Random Glucose 84 Fasting Glucose Lactic Acid Lactic Acid Fup @ 2Hr Lactic Acid Fup @ 4Hr Calcium 7.0 L Magnesium Total Bilirubin 3.8 H Direct Bilirubin 3.0 H AST 62 H ALT 22 Alkaline Phosphatase 128 H B-Natriuretic Peptide Total Protein 4.3 L Albumin 1.8 L Lipase Urine Color Urine Appearance Urine pH Ur Specific [place] Urine Protein Urine Glucose (UA) Urine Ketones Urine Blood Urine Nitrite Ur Leukocyte Esterase Ethyl Alcohol Coronavirus (PCR) Influenza Type A (PCR) Influenza Type B (PCR) RSV RNA Qual (PCR) Blood Type Antibody Screen 06/10/20 06/10/20 06/10/20 07:03 11:03 16:07 WBC RBC Hgb Hct MCV MCH MCHC RDW Plt Count MPV Immature Gran % (Auto) Neut % (Auto) Lymph % (Auto) [place] % (Auto) Eos % (Auto) Baso % (Auto) Lymph # (Auto) [place] # (Auto) Eos # (Auto) Baso # (Auto) Abs Immat Gran (auto) Absolute Neuts (auto) Absolute Nucleated RBC Nucleated RBC % (auto) Smear Tech's Comments PT INR APTT Sodium Potassium Chloride Carbon Dioxide Anion Gap BUN Creatinine Estim Creat Clear Calc Estimated GFR POC Glucose 84 93 116 H Random Glucose Fasting Glucose Lactic Acid Lactic Acid Fup @ 2Hr Lactic Acid Fup @ 4Hr Calcium Magnesium Total Bilirubin Direct Bilirubin AST ALT Alkaline Phosphatase B-Natriuretic Peptide Total Protein Albumin Lipase Urine Color Urine Appearance Urine pH Ur Specific [place] Urine Protein Urine Glucose (UA) Urine Ketones Urine Blood Urine Nitrite Ur Leukocyte Esterase Ethyl Alcohol Coronavirus (PCR) Influenza Type A (PCR) Influenza Type B (PCR) RSV RNA Qual (PCR) Blood Type Antibody Screen 06/10/20 06/11/20 06/11/20 20:41 05:25 07:01 WBC RBC Hgb Hct MCV MCH MCHC RDW Plt Count MPV Immature Gran % (Auto) Neut % (Auto) Lymph % (Auto) [place] % (Auto) Eos % (Auto) Baso % (Auto) Lymph # (Auto) [place] # (Auto) Eos # (Auto) Baso # (Auto) Abs Immat Gran (auto) Absolute Neuts (auto) Absolute Nucleated RBC Nucleated RBC % (auto) Smear Tech's Comments PT INR APTT Sodium Potassium Chloride Carbon Dioxide Anion Gap BUN Creatinine Estim Creat Clear Calc Estimated GFR POC Glucose 89 81 Random Glucose Fasting Glucose Lactic Acid Lactic Acid Fup @ 2Hr Lactic Acid Fup @ 4Hr Calcium Magnesium Total Bilirubin 3.1 H Direct Bilirubin 2.5 H AST 58 H ALT 22 Alkaline Phosphatase 133 H B-Natriuretic Peptide Total Protein 4.5 L Albumin 2.0 L Lipase Urine Color Urine Appearance Urine pH Ur Specific [place] Urine Protein Urine Glucose (UA) Urine Ketones Urine Blood Urine Nitrite Ur Leukocyte Esterase Ethyl Alcohol Coronavirus (PCR) Influenza Type A (PCR) Influenza Type B (PCR) RSV RNA Qual (PCR) Blood Type Antibody Screen 06/11/20 06/11/20 06/11/20 10:46 16:05 20:20 WBC RBC Hgb Hct MCV MCH MCHC RDW Plt Count MPV Immature Gran % (Auto) Neut % (Auto) Lymph % (Auto) [place] % (Auto) Eos % (Auto) Baso % (Auto) Lymph # (Auto) [place] # (Auto) Eos # (Auto) Baso # (Auto) Abs Immat Gran (auto) Absolute Neuts (auto) Absolute Nucleated RBC Nucleated RBC % (auto) Smear Tech's Comments PT INR APTT Sodium Potassium Chloride Carbon Dioxide Anion Gap BUN Creatinine Estim Creat Clear Calc Estimated GFR POC Glucose 90 75 86 Random Glucose Fasting Glucose Lactic Acid Lactic Acid Fup @ 2Hr Lactic Acid Fup @ 4Hr Calcium Magnesium Total Bilirubin Direct Bilirubin AST ALT Alkaline Phosphatase B-Natriuretic Peptide Total Protein Albumin Lipase Urine Color Urine Appearance Urine pH Ur Specific [place] Urine Protein Urine Glucose (UA) Urine Ketones Urine Blood Urine Nitrite Ur Leukocyte Esterase Ethyl Alcohol Coronavirus (PCR) Influenza Type A (PCR) Influenza Type B (PCR) RSV RNA Qual (PCR) Blood Type Antibody Screen 06/12/20 06/12/20 06/12/20 05:25 05:25 07:58 WBC 8.0 RBC 3.03 L Hgb 10.4 L Hct 30.2 L MCV 99.7 H MCH 34.3 H MCHC 34.4 RDW 16.8 H Plt Count 260 D MPV 11.0 Immature Gran % (Auto) 2.0 H Neut % (Auto) 73.2 H Lymph % (Auto) 18.5 L [place] % (Auto) 4.9 Eos % (Auto) 0.5 Baso % (Auto) 0.9 Lymph # (Auto) 1.5 [place] # (Auto) 0.4 Eos # (Auto) 0.0 Baso # (Auto) 0.1 Abs Immat Gran (auto) 0.16 H Absolute Neuts (auto) 5.8 Absolute Nucleated RBC 0.000 Nucleated RBC % (auto) 0.0 Smear Tech's Comments PT INR APTT Sodium 135 Potassium 3.1 L Chloride 103 Carbon Dioxide 23 Anion Gap 12 BUN 3 L Creatinine 0.45 L Estim Creat Clear Calc 216.3 Estimated GFR > 60 POC Glucose 89 Random Glucose 86 Fasting Glucose Lactic Acid Lactic Acid Fup @ 2Hr Lactic Acid Fup @ 4Hr Calcium 6.9 L Magnesium Total Bilirubin 2.6 H Direct Bilirubin 2.1 H AST 68 H ALT 25 Alkaline Phosphatase 133 H B-Natriuretic Peptide Total Protein 4.5 L Albumin 1.9 L Lipase Urine Color Urine Appearance Urine pH Ur Specific [place] Urine Protein Urine Glucose (UA) Urine Ketones Urine Blood Urine Nitrite Ur Leukocyte Esterase Ethyl Alcohol Coronavirus (PCR) Influenza Type A (PCR) Influenza Type B (PCR) RSV RNA Qual (PCR) Blood Type Antibody Screen 06/12/20 06/12/20 06/12/20 11:31 16:01 19:29 WBC RBC Hgb Hct MCV MCH MCHC RDW Plt Count MPV Immature Gran % (Auto) Neut % (Auto) Lymph % (Auto) [place] % (Auto) Eos % (Auto) Baso % (Auto) Lymph # (Auto) [place] # (Auto) Eos # (Auto) Baso # (Auto) Abs Immat Gran (auto) Absolute Neuts (auto) Absolute Nucleated RBC Nucleated RBC % (auto) Smear Tech's Comments PT INR APTT Sodium Potassium Chloride Carbon Dioxide Anion Gap BUN Creatinine Estim Creat Clear Calc Estimated GFR POC Glucose 91 88 94 Random Glucose Fasting Glucose Lactic Acid Lactic Acid Fup @ 2Hr Lactic Acid Fup @ 4Hr Calcium Magnesium Total Bilirubin Direct Bilirubin AST ALT Alkaline Phosphatase B-Natriuretic Peptide Total Protein Albumin Lipase Urine Color Urine Appearance Urine pH Ur Specific [place] Urine Protein Urine Glucose (UA) Urine Ketones Urine Blood Urine Nitrite Ur Leukocyte Esterase Ethyl Alcohol Coronavirus (PCR) Influenza Type A (PCR) Influenza Type B (PCR) RSV RNA Qual (PCR) Blood Type Antibody Screen 06/13/20 06/13/20 06/13/20 05:34 05:34 05:34 WBC 9.5 RBC 2.94 L Hgb 9.9 L Hct 29.6 L MCV 100.7 H MCH 33.7 H MCHC 33.4 RDW 17.2 H Plt Count 320 MPV 11.1 Immature Gran % (Auto) 1.7 H Neut % (Auto) 78.0 H Lymph % (Auto) 14.6 L [place] % (Auto) 4.5 Eos % (Auto) 0.4 Baso % (Auto) 0.8 Lymph # (Auto) 1.4 [place] # (Auto) 0.4 Eos # (Auto) 0.0 Baso # (Auto) 0.1 Abs Immat Gran (auto) 0.16 H Absolute Neuts (auto) 7.4 Absolute Nucleated RBC 0.000 Nucleated RBC % (auto) 0.0 Smear Tech's Comments PT 13.9 H INR 1.2 H APTT Sodium 135 Potassium 3.7 Chloride 104 Carbon Dioxide 22 Anion Gap 13 BUN 3 L Creatinine 0.48 L Estim Creat Clear Calc 202.8 Estimated GFR > 60 POC Glucose Random Glucose 74 Fasting Glucose Lactic Acid Lactic Acid Fup @ 2Hr Lactic Acid Fup @ 4Hr Calcium 7.1 L Magnesium Total Bilirubin 2.2 H Direct Bilirubin 1.8 H AST 55 H ALT 23 Alkaline Phosphatase 131 H B-Natriuretic Peptide Total Protein 4.5 L Albumin 1.9 L Lipase Urine Color Urine Appearance Urine pH Ur Specific [place] Urine Protein Urine Glucose (UA) Urine Ketones Urine Blood Urine Nitrite Ur Leukocyte Esterase Ethyl Alcohol Coronavirus (PCR) Influenza Type A (PCR) Influenza Type B (PCR) RSV RNA Qual (PCR) Blood Type Antibody Screen 06/13/20 06/13/20 06/13/20 05:34 07:25 12:00 WBC RBC Hgb Hct MCV MCH MCHC RDW Plt Count MPV Immature Gran % (Auto) Neut % (Auto) Lymph % (Auto) [place] % (Auto) Eos % (Auto) Baso % (Auto) Lymph # (Auto) [place] # (Auto) Eos # (Auto) Baso # (Auto) Abs Immat Gran (auto) Absolute Neuts (auto) Absolute Nucleated RBC Nucleated RBC % (auto) Smear Tech's Comments PT Cancelled INR Cancelled APTT Sodium Potassium Chloride Carbon Dioxide Anion Gap BUN Creatinine Estim Creat Clear Calc Estimated GFR POC Glucose 85 103 Random Glucose Fasting Glucose Lactic Acid Lactic Acid Fup @ 2Hr Lactic Acid Fup @ 4Hr Calcium Magnesium Total Bilirubin Direct Bilirubin AST ALT Alkaline Phosphatase B-Natriuretic Peptide Total Protein Albumin Lipase Urine Color Urine Appearance Urine pH Ur Specific [place] Urine Protein Urine Glucose (UA) Urine Ketones Urine Blood Urine Nitrite Ur Leukocyte Esterase Ethyl Alcohol Coronavirus (PCR) Influenza Type A (PCR) Influenza Type B (PCR) RSV RNA Qual (PCR) Blood Type Antibody Screen 06/13/20 06/13/20 06/14/20 16:07 20:32 05:43 WBC 10.8 RBC 3.00 L Hgb 10.2 L Hct 31.1 L MCV 103.7 H MCH 34.0 H MCHC 32.8 RDW 17.2 H Plt Count 353 MPV 10.9 Immature Gran % (Auto) 1.1 H Neut % (Auto) 79.5 H Lymph % (Auto) 14.4 L [place] % (Auto) 3.8 Eos % (Auto) 0.4 Baso % (Auto) 0.8 Lymph # (Auto) 1.6 [place] # (Auto) 0.4 Eos # (Auto) 0.0 Baso # (Auto) 0.1 Abs Immat Gran (auto) 0.12 H Absolute Neuts (auto) 8.6 H Absolute Nucleated RBC 0.000 Nucleated RBC % (auto) 0.0 Smear Tech's Comments PT INR APTT Sodium Potassium Chloride Carbon Dioxide Anion Gap BUN Creatinine Estim Creat Clear Calc Estimated GFR POC Glucose 85 89 Random Glucose Fasting Glucose Lactic Acid Lactic Acid Fup @ 2Hr Lactic Acid Fup @ 4Hr Calcium Magnesium Total Bilirubin Direct Bilirubin AST ALT Alkaline Phosphatase B-Natriuretic Peptide Total Protein Albumin Lipase Urine Color Urine Appearance Urine pH Ur Specific [place] Urine Protein Urine Glucose (UA) Urine Ketones Urine Blood Urine Nitrite Ur Leukocyte Esterase Ethyl Alcohol Coronavirus (PCR) Influenza Type A (PCR) Influenza Type B (PCR) RSV RNA Qual (PCR) Blood Type Antibody Screen 06/14/20 06/14/20 06/14/20 05:43 05:43 08:12 WBC RBC Hgb Hct MCV MCH MCHC RDW Plt Count MPV Immature Gran % (Auto) Neut % (Auto) Lymph % (Auto) [place] % (Auto) Eos % (Auto) Baso % (Auto) Lymph # (Auto) [place] # (Auto) Eos # (Auto) Baso # (Auto) Abs Immat Gran (auto) Absolute Neuts (auto) Absolute Nucleated RBC Nucleated RBC % (auto) Smear Tech's Comments PT 13.6 H INR 1.1 APTT Sodium 138 Potassium 3.6 Chloride 105 Carbon Dioxide 26 Anion Gap 11 L BUN 2 L Creatinine 0.52 Estim Creat Clear Calc 187.2 Estimated GFR > 60 POC Glucose 85 Random Glucose 74 Fasting Glucose Lactic Acid Lactic Acid Fup @ 2Hr Lactic Acid Fup @ 4Hr Calcium 7.3 L Magnesium Total Bilirubin 2.0 H Direct Bilirubin 1.7 H AST 45 H ALT 21 Alkaline Phosphatase 123 H B-Natriuretic Peptide Total Protein 4.6 L Albumin 2.0 L Lipase Urine Color Urine Appearance Urine pH Ur Specific [place] Urine Protein Urine Glucose (UA) Urine Ketones Urine Blood Urine Nitrite Ur Leukocyte Esterase Ethyl Alcohol Coronavirus (PCR) Influenza Type A (PCR) Influenza Type B (PCR) RSV RNA Qual (PCR) Blood Type Antibody Screen 06/14/20 06/14/20 06/14/20 11:41 16:16 20:23 WBC RBC Hgb Hct MCV MCH MCHC RDW Plt Count MPV Immature Gran % (Auto) Neut % (Auto) Lymph % (Auto) [place] % (Auto) Eos % (Auto) Baso % (Auto) Lymph # (Auto) [place] # (Auto) Eos # (Auto) Baso # (Auto) Abs Immat Gran (auto) Absolute Neuts (auto) Absolute Nucleated RBC Nucleated RBC % (auto) Smear Tech's Comments PT INR APTT Sodium Potassium Chloride Carbon Dioxide Anion Gap BUN Creatinine Estim Creat Clear Calc Estimated GFR POC Glucose 80 88 93 Random Glucose Fasting Glucose Lactic Acid Lactic Acid Fup @ 2Hr Lactic Acid Fup @ 4Hr Calcium Magnesium Total Bilirubin Direct Bilirubin AST ALT Alkaline Phosphatase B-Natriuretic Peptide Total Protein Albumin Lipase Urine Color Urine Appearance Urine pH Ur Specific [place] Urine Protein Urine Glucose (UA) Urine Ketones Urine Blood Urine Nitrite Ur Leukocyte Esterase Ethyl Alcohol Coronavirus (PCR) Influenza Type A (PCR) Influenza Type B (PCR) RSV RNA Qual (PCR) Blood Type Antibody Screen 06/15/20 06/15/20 06/15/20 05:39 05:39 05:39 WBC 10.3 RBC 3.05 L Hgb 10.4 L Hct 31.9 L MCV 104.6 H MCH 34.1 H MCHC 32.6 RDW 16.9 H Plt Count 369 MPV 10.6 Immature Gran % (Auto) 1.2 H Neut % (Auto) 78.7 H Lymph % (Auto) 15.6 L [place] % (Auto) 3.0 Eos % (Auto) 0.7 Baso % (Auto) 0.8 Lymph # (Auto) 1.6 [place] # (Auto) 0.3 Eos # (Auto) 0.1 Baso # (Auto) 0.1 Abs Immat Gran (auto) 0.12 H Absolute Neuts (auto) 8.1 Absolute Nucleated RBC 0.000 Nucleated RBC % (auto) 0.0 Smear Tech's Comments PT 14.3 H INR 1.2 H APTT Sodium 141 Potassium 4.5 D Chloride 106 Carbon Dioxide 26 Anion Gap 14 BUN 2 L Creatinine 0.53 Estim Creat Clear Calc 183.6 Estimated GFR > 60 POC Glucose Random Glucose 74 Fasting Glucose Lactic Acid Lactic Acid Fup @ 2Hr Lactic Acid Fup @ 4Hr Calcium 7.6 L Magnesium Total Bilirubin Direct Bilirubin AST ALT Alkaline Phosphatase B-Natriuretic Peptide Total Protein Albumin Lipase Urine Color Urine Appearance Urine pH Ur Specific [place] Urine Protein Urine Glucose (UA) Urine Ketones Urine Blood Urine Nitrite Ur Leukocyte Esterase Ethyl Alcohol Coronavirus (PCR) Influenza Type A (PCR) Influenza Type B (PCR) RSV RNA Qual (PCR) Blood Type Antibody Screen 06/15/20 06/15/20 06/15/20 07:25 11:17 16:49 WBC RBC Hgb Hct MCV MCH MCHC RDW Plt Count MPV Immature Gran % (Auto) Neut % (Auto) Lymph % (Auto) [place] % (Auto) Eos % (Auto) Baso % (Auto) Lymph # (Auto) [place] # (Auto) Eos # (Auto) Baso # (Auto) Abs Immat Gran (auto) Absolute Neuts (auto) Absolute Nucleated RBC Nucleated RBC % (auto) Smear Tech's Comments PT INR APTT Sodium Potassium Chloride Carbon Dioxide Anion Gap BUN Creatinine Estim Creat Clear Calc Estimated GFR POC Glucose 89 97 91 Random Glucose Fasting Glucose Lactic Acid Lactic Acid Fup @ 2Hr Lactic Acid Fup @ 4Hr Calcium Magnesium Total Bilirubin Direct Bilirubin AST ALT Alkaline Phosphatase B-Natriuretic Peptide Total Protein Albumin Lipase Urine Color Urine Appearance Urine pH Ur Specific [place] Urine Protein Urine Glucose (UA) Urine Ketones Urine Blood Urine Nitrite Ur Leukocyte Esterase Ethyl Alcohol Coronavirus (PCR) Influenza Type A (PCR) Influenza Type B (PCR) RSV RNA Qual (PCR) Blood Type Antibody Screen 06/15/20 06/16/20 06/16/20 20:20 05:59 05:59 WBC RBC Hgb Hct MCV MCH MCHC RDW Plt Count MPV Immature Gran % (Auto) Neut % (Auto) Lymph % (Auto) [place] % (Auto) Eos % (Auto) Baso % (Auto) Lymph # (Auto) [place] # (Auto) Eos # (Auto) Baso # (Auto) Abs Immat Gran (auto) Absolute Neuts (auto) Absolute Nucleated RBC Nucleated RBC % (auto) Smear Tech's Comments PT 13.6 H INR 1.1 APTT Sodium 139 Potassium 3.7 Chloride 104 Carbon Dioxide 26 Anion Gap 13 BUN 3 L Creatinine 0.51 Estim Creat Clear Calc 190.8 Estimated GFR > 60 POC Glucose 114 Random Glucose 79 Fasting Glucose Lactic Acid Lactic Acid Fup @ 2Hr Lactic Acid Fup @ 4Hr Calcium 7.5 L Magnesium Total Bilirubin 1.8 H Direct Bilirubin 1.5 H AST 45 H ALT 22 Alkaline Phosphatase 112 B-Natriuretic Peptide Total Protein 4.8 L Albumin 2.1 L Lipase Urine Color Urine Appearance Urine pH Ur Specific [place] Urine Protein Urine Glucose (UA) Urine Ketones Urine Blood Urine Nitrite Ur Leukocyte Esterase Ethyl Alcohol Coronavirus (PCR) Influenza Type A (PCR) Influenza Type B (PCR) RSV RNA Qual (PCR) Blood Type Antibody Screen 06/16/20 06/16/20 06/16/20 07:23 11:36 16:27 WBC RBC Hgb Hct MCV MCH MCHC RDW Plt Count MPV Immature Gran % (Auto) Neut % (Auto) Lymph % (Auto) [place] % (Auto) Eos % (Auto) Baso % (Auto) Lymph # (Auto) [place] # (Auto) Eos # (Auto) Baso # (Auto) Abs Immat Gran (auto) Absolute Neuts (auto) Absolute Nucleated RBC Nucleated RBC % (auto) Smear Tech's Comments PT INR APTT Sodium Potassium Chloride Carbon Dioxide Anion Gap BUN Creatinine Estim Creat Clear Calc Estimated GFR POC Glucose 83 110 96 Random Glucose Fasting Glucose Lactic Acid Lactic Acid Fup @ 2Hr Lactic Acid Fup @ 4Hr Calcium Magnesium Total Bilirubin Direct Bilirubin AST ALT Alkaline Phosphatase B-Natriuretic Peptide Total Protein Albumin Lipase Urine Color Urine Appearance Urine pH Ur Specific [place] Urine Protein Urine Glucose (UA) Urine Ketones Urine Blood Urine Nitrite Ur Leukocyte Esterase Ethyl Alcohol Coronavirus (PCR) Influenza Type A (PCR) Influenza Type B (PCR) RSV RNA Qual (PCR) Blood Type Antibody Screen 06/16/20 06/17/20 06/17/20 21:09 07:49 11:20 WBC RBC Hgb Hct MCV MCH MCHC RDW Plt Count MPV Immature Gran % (Auto) Neut % (Auto) Lymph % (Auto) [place] % (Auto) Eos % (Auto) Baso % (Auto) Lymph # (Auto) [place] # (Auto) Eos # (Auto) Baso # (Auto) Abs Immat Gran (auto) Absolute Neuts (auto) Absolute Nucleated RBC Nucleated RBC % (auto) Smear Tech's Comments PT INR APTT Sodium Potassium Chloride Carbon Dioxide Anion Gap BUN Creatinine Estim Creat Clear Calc Estimated GFR POC Glucose 94 81 109 Random Glucose Fasting Glucose Lactic Acid Lactic Acid Fup @ 2Hr Lactic Acid Fup @ 4Hr Calcium Magnesium Total Bilirubin Direct Bilirubin AST ALT Alkaline Phosphatase B-Natriuretic Peptide Total Protein Albumin Lipase Urine Color Urine Appearance Urine pH Ur Specific [place] Urine Protein Urine Glucose (UA) Urine Ketones Urine Blood Urine Nitrite Ur Leukocyte Esterase Ethyl Alcohol Coronavirus (PCR) Influenza Type A (PCR) Influenza Type B (PCR) RSV RNA Qual (PCR) Blood Type Antibody Screen 06/17/20 06/17/20 06/18/20 16:33 20:29 07:49 WBC RBC Hgb Hct MCV MCH MCHC RDW Plt Count MPV Immature Gran % (Auto) Neut % (Auto) Lymph % (Auto) [place] % (Auto) Eos % (Auto) Baso % (Auto) Lymph # (Auto) [place] # (Auto) Eos # (Auto) Baso # (Auto) Abs Immat Gran (auto) Absolute Neuts (auto) Absolute Nucleated RBC Nucleated RBC % (auto) Smear Tech's Comments PT INR APTT Sodium Potassium Chloride Carbon Dioxide Anion Gap BUN Creatinine Estim Creat Clear Calc Estimated GFR POC Glucose 92 83 113 Random Glucose Fasting Glucose Lactic Acid Lactic Acid Fup @ 2Hr Lactic Acid Fup @ 4Hr Calcium Magnesium Total Bilirubin Direct Bilirubin AST ALT Alkaline Phosphatase B-Natriuretic Peptide Total Protein Albumin Lipase Urine Color Urine Appearance Urine pH Ur Specific [place] Urine Protein Urine Glucose (UA) Urine Ketones Urine Blood Urine Nitrite Ur Leukocyte Esterase Ethyl Alcohol Coronavirus (PCR) Influenza Type A (PCR) Influenza Type B (PCR) RSV RNA Qual (PCR) Blood Type Antibody Screen 06/18/20 06/18/20 06/18/20 11:51 16:36 20:36 WBC RBC Hgb Hct MCV MCH MCHC RDW Plt Count MPV Immature Gran % (Auto) Neut % (Auto) Lymph % (Auto) [place] % (Auto) Eos % (Auto) Baso % (Auto) Lymph # (Auto) [place] # (Auto) Eos # (Auto) Baso # (Auto) Abs Immat Gran (auto) Absolute Neuts (auto) Absolute Nucleated RBC Nucleated RBC % (auto) Smear Tech's Comments PT INR APTT Sodium Potassium Chloride Carbon Dioxide Anion Gap BUN Creatinine Estim Creat Clear Calc Estimated GFR POC Glucose 83 126 H 128 H Random Glucose Fasting Glucose Lactic Acid Lactic Acid Fup @ 2Hr Lactic Acid Fup @ 4Hr Calcium Magnesium Total Bilirubin Direct Bilirubin AST ALT Alkaline Phosphatase B-Natriuretic Peptide Total Protein Albumin Lipase Urine Color Urine Appearance Urine pH Ur Specific [place] Urine Protein Urine Glucose (UA) Urine Ketones Urine Blood Urine Nitrite Ur Leukocyte Esterase Ethyl Alcohol Coronavirus (PCR) Influenza Type A (PCR) Influenza Type B (PCR) RSV RNA Qual (PCR) Blood Type Antibody Screen 06/19/20 06/19/20 06/19/20 06:03 06:03 07:24 WBC 10.7 RBC 3.11 L Hgb 10.7 L Hct 32.9 L MCV 105.8 H MCH 34.4 H MCHC 32.5 RDW 15.5 Plt Count 388 MPV 11.0 Immature Gran % (Auto) Neut % (Auto) Lymph % (Auto) [place] % (Auto) Eos % (Auto) Baso % (Auto) Lymph # (Auto) [place] # (Auto) Eos # (Auto) Baso # (Auto) Abs Immat Gran (auto) Absolute Neuts (auto) Absolute Nucleated RBC 0.000 Nucleated RBC % (auto) 0.0 Smear Tech's Comments PT INR APTT Sodium 137 Potassium 4.5 D Chloride 102 Carbon Dioxide 28 Anion Gap 12 BUN 5 L D Creatinine 0.70 Estim Creat Clear Calc 139.0 Estimated GFR > 60 POC Glucose 77 Random Glucose 83 Fasting Glucose Lactic Acid Lactic Acid Fup @ 2Hr Lactic Acid Fup @ 4Hr Calcium 7.7 L Magnesium Total Bilirubin Direct Bilirubin AST ALT Alkaline Phosphatase B-Natriuretic Peptide Total Protein Albumin Lipase Urine Color Urine Appearance Urine pH Ur Specific [place] Urine Protein Urine Glucose (UA) Urine Ketones Urine Blood Urine Nitrite Ur Leukocyte Esterase Ethyl Alcohol Coronavirus (PCR) Influenza Type A (PCR) Influenza Type B (PCR) RSV RNA Qual (PCR) Blood Type Antibody Screen 06/19/20 06/19/20 06/19/20 11:25 16:36 17:06 WBC RBC Hgb Hct MCV MCH MCHC RDW Plt Count MPV Immature Gran % (Auto) Neut % (Auto) Lymph % (Auto) [place] % (Auto) Eos % (Auto) Baso % (Auto) Lymph # (Auto) [place] # (Auto) Eos # (Auto) Baso # (Auto) Abs Immat Gran (auto) Absolute Neuts (auto) Absolute Nucleated RBC Nucleated RBC % (auto) Smear Tech's Comments PT INR APTT Sodium Potassium Chloride Carbon Dioxide Anion Gap BUN Creatinine Estim Creat Clear Calc Estimated GFR POC Glucose 80 66 88 Random Glucose Fasting Glucose Lactic Acid Lactic Acid Fup @ 2Hr Lactic Acid Fup @ 4Hr Calcium Magnesium Total Bilirubin Direct Bilirubin AST ALT Alkaline Phosphatase B-Natriuretic Peptide Total Protein Albumin Lipase Urine Color Urine Appearance Urine pH Ur Specific [place] Urine Protein Urine Glucose (UA) Urine Ketones Urine Blood Urine Nitrite Ur Leukocyte Esterase Ethyl Alcohol Coronavirus (PCR) Influenza Type A (PCR) Influenza Type B (PCR) RSV RNA Qual (PCR) Blood Type Antibody Screen 06/19/20 06/20/20 06/20/20 20:53 07:42 11:40 WBC RBC Hgb Hct MCV MCH MCHC RDW Plt Count MPV Immature Gran % (Auto) Neut % (Auto) Lymph % (Auto) [place] % (Auto) Eos % (Auto) Baso % (Auto) Lymph # (Auto) [place] # (Auto) Eos # (Auto) Baso # (Auto) Abs Immat Gran (auto) Absolute Neuts (auto) Absolute Nucleated RBC Nucleated RBC % (auto) Smear Tech's Comments PT INR APTT Sodium Potassium Chloride Carbon Dioxide Anion Gap BUN Creatinine Estim Creat Clear Calc Estimated GFR POC Glucose 77 76 86 Random Glucose Fasting Glucose Lactic Acid Lactic Acid Fup @ 2Hr Lactic Acid Fup @ 4Hr Calcium Magnesium Total Bilirubin Direct Bilirubin AST ALT Alkaline Phosphatase B-Natriuretic Peptide Total Protein Albumin Lipase Urine Color Urine Appearance Urine pH Ur Specific [place] Urine Protein Urine Glucose (UA) Urine Ketones Urine Blood Urine Nitrite Ur Leukocyte Esterase Ethyl Alcohol Coronavirus (PCR) Influenza Type A (PCR) Influenza Type B (PCR) RSV RNA Qual (PCR) Blood Type Antibody Screen 06/20/20 06/20/20 06/21/20 16:39 20:29 07:34 WBC RBC Hgb Hct MCV MCH MCHC RDW Plt Count MPV Immature Gran % (Auto) Neut % (Auto) Lymph % (Auto) [place] % (Auto) Eos % (Auto) Baso % (Auto) Lymph # (Auto) [place] # (Auto) Eos # (Auto) Baso # (Auto) Abs Immat Gran (auto) Absolute Neuts (auto) Absolute Nucleated RBC Nucleated RBC % (auto) Smear Tech's Comments PT INR APTT Sodium Potassium Chloride Carbon Dioxide Anion Gap BUN Creatinine Estim Creat Clear Calc Estimated GFR POC Glucose 97 100 67 Random Glucose Fasting Glucose Lactic Acid Lactic Acid Fup @ 2Hr Lactic Acid Fup @ 4Hr Calcium Magnesium Total Bilirubin Direct Bilirubin AST ALT Alkaline Phosphatase B-Natriuretic Peptide Total Protein Albumin Lipase Urine Color Urine Appearance Urine pH Ur Specific [place] Urine Protein Urine Glucose (UA) Urine Ketones Urine Blood Urine Nitrite Ur Leukocyte Esterase Ethyl Alcohol Coronavirus (PCR) Influenza Type A (PCR) Influenza Type B (PCR) RSV RNA Qual (PCR) Blood Type Antibody Screen Discharge Plan Discharge Anticipated Discharge Date/Time: 06/21/20 08:55 Patient Disposition: Home, Self-Care [facility] [Outside] Yodit Flower [employer] [Primary Care Provider] - 1 Week (Nurse will call you with a follow up appointment.) Discharge Medications: New magnesium oxide 400 mg (241.3 mg magnesium) Tablet 400 mg PO BIDPC Qty: 60 RF: 0 metoprolol tartrate 25 mg Tablet 25 mg PO BID Qty: 60 RF: 0 Continued Eliquis 5 mg Tablet 5 mg PO BID RF: 0 oxycodone 5 mg Capsule 5 mg PO Q6H PRN (Reason: Pain) RF: 0 Certavite-Antioxidant 18-400 mg-mcg Tablet 1 tab PO DAILY RF: 0 atorvastatin 40 mg tablet 40 tab PO DAILY RF: 0 gabapentin 300 mg capsule 300 mg PO BEDTIME RF: 0 omeprazole 20 mg capsule,delayed release(DR/EC) 20 cap PO BID RF: 0 folic acid 1 mg tablet 1 tab PO DAILY RF: 0 cholecalciferol (vitamin D3) [Vitamin D3] 25 mcg (1,000 unit) capsule 1 cap PO DAILY RF: 0 quetiapine 50 mg tablet 50 mg PO BEDTIME RF: 0 Discharge Orders: Discharge Order (Routine); Ordered 06/21/20 Ordered By: Norbert Peter Diet: advance to usual diet Activity on Discharge: As tolerated Stand Alone Forms: Patient Portal Discharge page Visit Report Forms: Patient Portal Discharge page Care Plan Goals: Resolution of cholecystitis Health Concerns: acalculous cholecystitis, alcoholis Plan of Treatment: Leave tube in to drain gallbladder, follow up with surgoen, avoid alcohol Discharge Date/Time: 06/21/20 13:45
[2020-06-21 10:14] LABS: COVID-19 Test Negative (Negative)
--- NOTE | 2020-06-21 10:59 | MHC.CM.PN ---
PER CONVERSATION WITH KERRIE, HE CHOOSES [facility] OVER [facility]. HE DOES NOT WANT TO GO FOR A LONG TIME, AND REPORTS THAT HE WILL GIVE IT THREE DAYS. THIS [employer] FORESTER SUGGESTED THAT PATIENT BE OPEN TO MORE TIME ONCE HE SETTLES IN. PATIENT IS MORE ORIENTED TO CONVERSATION TODAY THAN YESTERDAY. [facility] TO BE SCHEDULED FOR 13:00 RN AND UNIT AWARE.
--- NOTE | 2020-06-21 11:17 | MHC.CM.PN ---
HCP [facility] ([phone]) AWARE OF PLANS FOR 13:30 TRANSPORT TO [facility].
[2020-06-21 11:44] VITALS: BP 107/68; PULSE 71; RESP 18; TEMP 36.5; O2SAT 96
--- NOTE | 2020-06-21 11:52 | MHC.CM.PN ---
PER REVIEW OF [employer] [employer], [facility] IS REFUSING TO RE-OFFER SERVICES TO PATIENT, IT POSED A SAFETY CONCERN FOR STAFF.
[2020-06-21 11:58] LABS: Glucose, Whole Blood 98 mg/dL (60-115)
== END 2020-06-21 13:45 | disposition home or self-care (01) | DRG 377 ==
LOC: HO.ED 16:35 → HO.EDOVER 20:20 → HO.IMC 23:09 → HO.S3 06-15 15:26
PROVIDERS: Internal Medicine; Nurse Practitioner Acute Care; Physician Assistant; Radiology Diagnostic Radiology; Student in an Organized Health Care Education/Training Program; Admitting Provider Internal Medicine; Emergency Provider Emergency Medicine Emergency Medical Services; PCP Nurse Practitioner Family; Visit Provider Internal Medicine
PROC: 0DJ08ZZ Inspection of Upper Intestinal Tract, Via Natural or Artificial Opening Endoscopic (ICD-10-PCS; CPT 43235; principal; 2020-06-08 15:20)
PROC: 0F9430Z Drainage of Gallbladder with Drainage Device, Percutaneous Approach (ICD-10-PCS; principal; 2020-06-11 12:00)
DX: K29.21 Alcoholic gastritis with bleeding (principal); I50.43 Acute on chronic combined systolic (congestive) and diastolic (congestive) heart failure; E87.2 Acidosis; F10.239 Alcohol dependence with withdrawal, unspecified; K81.0 Acute cholecystitis; E44.0 Moderate protein-calorie malnutrition; R93.2 Abnormal findings on diagnostic imaging of liver and biliary tract; K44.9 Diaphragmatic hernia without obstruction or gangrene; F32.9 Major depressive disorder, single episode, unspecified; E87.6 Hypokalemia; I95.9 Hypotension, unspecified; T45.515A Adverse effect of anticoagulants, initial encounter; Y92.9 Unspecified place or not applicable; E83.42 Hypomagnesemia; Z20.822 Contact with and (suspected) exposure to COVID-19; E86.0 Dehydration; Z79.01 Long term (current) use of anticoagulants; R74.01 Elevation of levels of liver transaminase levels; Z86.718 Personal history of other venous thrombosis and embolism; Z68.33 Body mass index [BMI] 33.0-33.9, adult; Z79.891 Long term (current) use of opiate analgesic; Z79.899 Other long term (current) drug therapy
CPT/HCPCS: 0241U; 36415; 71045; 74181; 75989; 76705; 78226; 80048; 80076; 80320; 81003; 82947; 83605; 83690; 83735; 83880; 85014; 85018; 85025; 85027; 85610; 85730; 86850; 86900; 86901; 87040; 87070; 87073; 87086; 87205; 87635; 93005; 93306; 96361; 96365; 96372; 96375; 97116; 97162; 99285; A9537; C1729; J0696; J1650; J1940; J2270; J2405; J2543; J2560; J3430; J3475; Q4186; Q9957

== ENCOUNTER → 2020-07-07 10:58 | Outpatient (BNVA) | payer MEDICARE, MEDICAID, SELFPAY | PROVIDERS: PCP Nurse Practitioner Family; Visit Provider Surgery | DX: Z76.89 Persons encountering health services in other specified circumstances (principal) | CPT/HCPCS: 99212 ==

== ENCOUNTER 2020-07-10 09:42 | Inpatient (IN) | payer MEDICARE, MEDICAID, SELFPAY ==
[2020-07-10] VITALS (13 sets, daily range): BP systolic 87–141; BP diastolic 44–91; PULSE 89–124; RESP 12–22; TEMP 37.2–39.3; O2SAT 94–100; BMI 33.5
--- NOTE | ~2020-07-10 | CT_ITS ---
EXAMINATION: CT HEAD WITHOUT CONTRAST CLINICAL INFORMATION: Acute mental status change COMPARISON: Previous head CT April 2020 TECHNIQUE: Contiguous axial imaging was performed from the skull base to vertex without intravenous administration of contrast. This CT examination was performed using dose optimization techniques as appropriate, variously including the following: *Automated exposure control *Adjustment of mA and/or kV according to patient size (this includes techniques or standardized protocols for targeted exams where dose is matched to indication/reason for exam; i.e. extremities or head) *Use of iterative reconstruction technique DLP: 727 mGy-cm FINDINGS: There is no evidence of an extra-axial collection. There is no evidence of intra-axial or extra-axial hemorrhage. The ventricles and extra-axial CSF spaces are slightly prominent suggestive of mild generalized atrophy. There is nonspecific periventricular white matter disease. There is an old right periventricular and subcortical white matter of parietal infarct. This appears unchanged. No mass, mass effect or acute infarct is seen. Review of bone windows is normal. Visualized mastoid air cells, middle ears and paranasal sinuses are clear. CT/CT head/brain wo con IMPRESSION: No acute findings. 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
--- NOTE | ~2020-07-10 | CT_ITS ---
EXAMINATION: CT OF THE CHEST, ABDOMEN AND PELVIS WITHOUT IV CONTRAST CLINICAL INFORMATION: Acute mental status. History of cholecystitis and cholecystostomy tube. COMPARISON: Previous CT scan most recent April 2020 and May 2020 TECHNIQUE: Axial images through the chest, abdomen and pelvis without IV or oral contrast. Sagittal and coronal reconstructions on the technologist workstation were performed. Patient dose 5 2 2 mg/cm. This CT examination was performed using dose optimization techniques as appropriate, variously including the following: *Automated exposure control *Adjustment of mA and/or kV according to patient size (this includes techniques or standardized protocols for targeted exams where dose is matched to indication/reason for exam; i.e. extremities or head) *Use of iterative reconstruction technique FINDINGS: Chest: There is a new 2 x 3 cm nodule in the superior segment of the right lower lobe axial image 29 series 17. This involves the right major fissure and may extend into the posterior segment of the right upper lobe. There is also rounding groundglass attenuation and increased interstitial markings and some more on semisolid nodular opacities. This is new from April and May 2019 exams. There is a small patchy area of increased groundglass attenuation seen in the anterior lateral basal lower lobe near diaphragm axial image 42 series 17. The left lung is clear. There are no enlarged hilar or mediastinal lymph nodes. The heart does not appear enlarged. There is coronary artery calcification. The thoracic aorta is slightly dilated. The ascending thoracic aorta measures 4.4 cm, aortic arch 3.2 cm and descending thoracic aorta is tortuous and upper normal in size measuring 3 cm. There is a trace pericardial fluid or thickening. There is no pleural effusion. There is trace pleural thickening seen adjacent to the new right lower lobe nodule. There is trace pleural thickening adjacent to the posterior medial left lower lobe. No chest wall mass or enlarged axillary lymph nodes are seen. There are left anterior eighth and ninth and 10th healing rib fractures. There are degenerative changes of the spine and shoulders. Abdomen and pelvis: The liver is low in attenuation suggestive of fatty infiltration. The liver is enlarged. There is a cholecystostomy tube in the gallbladder. The gallbladder is normal in size. There is a small amount of air in the gallbladder probably related to cholecystostomy tube. There is no intra or extrahepatic biliary duct dilatation. The pancreas appears atrophic. The adrenal glands are normal appearing. There is a high attenuation lesion in the upper pole of the left kidney measuring 2 cm probably representing a hyperdense cyst. There is a 1 cm low-attenuation lesion in the medial lower pole of the left kidney probably representing a cyst. The kidneys are otherwise unremarkable. There is a Morris catheter in the bladder. The bladder is empty. The bladder wall appears diffusely thickened. The prostate gland does not appear enlarged. There is mild diverticulosis of the colon. Small and large bowel is otherwise unremarkable. The appendix is not seen. There are postsurgical changes to the stomach. There is evidence of atherosclerotic disease. No aneurysm is seen. There is a small left inguinal hernia containing fat. No ascites or adenopathy is seen. There are degenerative changes of the spine and hip joints. CT/CT abdomen pelvis wo con IMPRESSION: Chest: New 2 x 3 cm superior segment right lower lobe nodule abutting the major fissure and probably extending into the posterior segment of the right upper lobe. Increased interstitial markings and groundglass attenuation and small adjacent more superior right upper lobe on semisolid nodule. Given new appearance from recent exam, an infectious or inflammatory process is favored. Neoplastic process cannot be excluded and imaging follow-up following treatment is recommended. Coronary artery disease. Slightly dilated thoracic aorta. Healing left eighth and ninth and 10th rib fractures. Abdomen and pelvis: Satisfactory position of cholecystostomy tube. Enlarged fatty liver. Probable left renal cysts. Morris catheter in the bladder. The bladder wall appears diffusely thickened.
--- NOTE | ~2020-07-10 | CT_ITS ---
EXAMINATION: CT CERVICAL SPINE WITHOUT CONTRAST CLINICAL INFORMATION: Acute mental status change. Fall. COMPARISON: Previous CT of the cervical spine April 2020 TECHNIQUE: Axial images through the cervical spine without contrast. Exam is limited due to motion artifact. Sagittal and coronal reconstructions on the technologist's workstation were performed. This CT examination was performed using dose optimization techniques as appropriate, variously including the following: *Automated exposure control *Adjustment of mA and/or kV according to patient size (this includes techniques or standardized protocols for targeted exams where dose is matched to indication/reason for exam; i.e. extremities or head) *Use of iterative reconstruction technique DLP: 1189 mGy-cm FINDINGS: Bone alignment is normal. No fracture or dislocation is seen. There is multilevel degenerative spondylosis and degenerative disc disease. There is bilateral multilevel facet arthritis. There are degenerative changes at the C1 dens articulation. Prevertebral soft tissues are normal. There is left carotid calcification. CT/CT cervical spine wo con IMPRESSION: Degenerative changes. No fracture or dislocation seen.
--- NOTE | 2020-07-10 09:47 | ECG_ITS ---
Test Reason : UNRESPONSIVE Blood Pressure : / mmHG Vent. Rate : 093 BPM Atrial Rate : 100 BPM P-R Int : 142 ms QRS Dur : 072 ms QT Int : 376 ms P-R-T Axes : 044 026 082 degrees QTc Int : 467 ms Sinus rhythm with PVC Otherwise normal ECG When compared with ECG of 16-JUN-2020 08:50, PVC present Referred By: Stacy Melton Electronically Signed By:Fermin Bonner
[2020-07-10] MEDS: Dextrose 50 % 25 GM/50 ML SYRINGE IVPUSH ×5 (09:52→19:54)
--- NOTE | 2020-07-10 09:56 | ED.AMS ---
HPI - Altered Mental Status General Chief Complaint: Overdose Stated Complaint: unresponsive Time Seen by Provider: 07/10/20 09:45 Source: EMS and old records reviewed Mode of arrival: EMS Limitations: altered mental status History of Present Illness HPI narrative: 06/04 to 06/21 admitted here for acalculous cholecystisis, GIB (gastritis), sCHF was also making SI statements at that time at that time drug screen positive for barbiturates/PCP/benzodiazepines/ETOH abuse as well - s/p IR tube for GB just seen on 07/07 at surgery for follow up was doing well, stopcock for tube closed on 07/07, patient is on eliquis for DVT - reportedly per EMS spouse noted he was unresponsive at 430am but she called hours later and on their arrival he was apneic and unresponsive with a pulse and found with a bottle of valium that his spouse said he bought off the street a couple of days ago and there were 30 of them gone. No note found, unsure what happened, EMS noted a BS of 136 he was intubated in the field without issue, on arrival to the ED blood sugar was L - given 2 amps of dextrose up to 99 and now waking up more MD complaint: altered mental status Onset (ago): hour(s) (started at 430am ) Timing confirmed by: spouse Severity: severe Consistency of symptoms: getting Worse Context: alcohol abuse, drug abuse, history of similar presentation and liver disease Associated symptoms: denies other symptoms Treatments prior to arrival: IV fluid and intubation Related Data Home Medications Medication Instructions Recorded Confirmed atorvastatin 40 tab PO DAILY 03/02/20 07/10/20 folic acid 1 tab PO DAILY 03/02/20 07/10/20 gabapentin 300 mg PO BEDTIME 03/02/20 07/10/20 omeprazole 20 cap PO BID 03/02/20 07/10/20 Eliquis 5 mg PO BID 06/04/20 07/10/20 quetiapine 50 mg tablet 50 mg PO BEDTIME PRN 07/07/20 07/10/20 Previous Rx's Medication Instructions Recorded metoprolol tartrate 25 mg PO BID #60 tab 06/21/20 Allergies Allergy/AdvReac Type Severity Reaction Status Date / Time No Known Allergies Allergy Verified 06/08/20 13:59 [No Known Allergies*] Review of Systems Review of Systems: ROS unable to be obtained due to altered mental status PMFSH Past Medical History Source: old records reviewed Medical History Alcohol withdrawal Alcoholism Cardiomyopathy COPD (chronic obstructive pulmonary disease) COVID-19 COVID-19 determined by clinical diagnostic criteria Depression Diabetes ETOH abuse Fever of undetermined origin Seizure Surgical History History of gastric bypass History of sleeve gastrectomy Social History Social History Household Members: Significant Other Housing: Apartment Alcohol intake: never Smoking Status: Never smoker Tobacco Type: Cigarette Second Hand Smoke Exposure: Yes Use of substances other than those prescribed or required for medical reasons: No Advance Directives: No Advance Directives Information Provided: No service: No Current occupational status: unemployed Physical Exam Vital Signs: Vital Signs: Last Vital Signs Temp 99.7 F 07/10/20 14:47 Pulse 93 07/10/20 14:47 Resp 20 07/10/20 14:47 BP 111/71 07/10/20 14:47 Pulse Ox 99 07/10/20 14:47 Body Mass Index 33.5 Appearance: unresponsive, intubated, severe distress, no response to pain Eyes: bilateral 2mm sluggish ENT: Pharynx normal. intubated Neck: Normal inspection. Neck supple. CVS: Normal heart rate and rhythm. Pulses normal. Respiratory: No respiratory distress. Breath sounds decreased at the bases Abdomen: Soft and nontender. drain site is c/d/i - stopcock in place Skin: Skin warm and dry. pale skin color. Normal skin turgor. Extremities: No lower extremity edema. No calf ttp Neuro: unresponsive, no response on arrival to painful stimuli, depressed gag reflex. Course Course Course Narrative: on arrival to ED BS L - given 2 amps of dextrose up to 99 paitent waking up more after blood sugar correction the patient woke up was following all commands able to move all extremities, sit himself up, touching nose, sticking tongue out, giving thumbs up, 100% on pressure support with his own rate and large tidal volumes, extubated at that time as he was protecting his airway and alert, extubated at 1020am following all commands placed on 2L NC 98%, states he is not sure what happened, may have taken too much valium. patient doing well maintaining sats - protecting airway, coughing, GCS 15 still cannot fully remember what happened. denies SI when asked. patient now admits to SI but will not disclose what happened today if he overdosed low susp for self harm in the ED, he is calm and cooperative wants help repeat BS 29 - 3rd amp ordered, will start on D5NS - patient denies taking insulin and denies ingesting oral medication 2 amps of dextrose ordered possible lung infection will start on zosyn spoke to spouse - pills were 1mg xanax montrell mike [id number] he had no access to glyburide, has solostar but no needles found and she doesn't think he took them, spouse also notes that while he has not been drinking he's been taking upwards of 10mg xanax off the street, spouse notes he has not been eating at all but sucking on jolly ranchers so possible poor PO intake and stores after a full meal and on D5NS 100ml/hr his BS is 87, will repeat BMP asking Dr. Renteria to review case for input - continue antibiotics, D10, admit to floors, no ICU at this time Call to Dr. Liu - has seen the patient, keep the tube to drain once he is medically optimized will need cholecystectomy once drain was unblocked patient c/o pain but also 125cc of bile out - sent for culture MDM - Altered Mental Status MDM Narrative Medical decision making narrative: 59 yo male with DVT on eliquis, heavy ETOH and substance abuse, sCHF, DM, just treated for acalculous cholecystitis - found unresponsive with empty bottle of valium next to him, made SI statements recently - but no note found, BS found to be low, given dextrose will need zavala CT scan for trauma (also head on eliquis), toxic and metabolic workup Lab Data Result diagrams: 07/10/20 10:05 07/10/20 10:04 Labs: Lab Results 07/10/20 07/10/20 07/10/20 Range/Units 09:45 09:54 10:02 WBC (4.8-10.8) X10*3/uL RBC (4.60-5.80) X10*6/uL Hgb (14.0-18.0) g/dl Hct (42-52) % MCV (80-98) fL MCH (27.0-33.0) pg MCHC (31.0-36.0) g/dl RDW (11.0-16.0) % Plt Count (160-400) X10*3/uL MPV (9.4-12.4) fL Immature Gran % (Auto) (0.0-0.4) % Neut % (Auto) (45-73) % Lymph % (Auto) (20-40) % Real % (Auto) (2-11) % Eos % (Auto) (0-4) % Baso % (Auto) (0-2) % Lymph # (Auto) (1.2-4.9) X10*3/uL Real # (Auto) (0.1-1.2) X10*3/uL Eos # (Auto) (0.0-0.4) X10*3/uL Baso # (Auto) (0.0-0.2) X10*3/uL Abs Immat Gran (auto) (0.00-0.03) X10*3/uL Absolute Neuts (auto) (2.0-8.3) X10*3/uL Absolute Nucleated RBC (0.0-0.012) X10*3/uL Nucleated RBC % (auto) (0.0-0.2) /100WBC PT (10.8-13.0) SEC INR (0.9-1.1) APTT (24.1-38.0) SEC VBG pH (7.32-7.43) VBG pCO2 mmHg VBG pO2 mmHg VBG HCO3 mmol/L VBG O2 Saturation % VBG Base Excess mmol/L Sodium (135-145) mmol/L Potassium (3.3-5.1) mmol/L Chloride (96-108) mmol/L Carbon Dioxide (22-29) mmol/L Anion Gap (12-20) BUN (9-16) mg/dL Creatinine (0.5-1.4) mg/dL Estim Creat Clear Calc Estimated GFR POC Glucose < 10 L* 36 L* 99 (60-115) mg/dL Random Glucose (60-115) mg/dL Lactic Acid (0.5-2.0) mmol/L Calcium (8.4-10.2) mg/dL Magnesium (1.6-2.6) mg/dL Total Bilirubin (0.0-1.0) mg/dL Direct Bilirubin (0.0-0.5) mg/dL AST (5-37) U/L ALT (0-40) U/L Alkaline Phosphatase (39-117) U/L Ammonia (13-55) umol/L Total Creatine Kinase (38-174) U/L Troponin I High Sens (<3.5-35.0) ng/L Total Protein (6.5-8.0) g/dL Albumin (3.5-5.0) g/dL Lipase (8-78) U/L Procalcitonin ng/mL Urine Color Urine Appearance Urine pH (5.0-8.0) Ur Specific [place] (1.005-1.025) Urine Protein (NEG-TRACE) MG/DL Urine Glucose (UA) (NEG) MG/DL Urine Ketones (NEG) MG/DL Urine Blood (NEG) Urine Nitrite (NEG) Ur Leukocyte Esterase (NEG) Salicylates (15-30) mg/dL Urine Opiates Screen (Not Detect) Acetaminophen (<30) mcg/mL Ur Barbiturates Screen (Not Detect) Ur Phencyclidine Scrn (Not Detect) Ur Amphetamines Screen (Not Detect) U Benzodiazepines Scrn (Not Detect) Urine Cocaine Screen (Not Detect) U Marijuana (THC) Screen (Not Detect) Ethyl Alcohol mg/dL COVID-19 ([facility]) (Negative) COVID-19 Clin Com 07/10/20 07/10/20 07/10/20 Range/Units 10:03 10:03 10:04 WBC (4.8-10.8) X10*3/uL RBC (4.60-5.80) X10*6/uL Hgb (14.0-18.0) g/dl Hct (42-52) % MCV (80-98) fL MCH (27.0-33.0) pg MCHC (31.0-36.0) g/dl RDW (11.0-16.0) % Plt Count (160-400) X10*3/uL MPV (9.4-12.4) fL Immature Gran % (Auto) (0.0-0.4) % Neut % (Auto) (45-73) % Lymph % (Auto) (20-40) % Real % (Auto) (2-11) % Eos % (Auto) (0-4) % Baso % (Auto) (0-2) % Lymph # (Auto) (1.2-4.9) X10*3/uL Real # (Auto) (0.1-1.2) X10*3/uL Eos # (Auto) (0.0-0.4) X10*3/uL Baso # (Auto) (0.0-0.2) X10*3/uL Abs Immat Gran (auto) (0.00-0.03) X10*3/uL Absolute Neuts (auto) (2.0-8.3) X10*3/uL Absolute Nucleated RBC (0.0-0.012) X10*3/uL Nucleated RBC % (auto) (0.0-0.2) /100WBC PT (10.8-13.0) SEC INR (0.9-1.1) APTT (24.1-38.0) SEC VBG pH 7.36 (7.32-7.43) VBG pCO2 44 mmHg VBG pO2 45 mmHg VBG HCO3 25 mmol/L VBG O2 Saturation 69.0 % VBG Base Excess -0.2 mmol/L Sodium 141 (135-145) mmol/L Potassium 3.3 (3.3-5.1) mmol/L Chloride 106 (96-108) mmol/L Carbon Dioxide 24 (22-29) mmol/L Anion Gap 14 (12-20) BUN 3 L (9-16) mg/dL Creatinine 0.56 (0.5-1.4) mg/dL Estim Creat Clear Calc 173.8 Estimated GFR > 60 POC Glucose (60-115) mg/dL Random Glucose < 5 L* (60-115) mg/dL Lactic Acid (0.5-2.0) mmol/L Calcium 7.9 L (8.4-10.2) mg/dL Magnesium 1.6 (1.6-2.6) mg/dL Total Bilirubin 1.1 H (0.0-1.0) mg/dL Direct Bilirubin 0.8 H (0.0-0.5) mg/dL AST 24 D (5-37) U/L ALT 12 (0-40) U/L Alkaline Phosphatase 139 H D (39-117) U/L Ammonia (13-55) umol/L Total Creatine Kinase 18 L (38-174) U/L Troponin I High Sens (<3.5-35.0) ng/L Total Protein 5.8 L D (6.5-8.0) g/dL Albumin 2.4 L (3.5-5.0) g/dL Lipase (8-78) U/L Procalcitonin ng/mL Urine Color Urine Appearance Urine pH (5.0-8.0) Ur Specific [place] (1.005-1.025) Urine Protein (NEG-TRACE) MG/DL Urine Glucose (UA) (NEG) MG/DL Urine Ketones (NEG) MG/DL Urine Blood (NEG) Urine Nitrite (NEG) Ur Leukocyte Esterase (NEG) Salicylates (15-30) mg/dL Urine Opiates Screen (Not Detect) Acetaminophen (<30) mcg/mL Ur Barbiturates Screen (Not Detect) Ur Phencyclidine Scrn (Not Detect) Ur Amphetamines Screen (Not Detect) U Benzodiazepines Scrn (Not Detect) Urine Cocaine Screen (Not Detect) U Marijuana (THC) Screen (Not Detect) Ethyl Alcohol < 10 mg/dL COVID-19 ([facility]) (Negative) COVID-19 Clin Com 07/10/20 07/10/20 07/10/20 Range/Units 10:04 10:04 10:04 WBC (4.8-10.8) X10*3/uL RBC (4.60-5.80) X10*6/uL Hgb (14.0-18.0) g/dl Hct (42-52) % MCV (80-98) fL MCH (27.0-33.0) pg MCHC (31.0-36.0) g/dl RDW (11.0-16.0) % Plt Count (160-400) X10*3/uL MPV (9.4-12.4) fL Immature Gran % (Auto) (0.0-0.4) % Neut % (Auto) (45-73) % Lymph % (Auto) (20-40) % Real % (Auto) (2-11) % Eos % (Auto) (0-4) % Baso % (Auto) (0-2) % Lymph # (Auto) (1.2-4.9) X10*3/uL Real # (Auto) (0.1-1.2) X10*3/uL Eos # (Auto) (0.0-0.4) X10*3/uL Baso # (Auto) (0.0-0.2) X10*3/uL Abs Immat Gran (auto) (0.00-0.03) X10*3/uL Absolute Neuts (auto) (2.0-8.3) X10*3/uL Absolute Nucleated RBC (0.0-0.012) X10*3/uL Nucleated RBC % (auto) (0.0-0.2) /100WBC PT (10.8-13.0) SEC INR (0.9-1.1) APTT (24.1-38.0) SEC VBG pH (7.32-7.43) VBG pCO2 mmHg VBG pO2 mmHg VBG HCO3 mmol/L VBG O2 Saturation % VBG Base Excess mmol/L Sodium (135-145) mmol/L Potassium (3.3-5.1) mmol/L Chloride (96-108) mmol/L Carbon Dioxide (22-29) mmol/L Anion Gap (12-20) BUN (9-16) mg/dL Creatinine (0.5-1.4) mg/dL Estim Creat Clear Calc Estimated GFR POC Glucose (60-115) mg/dL Random Glucose (60-115) mg/dL Lactic Acid (0.5-2.0) mmol/L Calcium (8.4-10.2) mg/dL Magnesium (1.6-2.6) mg/dL Total Bilirubin (0.0-1.0) mg/dL Direct Bilirubin (0.0-0.5) mg/dL AST (5-37) U/L ALT (0-40) U/L Alkaline Phosphatase (39-117) U/L Ammonia (13-55) umol/L Total Creatine Kinase (38-174) U/L Troponin I High Sens < 3.5 (<3.5-35.0) ng/L Total Protein (6.5-8.0) g/dL Albumin (3.5-5.0) g/dL Lipase < 4 L (8-78) U/L Procalcitonin 0.11 ng/mL Urine Color Urine Appearance Urine pH (5.0-8.0) Ur Specific [place] (1.005-1.025) Urine Protein (NEG-TRACE) MG/DL Urine Glucose (UA) (NEG) MG/DL Urine Ketones (NEG) MG/DL Urine Blood (NEG) Urine Nitrite (NEG) Ur Leukocyte Esterase (NEG) Salicylates < 5.0 L (15-30) mg/dL Urine Opiates Screen (Not Detect) Acetaminophen < 1 (<30) mcg/mL Ur Barbiturates Screen (Not Detect) Ur Phencyclidine Scrn (Not Detect) Ur Amphetamines Screen (Not Detect) U Benzodiazepines Scrn (Not Detect) Urine Cocaine Screen (Not Detect) U Marijuana (THC) Screen (Not Detect) Ethyl Alcohol mg/dL COVID-19 ([facility]) (Negative) COVID-19 Clin Com 07/10/20 07/10/20 07/10/20 Range/Units 10:05 10:05 10:05 WBC 18.6 H (4.8-10.8) X10*3/uL RBC 3.86 L D (4.60-5.80) X10*6/uL Hgb 12.7 L (14.0-18.0) g/dl Hct 38.0 L (42-52) % MCV 98.4 H (80-98) fL MCH 32.9 (27.0-33.0) pg MCHC 33.4 (31.0-36.0) g/dl RDW 14.3 (11.0-16.0) % Plt Count 201 D (160-400) X10*3/uL MPV 11.1 (9.4-12.4) fL Immature Gran % (Auto) 0.5 H (0.0-0.4) % Neut % (Auto) 88.8 H (45-73) % Lymph % (Auto) 7.6 L (20-40) % Real % (Auto) 2.6 (2-11) % Eos % (Auto) 0.2 (0-4) % Baso % (Auto) 0.3 (0-2) % Lymph # (Auto) 1.4 (1.2-4.9) X10*3/uL Real # (Auto) 0.5 (0.1-1.2) X10*3/uL Eos # (Auto) 0.0 (0.0-0.4) X10*3/uL Baso # (Auto) 0.1 (0.0-0.2) X10*3/uL Abs Immat Gran (auto) 0.10 H (0.00-0.03) X10*3/uL Absolute Neuts (auto) 16.5 H (2.0-8.3) X10*3/uL Absolute Nucleated RBC 0.000 (0.0-0.012) X10*3/uL Nucleated RBC % (auto) 0.0 (0.0-0.2) /100WBC PT 14.9 H (10.8-13.0) SEC INR 1.3 H (0.9-1.1) APTT 33.4 (24.1-38.0) SEC VBG pH (7.32-7.43) VBG pCO2 mmHg VBG pO2 mmHg VBG HCO3 mmol/L VBG O2 Saturation % VBG Base Excess mmol/L Sodium (135-145) mmol/L Potassium (3.3-5.1) mmol/L Chloride (96-108) mmol/L Carbon Dioxide (22-29) mmol/L Anion Gap (12-20) BUN (9-16) mg/dL Creatinine (0.5-1.4) mg/dL Estim Creat Clear Calc Estimated GFR POC Glucose (60-115) mg/dL Random Glucose (60-115) mg/dL Lactic Acid (0.5-2.0) mmol/L Calcium (8.4-10.2) mg/dL Magnesium (1.6-2.6) mg/dL Total Bilirubin (0.0-1.0) mg/dL Direct Bilirubin (0.0-0.5) mg/dL AST (5-37) U/L ALT (0-40) U/L Alkaline Phosphatase (39-117) U/L Ammonia (13-55) umol/L Total Creatine Kinase (38-174) U/L Troponin I High Sens (<3.5-35.0) ng/L Total Protein (6.5-8.0) g/dL Albumin (3.5-5.0) g/dL Lipase (8-78) U/L Procalcitonin ng/mL Urine Color Urine Appearance Urine pH (5.0-8.0) Ur Specific [place] (1.005-1.025) Urine Protein (NEG-TRACE) MG/DL Urine Glucose (UA) (NEG) MG/DL Urine Ketones (NEG) MG/DL Urine Blood (NEG) Urine Nitrite (NEG) Ur Leukocyte Esterase (NEG) Salicylates (15-30) mg/dL Urine Opiates Screen (Not Detect) Acetaminophen (<30) mcg/mL Ur Barbiturates Screen (Not Detect) Ur Phencyclidine Scrn (Not Detect) Ur Amphetamines Screen (Not Detect) U Benzodiazepines Scrn (Not Detect) Urine Cocaine Screen (Not Detect) U Marijuana (THC) Screen (Not Detect) Ethyl Alcohol mg/dL COVID-19 ([facility]) Negative (Negative) COVID-19 Clin Com See Note 07/10/20 07/10/20 07/10/20 Range/Units 10:05 10:06 10:17 WBC (4.8-10.8) X10*3/uL RBC (4.60-5.80) X10*6/uL Hgb (14.0-18.0) g/dl Hct (42-52) % MCV (80-98) fL MCH (27.0-33.0) pg MCHC (31.0-36.0) g/dl RDW (11.0-16.0) % Plt Count (160-400) X10*3/uL MPV (9.4-12.4) fL Immature Gran % (Auto) (0.0-0.4) % Neut % (Auto) (45-73) % Lymph % (Auto) (20-40) % Real % (Auto) (2-11) % Eos % (Auto) (0-4) % Baso % (Auto) (0-2) % Lymph # (Auto) (1.2-4.9) X10*3/uL Real # (Auto) (0.1-1.2) X10*3/uL Eos # (Auto) (0.0-0.4) X10*3/uL Baso # (Auto) (0.0-0.2) X10*3/uL Abs Immat Gran (auto) (0.00-0.03) X10*3/uL Absolute Neuts (auto) (2.0-8.3) X10*3/uL Absolute Nucleated RBC (0.0-0.012) X10*3/uL Nucleated RBC % (auto) (0.0-0.2) /100WBC PT (10.8-13.0) SEC INR (0.9-1.1) APTT (24.1-38.0) SEC VBG pH (7.32-7.43) VBG pCO2 mmHg VBG pO2 mmHg VBG HCO3 mmol/L VBG O2 Saturation % VBG Base Excess mmol/L Sodium (135-145) mmol/L Potassium (3.3-5.1) mmol/L Chloride (96-108) mmol/L Carbon Dioxide (22-29) mmol/L Anion Gap (12-20) BUN (9-16) mg/dL Creatinine (0.5-1.4) mg/dL Estim Creat Clear Calc Estimated GFR POC Glucose 97 (60-115) mg/dL Random Glucose (60-115) mg/dL Lactic Acid 2.1 H* (0.5-2.0) mmol/L Calcium (8.4-10.2) mg/dL Magnesium (1.6-2.6) mg/dL Total Bilirubin (0.0-1.0) mg/dL Direct Bilirubin (0.0-0.5) mg/dL AST (5-37) U/L ALT (0-40) U/L Alkaline Phosphatase (39-117) U/L Ammonia 22 (13-55) umol/L Total Creatine Kinase (38-174) U/L Troponin I High Sens (<3.5-35.0) ng/L Total Protein (6.5-8.0) g/dL Albumin (3.5-5.0) g/dL Lipase (8-78) U/L Procalcitonin ng/mL Urine Color Urine Appearance Urine pH (5.0-8.0) Ur Specific [place] (1.005-1.025) Urine Protein (NEG-TRACE) MG/DL Urine Glucose (UA) (NEG) MG/DL Urine Ketones (NEG) MG/DL Urine Blood (NEG) Urine Nitrite (NEG) Ur Leukocyte Esterase (NEG) Salicylates (15-30) mg/dL Urine Opiates Screen (Not Detect) Acetaminophen (<30) mcg/mL Ur Barbiturates Screen (Not Detect) Ur Phencyclidine Scrn (Not Detect) Ur Amphetamines Screen (Not Detect) U Benzodiazepines Scrn (Not Detect) Urine Cocaine Screen (Not Detect) U Marijuana (THC) Screen (Not Detect) Ethyl Alcohol mg/dL COVID-19 ([facility]) (Negative) COVID-19 Clin Com 07/10/20 07/10/20 07/10/20 Range/Units 11:08 11:08 11:51 WBC (4.8-10.8) X10*3/uL RBC (4.60-5.80) X10*6/uL Hgb (14.0-18.0) g/dl Hct (42-52) % MCV (80-98) fL MCH (27.0-33.0) pg MCHC (31.0-36.0) g/dl RDW (11.0-16.0) % Plt Count (160-400) X10*3/uL MPV (9.4-12.4) fL Immature Gran % (Auto) (0.0-0.4) % Neut % (Auto) (45-73) % Lymph % (Auto) (20-40) % Real % (Auto) (2-11) % Eos % (Auto) (0-4) % Baso % (Auto) (0-2) % Lymph # (Auto) (1.2-4.9) X10*3/uL Real # (Auto) (0.1-1.2) X10*3/uL Eos # (Auto) (0.0-0.4) X10*3/uL Baso # (Auto) (0.0-0.2) X10*3/uL Abs Immat Gran (auto) (0.00-0.03) X10*3/uL Absolute Neuts (auto) (2.0-8.3) X10*3/uL Absolute Nucleated RBC (0.0-0.012) X10*3/uL Nucleated RBC % (auto) (0.0-0.2) /100WBC PT (10.8-13.0) SEC INR (0.9-1.1) APTT (24.1-38.0) SEC VBG pH (7.32-7.43) VBG pCO2 mmHg VBG pO2 mmHg VBG HCO3 mmol/L VBG O2 Saturation % VBG Base Excess mmol/L Sodium (135-145) mmol/L Potassium (3.3-5.1) mmol/L Chloride (96-108) mmol/L Carbon Dioxide (22-29) mmol/L Anion Gap (12-20) BUN (9-16) mg/dL Creatinine (0.5-1.4) mg/dL Estim Creat Clear Calc Estimated GFR POC Glucose 29 L* (60-115) mg/dL Random Glucose (60-115) mg/dL Lactic Acid (0.5-2.0) mmol/L Calcium (8.4-10.2) mg/dL Magnesium (1.6-2.6) mg/dL Total Bilirubin (0.0-1.0) mg/dL Direct Bilirubin (0.0-0.5) mg/dL AST (5-37) U/L ALT (0-40) U/L Alkaline Phosphatase (39-117) U/L Ammonia (13-55) umol/L Total Creatine Kinase (38-174) U/L Troponin I High Sens (<3.5-35.0) ng/L Total Protein (6.5-8.0) g/dL Albumin (3.5-5.0) g/dL Lipase (8-78) U/L Procalcitonin ng/mL Urine Color YELLOW Urine Appearance CLEAR Urine pH 5.5 (5.0-8.0) Ur Specific [place] 1.025 (1.005-1.025) Urine Protein NEG (NEG-TRACE) MG/DL Urine Glucose (UA) 100 H (NEG) MG/DL Urine Ketones NEG (NEG) MG/DL Urine Blood NEG (NEG) Urine Nitrite NEG (NEG) Ur Leukocyte Esterase NEG (NEG) Salicylates (15-30) mg/dL Urine Opiates Screen Not Detected (Not Detect) Acetaminophen (<30) mcg/mL Ur Barbiturates Screen POSITIVE H (Not Detect) Ur Phencyclidine Scrn Not Detected (Not Detect) Ur Amphetamines Screen Not Detected (Not Detect) U Benzodiazepines Scrn POSITIVE H (Not Detect) Urine Cocaine Screen Not Detected (Not Detect) U Marijuana (THC) Screen Not Detected (Not Detect) Ethyl Alcohol mg/dL COVID-19 ([facility]) (Negative) COVID-19 Clin Com 07/10/20 07/10/20 07/10/20 Range/Units 12:06 12:17 12:27 WBC (4.8-10.8) X10*3/uL RBC (4.60-5.80) X10*6/uL Hgb (14.0-18.0) g/dl Hct (42-52) % MCV (80-98) fL MCH (27.0-33.0) pg MCHC (31.0-36.0) g/dl RDW (11.0-16.0) % Plt Count (160-400) X10*3/uL MPV (9.4-12.4) fL Immature Gran % (Auto) (0.0-0.4) % Neut % (Auto) (45-73) % Lymph % (Auto) (20-40) % Real % (Auto) (2-11) % Eos % (Auto) (0-4) % Baso % (Auto) (0-2) % Lymph # (Auto) (1.2-4.9) X10*3/uL Real # (Auto) (0.1-1.2) X10*3/uL Eos # (Auto) (0.0-0.4) X10*3/uL Baso # (Auto) (0.0-0.2) X10*3/uL Abs Immat Gran (auto) (0.00-0.03) X10*3/uL Absolute Neuts (auto) (2.0-8.3) X10*3/uL Absolute Nucleated RBC (0.0-0.012) X10*3/uL Nucleated RBC % (auto) (0.0-0.2) /100WBC PT (10.8-13.0) SEC INR (0.9-1.1) APTT (24.1-38.0) SEC VBG pH (7.32-7.43) VBG pCO2 mmHg VBG pO2 mmHg VBG HCO3 mmol/L VBG O2 Saturation % VBG Base Excess mmol/L Sodium (135-145) mmol/L Potassium (3.3-5.1) mmol/L Chloride (96-108) mmol/L Carbon Dioxide (22-29) mmol/L Anion Gap (12-20) BUN (9-16) mg/dL Creatinine (0.5-1.4) mg/dL Estim Creat Clear Calc Estimated GFR POC Glucose 47 L* 91 121 H (60-115) mg/dL Random Glucose (60-115) mg/dL Lactic Acid (0.5-2.0) mmol/L Calcium (8.4-10.2) mg/dL Magnesium (1.6-2.6) mg/dL Total Bilirubin (0.0-1.0) mg/dL Direct Bilirubin (0.0-0.5) mg/dL AST (5-37) U/L ALT (0-40) U/L Alkaline Phosphatase (39-117) U/L Ammonia (13-55) umol/L Total Creatine Kinase (38-174) U/L Troponin I High Sens (<3.5-35.0) ng/L Total Protein (6.5-8.0) g/dL Albumin (3.5-5.0) g/dL Lipase (8-78) U/L Procalcitonin ng/mL Urine Color Urine Appearance Urine pH (5.0-8.0) Ur Specific [place] (1.005-1.025) Urine Protein (NEG-TRACE) MG/DL Urine Glucose (UA) (NEG) MG/DL Urine Ketones (NEG) MG/DL Urine Blood (NEG) Urine Nitrite (NEG) Ur Leukocyte Esterase (NEG) Salicylates (15-30) mg/dL Urine Opiates Screen (Not Detect) Acetaminophen (<30) mcg/mL Ur Barbiturates Screen (Not Detect) Ur Phencyclidine Scrn (Not Detect) Ur Amphetamines Screen (Not Detect) U Benzodiazepines Scrn (Not Detect) Urine Cocaine Screen (Not Detect) U Marijuana (THC) Screen (Not Detect) Ethyl Alcohol mg/dL COVID-19 ([facility]) (Negative) COVID-19 Clin Com 07/10/20 07/10/20 07/10/20 Range/Units 12:47 14:10 15:22 WBC (4.8-10.8) X10*3/uL RBC (4.60-5.80) X10*6/uL Hgb (14.0-18.0) g/dl Hct (42-52) % MCV (80-98) fL MCH (27.0-33.0) pg MCHC (31.0-36.0) g/dl RDW (11.0-16.0) % Plt Count (160-400) X10*3/uL MPV (9.4-12.4) fL Immature Gran % (Auto) (0.0-0.4) % Neut % (Auto) (45-73) % Lymph % (Auto) (20-40) % Real % (Auto) (2-11) % Eos % (Auto) (0-4) % Baso % (Auto) (0-2) % Lymph # (Auto) (1.2-4.9) X10*3/uL Real # (Auto) (0.1-1.2) X10*3/uL Eos # (Auto) (0.0-0.4) X10*3/uL Baso # (Auto) (0.0-0.2) X10*3/uL Abs Immat Gran (auto) (0.00-0.03) X10*3/uL Absolute Neuts (auto) (2.0-8.3) X10*3/uL Absolute Nucleated RBC (0.0-0.012) X10*3/uL Nucleated RBC % (auto) (0.0-0.2) /100WBC PT (10.8-13.0) SEC INR (0.9-1.1) APTT (24.1-38.0) SEC VBG pH (7.32-7.43) VBG pCO2 mmHg VBG pO2 mmHg VBG HCO3 mmol/L VBG O2 Saturation % VBG Base Excess mmol/L Sodium (135-145) mmol/L Potassium (3.3-5.1) mmol/L Chloride (96-108) mmol/L Carbon Dioxide (22-29) mmol/L Anion Gap (12-20) BUN (9-16) mg/dL Creatinine (0.5-1.4) mg/dL Estim Creat Clear Calc Estimated GFR POC Glucose 129 H 87 71 (60-115) mg/dL Random Glucose (60-115) mg/dL Lactic Acid (0.5-2.0) mmol/L Calcium (8.4-10.2) mg/dL Magnesium (1.6-2.6) mg/dL Total Bilirubin (0.0-1.0) mg/dL Direct Bilirubin (0.0-0.5) mg/dL AST (5-37) U/L ALT (0-40) U/L Alkaline Phosphatase (39-117) U/L Ammonia (13-55) umol/L Total Creatine Kinase (38-174) U/L Troponin I High Sens (<3.5-35.0) ng/L Total Protein (6.5-8.0) g/dL Albumin (3.5-5.0) g/dL Lipase (8-78) U/L Procalcitonin ng/mL Urine Color Urine Appearance Urine pH (5.0-8.0) Ur Specific [place] (1.005-1.025) Urine Protein (NEG-TRACE) MG/DL Urine Glucose (UA) (NEG) MG/DL Urine Ketones (NEG) MG/DL Urine Blood (NEG) Urine Nitrite (NEG) Ur Leukocyte Esterase (NEG) Salicylates (15-30) mg/dL Urine Opiates Screen (Not Detect) Acetaminophen (<30) mcg/mL Ur Barbiturates Screen (Not Detect) Ur Phencyclidine Scrn (Not Detect) Ur Amphetamines Screen (Not Detect) U Benzodiazepines Scrn (Not Detect) Urine Cocaine Screen (Not Detect) U Marijuana (THC) Screen (Not Detect) Ethyl Alcohol mg/dL COVID-19 ([facility]) (Negative) COVID-19 Clin Com ECG Data ECG #1: Attestation: I personally reviewed and interpreted this ECG as follows: ECG interpretation date: 07/10/20 ECG interpretation time: 10:12 Interpretation: Rate: 93 Rhythm: NSR [place]: normal Normal P waves. Normal JATIN. Normal QRS complex. ST T wave : normal no PRASHANT nonspecific qTC: normal prior studies: no acute ischemia The study has been interpreted contemporaneously by me. . Critical Care Time Critical Care Time Critical Care Time: Yes Total Critical Care Time: 90 Attestation: labs, medical consult, extubation, ICU consult I attest to this time spent taking care of the patient Discharge Plan Discharge Clinical Impression: Hypoglycemia, Acidosis, lactic Overdose Qualifiers: Encounter type: initial encounter Injury intent: undetermined intent Qualified Code(s): T50.904A - Poisoning by unspecified drugs, medicaments and biological substances, undetermined, initial encounter Leukocytosis Qualifiers: Leukocytosis type: unspecified Qualified Code(s): D72.829 - Elevated white blood cell count, unspecified Patient Disposition: Admitted As Inpatient
[2020-07-10 10:16] LABS: MANUAL DIFF FLAG NO
[2020-07-10 10:19] LABS: Basophils Absolute Auto 0.1 X10*3/uL (0.0-0.2); Basophils Percent Auto 0.3 % (0-2); Eosinophils Percent Auto 0.2 % (0-4); Hemoglobin 12.7 g/dl (14.0-18.0); Imm Gran Pct Auto 0.5 % (0.0-0.4); Lymphocytes Absolute Auto 1.4 X10*3/uL (1.2-4.9); Lymphocytes Percent Auto 7.6 % (20-40); Mean Corpuscular HGB Conc 33.4 g/dl (31.0-36.0); Mean Corpuscular Hemoglobin 32.9 pg (27.0-33.0); Mean Corpuscular Volume 98.4 fL (80-98); Mean Platelet Volume 11.1 fL (9.4-12.4); Monocytes Absolute Auto 0.5 X10*3/uL (0.1-1.2); Monocytes Percent Auto 2.6 % (2-11); Neutrophils Absolute Auto 16.5 X10*3/uL (2.0-8.3); Neutrophils Percent Auto 88.8 % (45-73); Platelet Count 201 X10*3/uL (160-400); Red Blood Count 3.86 X10*6/uL (4.60-5.80); Red Cell Distribution Width 14.3 % (11.0-16.0); White Blood Count 18.6 X10*3/uL (4.8-10.8)
[2020-07-10 10:21] LABS: Glucose, Whole Blood < 10 mg/dL (60-115)
[2020-07-10 10:21] LABS: Glucose, Whole Blood 97 mg/dL (60-115)
[2020-07-10 10:21] LABS: Glucose, Whole Blood 99 mg/dL (60-115)
[2020-07-10 10:21] LABS: Glucose, Whole Blood 36 mg/dL (60-115)
[2020-07-10 10:22] LABS: Base Excess VBG -0.2 mmol/L; HCO3 VBG 25 mmol/L; PCO2 VBG 44 mmHg; PO2 VBG 45 mmHg; pH VBG 7.36 (7.32-7.43)
[2020-07-10 10:24] LABS: INTERNATIONAL NORM RATIO 1.3 (0.9-1.1); Prothrombin Time 14.9 SEC (10.8-13.0)
[2020-07-10 10:27] LABS: Partial Thromboplastin Time 33.4 SEC (24.1-38.0)
--- NOTE | 2020-07-10 10:29 | PC.NURSE ---
PT POC AT 0952 - LOWER ON METER X 2 MD AWARE 0951 - PT GIVEN DEXTROSE 25GM/50ML X 1 0952 - POC 36, MD AWARE/ 0957- PT GIVEN DEXTROSE 25GM/50ML X 1 (2ND DOSE) 1000 - POC 99. IV X 2 ( # 20 TO L AC AND R AC) 1015 - PT CROSSING HIS LEGS AND MOVING HEAD/NECK SIDE TO SIDE, MD AWARE. TEMP SENSING HYDE CATH INSERTED. 1019 - DR. TIDWELL AT BEDSIDE, PENDING DECISION TO EXTUBATE 1021 - PT IS STILL INTUBATED, OPEN STORMY EYES APPROPRIATELY, SITS UP AT A 90 DEGREE ANGLE ON HIS OWN, PICKS UP LEGS IN THE MID AREA ON HIS OWN, EQUAL HAND GUIDE RAIL CLEANER AND 02 - 100%, POC 97. 1022 - PT EXUTBATED. HAS + GAG REFLEX AND ANSWERS QUESTIONS APPROPRIATELY.
[2020-07-10 10:33] LABS: Ammonia 22 umol/L (13-55)
[2020-07-10 10:39] LABS: Ethanol < 10 mg/dL
[2020-07-10 10:44] LABS: Acetaminophen LAB < 1 mcg/mL (<30); Salicylate < 5.0 mg/dL (15-30)
[2020-07-10 10:46] LABS: Lactic Acid 2.1 mmol/L (0.5-2.0)
[2020-07-10 10:47] LABS: Troponin-I High Sensitivity < 3.5 ng/L (<3.5-35.0)
[2020-07-10] MEDS: 0.9 % Sodium Chloride 500 ML IV (10:50)
[2020-07-10 10:58] LABS: Lipase < 4 U/L (8-78)
[2020-07-10 11:00] LABS: COVID-19 Test Negative (Negative); IDNOW Serial# 9DD0AD1C
[2020-07-10 11:12] LABS: Alanine Aminotransferase 12 U/L (0-40); Albumin Level 2.4 g/dL (3.5-5.0); Alkaline Phosphatase 139 U/L (39-117); Anion Gap 14 (12-20); Aspartate Amino Transferase 24 U/L (5-37); Bilirubin Direct 0.8 mg/dL (0.0-0.5); Bilirubin Total 1.1 mg/dL (0.0-1.0); Blood Urea Nitrogen 3 mg/dL (9-16); Calcium 7.9 mg/dL (8.4-10.2); Carbon Dioxide 24 mmol/L (22-29); Chloride 106 mmol/L (96-108); Creatinine Clr Calc Pharmacy 173.8; Estimated Glomerular Filt Rate > 60; Glucose Random < 5 mg/dL (60-115); Magnesium 1.6 mg/dL (1.6-2.6); Potassium 3.3 mmol/L (3.3-5.1); Sodium 141 mmol/L (135-145); Total Protein 5.8 g/dL (6.5-8.0)
[2020-07-10 11:15] LABS: Glucose Urine UA 100 MG/DL (NEG); Leukocyte Esterase Urine NEG (NEG); Nitrite Urine NEG (NEG); PH 5.5 (5.0-8.0); Specific Gravity - Urine 1.025 (1.005-1.025); Urine Blood NEG (NEG); Urine Ketones NEG (NEG); Urine Protein NEG (NEG-TRACE)
--- NOTE | 2020-07-10 11:15 | PC.NURSE ---
pt has a drain to ruq abd, dr. anthony states that pt had gall bladder surgery. pt is now stating that he is md ish aware.
[2020-07-10 11:18] LABS: Appearance Urine CLEAR; Color Urine YELLOW
[2020-07-10 11:36] LABS: Amphetamine Screen Urine Not Detected (Not Detect); Barbiturates, Urine POSITIVE (Not Detect); Benzodiazepines Screen Urine POSITIVE (Not Detect); Cannabinoid Screen Urine Not Detected (Not Detect); Cocaine Screen Urine Not Detected (Not Detect); Opiate Screen Urine Not Detected (Not Detect); Phencyclidine Screen Urine Not Detected (Not Detect)
[2020-07-10 11:46] LABS: Procalcitonin 0.11 ng/mL
[2020-07-10] MEDS: Dextrose 5 % and 0.9 % NaCl 1,000 ML 100 ML IVCONT ×2 (11:57→23:58)
--- NOTE | 2020-07-10 11:58 | PC.NURSE ---
pt's poc is 29, given 1 cup oj and m,edx 1 with d5 25gm/50ml vial. aware.
[2020-07-10 12:13] LABS: Reflex Lactate? Lactic Acid Added
[2020-07-10 12:21] LABS: Glucose, Whole Blood 29 mg/dL (60-115)
[2020-07-10 12:21] LABS: Glucose, Whole Blood 91 mg/dL (60-115)
[2020-07-10 12:21] LABS: Glucose, Whole Blood 47 mg/dL (60-115)
[2020-07-10 12:31] LABS: Glucose, Whole Blood 121 mg/dL (60-115)
[2020-07-10 12:52] LABS: Glucose, Whole Blood 129 mg/dL (60-115)
--- NOTE | 2020-07-10 13:00 | PC.NURSE ---
drainage emptied for 10cc of fluid.
[2020-07-10] MEDS: Piperacillin Sodium/Tazobactam 3.375 GM in 0.9 % Sodium Chloride 50 ML IV (13:32)
--- NOTE | 2020-07-10 13:35 | PC.NURSE ---
pt spoke with his girlfriend on [facility] [place] portable phone. pt ate 50r of lunch.
[2020-07-10 14:14] LABS: Glucose, Whole Blood 87 mg/dL (60-115)
--- NOTE | 2020-07-10 14:17 | PC.NURSE ---
PT'S GF CALLED. STATES HE DID NOT TAKE ANY OF HIS MEDS SINCE BEING DISCH FROM [place]. HAS BEEN BUYING XANAX ON [address], HAS TAKEN 30 PILLS OVER LAST 3 DAYS
--- NOTE | 2020-07-10 14:42 | PM.CCN ---
Critical Care Event Note Summary Code activated: No Narrative: 59-year-old gentleman with recent cholecystitis/cholangitis status post cholecystostomy being admitted with alteration of mental status requiring intubation in the field, extubated in ER. Noted to have significant hypoglycemia with good response to dextrose. Also underlying history of polysubstance abuse and recent poor p.o. intake and recent suicidal ideation. On evaluation patient is alert and oriented answering appropriately, normotensive and normoxemic. Concern for early stage of sepsis with possible cholecystitic source versus intentional ingestion. Would recommend broad-spectrum antibiotic coverage, consistent dextrose source, and close monitoring on the telemetry [facility]. At this time does not require intensive care unit level of monitoring. Please notify for re-evaluation, if patient's condition changes. Critical Care Time (minutes): 0
[2020-07-10] MEDS: fentaNYL citrate/PF 100 MCG/2 ML VIAL IVPUSH (14:51)
--- NOTE | 2020-07-10 14:51 | P.CONGS_ITS ---
History of Present Illness Consult details Consult date: 07/10/20 Reason for consult: abdominal pain Requesting physician: Stacy Melton Narrative: 59-year-old male patient with a previous history of acalculous cholecystitis initially treated by Dr. Love with a cholecystostomy tube. A recent tube check prior to discharge from the hospital revealed filling of the gallbladder with no stones but no visualization of the common bile duct or distal cystic duct. Patient was discharged to home with the tube connected to bulb suction. He was seen in the office earlier this week in the tube clamped. Arrangements were made for another drain check prior to removal of the tube. The patient was instructed to open the tube should he developed abdominal pain. He presents today with hypoglycemia and arrives by the ambulance intubated. A CT of the abdomen and pelvis was obtained and the drain found to be in the correct position. The patient reports severe pain at the site of the drain. Review of Systems Review of Systems: Yes Unobtainable due to mental condition PMFSH Past Medical History Medical History Alcohol withdrawal Alcoholism Cardiomyopathy COPD (chronic obstructive pulmonary disease) COVID-19 COVID-19 determined by clinical diagnostic criteria Depression Diabetes ETOH abuse Fever of undetermined origin Seizure Surgical History Surgical History History of gastric bypass History of sleeve gastrectomy Social History Social History Household Members: Significant Other Housing: Apartment Alcohol intake: never Smoking Status: Never smoker Tobacco Type: Cigarette Second Hand Smoke Exposure: Yes Use of substances other than those prescribed or required for medical reasons: No Advance Directives: No Advance Directives Information Provided: No service: No Current occupational status: unemployed Meds Allergies Allergy/AdvReac Type Severity Reaction Status Date / Time No Known Allergies Allergy Verified 06/08/20 13:59 [No Known Allergies*] Active Medications: Current Medications Generic Name Dose Route Start Last Admin Trade Name Freq PRN Reason Stop Dose Admin Dextrose 1,000 mls @ 75 mls/hr 07/10/20 14:45 D10 IVCONT .[id number] [facility] Pharmacy Consult 1 each 07/10/20 09:47 Consult Rx Perform Med Rec MISCELLANE ONCE PRN Consult order Home Medications Medication Instructions Recorded Confirmed Last Taken Type atorvastatin 40 tab PO DAILY 03/02/20 07/10/20 Unknown History folic acid 1 tab PO DAILY 03/02/20 07/10/20 Unknown History gabapentin 300 mg PO BEDTIME 03/02/20 07/10/20 Unknown History omeprazole 20 cap PO BID 03/02/20 07/10/20 Unknown History Eliquis 5 mg PO BID 06/04/20 07/10/20 Unknown History quetiapine 50 mg tablet 50 mg PO BEDTIME PRN 07/07/20 07/10/20 Unknown History Physical Exam Vital Signs: Vital Signs: Last Vital Signs Temp 99.7 F 07/10/20 14:47 Pulse 93 07/10/20 14:47 Resp 20 07/10/20 14:47 BP 111/71 07/10/20 14:47 Pulse Ox 99 07/10/20 14:47 Body Mass Index 33.5 Const: General: acute distress and anxious Eyes: Sclerae: sclerae normal Chest: Other: Breathing comfortably, no respiratory distress GI: Other: IR drain located in the right upper quadrant connected to bulb suction. The tube is now open and draining bilious fluid into the bulb. Abdomen tender in the right upper quadrant. Abdomen image: 1. IR drain right upper quadrant Skin: General skin exam: no rashes or lesions noted Results Labs Result diagrams: 07/10/20 10:05 07/10/20 10:04 Labs: Abnormal lab results 07/10/20 07/10/20 07/10/20 Range/Units 09:45 09:54 10:04 WBC (4.8-10.8) X10*3/uL RBC (4.60-5.80) X10*6/uL Hgb (14.0-18.0) g/dl Hct (42-52) % MCV (80-98) fL Immature Gran % (Auto) (0.0-0.4) % Neut % (Auto) (45-73) % Lymph % (Auto) (20-40) % Abs Immat Gran (auto) (0.00-0.03) X10*3/uL Absolute Neuts (auto) (2.0-8.3) X10*3/uL PT (10.8-13.0) SEC INR (0.9-1.1) BUN 3 L (9-16) mg/dL POC Glucose < 10 L* 36 L* (60-115) mg/dL Random Glucose < 5 L* (60-115) mg/dL Lactic Acid (0.5-2.0) mmol/L Calcium 7.9 L (8.4-10.2) mg/dL Total Bilirubin 1.1 H (0.0-1.0) mg/dL Direct Bilirubin 0.8 H (0.0-0.5) mg/dL Alkaline Phosphatase 139 H D (39-117) U/L Total Creatine Kinase 18 L (38-174) U/L Total Protein 5.8 L D (6.5-8.0) g/dL Albumin 2.4 L (3.5-5.0) g/dL Lipase (8-78) U/L Urine Glucose (UA) (NEG) MG/DL Salicylates (15-30) mg/dL Ur Barbiturates Screen (Not Detect) U Benzodiazepines Scrn (Not Detect) 07/10/20 07/10/20 07/10/20 Range/Units 10:04 10:05 10:05 WBC 18.6 H (4.8-10.8) X10*3/uL RBC 3.86 L D (4.60-5.80) X10*6/uL Hgb 12.7 L (14.0-18.0) g/dl Hct 38.0 L (42-52) % MCV 98.4 H (80-98) fL Immature Gran % (Auto) 0.5 H (0.0-0.4) % Neut % (Auto) 88.8 H (45-73) % Lymph % (Auto) 7.6 L (20-40) % Abs Immat Gran (auto) 0.10 H (0.00-0.03) X10*3/uL Absolute Neuts (auto) 16.5 H (2.0-8.3) X10*3/uL PT 14.9 H (10.8-13.0) SEC INR 1.3 H (0.9-1.1) BUN (9-16) mg/dL POC Glucose (60-115) mg/dL Random Glucose (60-115) mg/dL Lactic Acid (0.5-2.0) mmol/L Calcium (8.4-10.2) mg/dL Total Bilirubin (0.0-1.0) mg/dL Direct Bilirubin (0.0-0.5) mg/dL Alkaline Phosphatase (39-117) U/L Total Creatine Kinase (38-174) U/L Total Protein (6.5-8.0) g/dL Albumin (3.5-5.0) g/dL Lipase < 4 L (8-78) U/L Urine Glucose (UA) (NEG) MG/DL Salicylates < 5.0 L (15-30) mg/dL Ur Barbiturates Screen (Not Detect) U Benzodiazepines Scrn (Not Detect) 07/10/20 07/10/20 07/10/20 Range/Units 10:05 11:08 11:08 WBC (4.8-10.8) X10*3/uL RBC (4.60-5.80) X10*6/uL Hgb (14.0-18.0) g/dl Hct (42-52) % MCV (80-98) fL Immature Gran % (Auto) (0.0-0.4) % Neut % (Auto) (45-73) % Lymph % (Auto) (20-40) % Abs Immat Gran (auto) (0.00-0.03) X10*3/uL Absolute Neuts (auto) (2.0-8.3) X10*3/uL PT (10.8-13.0) SEC INR (0.9-1.1) BUN (9-16) mg/dL POC Glucose (60-115) mg/dL Random Glucose (60-115) mg/dL Lactic Acid 2.1 H* (0.5-2.0) mmol/L Calcium (8.4-10.2) mg/dL Total Bilirubin (0.0-1.0) mg/dL Direct Bilirubin (0.0-0.5) mg/dL Alkaline Phosphatase (39-117) U/L Total Creatine Kinase (38-174) U/L Total Protein (6.5-8.0) g/dL Albumin (3.5-5.0) g/dL Lipase (8-78) U/L Urine Glucose (UA) 100 H (NEG) MG/DL Salicylates (15-30) mg/dL Ur Barbiturates Screen POSITIVE H (Not Detect) U Benzodiazepines Scrn POSITIVE H (Not Detect) 07/10/20 07/10/20 07/10/20 Range/Units 11:51 12:06 12:27 WBC (4.8-10.8) X10*3/uL RBC (4.60-5.80) X10*6/uL Hgb (14.0-18.0) g/dl Hct (42-52) % MCV (80-98) fL Immature Gran % (Auto) (0.0-0.4) % Neut % (Auto) (45-73) % Lymph % (Auto) (20-40) % Abs Immat Gran (auto) (0.00-0.03) X10*3/uL Absolute Neuts (auto) (2.0-8.3) X10*3/uL PT (10.8-13.0) SEC INR (0.9-1.1) BUN (9-16) mg/dL POC Glucose 29 L* 47 L* 121 H (60-115) mg/dL Random Glucose (60-115) mg/dL Lactic Acid (0.5-2.0) mmol/L Calcium (8.4-10.2) mg/dL Total Bilirubin (0.0-1.0) mg/dL Direct Bilirubin (0.0-0.5) mg/dL Alkaline Phosphatase (39-117) U/L Total Creatine Kinase (38-174) U/L Total Protein (6.5-8.0) g/dL Albumin (3.5-5.0) g/dL Lipase (8-78) U/L Urine Glucose (UA) (NEG) MG/DL Salicylates (15-30) mg/dL Ur Barbiturates Screen (Not Detect) U Benzodiazepines Scrn (Not Detect) 07/10/20 Range/Units 12:47 WBC (4.8-10.8) X10*3/uL RBC (4.60-5.80) X10*6/uL Hgb (14.0-18.0) g/dl Hct (42-52) % MCV (80-98) fL Immature Gran % (Auto) (0.0-0.4) % Neut % (Auto) (45-73) % Lymph % (Auto) (20-40) % Abs Immat Gran (auto) (0.00-0.03) X10*3/uL Absolute Neuts (auto) (2.0-8.3) X10*3/uL PT (10.8-13.0) SEC INR (0.9-1.1) BUN (9-16) mg/dL POC Glucose 129 H (60-115) mg/dL Random Glucose (60-115) mg/dL Lactic Acid (0.5-2.0) mmol/L Calcium (8.4-10.2) mg/dL Total Bilirubin (0.0-1.0) mg/dL Direct Bilirubin (0.0-0.5) mg/dL Alkaline Phosphatase (39-117) U/L Total Creatine Kinase (38-174) U/L Total Protein (6.5-8.0) g/dL Albumin (3.5-5.0) g/dL Lipase (8-78) U/L Urine Glucose (UA) (NEG) MG/DL Salicylates (15-30) mg/dL Ur Barbiturates Screen (Not Detect) U Benzodiazepines Scrn (Not Detect) Short CBC 07/10/20 Range/Units 10:05 WBC 18.6 H (4.8-10.8) X10*3/uL Hgb 12.7 L (14.0-18.0) g/dl Hct 38.0 L (42-52) % Plt Count 201 D (160-400) X10*3/uL BMP 07/10/20 10:04 Sodium 141 Potassium 3.3 Chloride 106 Carbon Dioxide 24 BUN 3 L Creatinine 0.56 Calcium 7.9 L Cardiac Enzymes 07/10/20 Range/Units 10:04 Total Creatine Kinase 18 L (38-174) U/L Liver Function 07/10/20 Range/Units 10:04 Total Bilirubin 1.1 H (0.0-1.0) mg/dL Direct Bilirubin 0.8 H (0.0-0.5) mg/dL AST 24 D (5-37) U/L ALT 12 (0-40) U/L Alkaline Phosphatase 139 H D (39-117) U/L Albumin 2.4 L (3.5-5.0) g/dL Urine 02/19/21 Range/Units 11:08 Urine Color YELLOW Urine Appearance CLEAR Urine pH 5.5 (5.0-8.0) Ur Specific [place] 1.025 (1.005-1.025) Urine Protein NEG (NEG-TRACE) MG/DL Urine Glucose (UA) 100 H (NEG) MG/DL All other labs normal. Assessment and Plan (1) Hypoglycemia: Status: Acute (2) Acidosis, lactic: Status: Acute (3) Acalculous cholecystitis: Status: Acute 59-year-old male patient previously admitted and apparently had determined to be septic from acalculous cholecystitis, felt to be too ill for surgery, status post cholecystostomy tube placement. The patient did improve however a tube check prior to discharge revealed nonvisualization of the common bile duct or distal cystic duct. The tube was left open and connected to a drainage bulb. Patient was evaluated earlier this week for possible to removal. The tube was clamped and arrangements made for a repeat tube study to be performed next week. Patient now returns with increased abdominal pain and hypoglycemia. He apparently required intubation prior to presentation to the emergency department by ambulance. He is now waking talking in complaining of pain in the right upper quadrant. The tube is been reopened to allow to drain. Tube should stacy in on drainage for the time being. A tube check should be obtained with injection of contrast through the stopcock to evaluate patency of the cystic duct. If this remains blocked, he would require a laparoscopic or possible open cholecystectomy when medically stable.
--- NOTE | 2020-07-10 14:51 | PC.NURSE ---
dr. henley (icu, ) at bedside earlier. dr. castillo at bedside to check on pt's drainage from gall bladder.
[2020-07-10] MEDS: Dextrose 10 % 1,000 ML 75 ML IVCONT (14:53)
--- NOTE | 2020-07-10 14:59 | PC.NURSE ---
Pt medicated for pain and fluid from drain was sent to lab for culturing.
[2020-07-10 15:25] LABS: Glucose, Whole Blood 71 mg/dL (60-115)
--- NOTE | 2020-07-10 15:25 | PM.EVENT ---
Event Note Date of Service: 07/10/20 Event Note: Patient seen and examined independently and was present during de jesus portion of E/M service. Agree with midlevel's history, physical, assessment, and plan. 59M presented with AMS Toxic metabolic encephalopathy and acute hypoxic respiratory failure due to Xanax overdose and hypoglycemia complicated by severe sepsis secondary to closed cholecystotomy tube and possible aspiration pneumonia Now extubated and mentating Continue D10 IV Zosyn Follow-up cultures Monitor sugars
[2020-07-10 15:33] LABS: Anion Gap 10 (12-20); Blood Urea Nitrogen 3 mg/dL (9-16); Calcium 7.5 mg/dL (8.4-10.2); Carbon Dioxide 24 mmol/L (22-29); Chloride 108 mmol/L (96-108); Creatinine Clr Calc Pharmacy 180.2; Estimated Glomerular Filt Rate > 60; Glucose Random 56 mg/dL (60-115); Potassium 4.2 mmol/L (3.3-5.1); Sodium 138 mmol/L (135-145); ~Lactic Acid-LAB USE ONLY 3.3 mmol/L (0.5-2.0)
--- NOTE | 2020-07-10 15:51 | P.HPHOSP_ITS ---
History of Present Illness Date of Service: 07/10/20 59 year old man presenting after being found unconscious at home. According to his he took xanax that was bought from a friend. She found him around 7am, he was foaming at the mouth and his eyes were wide open and he remained unresponsive. Apparently he was intubated by EMS and then extubated in the ED. Of note he has a history of recent acalculous cholecystitis initially treated with a cholecystostomy tube due to high risk for surgery. He was discharged home with tube and bulb suction. He was seen in follow by general surgery and tube was clamped. Apparently did not unclamp the tube when he was having abdominal pain. Now he has severe pain at the insertion site. According to his he has been drinking 40 nips a day up until 06/11. He has not had a drink since then. His reported that she had to call EMS multiple times because he would fall out from intoxication. He has not been eating and only eating [employer] candy's. . His blood sugar was in the 20's in the ED and several times dipped down requiring D50. Patient had been taking Metformin and he last refilled it on 05/16/20 but his is unsure if he was taking it or not. WBC 18.6, BUN, 3, lactic acid 6.2 and 3.3, blood sugars range 29-129. Multiple imaging studies including head CT, chest CT, cervical spine CT and abdominal CT did not show acute abnormalities. Abdominal CT showed good p osition of cholecystostomy tube. He was given multiple doses of D50, Toradol, Tylenol, Zosyn. He was started on D10. He will be admitted for further management and treatment of toxic metabolic encephalopathy secondary to overdose and severe sepsis. Review of Systems Review of Systems: Denies any recent fever chills. Reports poor appetite. respiratory denies any shortness of breath coverage production cardiovascular is adjustment of any PND or edema gastrointestinal See HPI genitourinary dysuria, reports right flank pain musculoskeletal denies any joint pain or swelling neuropsych denies any weakness or seizures all other systems reviewed are negative [facility] Medical History (Updated 07/10/20 @ 17:20 by Dione Montoya NP) Alcoholism Cardiomyopathy COPD (chronic obstructive pulmonary disease) COVID-19 Depression Diabetes Seizure Pertinent family history: unknown Surgical History History of gastric bypass History of sleeve gastrectomy Social History (Updated 07/10/20 @ 16:06 by Dione Montoya NP) Household Members: Significant Other Household Members Other:: Lives also with roomates Housing: Apartment Alcohol intake: former Smoking Status: Never smoker Tobacco Type: Cigarette Second Hand Smoke Exposure: Yes Use of substances other than those prescribed or required for medical reasons: No Advance Directives: No Advance Directives Information Provided: No service: No Current occupational status: unemployed Meds Allergies Allergy/AdvReac Type Severity Reaction Status Date / Time No Known Allergies Allergy Verified 06/08/20 13:59 [No Known Allergies*] Active Medications: Current Medications Generic Name Dose Route Start Last Admin Trade Name Freq PRN Reason Stop Dose Admin Dextrose 1,000 mls @ 75 mls/hr 07/10/20 14:45 07/10/20 14:53 D10 IVCONT 75 mls/hr .[id number] ALEX Administration Pharmacy Consult 1 each 07/10/20 09:47 Consult Rx Perform Med Rec MISCELLANE ONCE PRN Consult order Home Medications Medication Instructions Recorded Confirmed Last Taken Type atorvastatin 40 tab PO DAILY 03/02/20 07/10/20 Unknown History folic acid 1 tab PO DAILY 03/02/20 07/10/20 Unknown History gabapentin 300 mg PO BEDTIME 03/02/20 07/10/20 Unknown History omeprazole 20 cap PO BID 03/02/20 07/10/20 Unknown History Eliquis 5 mg PO BID 06/04/20 07/10/20 Unknown History quetiapine 50 mg tablet 50 mg PO BEDTIME PRN 07/07/20 07/10/20 Unknown History Physical Exam Vital Signs and Narrative: Vital Signs: Last Vital Signs Temp 99.7 F 07/10/20 14:47 Pulse 93 07/10/20 14:47 Resp 20 07/10/20 14:47 BP 111/71 07/10/20 14:47 Pulse Ox 99 07/10/20 14:47 Body Mass Index 33.5 Appearing in no acute distress, lethargic head is normocephalic atraumatic eyes pupils are PERRLA sclera is anicteric mouth throat mucous membranes are intact and dry neck is supple no lymphadenopathy, no JVD noted lung sounds are dim heart regular rate rhythm, tachy positive bowel sounds, abdomen tender neuro patient is alert x3, no focal deficits Results Labs CBC and Chem 7: 07/10/20 10:05 07/10/20 14:49 Labs: Laboratory Results - last 24 hr 07/10/20 07/10/20 07/10/20 09:45 09:54 10:02 MCV MCH MCHC RDW Plt Count MPV Immature Gran % (Auto) Neut % (Auto) Lymph % (Auto) Wilkin % (Auto) Eos % (Auto) Baso % (Auto) Lymph # (Auto) Wilkin # (Auto) Eos # (Auto) Baso # (Auto) Abs Immat Gran (auto) Absolute Neuts (auto) Absolute Nucleated RBC Nucleated RBC % (auto) PT INR APTT VBG pH VBG pCO2 VBG pO2 VBG HCO3 VBG O2 Saturation VBG Base Excess Anion Gap Estim Creat Clear Calc Estimated GFR POC Glucose < 10 L* 36 L* 99 Random Glucose Lactic Acid Lactic Acid Fup @ 2Hr Calcium Magnesium Total Bilirubin Direct Bilirubin AST ALT Alkaline Phosphatase Ammonia Total Creatine Kinase Troponin I High Sens Total Protein Albumin Lipase Procalcitonin Urine Color Urine Appearance Urine pH Ur Specific Forman Urine Protein Urine Glucose (UA) Urine Ketones Urine Blood Urine Nitrite Ur Leukocyte Esterase Salicylates Urine Opiates Screen Acetaminophen Ur Barbiturates Screen Ur Phencyclidine Scrn Ur Amphetamines Screen U Benzodiazepines Scrn Urine Cocaine Screen U Marijuana (THC) Screen Ethyl Alcohol COVID-19 ([facility]) COVID-19 Clin Com 07/10/20 07/10/20 07/10/20 10:03 10:03 10:04 MCV MCH MCHC RDW Plt Count MPV Immature Gran % (Auto) Neut % (Auto) Lymph % (Auto) Wilkin % (Auto) Eos % (Auto) Baso % (Auto) Lymph # (Auto) Wilkin # (Auto) Eos # (Auto) Baso # (Auto) Abs Immat Gran (auto) Absolute Neuts (auto) Absolute Nucleated RBC Nucleated RBC % (auto) PT INR APTT VBG pH 7.36 VBG pCO2 44 VBG pO2 45 VBG HCO3 25 VBG O2 Saturation 69.0 VBG Base Excess -0.2 Anion Gap 14 Estim Creat Clear Calc 173.8 Estimated GFR > 60 POC Glucose Random Glucose < 5 L* Lactic Acid Lactic Acid Fup @ 2Hr Calcium 7.9 L Magnesium 1.6 Total Bilirubin 1.1 H Direct Bilirubin 0.8 H AST 24 D ALT 12 Alkaline Phosphatase 139 H D Ammonia Total Creatine Kinase 18 L Troponin I High Sens Total Protein 5.8 L D Albumin 2.4 L Lipase Procalcitonin Urine Color Urine Appearance Urine pH Ur Specific Forman Urine Protein Urine Glucose (UA) Urine Ketones Urine Blood Urine Nitrite Ur Leukocyte Esterase Salicylates Urine Opiates Screen Acetaminophen Ur Barbiturates Screen Ur Phencyclidine Scrn Ur Amphetamines Screen U Benzodiazepines Scrn Urine Cocaine Screen U Marijuana (THC) Screen Ethyl Alcohol < 10 COVID-19 ([facility]) COVID-19 [employer] 07/10/20 07/10/20 07/10/20 10:04 10:04 10:04 MCV MCH MCHC RDW Plt Count MPV Immature Gran % (Auto) Neut % (Auto) Lymph % (Auto) Wilkin % (Auto) Eos % (Auto) Baso % (Auto) Lymph # (Auto) Wilkin # (Auto) Eos # (Auto) Baso # (Auto) Abs Immat Gran (auto) Absolute Neuts (auto) Absolute Nucleated RBC Nucleated RBC % (auto) PT INR APTT VBG pH VBG pCO2 VBG pO2 VBG HCO3 VBG O2 Saturation VBG Base Excess Anion Gap Estim Creat Clear Calc Estimated GFR POC Glucose Random Glucose Lactic Acid Lactic Acid Fup @ 2Hr Calcium Magnesium Total Bilirubin Direct Bilirubin AST ALT Alkaline Phosphatase Ammonia Total Creatine Kinase Troponin I High Sens < 3.5 Total Protein Albumin Lipase < 4 L Procalcitonin 0.11 Urine Color Urine Appearance Urine pH Ur Specific Forman Urine Protein Urine Glucose (UA) Urine Ketones Urine Blood Urine Nitrite Ur Leukocyte Esterase Salicylates < 5.0 L Urine Opiates Screen Acetaminophen < 1 Ur Barbiturates Screen Ur Phencyclidine Scrn Ur Amphetamines Screen U Benzodiazepines Scrn Urine Cocaine Screen U Marijuana (THC) Screen Ethyl Alcohol COVID-19 ([facility]) COVID-19 [employer] 07/10/20 07/10/20 07/10/20 10:05 10:05 10:05 MCV 98.4 H MCH 32.9 MCHC 33.4 RDW 14.3 Plt Count 201 D MPV 11.1 Immature Gran % (Auto) 0.5 H Neut % (Auto) 88.8 H Lymph % (Auto) 7.6 L Wilkin % (Auto) 2.6 Eos % (Auto) 0.2 Baso % (Auto) 0.3 Lymph # (Auto) 1.4 Wilkin # (Auto) 0.5 Eos # (Auto) 0.0 Baso # (Auto) 0.1 Abs Immat Gran (auto) 0.10 H Absolute Neuts (auto) 16.5 H Absolute Nucleated RBC 0.000 Nucleated RBC % (auto) 0.0 PT 14.9 H INR 1.3 H APTT 33.4 VBG pH VBG pCO2 VBG pO2 VBG HCO3 VBG O2 Saturation VBG Base Excess Anion Gap Estim Creat Clear Calc Estimated GFR POC Glucose Random Glucose Lactic Acid Lactic Acid Fup @ 2Hr Calcium Magnesium Total Bilirubin Direct Bilirubin AST ALT Alkaline Phosphatase Ammonia Total Creatine Kinase Troponin I High Sens Total Protein Albumin Lipase Procalcitonin Urine Color Urine Appearance Urine pH Ur Specific Forman Urine Protein Urine Glucose (UA) Urine Ketones Urine Blood Urine Nitrite Ur Leukocyte Esterase Salicylates Urine Opiates Screen Acetaminophen Ur Barbiturates Screen Ur Phencyclidine Scrn Ur Amphetamines Screen U Benzodiazepines Scrn Urine Cocaine Screen U Marijuana (THC) Screen Ethyl Alcohol COVID-19 ([facility]) Negative COVID-19 Clin Com See Note 07/10/20 07/10/20 07/10/20 10:05 10:06 10:17 MCV MCH MCHC RDW Plt Count MPV Immature Gran % (Auto) Neut % (Auto) Lymph % (Auto) Wilkin % (Auto) Eos % (Auto) Baso % (Auto) Lymph # (Auto) Wilkin # (Auto) Eos # (Auto) Baso # (Auto) Abs Immat Gran (auto) Absolute Neuts (auto) Absolute Nucleated RBC Nucleated RBC % (auto) PT INR APTT VBG pH VBG pCO2 VBG pO2 VBG HCO3 VBG O2 Saturation VBG Base Excess Anion Gap Estim Creat Clear Calc Estimated GFR POC Glucose 97 Random Glucose Lactic Acid 2.1 H* Lactic Acid Fup @ 2Hr Calcium Magnesium Total Bilirubin Direct Bilirubin AST ALT Alkaline Phosphatase Ammonia 22 Total Creatine Kinase Troponin I High Sens Total Protein Albumin Lipase Procalcitonin Urine Color Urine Appearance Urine pH Ur Specific Forman Urine Protein Urine Glucose (UA) Urine Ketones Urine Blood Urine Nitrite Ur Leukocyte Esterase Salicylates Urine Opiates Screen Acetaminophen Ur Barbiturates Screen Ur Phencyclidine Scrn Ur Amphetamines Screen U Benzodiazepines Scrn Urine Cocaine Screen U Marijuana (THC) Screen Ethyl Alcohol COVID-19 ([facility]) COVID-19 [email or web address] Com 07/10/20 07/10/20 07/10/20 11:08 11:08 11:51 MCV MCH MCHC RDW Plt Count MPV Immature Gran % (Auto) Neut % (Auto) Lymph % (Auto) Wilkin % (Auto) Eos % (Auto) Baso % (Auto) Lymph # (Auto) Wilkin # (Auto) Eos # (Auto) Baso # (Auto) Abs Immat Gran (auto) Absolute Neuts (auto) Absolute Nucleated RBC Nucleated RBC % (auto) PT INR APTT VBG pH VBG pCO2 VBG pO2 VBG HCO3 VBG O2 Saturation VBG Base Excess Anion Gap Estim Creat Clear Calc Estimated GFR POC Glucose 29 L* Random Glucose Lactic Acid Lactic Acid Fup @ 2Hr Calcium Magnesium Total Bilirubin Direct Bilirubin AST ALT Alkaline Phosphatase Ammonia Total Creatine Kinase Troponin I High Sens Total Protein Albumin Lipase Procalcitonin Urine Color YELLOW Urine Appearance CLEAR Urine pH 5.5 Ur Specific Forman 1.025 Urine Protein NEG Urine Glucose (UA) 100 H Urine Ketones NEG Urine Blood NEG Urine Nitrite NEG Ur Leukocyte Esterase NEG Salicylates Urine Opiates Screen Not Detected Acetaminophen Ur Barbiturates Screen POSITIVE H Ur Phencyclidine Scrn Not Detected Ur Amphetamines Screen Not Detected U Benzodiazepines Scrn POSITIVE H Urine Cocaine Screen Not Detected U Marijuana (THC) Screen Not Detected Ethyl Alcohol COVID-19 ([facility]) COVID-19 [employer] 07/10/20 07/10/20 07/10/20 12:06 12:17 12:27 MCV MCH MCHC RDW Plt Count MPV Immature Gran % (Auto) Neut % (Auto) Lymph % (Auto) Wilkin % (Auto) Eos % (Auto) Baso % (Auto) Lymph # (Auto) Wilkin # (Auto) Eos # (Auto) Baso # (Auto) Abs Immat Gran (auto) Absolute Neuts (auto) Absolute Nucleated RBC Nucleated RBC % (auto) PT INR APTT VBG pH VBG pCO2 VBG pO2 VBG HCO3 VBG O2 Saturation VBG Base Excess Anion Gap Estim Creat Clear Calc Estimated GFR POC Glucose 47 L* 91 121 H Random Glucose Lactic Acid Lactic Acid Fup @ 2Hr Calcium Magnesium Total Bilirubin Direct Bilirubin AST ALT Alkaline Phosphatase Ammonia Total Creatine Kinase Troponin I High Sens Total Protein Albumin Lipase Procalcitonin Urine Color Urine Appearance Urine pH Ur Specific Forman Urine Protein Urine Glucose (UA) Urine Ketones Urine Blood Urine Nitrite Ur Leukocyte Esterase Salicylates Urine Opiates Screen Acetaminophen Ur Barbiturates Screen Ur Phencyclidine Scrn Ur Amphetamines Screen U Benzodiazepines Scrn Urine Cocaine Screen U Marijuana (THC) Screen Ethyl Alcohol COVID-19 ([facility]) COVID-19 [email or web address] Com 07/10/20 07/10/20 07/10/20 12:47 14:10 14:49 MCV MCH MCHC RDW Plt Count MPV Immature Gran % (Auto) Neut % (Auto) Lymph % (Auto) Wilkin % (Auto) Eos % (Auto) Baso % (Auto) Lymph # (Auto) Wilkin # (Auto) Eos # (Auto) Baso # (Auto) Abs Immat Gran (auto) Absolute Neuts (auto) Absolute Nucleated RBC Nucleated RBC % (auto) PT INR APTT VBG pH VBG pCO2 VBG pO2 VBG HCO3 VBG O2 Saturation VBG Base Excess Anion Gap Estim Creat Clear Calc Estimated GFR POC Glucose 129 H 87 Random Glucose Lactic Acid Lactic Acid Fup @ 2Hr 3.3 H* Calcium Magnesium Total Bilirubin Direct Bilirubin AST ALT Alkaline Phosphatase Ammonia Total Creatine Kinase Troponin I High Sens Total Protein Albumin Lipase Procalcitonin Urine Color Urine Appearance Urine pH Ur Specific Forman Urine Protein Urine Glucose (UA) Urine Ketones Urine Blood Urine Nitrite Ur Leukocyte Esterase Salicylates Urine Opiates Screen Acetaminophen Ur Barbiturates Screen Ur Phencyclidine Scrn Ur Amphetamines Screen U Benzodiazepines Scrn Urine Cocaine Screen U Marijuana (THC) Screen Ethyl Alcohol COVID-19 ([facility]) COVID-19 [email or web address] Com 07/10/20 07/10/20 14:49 15:22 MCV MCH MCHC RDW Plt Count MPV Immature Gran % (Auto) Neut % (Auto) Lymph % (Auto) Wilkin % (Auto) Eos % (Auto) Baso % (Auto) Lymph # (Auto) Wilkin # (Auto) Eos # (Auto) Baso # (Auto) Abs Immat Gran (auto) Absolute Neuts (auto) Absolute Nucleated RBC Nucleated RBC % (auto) PT INR APTT VBG pH VBG pCO2 VBG pO2 VBG HCO3 VBG O2 Saturation VBG Base Excess Anion Gap 10 L Estim Creat Clear Calc 180.2 Estimated GFR > 60 POC Glucose 71 Random Glucose 56 L* Lactic Acid Lactic Acid Fup @ 2Hr Calcium 7.5 L Magnesium Total Bilirubin Direct Bilirubin AST ALT Alkaline Phosphatase Ammonia Total Creatine Kinase Troponin I High Sens Total Protein Albumin Lipase Procalcitonin Urine Color Urine Appearance Urine pH Ur Specific Forman Urine Protein Urine Glucose (UA) Urine Ketones Urine Blood Urine Nitrite Ur Leukocyte Esterase Salicylates Urine Opiates Screen Acetaminophen Ur Barbiturates Screen Ur Phencyclidine Scrn Ur Amphetamines Screen U Benzodiazepines Scrn Urine Cocaine Screen U Marijuana (THC) Screen Ethyl Alcohol COVID-19 ([facility]) COVID-19 Clin Com Imaging Radiologist's Impressions: Impressions Abdomen/Pelvis CT 07/10/20 09:47 IMPRESSION: Chest: New 2 x 3 cm superior segment right lower lobe nodule abutting the major fissure and probably extending into the posterior segment of the right upper lobe. Increased interstitial markings and groundglass attenuation and small adjacent more superior right upper lobe on semisolid nodule. Given new appearance from recent exam, an infectious or inflammatory process is favored. Neoplastic process cannot be excluded and imaging follow-up following treatment is recommended. Coronary artery disease. Slightly dilated thoracic aorta. Healing left eighth and ninth and 10th rib fractures. Abdomen and pelvis: Satisfactory position of cholecystostomy tube. Enlarged fatty liver. Probable left renal cysts. Morris catheter in the bladder. The bladder wall appears diffusely thickened. Cervical Spine CT 07/10/20 09:47 IMPRESSION: Degenerative changes. No fracture or dislocation seen. Chest CT 07/10/20 09:47 IMPRESSION: Chest: New 2 x 3 cm superior segment right lower lobe nodule abutting the major fissure and probably extending into the posterior segment of the right upper lobe. Increased interstitial markings and groundglass attenuation and small adjacent more superior right upper lobe on semisolid nodule. Given new appearance from recent exam, an infectious or inflammatory process is favored. Neoplastic process cannot be excluded and imaging follow-up following treatment is recommended. Coronary artery disease. Slightly dilated thoracic aorta. Healing left eighth and ninth and 10th rib fractures. Abdomen and pelvis: Satisfactory position of cholecystostomy tube. Enlarged fatty liver. Probable left renal cysts. Morris catheter in the bladder. The bladder wall appears diffusely thickened. Head CT 07/10/20 09:47 IMPRESSION: No acute findings. 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 Assessment and Plan (1) Overdose: Qualifiers: Encounter type: initial encounter Injury intent: undetermined intent Qualified Code(s): T50.904A - Poisoning by unspecified drugs, medicaments and b iological substances, undetermined, initial encounter Status: Acute (2) Hypoglycemia: Status: Acute 59 year old man admitted after an episode of unresponsiveness secondary to xanax overdose and hypoglycemia. Severe sepsis secondary to clamped drain for acalculous cholecystitis. Fever, tachycardia, leukocytosis, lactic acidosis . Tube clamped for several days. Follow blood cultures. Will likely need his gallbladder out once he is stable. General surgery to follow. Toxic metabolic encephalopathy secondary to hypoglycemia and OD. Able to give some information and open eyes. Seems to be improving. Follow neuro status closely. Hypoglycemia. Improved, likely related to low glycogen stores secondary to chronic liver disease and poor intake. Will follow very closely. D50 as needed. Add D10. Overdose. Vague about how much he took. Patient stated he took 10-11, 1 mg pills . Will consult BHN. Acute hypoxic respiratory failure. Initially intubated by EMS. Extubated in the ED with stable respiratory status. Protein calorie malnutrition. Poor appetite over last several weeks and prior to that had been drinking heavily. Once patient is stable and diet is initiated, consider adding and Ensure to diet. Transaminitis. Due to alcoholic abuse. CHF, ischemic. No overt failure at this time. Hx of DVT. On Eliquis. Chronic alcohol use. Last used in May 2020 just prior to [place] [facility] [place] DVT prophylaxis with Lovenox. Discussed with Dr. Goldstein Full code
[2020-07-10] MEDS: Acetaminophen 325 MG TABLET 650 MG PO (16:16)
[2020-07-10] MEDS: Ketorolac Tromethamine 30 MG/ML VIAL IVPUSH (16:46)
[2020-07-10 16:52] LABS: Reflex Lactate? 2 Y
--- NOTE | 2020-07-10 16:54 | PC.NURSE ---
pt is sleeping now. temperature noted to be rising at 100.4. alerted Dr Melton, and administered 650 acetominaphen as ordered. Temp continued to rise, to 102.6. Alerted Dr Castaneda. Administered toradol as ordered. Called Dione Montoya NP to inform of temp and interventions. States she will order Zosyn. ON review of MAR, appears Zosyn was administered at 1400 today. will call and inform, ask for new ordersPt with blood glucose of 40, administered D50 1 amp IVP.
--- NOTE | 2020-07-10 17:59 | MHC.CARE ---
CARE Team receives consult indicating Xanax overdose. Pt has a hx of Bipolar Disorder and intention overdose w/ suicidal intent. CARE Team recommends referral for N crisis assessment once pt is medically cleared. Please reach out to CARE Team for any support needed. CARE Team communicates this with Dione Montoya NP.
[2020-07-10 18:11] LABS: Glucose, Whole Blood 40 mg/dL (60-115)
[2020-07-10 18:11] LABS: Glucose, Whole Blood 34 mg/dL (60-115)
[2020-07-10 18:33] LABS: Glucose, Whole Blood 119 mg/dL (60-115)
[2020-07-10 18:51] LABS: ~Lactic Acid-LAB USE ONLY 2.3 mmol/L (0.5-2.0)
[2020-07-10 18:55] LABS: Glucose, Whole Blood 73 mg/dL (60-115)
--- NOTE | 2020-07-10 20:03 | PC.NURSE ---
pt poc taken 31 at 1950 and treated with dextrose iv. pt is arrousable. sitter at bedside.
[2020-07-10 22:11] LABS: Glucose, Whole Blood 35 mg/dL (60-115)
[2020-07-10 22:11] LABS: Glucose, Whole Blood 66 mg/dL (60-115)
[2020-07-10 22:11] LABS: Glucose, Whole Blood 111 mg/dL (60-115)
[2020-07-10 22:11] LABS: Glucose, Whole Blood 115 mg/dL (60-115)
[2020-07-10 22:11] LABS: Glucose, Whole Blood 31 mg/dL (60-115)
--- NOTE | 2020-07-10 22:38 | MHC.CM.PN ---
CM met with pt. IMM reviewed and signed per protocol. [place] [facility] [place] Pt A&O x2. Unsure why he is in the ED. States he went to sleep last night and woke up in the ED. Admits to taking 4 Xanax. Explained his blood sugar was very low. Pt aware he will need to stay in the hospital to treat him medically and that he may need GB surgery. Also aware that BHN will need to speak with him to be sure he is safe to go home. Pt lives with SO/HCP Lilli Valencia ([phone]). She will transport home if N deems pt safe to go home. Expect no services medically. CM to follow for d/c needs.
--- NOTE | 2020-07-10 23:20 | PC.NURSE ---
[employer] supervisor made aware of the low blood sugars and soft blood pressures.
[2020-07-11] VITALS (16 sets, daily range): BP systolic 96–136; BP diastolic 56–86; PULSE 93–114; RESP 12–24; TEMP 37.1–37.6; O2SAT 93–100
[2020-07-11 00:38] LABS: Glucose, Whole Blood 146 mg/dL (60-115)
[2020-07-11 00:38] LABS: Glucose, Whole Blood 38 mg/dL (60-115)
[2020-07-11 00:38] LABS: Glucose, Whole Blood 44 mg/dL (60-115)
[2020-07-11] MEDS: Apixaban 5 MG TABLET PO ×3 (03:20→21:00)
[2020-07-11] MEDS: Gabapentin 300 MG CAPSULE PO ×2 (03:20→21:00)
[2020-07-11] MEDS: Piperacillin Sodium/Tazobactam 3.375 GM in 0.9 % Sodium Chloride 50 ML IV ×4 (03:21→23:04)
--- NOTE | 2020-07-11 03:22 | PC.NURSE ---
metoporal held due to pt bp have been low
[2020-07-11] MEDS: Dextrose 10 % 1,000 ML 75 ML IVCONT (03:28)
[2020-07-11 07:05] LABS: Glucose, Whole Blood 153 mg/dL (60-115)
[2020-07-11 07:05] LABS: Glucose, Whole Blood 128 mg/dL (60-115)
[2020-07-11 07:05] LABS: Glucose, Whole Blood 142 mg/dL (60-115)
[2020-07-11 07:05] LABS: Glucose, Whole Blood 143 mg/dL (60-115)
[2020-07-11 07:05] LABS: Glucose, Whole Blood 134 mg/dL (60-115)
[2020-07-11 07:05] LABS: Glucose, Whole Blood 88 mg/dL (60-115)
[2020-07-11 07:05] LABS: Glucose, Whole Blood 139 mg/dL (60-115)
[2020-07-11 07:05] LABS: Glucose, Whole Blood 135 mg/dL (60-115)
[2020-07-11 07:05] LABS: Glucose, Whole Blood 131 mg/dL (60-115)
[2020-07-11 07:13] LABS: MANUAL DIFF FLAG NO
[2020-07-11 07:26] LABS: Basophils Percent Auto 0.3 % (0-2); Hematocrit 35.9 % (42-52); Imm Gran Abs Auto 0.07 X10*3/uL (0.00-0.03); Imm Gran Pct Auto 0.5 % (0.0-0.4); Lymphocytes Absolute Auto 1.2 X10*3/uL (1.2-4.9); Lymphocytes Percent Auto 7.8 % (20-40); Mean Corpuscular HGB Conc 33.4 g/dl (31.0-36.0); Mean Corpuscular Hemoglobin 32.3 pg (27.0-33.0); Mean Corpuscular Volume 96.5 fL (80-98); Mean Platelet Volume 11.4 fL (9.4-12.4); Monocytes Absolute Auto 0.2 X10*3/uL (0.1-1.2); Monocytes Percent Auto 1.4 % (2-11); Neutrophils Absolute Auto 13.8 X10*3/uL (2.0-8.3); Platelet Count 170 X10*3/uL (160-400); Red Blood Count 3.72 X10*6/uL (4.60-5.80); Red Cell Distribution Width 14.5 % (11.0-16.0); White Blood Count 15.3 X10*3/uL (4.8-10.8)
[2020-07-11 07:50] LABS: Anion Gap 12 (12-20); Blood Urea Nitrogen 6 mg/dL (9-16); Calcium 7.4 mg/dL (8.4-10.2); Carbon Dioxide 23 mmol/L (22-29); Chloride 105 mmol/L (96-108); Creatinine Clr Calc Pharmacy 167.8; Estimated Glomerular Filt Rate > 60; Glucose Random 112 mg/dL (60-115); Potassium 3.8 mmol/L (3.3-5.1); Sodium 136 mmol/L (135-145)
[2020-07-11 08:39] LABS: Glucose, Whole Blood 108 mg/dL (60-115)
[2020-07-11] MEDS: Folic Acid 1 MG TABLET PO (08:41)
[2020-07-11] MEDS: Atorvastatin Calcium 40 MG TABLET PO (08:41)
[2020-07-11] MEDS: Omeprazole 20 MG CAPSULE.DR PO ×2 (08:41→21:00)
--- NOTE | 2020-07-11 10:26 | HO.PM.IMPN ---
Subjective Subjective Date of Service: 07/11/20 Interval History: more alert Cardiovascular Cardiovascular: Reports no additional cardiovascular complaints Respiratory Respiratory: Reports no additional respiratory complaints Physical Exam Vital Signs: Vital Signs: Last Vital Signs Temp 99.7 F 07/11/20 01:09 Pulse 97 07/11/20 08:46 Resp 16 07/11/20 05:55 BP 113/80 07/11/20 08:46 Pulse Ox 93 07/11/20 04:10 Body Mass Index 33.5 General: AO X 3, no acute distress Resp: CTA bilateral CVS: S1,S2,RRR GI: soft, ruq tender, drain in place, non distended Neuro: motor grossly intact Psych: appropriate affect Objective Data Current Medications Generic Name Dose Route Start Last Admin Trade Name Freq PRN Reason Stop Dose Admin Acetaminophen 650 mg 07/10/20 23:23 Acetaminophen 325 Mg Tablet PO Q6H PRN Pain, Mild (Pain Scale 1-3) Apixaban 5 mg 07/10/20 23:41 07/11/20 08:41 Apixaban 5 Mg Tablet PO 5 mg BID ALEX Administration Atorvastatin Calcium 40 mg 07/11/20 09:00 07/11/20 08:41 Atorvastatin Calcium 40 Mg Tablet PO 40 mg DAILY ALEX Administration Folic Acid 1 mg 07/11/20 09:00 07/11/20 08:41 Folic Acid 1 Mg Tablet PO 1 mg DAILY ALEX Administration Gabapentin 300 mg 07/10/20 23:41 07/11/20 03:20 Gabapentin 300 Mg Capsule PO 300 mg BEDTIME ALEX Administration Dextrose 1,000 mls @ 75 mls/hr 07/10/20 17:15 07/11/20 07:11 D10 IVCONT Not Given .[id number] ALEX Piperacillin Sod/Tazobactam 50 mls @ 100 mls/hr 07/11/20 00:00 07/11/20 09:22 Sod 3.375 gm/ Sodium Chloride IV Infused Q8H ALEX Infusion Metoprolol Tartrate 25 mg 07/10/20 23:41 07/11/20 08:46 Metoprolol Tartrate 25 Mg Tablet PO Not Given BID ALEX Protocol Omeprazole 20 mg 07/11/20 09:00 07/11/20 08:41 Omeprazole 20 Mg Capsule.Dr PO 20 mg BID ALEX Administration Ondansetron HCl 4 mg 07/10/20 23:23 Ondansetron Hcl 4 Mg/2 Ml Vial IVPUSH Q8H PRN Nausea and Vomiting Pharmacy Consult 1 each 07/10/20 09:47 Consult Rx Perform Med Rec MISCELLANE ONCE PRN Consult order Quetiapine Fumarate 50 mg 07/10/20 23:41 Quetiapine Fumarate 50 Mg Tablet PO BEDTIME PRN Insomnia Sodium Chloride 3 ml 07/10/20 23:23 07/11/20 08:46 0.9 % Sodium Chloride Flush 3 Ml Syringe IVFLUSH Not Given QSHIFT ALEX Labs CBC & Chem 7: 07/11/20 07:05 07/11/20 07:05 Microbiology Microbiology Results: Microbiology 07/10/20 14:58 Gallbladder Fluid Routine Culture - Preliminary Culture in progress. 07/10/20 14:58 Gallbladder Fluid Anaerobic Culture - Preliminary Culture in progress. Assessment and Plan (1) Overdose: Status: Acute (2) Hypoglycemia: Status: Acute Assessment and Plan: 59M presented with AMS Toxic metabolic encephalopathy and acute hypoxic respiratory failure due to Xanax overdose and hypoglycemia complicated by severe sepsis secondary to closed cholecystotomy tube and possible aspiration pneumonia continue zosyn follow up surgery follow up cultures wean of d10 as tolerated, monitor sugars (was likely due to poor diet with low glycogen stores due to liver disease) mental status back to baseline - denies SI, was just trying to sleep s/p extubation, satting well Protein calorie malnutrition. Poor appetite over last several weeks and prior to that had been drinking heavily. Once patient is stable and diet is initiated, consider adding and Ensure to diet. alcoholic fatty liver last drink in may 2020 chronic systolic chf stable Hx of DVT Eliquis.
--- NOTE | 2020-07-11 11:02 | P.PNGS_ITS ---
Subjective Subjective Date of Service: 07/11/20 Interval history: Patient feels improved today with decreased abdominal pain; he wants his gallbladder out. Physical Exam Vital Signs: Vital Signs: Last Vital Signs Temp 99.7 F 07/11/20 01:09 Pulse 97 07/11/20 08:46 Resp 16 07/11/20 05:55 BP 113/80 07/11/20 08:46 Pulse Ox 93 07/11/20 04:10 Body Mass Index 33.5 Const: General: alert, awake and ill appearing Orientation/consciousness: patient oriented x3 Eyes: EOM: EOMs intact bilaterally Neck: Neck: Yes normal visual inspection and Yes no JVD Resp: Effort & Inspection: normal respiratory effort GI: Other: Cholecystostomy tube intact draining dark green/bilious fluid, mildly tender in right upper quadrant. Skin: Other: No jaundice Neuro: General: patient oriented x3 Extrem: General: Yes full ROM Progress Note: A&P Assessment and plan (1) Acalculous cholecystitis: Status: Acute Assessment and Plan: Patient is improved after opening of cholecystostomy tube. Drain now producing dark bilious fluid which suggests that the cystic duct is open. Patient was previously scheduled for an IR drain check for Monday. Will keep cholecystostomy tube in place and open until patient is stable enough for cholecystectomy. Fall Risk Details Current Medications: Current Medications Generic Name Dose Route Start Last Admin Trade Name Freq PRN Reason Stop Dose Admin Acetaminophen 650 mg 07/10/20 23:23 Acetaminophen 325 Mg Tablet PO Q6H PRN Pain, Mild (Pain Scale 1-3) Apixaban 5 mg 07/10/20 23:41 07/11/20 08:41 Apixaban 5 Mg Tablet PO 5 mg BID ALEX Administration Atorvastatin Calcium 40 mg 07/11/20 09:00 07/11/20 08:41 Atorvastatin Calcium 40 Mg Tablet PO 40 mg DAILY ALEX Administration Folic Acid 1 mg 07/11/20 09:00 07/11/20 08:41 Folic Acid 1 Mg Tablet PO 1 mg DAILY ALEX Administration Gabapentin 300 mg 07/10/20 23:41 07/11/20 03:20 Gabapentin 300 Mg Capsule PO 300 mg BEDTIME ALEX Administration Dextrose 1,000 mls @ 75 mls/hr 07/10/20 17:15 07/11/20 07:11 D10 IVCONT Not Given .[id number] ALEX Piperacillin Sod/Tazobactam 50 mls @ 100 mls/hr 07/11/20 00:00 07/11/20 09:22 Sod 3.375 gm/ Sodium Chloride IV Infused Q8H ALEX Infusion Metoprolol Tartrate 25 mg 07/10/20 23:41 07/11/20 08:46 Metoprolol Tartrate 25 Mg Tablet PO Not Given BID [facility] Protocol Omeprazole 20 mg 07/11/20 09:00 07/11/20 08:41 Omeprazole 20 Mg Capsule.Dr PO 20 mg BID ALEX Administration Ondansetron HCl 4 mg 07/10/20 23:23 Ondansetron Hcl 4 Mg/2 Ml Vial IVPUSH Q8H PRN Nausea and Vomiting Pharmacy Consult 1 each 07/10/20 09:47 Consult Rx Perform Med Rec MISCELLANE ONCE PRN Consult order Quetiapine Fumarate 50 mg 07/10/20 23:41 Quetiapine Fumarate 50 Mg Tablet PO BEDTIME PRN Insomnia Sodium Chloride 3 ml 07/10/20 23:23 07/11/20 08:46 0.9 % Sodium Chloride Flush 3 Ml Syringe IVFLUSH Not Given QSHIFT [facility] Time Spent With Patient Time: Total time spent is greater than 50% in coordination of care (as documented) at patient's floor/unit and/or counseling patient: Time with patient: 15 - 24 minutes
--- NOTE | 2020-07-11 11:33 | PC.NURSE ---
POC low, repeated and given pt ice cream. Will encourage to eat a meal.
[2020-07-11 11:34] LABS: Glucose, Whole Blood 59 mg/dL (60-115)
[2020-07-11 11:34] LABS: Glucose, Whole Blood 73 mg/dL (60-115)
[2020-07-11 14:10] LABS: Glucose, Whole Blood 80 mg/dL (60-115)
[2020-07-11] MEDS: Dextrose 10 % 1,000 ML 100 ML IVCONT (16:41)
--- NOTE | 2020-07-11 16:41 | PC.NURSE ---
pt had multiple orders for D10 at different rates, prior RN charted against. To update administration D10 was charted by this RN as unscheduled. Pt had low blood sugar of 25. Informed MD who ordered change from 75ml/hr to 100. Pt was also given orange juice with sugar. Recheck of blood glucose at this time is 50. Will recheck in 30 min. Pt is awake and oriented. He had been weeping, slightly disoriented which prompted check of blood sugar and discovery of the low value. Will continue to monitor
[2020-07-11 17:31] LABS: Glucose, Whole Blood 25 mg/dL (60-115)
[2020-07-11 17:31] LABS: Glucose, Whole Blood 50 mg/dL (60-115)
[2020-07-11 17:31] LABS: Glucose, Whole Blood 101 mg/dL (60-115)
[2020-07-11 18:42] LABS: Glucose, Whole Blood 61 mg/dL (60-115)
[2020-07-11 20:50] LABS: Glucose, Whole Blood 53 mg/dL (60-115)
[2020-07-11] MEDS: Metoprolol Tartrate 25 MG TABLET PO (21:00)
[2020-07-11] MEDS: 0.9 % Sodium Chloride Flush 3 ML SYRINGE IVFLUSH (21:01)
--- NOTE | 2020-07-11 21:26 | PM.EVENT ---
Event Note Date of Service: 07/11/20 Event Note: Hypoglycemia: Patient is persistently hypoglycemic, asymptomatic. Given orange juices and patient is on D10 drip. Will obtain cortisol, TSH, proinsulin, C-peptide, beta hydroxybutyrate levels. Will pass on to the morning team to follow-up.
[2020-07-11 21:50] LABS: Glucose, Whole Blood 62 mg/dL (60-115)
[2020-07-11 22:03] LABS: Glucose, Whole Blood 79 mg/dL (60-115)
[2020-07-11 22:20] LABS: Anion Gap 14 (12-20); Blood Urea Nitrogen 5 mg/dL (9-16); Carbon Dioxide 20 mmol/L (22-29); Chloride 109 mmol/L (96-108); Creatinine Clr Calc Pharmacy 173.8; Estimated Glomerular Filt Rate > 60; Glucose Random 57 mg/dL (60-115); Potassium 3.5 mmol/L (3.3-5.1); Sodium 139 mmol/L (135-145)
--- NOTE | 2020-07-11 22:27 | PC.NURSE ---
poc at 2049 53 oj given rechecked 15min later [id number]. notified.ordered to check blood sugars q1hr and feed pt lots of ice cream.encouraged pt to eat ice cream .apple juice given.iv fluids D10 at 100/hr infusing well in right ac.stat labs ordered.sitter with pt .will continue to monitor.
--- NOTE | 2020-07-11 22:35 | PC.NURSE ---
2200 [facility]-[id number]
[2020-07-11 23:27] LABS: Glucose, Whole Blood 73 mg/dL (60-115)
[2020-07-12] VITALS (8 sets, daily range): BP systolic 91–140; BP diastolic 66–88; PULSE 79–102; RESP 16–20; TEMP 36.3–37.1; O2SAT 94–98
[2020-07-12 00:16] LABS: Glucose, Whole Blood 76 mg/dL (60-115)
[2020-07-12 01:11] LABS: Glucose, Whole Blood 68 mg/dL (60-115)
[2020-07-12 02:19] LABS: Glucose, Whole Blood 76 mg/dL (60-115)
[2020-07-12] MEDS: Dextrose 10 % 1,000 ML 100 ML IVCONT ×2 (02:58→14:18)
[2020-07-12 03:15] LABS: Glucose, Whole Blood 56 mg/dL (60-115)
[2020-07-12 04:14] LABS: Glucose, Whole Blood 89 mg/dL (60-115)
[2020-07-12 05:22] LABS: Glucose, Whole Blood 103 mg/dL (60-115)
[2020-07-12 06:05] LABS: Glucose, Whole Blood 79 mg/dL (60-115)
[2020-07-12] MEDS: Piperacillin Sodium/Tazobactam 3.375 GM in 0.9 % Sodium Chloride 50 ML IV ×3 (10:09→23:44)
--- NOTE | 2020-07-12 10:09 | HO.PM.IMPN ---
Subjective Subjective Date of Service: 07/12/20 Interval History: tired Cardiovascular Cardiovascular: Reports no additional cardiovascular complaints Gastrointestinal Gastrointestinal: Reports no additional gastrointestinal complaints Physical Exam Vital Signs: Vital Signs: Last Vital Signs Temp 98.5 F 07/12/20 08:00 Pulse 102 H 07/12/20 08:00 Resp 19 07/12/20 08:00 BP 140/83 H 07/12/20 08:00 Pulse Ox 95 07/12/20 08:00 Body Mass Index 33.5 General: AO X 3, no acute distress Resp: CTA bilateral CVS: S1,S2,RRR GI: soft, ruq tender, non distended Neuro: motor grossly intact Psych: appropriate affect Objective Data Current Medications Generic Name Dose Route Start Last Admin Trade Name Freq PRN Reason Stop Dose Admin Acetaminophen 650 mg 07/10/20 23:23 Acetaminophen 325 Mg Tablet PO Q6H PRN Pain, Mild (Pain Scale 1-3) Apixaban 5 mg 07/10/20 23:41 07/11/20 21:00 Apixaban 5 Mg Tablet PO 5 mg BID ALEX Administration Atorvastatin Calcium 40 mg 07/11/20 09:00 07/11/20 08:41 Atorvastatin Calcium 40 Mg Tablet PO 40 mg DAILY ALEX Administration Folic Acid 1 mg 07/11/20 09:00 07/11/20 08:41 Folic Acid 1 Mg Tablet PO 1 mg DAILY ALEX Administration Gabapentin 300 mg 07/10/20 23:41 07/11/20 21:00 Gabapentin 300 Mg Capsule PO 300 mg BEDTIME ALEX Administration Dextrose 1,000 mls @ 100 mls/hr 07/10/20 17:15 07/12/20 06:23 D10 IVCONT Not Given .Q10H ALEX Piperacillin Sod/Tazobactam 50 mls @ 100 mls/hr 07/11/20 00:00 07/12/20 00:19 Sod 3.375 gm/ Sodium Chloride IV Infused Q8H ALEX Infusion Metoprolol Tartrate 25 mg 07/10/20 23:41 07/11/20 21:00 Metoprolol Tartrate 25 Mg Tablet PO 25 mg BID ALEX Administration Protocol Omeprazole 20 mg 07/11/20 09:00 07/11/20 21:00 Omeprazole 20 Mg Capsule.Dr PO 20 mg BID ALEX Administration Ondansetron HCl 4 mg 07/10/20 23:23 Ondansetron Hcl 4 Mg/2 Ml Vial IVPUSH Q8H PRN Nausea and Vomiting Pharmacy Consult 1 each 07/10/20 09:47 Consult Rx Perform Med Rec MISCELLANE ONCE PRN Consult order Quetiapine Fumarate 50 mg 07/10/20 23:41 Quetiapine Fumarate 50 Mg Tablet PO BEDTIME PRN Insomnia Sodium Chloride 3 ml 07/10/20 23:23 07/11/20 21:01 0.9 % Sodium Chloride Flush 3 Ml Syringe IVFLUSH 3 ml QSHIFT ALEX Administration Labs CBC & Chem 7: 07/11/20 07:05 07/11/20 21:35 Microbiology Microbiology Results: Microbiology 07/10/20 14:58 Gallbladder Fluid Gram Stain - Final 07/10/20 14:58 Gallbladder Fluid Routine Culture - Preliminary Culture in progress. 07/10/20 14:58 Gallbladder Fluid Anaerobic Culture - Preliminary Culture in progress. 07/10/20 10:23 Blood - Venous Blood Culture - Preliminary No growth after 24 hours. 07/10/20 10:03 Blood - Venous Blood Culture - Preliminary No growth after 24 hours. Assessment and Plan (1) Overdose: Status: Acute (2) Hypoglycemia: Status: Acute Assessment and Plan: 59M presented with AMS Toxic metabolic encephalopathy and acute hypoxic respiratory failure due to Xanax overdose and hypoglycemia complicated by severe sepsis secondary to closed cholecystotomy tube and possible aspiration pneumonia continue zosyn follow up cultures wean off d10 as tolerated, monitor sugars (was likely due to poor diet with low glycogen stores due to liver disease, hypoglycemia work up in progress) mental status back to baseline - denies SI, was just trying to sleep s/p extubation, satting well Protein calorie malnutrition. Poor appetite over last several weeks and prior to that had been drinking heavily. alcoholic fatty liver last drink in may 2020 chronic systolic chf stable Hx of DVT Eliquis.
[2020-07-12] MEDS: Apixaban 5 MG TABLET PO ×2 (10:10→21:56)
[2020-07-12] MEDS: Metoprolol Tartrate 25 MG TABLET PO ×2 (10:10→21:56)
[2020-07-12] MEDS: Folic Acid 1 MG TABLET PO (10:10)
[2020-07-12] MEDS: Omeprazole 20 MG CAPSULE.DR PO ×2 (10:10→21:56)
[2020-07-12] MEDS: Atorvastatin Calcium 40 MG TABLET PO (10:10)
[2020-07-12] MEDS: 0.9 % Sodium Chloride Flush 3 ML SYRINGE IVFLUSH ×3 (10:14→22:01)
[2020-07-12 10:23] LABS: Glucose, Whole Blood 63 mg/dL (60-115)
[2020-07-12 10:23] LABS: Glucose, Whole Blood 89 mg/dL (60-115)
[2020-07-12 10:23] LABS: Glucose, Whole Blood 71 mg/dL (60-115)
[2020-07-12] MEDS: ondansetron HCL 4 MG/2 ML VIAL IVPUSH (11:30)
[2020-07-12 13:15] LABS: Glucose, Whole Blood 87 mg/dL (60-115)
[2020-07-12 13:15] LABS: Glucose, Whole Blood 70 mg/dL (60-115)
[2020-07-12 13:15] LABS: Glucose, Whole Blood 97 mg/dL (60-115)
[2020-07-12] MEDS: Gabapentin 300 MG CAPSULE PO (21:56)
[2020-07-12] MEDS: QUEtiapine Fumarate 50 MG TABLET PO (22:00)
[2020-07-13] MEDS: Dextrose 10 % 1,000 ML 100 ML IVCONT (00:53)
[2020-07-13 01:06] LABS: Glucose, Whole Blood 106 mg/dL (60-115)
[2020-07-13 01:06] LABS: Glucose, Whole Blood 90 mg/dL (60-115)
[2020-07-13 01:06] LABS: Glucose, Whole Blood 64 mg/dL (60-115)
[2020-07-13 01:06] LABS: Glucose, Whole Blood 83 mg/dL (60-115)
[2020-07-13 01:06] LABS: Glucose, Whole Blood 80 mg/dL (60-115)
[2020-07-13 02:00] LABS: Glucose, Whole Blood 83 mg/dL (60-115)
[2020-07-13 03:15] VITALS: BP 122/74; PULSE 74; RESP 16; TEMP 36.1; O2SAT 95
[2020-07-13 07:32] VITALS: BP 110/76; PULSE 80; RESP 16; TEMP 36.4; O2SAT 94
[2020-07-13 07:38] LABS: Glucose, Whole Blood < 10 mg/dL (60-115)
[2020-07-13] MEDS: Omeprazole 20 MG CAPSULE.DR PO ×2 (07:48→21:37)
[2020-07-13] MEDS: Metoprolol Tartrate 25 MG TABLET PO ×2 (07:48→21:37)
[2020-07-13] MEDS: Folic Acid 1 MG TABLET PO (07:48)
[2020-07-13] MEDS: Atorvastatin Calcium 40 MG TABLET PO (07:48)
[2020-07-13] MEDS: Apixaban 5 MG TABLET PO ×2 (07:49→21:36)
[2020-07-13] MEDS: Piperacillin Sodium/Tazobactam 3.375 GM in 0.9 % Sodium Chloride 50 ML IV ×2 (07:49→17:04)
[2020-07-13] MEDS: 0.9 % Sodium Chloride Flush 3 ML SYRINGE IVFLUSH ×3 (07:49→21:44)
[2020-07-13 07:54] LABS: MANUAL DIFF FLAG NO
[2020-07-13 07:57] LABS: Basophils Absolute Auto 0.1 X10*3/uL (0.0-0.2); Basophils Percent Auto 0.8 % (0-2); Eosinophils Absolute Auto 0.3 X10*3/uL (0.0-0.4); Eosinophils Percent Auto 2.3 % (0-4); Hematocrit 33.7 % (42-52); Hemoglobin 11.3 g/dl (14.0-18.0); Imm Gran Abs Auto 0.04 X10*3/uL (0.00-0.03); Imm Gran Pct Auto 0.3 % (0.0-0.4); Lymphocytes Absolute Auto 2.4 X10*3/uL (1.2-4.9); Lymphocytes Percent Auto 20.6 % (20-40); Mean Corpuscular HGB Conc 33.5 g/dl (31.0-36.0); Mean Corpuscular Hemoglobin 32.8 pg (27.0-33.0); Mean Corpuscular Volume 97.7 fL (80-98); Monocytes Absolute Auto 0.4 X10*3/uL (0.1-1.2); Monocytes Percent Auto 3.6 % (2-11); Neutrophils Absolute Auto 8.6 X10*3/uL (2.0-8.3); Neutrophils Percent Auto 72.4 % (45-73); Platelet Count 174 X10*3/uL (160-400); Red Blood Count 3.45 X10*6/uL (4.60-5.80); Red Cell Distribution Width 14.6 % (11.0-16.0); White Blood Count 11.8 X10*3/uL (4.8-10.8)
[2020-07-13 08:03] LABS: Glucose, Whole Blood 90 mg/dL (60-115)
--- NOTE | 2020-07-13 08:10 | P.CDIC_ITS ---
CDI Concurrent Query Service Date: 07/13/20 Documentation Clarification: Please clarify if you are treating a proba ble/suspected/likely or confirmed: Mild Protein Calorie Malnutrition Moderate Protein Calorie Malnutrition Severe Protein Calorie Malnutrition PLEASE DO NOT DELETE/MODIFY EXISTING CONTENT Additional information is needed in order to code to the highest accuracy and appropriate Severity of Illness (SOI). Please clarify the information noted below in your progress notes and discharge summary. Risk Factors/Clinical Indicators/Treatments 59 year old male admitted with Severe Sepsis secondary to clamped drain for Acalculous Cholecystitis, Toxic Metabolic Encephalopathy, Hypoglycemia and OD, Acute Hypoxic Respiratory Failure, Protein Calorie Malnutrition, Possible Aspiration Pneumonia HT. 5'11, WT. 108.862 kg, BMI 33.5 Total Protein 5.8, Albumin 2.4 note 07/11/20: Consider adding Ensure CDS: Pina Scott RN Contact Number: [phone] Please Review the information above and exercise your independent professional judgment in responding to the query. If you concur, pleas document in the PROGRESS NOTES and DISCHARGE SUMMARY. If you do not agree with the query, please document in the query above. THIS QUERY IS PART OF THE PERMANENT MEDICAL RECORD
[2020-07-13 08:34] LABS: Alanine Aminotransferase 9 U/L (0-40); Albumin Level 1.9 g/dL (3.5-5.0); Alkaline Phosphatase 108 U/L (39-117); Anion Gap 14 (12-20); Aspartate Amino Transferase 15 U/L (5-37); Bilirubin Direct 0.7 mg/dL (0.0-0.5); Bilirubin Total 1.1 mg/dL (0.0-1.0); Blood Urea Nitrogen 4 mg/dL (9-16); Calcium 7.5 mg/dL (8.4-10.2); Carbon Dioxide 25 mmol/L (22-29); Chloride 106 mmol/L (96-108); Estimated Glomerular Filt Rate > 60; Glucose Fasting 88 mg/dL (60-99); Potassium 4.1 mmol/L (3.3-5.1); Sodium 141 mmol/L (135-145); Total Protein 4.6 g/dL (6.5-8.0)
--- NOTE | 2020-07-13 09:45 | MHC.CM.PN ---
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
--- NOTE | 2020-07-13 11:46 | HO.PM.IMPN ---
Subjective Subjective Date of Service: 07/13/20 Interval History: getting appetite back Cardiovascular Cardiovascular: Reports no additional cardiovascular complaints Respiratory Respiratory: Reports no additional respiratory complaints Physical Exam Vital Signs: Vital Signs: Last Vital Signs Temp 97.5 F 07/13/20 07:32 Pulse 80 07/13/20 07:32 Resp 16 07/13/20 07:32 BP 110/76 07/13/20 07:32 Pulse Ox 94 07/13/20 07:32 Body Mass Index 33.5 General: AO X 3, no acute distress Resp: CTA bilateral CVS: S1,S2,RRR GI: soft, cholecystotomy tube in place, non distended Neuro: motor grossly intact Psych: appropriate affect Objective Data Current Medications Generic Name Dose Route Start Last Admin Trade Name Freq PRN Reason Stop Dose Admin Acetaminophen 650 mg 07/10/20 23:23 Acetaminophen 325 Mg Tablet PO Q6H PRN Pain, Mild (Pain Scale 1-3) Apixaban 5 mg 07/10/20 23:41 07/13/20 07:49 Apixaban 5 Mg Tablet PO 5 mg BID ALEX Administration Atorvastatin Calcium 40 mg 07/11/20 09:00 07/13/20 07:48 Atorvastatin Calcium 40 Mg Tablet PO 40 mg DAILY ALEX Administration Folic Acid 1 mg 07/11/20 09:00 07/13/20 07:48 Folic Acid 1 Mg Tablet PO 1 mg DAILY ALEX Administration Gabapentin 300 mg 07/10/20 23:41 07/12/20 21:56 Gabapentin 300 Mg Capsule PO 300 mg BEDTIME ALEX Administration Dextrose 1,000 mls @ 50 mls/hr 07/10/20 17:15 07/13/20 08:30 D10 IVCONT 50 mls/hr .Q20H ALEX Infusion Piperacillin Sod/Tazobactam 50 mls @ 100 mls/hr 07/11/20 00:00 07/13/20 08:19 Sod 3.375 gm/ Sodium Chloride IV Infused Q8H ALEX Infusion Metoprolol Tartrate 25 mg 07/10/20 23:41 07/13/20 07:48 Metoprolol Tartrate 25 Mg Tablet PO 25 mg BID ALEX Administration Protocol Omeprazole 20 mg 07/11/20 09:00 07/13/20 07:48 Omeprazole 20 Mg Capsule.Dr PO 20 mg BID LAEX Administration Ondansetron HCl 4 mg 07/10/20 23:23 07/12/20 11:30 Ondansetron Hcl 4 Mg/2 Ml Vial IVPUSH 4 mg Q8H PRN Administration Nausea and Vomiting Pharmacy Consult 1 each 07/10/20 09:47 Consult Rx Perform Med Rec MISCELLANE ONCE PRN Consult order Quetiapine Fumarate 50 mg 07/10/20 23:41 07/12/20 22:00 Quetiapine Fumarate 50 Mg Tablet PO 50 mg BEDTIME PRN Administration Insomnia Sodium Chloride 3 ml 07/10/20 23:23 07/13/20 07:49 0.9 % Sodium Chloride Flush 3 Ml Syringe IVFLUSH 3 ml QSHIFT ALEX Administration Labs CBC & Chem 7: 07/13/20 07:36 07/13/20 07:36 Microbiology Microbiology Results: Microbiology 07/10/20 14:58 Gallbladder Fluid Gram Stain - Final 07/10/20 14:58 Gallbladder Fluid Routine Culture - Preliminary Culture in progress. 07/10/20 14:58 Gallbladder Fluid Anaerobic Culture - Preliminary Culture in progress. 07/10/20 10:23 Blood - Venous Blood Culture - Preliminary No growth after 48 hours. 07/10/20 10:03 Blood - Venous Blood Culture - Preliminary No growth after 48 hours. Assessment and Plan (1) Overdose: Status: Acute (2) Hypoglycemia: Status: Acute Assessment and Plan: 59M presented with AMS Toxic metabolic encephalopathy and acute hypoxic respiratory failure due to Xanax overdose and hypoglycemia complicated by severe sepsis secondary to closed cholecystotomy tube and possible aspiration pneumonia continue zosyn follow up cultures wean off d10 as tolerated (decrease from 100 to 50cc/hr), monitor sugars (was likely due to poor diet with low glycogen stores due to liver disease, hypoglycemia work up in progress) mental status back to baseline - denies SI, was just trying to sleep s/p extubation, satting well modearte Protein calorie malnutrition. Poor appetite over last several weeks and prior to that had been drinking heavily. alcoholic fatty liver last drink in may 2020 chronic systolic chf stable Hx of DVT Eliquis.
[2020-07-13 12:00] VITALS: BP 122/78; PULSE 83; RESP 16; TEMP 37.3; O2SAT 96
[2020-07-13 12:12] LABS: Glucose, Whole Blood 99 mg/dL (60-115)
[2020-07-13] MEDS: Dextrose 10 % 1,000 ML 50 ML IVCONT (12:29)
[2020-07-13 14:39] VITALS: BMI 33.5
--- NOTE | 2020-07-13 14:42 | MHC.CLN ---
RE: CONSULT PT IS MILDLY MALNOURISHED RECOMMEND 2000DM TO CURRENT DIET R/T HX DM WILL START GLUCERNA TID TO INCREASE KCALS SEE ALSO CLINICAL NUTRITION ASSESSMENT
[2020-07-13 16:00] VITALS: BP 136/81; PULSE 79; RESP 18; TEMP 37.1; O2SAT 91
[2020-07-13 16:47] LABS: Glucose, Whole Blood 84 mg/dL (60-115)
[2020-07-13 19:55] VITALS: BP 132/83; PULSE 92; RESP 20; TEMP 37.3; O2SAT 94
[2020-07-13 21:05] LABS: Glucose, Whole Blood 63 mg/dL (60-115)
[2020-07-13 21:37] VITALS: BP 114/71; PULSE 91
[2020-07-13] MEDS: Gabapentin 300 MG CAPSULE PO (21:37)
[2020-07-13] MEDS: QUEtiapine Fumarate 50 MG TABLET PO (21:42)
[2020-07-13] MEDS: ondansetron HCL 4 MG/2 ML VIAL IVPUSH (21:45)
[2020-07-13 22:04] LABS: Glucose, Whole Blood 109 mg/dL (60-115)
[2020-07-14] VITALS: BP 104/70; PULSE 80; RESP 16; TEMP 37; O2SAT 94
[2020-07-14] MEDS: Piperacillin Sodium/Tazobactam 3.375 GM in 0.9 % Sodium Chloride 50 ML IV ×2 (00:06→07:42)
[2020-07-14] MEDS: 0.9 % Sodium Chloride Flush 3 ML SYRINGE IVFLUSH (00:06)
[2020-07-14 02:03] LABS: Glucose, Whole Blood 76 mg/dL (60-115)
[2020-07-14 03:42] VITALS: BP 95/61; PULSE 84; RESP 18; TEMP 37.2
[2020-07-14 03:53] LABS: Glucose, Whole Blood 108 mg/dL (60-115)
[2020-07-14 06:57] LABS: MANUAL DIFF FLAG NO
[2020-07-14 07:05] LABS: Basophils Absolute Auto 0.1 X10*3/uL (0.0-0.2); Basophils Percent Auto 0.7 % (0-2); Eosinophils Absolute Auto 0.3 X10*3/uL (0.0-0.4); Eosinophils Percent Auto 2.1 % (0-4); Hematocrit 32.7 % (42-52); Imm Gran Abs Auto 0.05 X10*3/uL (0.00-0.03); Imm Gran Pct Auto 0.4 % (0.0-0.4); Lymphocytes Absolute Auto 2.2 X10*3/uL (1.2-4.9); Mean Corpuscular HGB Conc 33.6 g/dl (31.0-36.0); Mean Corpuscular Hemoglobin 32.4 pg (27.0-33.0); Mean Corpuscular Volume 96.2 fL (80-98); Mean Platelet Volume 11.8 fL (9.4-12.4); Monocytes Absolute Auto 0.5 X10*3/uL (0.1-1.2); Monocytes Percent Auto 3.9 % (2-11); Neutrophils Absolute Auto 8.7 X10*3/uL (2.0-8.3); Neutrophils Percent Auto 73.9 % (45-73); Platelet Count 182 X10*3/uL (160-400); Red Cell Distribution Width 14.5 % (11.0-16.0); White Blood Count 11.7 X10*3/uL (4.8-10.8)
[2020-07-14 07:11] LABS: INTERNATIONAL NORM RATIO 1.6 (0.9-1.1); Prothrombin Time 19.3 SEC (10.8-13.0)
[2020-07-14 07:42] VITALS: BP 122/71; PULSE 83; RESP 17; TEMP 37.1; O2SAT 92
[2020-07-14 07:46] LABS: Alanine Aminotransferase 10 U/L (0-40); Alkaline Phosphatase 100 U/L (39-117); Anion Gap 13 (12-20); Aspartate Amino Transferase 15 U/L (5-37); Bilirubin Direct 0.7 mg/dL (0.0-0.5); Bilirubin Total 0.9 mg/dL (0.0-1.0); Blood Urea Nitrogen 4 mg/dL (9-16); Calcium 7.3 mg/dL (8.4-10.2); Carbon Dioxide 24 mmol/L (22-29); Chloride 108 mmol/L (96-108); Creatinine Clr Calc Pharmacy 162.2; Estimated Glomerular Filt Rate > 60; Glucose Fasting 72 mg/dL (60-99); Magnesium 1.7 mg/dL (1.6-2.6); Potassium 3.5 mmol/L (3.3-5.1); Sodium 141 mmol/L (135-145); Total Protein 4.6 g/dL (6.5-8.0)
[2020-07-14 08:32] LABS: Glucose, Whole Blood 71 mg/dL (60-115)
[2020-07-14] MEDS: Omeprazole 20 MG CAPSULE.DR PO (08:52)
[2020-07-14] MEDS: Folic Acid 1 MG TABLET PO (08:52)
[2020-07-14] MEDS: Metoprolol Tartrate 25 MG TABLET PO (08:52)
[2020-07-14] MEDS: Atorvastatin Calcium 40 MG TABLET PO (08:53)
[2020-07-14] MEDS: Apixaban 5 MG TABLET PO (08:53)
[2020-07-14 11:33] LABS: Glucose, Whole Blood 83 mg/dL (60-115)
[2020-07-14 11:59] VITALS: BP 127/78; PULSE 72; RESP 18; TEMP 37.6; O2SAT 94
--- NOTE | 2020-07-14 12:01 | MHC.CM.PN ---
Addendum entered by Paulette De Guzman 07/14/20 14:12: CNFIRMED THAT [facility] CAN PROCVIDE NURSING SERVICES FOR THIS PATIENT , FOR DIAGNOSIS SIGHN SYMPTOM MANAGEMENT AND MEDICATION RECONCIALTION 'TRANSPORT FSTXLY PCP KEI DEL CID Original Note: ELECTRONIC MEDICAL RECORD [id number] ALONG WITH CASE DISCUSSED WITH STAFF NURSE AND HOSITAIST PATIENT WILL HAVE BHN ASSESSMENT BUT BELIEVED TO BE CLEARED AND ASKED TO LOOK INTO HAVING A VNA AT DISCHARGE , I MET WITH PATIENT AND HE EXPLAINED THAT HE WILL BE GOING HOME WITH HIS AND HAVE A VNA FOR RN ACCEPTING OF THIS ,AFTER REVIEW OF THE VARIOUS VNA HE CHOSE [facility] OR [facility], RECEIVED A CALL FROM THE [facility] THAT MAY PATIENT HAS BEEN ACTIVE WITH [facility] I CALLED TO THEM AND SPOKE WITH CAIO AND THEY INFORMED NME HE WAS NO LONGER ACTIVE WITH HIM AND THEY WOULD NOT BE ABLE TO SEE HIM DISCHARGE PLAN- HOME WITH HIS WITH REFERRAL TO THE [facility] FOR [facility]URSING FOR DIAGNOSIS SIGH SYMPTOM MANAGEMENT AND MEDICATION REINFORCEMENT TEACHING CONFIRMED WITH ATIYA APPLE AT THE [facility] PCP KEI VALERO PATIENT TO CALL FOR [facility]CHAGRE FOLLOW UP TRANSPORTATION [facility] IMM UPDATED
--- NOTE | 2020-07-14 14:00 | P.F2F_ITS ---
Service Date Service Date: 07/14/20 Encounter Date of encounter: 07/14/20 Encounter: Patient presented with hypoglycemia, found to have severe sepsis secondary to clamped drain for acalculous cholecystitis patient treated with antibiotics now being discharged home on by mouth antibiotic continued to have persistent cholecystostomy tube that needs close monitoring by nursing patient also had acute hypoxic respiratory failure now resolved will need close outpatient monitor Reasons for Services Reason for shelter: medication management and other Homebound: Leaving the home is medically contraindicated at this time without the asist of a device and/or another person due th the listed conditions above and below. Certification: Based on the above findings, I certify that this patient is confined to the home and needs intermittent shelter care, physical therapy and/or speech therapy, or continues to need occupational therapy. The patient is under my care, and I have initiated the establishment of the plan of care. The patient will be followed by a physician who will periodically review the plan of care.
--- NOTE | 2020-07-14 14:04 | MHC.CARE ---
1200 Call to patient?s girlfriend to gather information about the circumstances regarding patient?s overdose. She explained that patient?s health has been deteriorating and following his last hospital admission he has stopped drinking, abstained for the last month. Patient?s girlfriend stated that patient bought a bottle of Xanax to help him sleep but took them excessively, ?he?s an all or nothing kenia,? so continued to take the pills without waiting to see what the effect was. She had no concerns that patient was attempting to end his life. 1245 Spoke to patient in room 479, he was sitting on the bedside, had just finished eating lunch. He denied his overdose was intentional self-harm and acknowledged that he took too many pills because he was frustrated being unable to sleep. Patient was able to consider this may be because he is accustomed to falling asleep intoxicated. He expressed an interest in improving his health, feels that he has been so destructive by drinking and has poor health. Patient was encouraged to increase his support system, he has a therapist at [facility] that he has not seen in three months, and he will call her. In addition, he is familiar with [facility] and open to a Paramedical Aide checking in with him today prior to discharge. Patient is not considered at an imminent risk, he had denied suicidal ideation, has no evidence of a thought disorder and is future oriented, has some protective factors. Plan for discharge discussed with providers.
--- NOTE | 2020-07-14 14:10 | P.DS_ITS ---
DS: Providers Provider Date of Service: 07/14/20 Date of admission: 07/10/20 22:08 Primary care physician: Yodit Flower NP Consults: 07/10/20 17:37 Consult to Care Team Routine Comment: Reason for consultation: overdose, xanax 07/14/20 10:49 Consult to Crisis Stat Reason for consultation: Suicidal ideation ideation medically cleared Has provider been notified: No 07/14/20 12:05 Consult for Sitter Routine Reason for consultation: Suicidal ideation Has provider been notified: Yes DS: Diagnosis Discharge Diagnosis (1) Overdose: Status: Acute (2) Hypoglycemia: Status: Acute DS: Medications Discharge Medications Home Medications: Home Medications Medication Instructions Recorded Confirmed atorvastatin 40 tab PO DAILY 03/02/20 07/10/20 folic acid 1 tab PO DAILY 03/02/20 07/10/20 gabapentin 300 mg PO BEDTIME 03/02/20 07/10/20 omeprazole 20 cap PO BID 03/02/20 07/10/20 Eliquis 5 mg PO BID 06/04/20 07/10/20 quetiapine 50 mg tablet 50 mg PO BEDTIME PRN 07/07/20 07/10/20 Previous Rx's Medication Instructions Recorded metoprolol tartrate 25 mg PO BID #60 tab 06/21/20 amoxicillin-pot clavulanate 1 tab PO BID #10 tab 07/14/20 [Augmentin] DS: Summary Hospital Course Hospital Course: History of presenting illness 59 year old man presenting after being found unconscious at home. According to his he took xanax that was bought from a friend. She found him around 7am, he was foaming at the mouth and his eyes were wide open and he remained unresponsive. Apparently he was intubated by EMS and then extubated in the ED. Of note he has a history of recent acalculous cholecystitis initially treated with a cholecystostomy tube due to high risk for surgery. He was discharged home with tube and bulb suction. He was seen in follow by general surgery and tube was clamped. Apparently did not unclamp the tube when he was having abdominal pain. Now he has severe pain at the insertion site. According to his he has been drinking 40 nips a day up until 06/11. He has not had a drink since then. His reported that she had to call EMS multiple times because he would fall out from intoxication. He has not been eating and only eating jolly [employer] candy's. . His blood sugar was in the 20's in the ED and several times dipped down requiring D50. Patient had been taking Metformin and he last refilled it on 05/16/20 but his is unsure if he was taking it o r not. WBC 18.6, BUN, 3, lactic acid 6.2 and 3.3, blood sugars range 29-129. Multiple imaging studies including head CT, chest CT, cervical spine CT and abdominal CT did not show acute abnormalities. Abdominal CT showed good position of cholecystostomy tube. He was given multiple doses of D50, Toradol, Tylenol, Zosyn. He was started on D10. He will be admitted for further management and treatment of toxic metabolic encephalopathy secondary to overdose and severe sepsis. Hospital course Toxic metabolic encephalopathy and acute hypoxic respiratory failure due to Xanax overdose and hypoglycemia complicated by severe sepsis secondary to closed cholecystotomy tube and possible aspiration pneumonia, patient treated with IV Zosyn blood cultures showed no growth, hypoglycemia resolved with the use of D10, low blood sugars were likely due to poor by mouth intake and low glycogen stores due to liver disease, patient required intubation for hypoxic respiratory failure but was extubated with good oxygen saturations currently, patient is now being discharged home on by mouth antibiotic for 5 more days case discussed with Dr. Liu patient will be discharged on cholecystostomy tube will have an IR procedure tomorrow and will have follow up with Dr. Liu in 2 weeks modearte Protein calorie malnutrition. Poor appetite over last several weeks and prior to that had been drinking heavily, will be followed by manager disaster recovery. alcoholic fatty liver strongly recommended to abstain from alcohol chronic systolic chf stable Hx of DVT Eliquis. Time Spent with Patient Time attestation: Total time spent providing and/or coordinating discharge services: Discharge coordination time: Greater than 30 minutes Physical Exam Vital Signs: Vital Signs: Last Vital Signs Temp 99.7 F 07/14/20 11:59 Pulse 72 07/14/20 11:59 Resp 18 07/14/20 11:59 BP 127/78 07/14/20 11:59 Pulse Ox 94 07/14/20 11:59 Body Mass Index 33.5 General: AO X 3, no acute distress Resp: Clear to auscultation bilaterally. CVS: S1,S2,RRR GI: soft, cholecystotomy tube in place, non distended Neuro: motor grossly intact Psych: appropriate affect DS: Data Data Completed and Pending Completed studies during hospitalization [Text1]: Procedures Detoxification Services for Substance Abuse Treatment (06/04/20) Drainage of Gallbladder with Drainage Device, Percutaneous Approach (06/04/20) Inspection of Upper Intestinal Tract, Via Natural or Artificial Opening Endoscopic (06/04/20) Labs on day of discharge: Laboratory Results - last 24 hr 07/13/20 07/13/20 07/13/20 16:35 21:00 21:59 WBC RBC Hgb Hct MCV MCH MCHC RDW Plt Count MPV Immature Gran % (Auto) Neut % (Auto) Lymph % (Auto) [place] % (Auto) Eos % (Auto) Baso % (Auto) Lymph # (Auto) [place] # (Auto) Eos # (Auto) Baso # (Auto) Abs Immat Gran (auto) Absolute Neuts (auto) Absolute Nucleated RBC Nucleated RBC % (auto) PT INR Sodium Potassium Chloride Carbon Dioxide Anion Gap BUN Creatinine Estim Creat Clear Calc Estimated GFR POC Glucose 84 63 109 Fasting Glucose Calcium Magnesium Total Bilirubin Direct Bilirubin AST ALT Alkaline Phosphatase Total Protein Albumin 07/14/20 07/14/20 07/14/20 01:58 03:44 06:18 WBC 11.7 H RBC 3.40 L Hgb 11.0 L Hct 32.7 L MCV 96.2 MCH 32.4 MCHC 33.6 RDW 14.5 Plt Count 182 MPV 11.8 Immature Gran % (Auto) 0.4 Neut % (Auto) 73.9 H Lymph % (Auto) 19.0 L [place] % (Auto) 3.9 Eos % (Auto) 2.1 Baso % (Auto) 0.7 Lymph # (Auto) 2.2 [place] # (Auto) 0.5 Eos # (Auto) 0.3 Baso # (Auto) 0.1 Abs Immat Gran (auto) 0.05 H Absolute Neuts (auto) 8.7 H Absolute Nucleated RBC 0.000 Nucleated RBC % (auto) 0.0 PT INR Sodium Potassium Chloride Carbon Dioxide Anion Gap BUN Creatinine Estim Creat Clear Calc Estimated GFR POC Glucose 76 108 Fasting Glucose Calcium Magnesium Total Bilirubin Direct Bilirubin AST ALT Alkaline Phosphatase Total Protein Albumin 07/14/20 07/14/20 07/14/20 06:18 06:18 07:39 WBC RBC Hgb Hct MCV MCH MCHC RDW Plt Count MPV Immature Gran % (Auto) Neut % (Auto) Lymph % (Auto) [place] % (Auto) Eos % (Auto) Baso % (Auto) Lymph # (Auto) [place] # (Auto) Eos # (Auto) Baso # (Auto) Abs Immat Gran (auto) Absolute Neuts (auto) Absolute Nucleated RBC Nucleated RBC % (auto) PT 19.3 H D INR 1.6 H Sodium 141 Potassium 3.5 Chloride 108 Carbon Dioxide 24 Anion Gap 13 BUN 4 L Creatinine 0.60 Estim Creat Clear Calc 162.2 Estimated GFR > 60 POC Glucose 71 Fasting Glucose 72 Calcium 7.3 L Magnesium 1.7 Total Bilirubin 0.9 Direct Bilirubin 0.7 H AST 15 ALT 10 Alkaline Phosphatase 100 Total Protein 4.6 L Albumin 2.0 L 07/14/20 11:23 WBC RBC Hgb Hct MCV MCH MCHC RDW Plt Count MPV Immature Gran % (Auto) Neut % (Auto) Lymph % (Auto) [place] % (Auto) Eos % (Auto) Baso % (Auto) Lymph # (Auto) [place] # (Auto) Eos # (Auto) Baso # (Auto) Abs Immat Gran (auto) Absolute Neuts (auto) Absolute Nucleated RBC Nucleated RBC % (auto) PT INR Sodium Potassium Chloride Carbon Dioxide Anion Gap BUN Creatinine Estim Creat Clear Calc Estimated GFR POC Glucose 83 Fasting Glucose Calcium Magnesium Total Bilirubin Direct Bilirubin AST ALT Alkaline Phosphatase Total Protein Albumin Preliminary micro results at discharge 07/10/20 10:23 Blood Culture - Preliminary Blood - Venous No growth after 48 hours. 07/10/20 10:03 Blood Culture - Preliminary Blood - Venous No growth after 48 hours. Discharge Plan Discharge Patient Disposition: Home Health Service Referrals: [facility] [Other] (PATIENT WILL BE DISCHAGRED HOME , HE WILL HAVE NEW REFERRAL TO [facility] FOR NURSING FOR DIAGNOSIS SIGHN SYMPTOM MANAGEMENT AND MEDICATION TEACHING AND MEDICATION RECONCILATION PCP KEI FLOWER [facility] ) Yodit Flower, CREDIT COLLECTIONS REP [Primary Care Provider] - Discharge Medications: New amoxicillin-pot clavulanate [Augmentin] 875-125 mg tablet 1 tab PO BID Qty: 10 RF: 0 Continued Eliquis 5 mg Tablet 5 mg PO BID RF: 0 metoprolol tartrate 25 mg Tablet 25 mg PO BID Qty: 60 RF: 0 atorvastatin 40 mg tablet 40 tab PO DAILY RF: 0 gabapentin 300 mg capsule 300 mg PO BEDTIME RF: 0 omeprazole 20 mg capsule,delayed release(DR/EC) 20 cap PO BID RF: 0 folic acid 1 mg tablet 1 tab PO DAILY RF: 0 quetiapine 50 mg tablet 50 mg PO BEDTIME PRN (Reason: Insomnia) RF: 0 Discharge Orders: Discharge Order (Routine); Ordered 07/14/20 Ordered By: Coni Steiner Diet: advance to usual diet Activity on Discharge: As tolerated Stand Alone Forms: Patient Portal Discharge page Health Concerns: Hypoglycemia/cholecystostomy tube follow-up with Interventional Radiology tomorrow 07/15/20 as previously planned Plan of Treatment: Follow-up with primary care physician and Dr. Liu in 2 weeks
== END 2020-07-14 15:39 | disposition home health service (06) | DRG 871 ==
LOC: HO.ED 14:59 → HO.EDOVER 22:37 → HO.S3 07-11 15:59
PROVIDERS: Hospitalist; Nurse Practitioner Acute Care; Admitting Provider Internal Medicine; Emergency Provider Emergency Medicine; PCP Nurse Practitioner Family; Visit Provider Hospitalist
DX: A41.9 Sepsis, unspecified organism (principal); J96.01 Acute respiratory failure with hypoxia; G92 Toxic encephalopathy; J69.0 Pneumonitis due to inhalation of food and vomit; E87.2 Acidosis; I50.22 Chronic systolic (congestive) heart failure; E44.0 Moderate protein-calorie malnutrition; R45.851 Suicidal ideations; F32.9 Major depressive disorder, single episode, unspecified; R65.20 Severe sepsis without septic shock; Z98.84 Bariatric surgery status; Z77.22 Contact with and (suspected) exposure to environmental tobacco smoke (acute) (chronic); Z20.822 Contact with and (suspected) exposure to COVID-19; K70.0 Alcoholic fatty liver; Z68.33 Body mass index [BMI] 33.0-33.9, adult; E11.649 Type 2 diabetes mellitus with hypoglycemia without coma; K81.9 Cholecystitis, unspecified; T42.4X1A Poisoning by benzodiazepines, accidental (unintentional), initial encounter; Y92.009 Unspecified place in unspecified non-institutional (private) residence as the place of occurrence of the external cause; Z86.718 Personal history of other venous thrombosis and embolism; Z79.01 Long term (current) use of anticoagulants; Z79.899 Other long term (current) drug therapy
CPT/HCPCS: 36415; 70450; 71250; 72125; 74176; 80048; 80076; 80143; 80179; 80307; 80320; 81003; 82140; 82550; 82803; 82947; 83605; 83690; 83735; 84145; 84484; 85025; 85610; 85730; 87040; 87071; 87073; 87205; 87635; 93005; 94002; 96361; 96365; 96367; 96375; 96376; 99212; 99283; 99285; 99291; J1100; J1610; J1885; J2405; J2543; J3010

== ENCOUNTER 2020-07-15 13:11 | Outpatient (REF) | payer MEDICARE, MEDICAID, SELFPAY ==
--- NOTE | ~2020-07-15 | FL_ITS ---
EXAMINATION: FL FLUOROSCOPY CLINICAL INFORMATION: Post cholecystostomy tube. Check for bile duct patency. COMPARISON: Previous CT scans May 2020. TECHNIQUE: [employer] Producer film was performed. The existing cholecystostomy tube was injected with 40 mL of Omnipaque 300 contrast. FINDINGS: The cholecystostomy tube may not be completely within the gallbladder. No extravasation/leak is seen. The gallbladder does not appear distended. There is filling of the cystic duct and common bile duct. This is best appreciated on image 3 of 10. FLUOROSCOPY TIME: 1.2 minutes DOSE AREA PRODUCT: 20.064 uGy-m2 (microgray-meter squared) FL/FL fluoroscopy <1hr IMPRESSION: Cholecystostomy tube may not be completely in the gallbladder. The cystic duct and common bile duct appear patent. No leak is seen.
== END 2020-07-15 13:12 | disposition home or self-care (01) ==
LOC: HO.XRAY 13:11
PROVIDERS: Visit Provider Surgery
DX: Z13.89 Encounter for screening for other disorder (principal)
CPT/HCPCS: 76000

== ENCOUNTER → 2020-07-21 11:17 | Outpatient (BNVA) | payer MEDICARE, MEDICAID, SELFPAY | PROVIDERS: PCP Nurse Practitioner Family; Visit Provider Surgery | DX: K81.9 Cholecystitis, unspecified (principal) | CPT/HCPCS: 99212 ==

== ENCOUNTER 2020-08-07 11:49 | Outpatient (RCR) | payer MEDICARE, SELFPAY | END 2020-08-28 14:40 | disposition other institution (70) | LOC: HO.PT 11:49 | PROVIDERS: PCP Nurse Practitioner Family; Visit Provider Nurse Practitioner Family | DX: M62.81 Muscle weakness (generalized) (principal) | CPT/HCPCS: 97110; 97162 ==

== ENCOUNTER 2020-08-13 18:26 | Emergency (ER) | payer MEDICARE, SELFPAY ==
--- NOTE | ~2020-08-13 | XR_ITS ---
EXAMINATION: XR KNEE, RIGHT CLINICAL INFORMATION: Fall. COMPARISON: None TECHNIQUE: Two views of the right knee. FINDINGS: There is no fracture. No joint effusion. There is mild joint narrowing of the medial femoral tibial joint. There are small spurs of the Pellet the patellofemoral joint. XR/XR knee RT 2V IMPRESSION: 1. No acute abnormality. 2. Mild degenerative change of the knee.
--- NOTE | ~2020-08-13 | CT_ITS ---
EXAMINATION: CT HEAD WITHOUT CONTRAST CLINICAL INFORMATION: Status post fall. COMPARISON: CT scan of the head 07/10/2020. TECHNIQUE: Contiguous axial imaging was performed from the skull base to vertex without intravenous administration of contrast. This CT examination was performed using dose optimization techniques as appropriate, variously including the following: *Automated exposure control *Adjustment of mA and/or kV according to patient size (this includes techniques or standardized protocols for targeted exams where dose is matched to indication/reason for exam; i.e. extremities or head) *Use of iterative reconstruction technique DLP: 699 mGy-cm FINDINGS: There is a small focus of gliosis and encephalomalacia involving the right parietal lobe near the vertex. Langley-white matter projection is otherwise preserved and there is no evidence of acute territorial infarct. A few scattered nonspecific foci of hypoattenuation visualized within the periventricular white matter. There is no acute hemorrhage or abnormal extra-axial collection. No intracranial mass effect or midline shift. Lateral and third ventricles are normal. No hydrocephalus. The calvarium and skull base are intact. Mastoid air cells and middle ear cavities are well aerated. There is a large 2.9 cm perforation of the nasal septum. The paranasal sinuses are otherwise well-aerated. 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 Scattered chronic small vessel ischemic changes are also visualized within the periventricular white matter. No evidence of acute territorial infarct or hemorrhage.
--- NOTE | 2020-08-13 18:39 | ED.EXTPRO ---
HPI - Extremity Problem General Chief complaint: ETOH/Substance Use Stated complaint: etoh fall knee pain Time Seen by Provider: 08/13/20 18:38 Source: patient Mode of arrival: EMS Limitations: no limitations History of Present Illness HPI Narrative: Patient chronic alcoholic was sober for some time start drinking again today had 7 MIPS this afternoon was coming off his truck lost balance and fell on his knees without hitting his head, no loss of consciousness complaining of rash in his to his knees. Patient states he that he was feeling dizzy Related Data Home Medications Medication Instructions Recorded Confirmed atorvastatin 40 tab PO DAILY 03/02/20 07/21/20 folic acid 1 tab PO DAILY 03/02/20 07/21/20 gabapentin 300 mg PO BEDTIME 03/02/20 07/21/20 omeprazole 20 cap PO BID 03/02/20 07/21/20 Eliquis 5 mg PO BID 06/04/20 07/21/20 quetiapine 50 mg tablet 50 mg PO BEDTIME PRN 07/07/20 07/21/20 Previous Rx's Medication Instructions Recorded metoprolol tartrate 25 mg PO BID #60 tab 06/21/20 amoxicillin-pot clavulanate 1 tab PO BID #10 tab 07/14/20 [Augmentin] Allergies Allergy/AdvReac Type Severity Reaction Status Date / Time No Known Allergies Allergy Verified 06/08/20 13:59 [No Known Allergies*] Review of Systems Review of Systems: Constitutional : No Weight loss, No Fever, No Chills ENT/Mouth : No sore throat, No Rhinorrhea Eyes: No Eye Pain, No Swelling Cardiovascular : No Chest Pain, no palpitations Respiratory : No Cough, No Sputum, no shortness of breath Gastrointestinal : no Nausea, No Vomiting, No Diarrhea, No abdominal Pain, no black stools Genitourinary : No Dysuria, No Urinary Frequency Musculoskeletal : No joint pain, No Myalgias, No Joint Swelling , leg edema+ Skin : No Skin Lesions, No rash Neuro : No Weakness, No Numbness, No Dizziness, No Headache Psych : No Anxiety/Panic, No Depression Heme/Lymph: No Bruising, No Lymphadenopathy Endocrine : No Polyuria, No Polydipsia All other systems reviewed and are negative [facility] Past Medical History Medical History (Updated 08/13/20 @ 22:19 by Jaiden De Luna MD) Alcoholism Cardiomyopathy COPD (chronic obstructive pulmonary disease) COVID-19 Depression Diabetes Pulmonary embolism Right leg DVT Seizure Surgical History History of gastric bypass History of sleeve gastrectomy Social History Social History Household Members: Spouse Housing: Apartment Alcohol intake: former Smoking Status: Never smoker Tobacco Type: Cigarette Second Hand Smoke Exposure: Yes Advance Directives: No Advance Directives Information Provided: Yes service: No Current occupational status: unemployed Physical Exam Vital Signs: Vital Signs: Last Vital Signs Temp 98.6 F 08/13/20 18:40 Pulse 78 08/13/20 21:42 Resp 16 08/13/20 21:42 BP 100/68 08/13/20 21:42 Pulse Ox 97 08/13/20 21:42 Body Mass Index 29.8 Const: General: no acute distress, well developed and intoxicated appearing Orientation/consciousness: patient oriented x3 HENMT: Head: Yes normocephalic and Yes atraumatic Eyes: General: appearance normal, both eyes and all related structures Neck: Neck: Yes normal visual inspection, Yes full ROM, No midline deformity and No tender Chest: Chest palpation & inspection: normal inspection of the chest and normal palpation of entire chest wall Resp: Effort & Inspection: normal respiratory effort Auscultation: clear to auscultation bilaterally, no crackles, no rales, no rhonchi and no wheezes Cardio: Jugular venous distension: no JVD Palpation: normal PMI Rate: regular rate Rhythm: regular rhythm Heart sounds: S1 normal heart sound present and S2 normal heart sound present GI: Inspection: Yes normal to inspection Palpation (GI): Soft to palpation and nontender Auscultation: normal bowel sounds : General: Yes no CVA tenderness Back/Spine/Pelvis: Back: no CVA tenderness Thoracic/Lumbar Spine: thoracic and lumbar spine normal to inspection, No thoracic spinal tenderness and No lumbar spinal tenderness Skin: General skin exam: no rashes or lesions noted Neuro: General: patient oriented x3, moves all extremities, no focal motor deficits and CN's II-XI intact bilaterally Extrem: General: Yes pedal edema (2+) Knee images: 1. Abrasion no deep wound no joint effusion good range of movement 2. Superficial abrasion no joint effusion with good range of movement MDM - Extremity (Nontraumatic) MDM Narrative Medical decision making narrative: Patient intoxicated with mechanical fall CT scan workup negative for any acute pathology will discharge patient home advised not to drink alcohol Lab Data Attestation: I reviewed the patient's lab results. Result diagrams: 08/13/20 19:16 08/13/20 19:16 Labs: Lab Results 08/13/20 08/13/20 08/13/20 Range/Units 18:44 19:12 19:15 WBC (4.8-10.8) X10*3/uL RBC (4.60-5.80) X10*6/uL Hgb (14.0-18.0) g/dl Hct (42-52) % MCV (80-98) fL MCH (27.0-33.0) pg MCHC (31.0-36.0) g/dl RDW (11.0-16.0) % Plt Count (160-400) X10*3/uL MPV (9.4-12.4) fL Immature Gran % (Auto) (0.0-0.4) % Neut % (Auto) (45-73) % Lymph % (Auto) (20-40) % [place] % (Auto) (2-11) % Eos % (Auto) (0-4) % Baso % (Auto) (0-2) % Lymph # (Auto) (1.2-4.9) X10*3/uL [place] # (Auto) (0.1-1.2) X10*3/uL Eos # (Auto) (0.0-0.4) X10*3/uL Baso # (Auto) (0.0-0.2) X10*3/uL Abs Immat Gran (auto) (0.00-0.03) X10*3/uL Absolute Neuts (auto) (2.0-8.3) X10*3/uL Absolute Nucleated RBC (0.0-0.012) X10*3/uL Nucleated RBC % (auto) (0.0-0.2) /100WBC PT (10.8-13.0) SEC INR (0.9-1.1) APTT (24.1-38.0) SEC Sodium (135-145) mmol/L Potassium (3.3-5.1) mmol/L Chloride (96-108) mmol/L Carbon Dioxide (22-29) mmol/L Anion Gap (12-20) BUN (9-16) mg/dL Creatinine (0.5-1.4) mg/dL Estim Creat Clear Calc Estimated GFR POC Glucose 84 (60-115) mg/dL Random Glucose (60-115) mg/dL Calcium (8.4-10.2) mg/dL Magnesium (1.6-2.6) mg/dL Total Bilirubin (0.0-1.0) mg/dL Direct Bilirubin (0.0-0.5) mg/dL AST (5-37) U/L ALT (0-40) U/L Alkaline Phosphatase (39-117) U/L Troponin I High Sens (<3.5-35.0) ng/L B-Natriuretic Peptide (<100) pg/mL Total Protein (6.5-8.0) g/dL Albumin (3.5-5.0) g/dL Lipase (8-78) U/L Ethyl Alcohol 177 mg/dL COVID-19 ([facility]) Negative (Negative) COVID-19 Clin Com See Note 08/13/20 08/13/20 08/13/20 Range/Units 19:15 19:15 19:16 WBC 6.8 (4.8-10.8) X10*3/uL RBC 3.61 L (4.60-5.80) X10*6/uL Hgb 11.0 L (14.0-18.0) g/dl Hct 34.4 L (42-52) % MCV 95.3 (80-98) fL MCH 30.5 (27.0-33.0) pg MCHC 32.0 (31.0-36.0) g/dl RDW 14.5 (11.0-16.0) % Plt Count 184 (160-400) X10*3/uL MPV 11.2 (9.4-12.4) fL Immature Gran % (Auto) 0.1 (0.0-0.4) % Neut % (Auto) 69.5 (45-73) % Lymph % (Auto) 25.7 (20-40) % [place] % (Auto) 2.9 (2-11) % Eos % (Auto) 0.9 (0-4) % Baso % (Auto) 0.9 (0-2) % Lymph # (Auto) 1.8 (1.2-4.9) X10*3/uL [place] # (Auto) 0.2 (0.1-1.2) X10*3/uL Eos # (Auto) 0.1 (0.0-0.4) X10*3/uL Baso # (Auto) 0.1 (0.0-0.2) X10*3/uL Abs Immat Gran (auto) 0.01 (0.00-0.03) X10*3/uL Absolute Neuts (auto) 4.7 (2.0-8.3) X10*3/uL Absolute Nucleated RBC 0.000 (0.0-0.012) X10*3/uL Nucleated RBC % (auto) 0.0 (0.0-0.2) /100WBC PT 17.1 H (10.8-13.0) SEC INR 1.4 H (0.9-1.1) APTT 40.1 H (24.1-38.0) SEC Sodium (135-145) mmol/L Potassium (3.3-5.1) mmol/L Chloride (96-108) mmol/L Carbon Dioxide (22-29) mmol/L Anion Gap (12-20) BUN (9-16) mg/dL Creatinine (0.5-1.4) mg/dL Estim Creat Clear Calc Estimated GFR POC Glucose (60-115) mg/dL Random Glucose (60-115) mg/dL Calcium (8.4-10.2) mg/dL Magnesium (1.6-2.6) mg/dL Total Bilirubin (0.0-1.0) mg/dL Direct Bilirubin (0.0-0.5) mg/dL AST (5-37) U/L ALT (0-40) U/L Alkaline Phosphatase (39-117) U/L Troponin I High Sens (<3.5-35.0) ng/L B-Natriuretic Peptide (<100) pg/mL Total Protein (6.5-8.0) g/dL Albumin (3.5-5.0) g/dL Lipase < 4 L (8-78) U/L Ethyl Alcohol mg/dL COVID-19 ([facility]) (Negative) COVID-19 Clin Com 08/13/20 08/13/20 Range/Units 19:16 19:16 WBC (4.8-10.8) X10*3/uL RBC (4.60-5.80) X10*6/uL Hgb (14.0-18.0) g/dl Hct (42-52) % MCV (80-98) fL MCH (27.0-33.0) pg MCHC (31.0-36.0) g/dl RDW (11.0-16.0) % Plt Count (160-400) X10*3/uL MPV (9.4-12.4) fL Immature Gran % (Auto) (0.0-0.4) % Neut % (Auto) (45-73) % Lymph % (Auto) (20-40) % [place] % (Auto) (2-11) % Eos % (Auto) (0-4) % Baso % (Auto) (0-2) % Lymph # (Auto) (1.2-4.9) X10*3/uL [place] # (Auto) (0.1-1.2) X10*3/uL Eos # (Auto) (0.0-0.4) X10*3/uL Baso # (Auto) (0.0-0.2) X10*3/uL Abs Immat Gran (auto) (0.00-0.03) X10*3/uL Absolute Neuts (auto) (2.0-8.3) X10*3/uL Absolute Nucleated RBC (0.0-0.012) X10*3/uL Nucleated RBC % (auto) (0.0-0.2) /100WBC PT (10.8-13.0) SEC INR (0.9-1.1) APTT (24.1-38.0) SEC Sodium 143 (135-145) mmol/L Potassium 3.3 (3.3-5.1) mmol/L Chloride 110 H (96-108) mmol/L Carbon Dioxide 23 (22-29) mmol/L Anion Gap 13 (12-20) BUN 7 L D (9-16) mg/dL Creatinine 0.68 (0.5-1.4) mg/dL Estim Creat Clear Calc 139.5 Estimated GFR > 60 POC Glucose (60-115) mg/dL Random Glucose 89 D (60-115) mg/dL Calcium 7.5 L (8.4-10.2) mg/dL Magnesium 2.0 (1.6-2.6) mg/dL Total Bilirubin 0.4 (0.0-1.0) mg/dL Direct Bilirubin 0.4 (0.0-0.5) mg/dL AST 21 (5-37) U/L ALT 11 (0-40) U/L Alkaline Phosphatase 74 D (39-117) U/L Troponin I High Sens < 3.5 (<3.5-35.0) ng/L B-Natriuretic Peptide 151 H (<100) pg/mL Total Protein 4.9 L (6.5-8.0) g/dL Albumin 2.1 L (3.5-5.0) g/dL Lipase (8-78) U/L Ethyl Alcohol mg/dL COVID-19 ([facility]) (Negative) COVID-19 Clin Com ECG Data Attestation EKG: I personally reviewed and interpreted this ECG as follows: Interpretation: Normal sinus rhythm heart rate 93 beats per minute normal intervals normal axis occasional PVC no acute ischemia Discharge Plan Discharge Clinical Impression: Alcoholic intoxication Qualifiers: Complication of substance-induced condition: uncomplicated Qualified Code(s): F10.920 - Alcohol use, unspecified with intoxication, uncomplicated Fall Qualifiers: Encounter type: initial encounter Qualified Code(s): W19.XXXA - Unspecified fall, initial encounter Patient Disposition: Home, Self-Care Instructions: Abuse of Alcohol (ED) Additional Instructions: Local care of abrasions on knees as advised Stop drinking alcohol. Follow with PCP Prescriptions: No Action Eliquis 5 mg Tablet 5 mg PO BID RF: 0 metoprolol tartrate 25 mg Tablet 25 mg PO BID Qty: 60 RF: 0 atorvastatin 40 mg tablet 40 tab PO DAILY RF: 0 gabapentin 300 mg capsule 300 mg PO BEDTIME RF: 0 omeprazole 20 mg capsule,delayed release(DR/EC) 20 cap PO BID RF: 0 folic acid 1 mg tablet 1 tab PO DAILY RF: 0 quetiapine 50 mg tablet 50 mg PO BEDTIME PRN (Reason: Insomnia) RF: 0 amoxicillin-pot clavulanate [Augmentin] 875-125 mg tablet 1 tab PO BID Qty: 10 RF: 0
[2020-08-13 18:40] VITALS: BP 140/74; BP 86/49; PULSE 71; PULSE 72; RESP 16; TEMP 37; O2SAT 91; O2SAT 95; BMI 29.8
--- NOTE | 2020-08-13 18:41 | ECG_ITS ---
Test Reason : LOW BP Blood Pressure : / mmHG Vent. Rate : 072 BPM Atrial Rate : 072 BPM P-R Int : 168 ms QRS Dur : 082 ms QT Int : 462 ms P-R-T Axes : 019 -04 040 degrees QTc Int : 505 ms Normal sinus rhythm Nonspecific T wave abnormality Prolonged QT Abnormal ECG When compared to the previous EKG of 10 jul 2020, no significant changes noted. Referred By: Jaiden De Luna Electronically Signed By:JAMA OLGUIN
[2020-08-13 18:48] LABS: Glucose, Whole Blood 84 mg/dL (60-115)
[2020-08-13 19:24] LABS: MANUAL DIFF FLAG NO
[2020-08-13 19:26] LABS: Basophils Absolute Auto 0.1 X10*3/uL (0.0-0.2); Basophils Percent Auto 0.9 % (0-2); Eosinophils Absolute Auto 0.1 X10*3/uL (0.0-0.4); Eosinophils Percent Auto 0.9 % (0-4); Hematocrit 34.4 % (42-52); Imm Gran Abs Auto 0.01 X10*3/uL (0.00-0.03); Imm Gran Pct Auto 0.1 % (0.0-0.4); Lymphocytes Absolute Auto 1.8 X10*3/uL (1.2-4.9); Lymphocytes Percent Auto 25.7 % (20-40); Mean Corpuscular Hemoglobin 30.5 pg (27.0-33.0); Mean Corpuscular Volume 95.3 fL (80-98); Mean Platelet Volume 11.2 fL (9.4-12.4); Monocytes Absolute Auto 0.2 X10*3/uL (0.1-1.2); Monocytes Percent Auto 2.9 % (2-11); Neutrophils Absolute Auto 4.7 X10*3/uL (2.0-8.3); Neutrophils Percent Auto 69.5 % (45-73); Platelet Count 184 X10*3/uL (160-400); Red Blood Count 3.61 X10*6/uL (4.60-5.80); Red Cell Distribution Width 14.5 % (11.0-16.0); White Blood Count 6.8 X10*3/uL (4.8-10.8)
[2020-08-13 19:36] LABS: INTERNATIONAL NORM RATIO 1.4 (0.9-1.1); Prothrombin Time 17.1 SEC (10.8-13.0)
[2020-08-13 19:42] LABS: COVID-19 Test Negative (Negative)
[2020-08-13 19:43] LABS: Ethanol 177 mg/dL
[2020-08-13 19:47] LABS: Alanine Aminotransferase 11 U/L (0-40); Albumin Level 2.1 g/dL (3.5-5.0); Alkaline Phosphatase 74 U/L (39-117); Anion Gap 13 (12-20); Aspartate Amino Transferase 21 U/L (5-37); Bilirubin Direct 0.4 mg/dL (0.0-0.5); Bilirubin Total 0.4 mg/dL (0.0-1.0); Blood Urea Nitrogen 7 mg/dL (9-16); Calcium 7.5 mg/dL (8.4-10.2); Carbon Dioxide 23 mmol/L (22-29); Chloride 110 mmol/L (96-108); Creatinine Clr Calc Pharmacy 139.5; Estimated Glomerular Filt Rate > 60; Glucose Random 89 mg/dL (60-115); Potassium 3.3 mmol/L (3.3-5.1); Sodium 143 mmol/L (135-145); Total Protein 4.9 g/dL (6.5-8.0)
[2020-08-13 19:48] LABS: Partial Thromboplastin Time 40.1 SEC (24.1-38.0)
[2020-08-13 19:51] LABS: Troponin-I High Sensitivity < 3.5 ng/L (<3.5-35.0)
[2020-08-13 20:00] LABS: Lipase < 4 U/L (8-78)
[2020-08-13] MEDS: 0.9 % Sodium Chloride 1,000 ML 999 ML IVCONT (21:17)
[2020-08-13 21:42] VITALS: BP 100/68; PULSE 78; RESP 16; O2SAT 97
[2020-08-13 22:00] VITALS: RESP 20; O2SAT 97
[2020-08-13 22:06] LABS: B Type Natriuretic Peptide 151 pg/mL (<100)
== END 2020-08-13 22:30 | disposition home or self-care (01) ==
PROVIDERS: Emergency Provider Internal Medicine
DX: F10.220 Alcohol dependence with intoxication, uncomplicated (principal); Y90.9 Presence of alcohol in blood, level not specified; S80.212A Abrasion, left knee, initial encounter; S80.211A Abrasion, right knee, initial encounter; W17.89XA Other fall from one level to another, initial encounter; M25.562 Pain in left knee; M25.561 Pain in right knee; Z20.822 Contact with and (suspected) exposure to COVID-19; E11.9 Type 2 diabetes mellitus without complications; J44.9 Chronic obstructive pulmonary disease, unspecified; F17.210 Nicotine dependence, cigarettes, uncomplicated; Z86.718 Personal history of other venous thrombosis and embolism; Z86.711 Personal history of pulmonary embolism; Z79.01 Long term (current) use of anticoagulants; Z79.02 Long term (current) use of antithrombotics/antiplatelets; Z79.899 Other long term (current) drug therapy; Y93.9 Activity, unspecified; Y92.810 Car as the place of occurrence of the external cause; Y99.8 Other external cause status
CPT/HCPCS: 36415; 70450; 73560; 80048; 80076; 80320; 82947; 83690; 83735; 83880; 84484; 85025; 85610; 85730; 87635; 93005; 96360; 99284

== ENCOUNTER 2020-08-30 18:12 | Emergency (ER) | payer MEDICARE, MEDICAID, SELFPAY ==
[2020-08-30 18:31] VITALS: BP 104/63; BP 114/70; PULSE 73; RESP 12; TEMP 35.7; O2SAT 97; BMI 28.8
[2020-08-30 19:32] LABS: COVID-19 Test Negative (Negative)
--- NOTE | 2020-08-30 19:55 | MHC.RECOVSUP ---
? Reason for consult : o Current location: o Identified substance use concern: Alcohol - Withdrawal - Seeking ATS (detox) - Support ? Intervention: ? Plan: o Patient to follow up with [facility] after discharge ? Additional information: Patient is interested in going to a detox.. But Patient is not medically cleared.
[2020-08-30 20:00] VITALS: BP 78/58; PULSE 83; RESP 16; TEMP 36; O2SAT 99
--- NOTE | 2020-08-30 21:06 | ED_ITS ---
HPI - Alcohol General Chief Complaint: ETOH/Substance Use Stated Complaint: ETOH,CRISIS Time Seen by Provider: 08/30/20 21:06 Source: EMS Mode of arrival: EMS Limitations: no limitations History of Present Illness HPI narrative: Called for self for alcohol intoxication. States he drink vodka today. Denies any pain or discomfort no recent fall or injury. History of similar presentation the past. MD complaint: alcohol intoxication and alcohol dependence Last drink: Hours (ago) Chronic alcohol use: Yes Previous visits for alcohol intoxication: Yes Recent trauma: No Associated symptoms: denies other symptoms Treatments prior to arrival: none Related Data Home Medications Medication Instructions Recorded Confirmed atorvastatin 40 tab PO DAILY 03/02/20 07/21/20 folic acid 1 tab PO DAILY 03/02/20 07/21/20 gabapentin 300 mg PO BEDTIME 03/02/20 07/21/20 omeprazole 20 cap PO BID 03/02/20 07/21/20 Eliquis 5 mg PO BID 06/04/20 07/21/20 quetiapine 50 mg tablet 50 mg PO BEDTIME PRN 07/07/20 07/21/20 Previous Rx's Medication Instructions Recorded metoprolol tartrate 25 mg PO BID #60 tab 06/21/20 amoxicillin-pot clavulanate 1 tab PO BID #10 tab 07/14/20 [Augmentin] Allergies Allergy/AdvReac Type Severity Reaction Status Date / Time No Known Allergies Allergy Verified 06/08/20 13:59 [No Known Allergies*] Review of Systems Review of Systems: Constitutional: No Weight loss, No Fever, No Chills, No Night Sweats, No Fatigue, No Malaise ENT/Mouth: No Hearing loss, No Ear Pain, No Nasal Congestion, No Sinus Pain, No Hoarseness, No sore throat, No Rhinorrhea, No Swallowing Difficulty Eyes: No Eye Pain, No Swelling, No Redness, No Foreign Body, No Discharge, No Vision Changes Cardiovascular: No Chest Pain, No SOB, No Dyspnea on Exertion, No Orthopnea, No Edema, No Palpitations Respiratory: No Cough, No Sputum, No Wheezing, No Smoke Exposure, No Dyspnea Gastrointestinal: No Nausea, No Vomiting, No Diarrhea, No Constipation, No abdominal Pain, No Hematochezia, No Melena Genitourinary: no irregular bleeding, No Dysuria, No Urinary Frequency, No Hematuria, No Urinary Incontinence, No Urgency, No Flank Pain, No Urinary Flow Changes, No Hesitancy Musculoskeletal: No joint pain, No Myalgias, No Joint Swelling Skin: No Skin Lesions, No rash Neuro: No Weakness, No Numbness, No Paresthesias, No Loss of Consciousness, No Dizziness, No Headache Psych: No Anxiety/Panic, No Depression, No SI/HI/AH/VH Heme/Lymph: No Bruising, No Bleeding,No Lymphadenopathy Endocrine: No Polyuria, No Polydipsia, No Temperature Intolerance Yes all other systems are reviewed and are negative [facility] Past Medical History Medical History Alcoholism Cardiomyopathy COPD (chronic obstructive pulmonary disease) COVID-19 Depression Diabetes Pulmonary embolism Right leg DVT Seizure Surgical History History of gastric bypass History of sleeve gastrectomy Social History Social History Household Members: Spouse Housing: Apartment Alcohol intake: current Alcohol intake frequency: 3 or more drinks per day Alcohol type: hard liquor Smoking Status: Current every day smoker Tobacco Type: Cigarette Second Hand Smoke Exposure: Yes Use of substances other than those prescribed or required for medical reasons: Yes Substance Use Type: Marijuana Advance Directives: No Advance Directives Information Provided: No service: No Current occupational status: unemployed Physical Exam Vital Signs: Vital Signs: Last Vital Signs Temp 96.8 F 08/30/20 20:00 Pulse 83 08/30/20 20:00 Resp 16 08/30/20 20:00 BP 78/58 L 08/30/20 20:00 Pulse Ox 99 08/30/20 20:00 Body Mass Index 28.8 Reviewed Const: General: cooperative and healthy appearing; No acute distress or intoxicated appearing Nutritional Appearance: average body habitus Orientation/consciousness: patient oriented x3 HENMT: Head: Yes normal to inspection Ears: hearing grossly normal bilaterally Eyes: General: appearance normal, both eyes and all related structures Visual Costa: normal visual costa by confrontation Neck: Neck: Yes normal visual inspection, No positive Brudzinski's sign, No positive Kernig's sign and No tender Thyroid: Thyroid normal Chest: Chest palpation & inspection: normal inspection of the chest Resp: Effort & Inspection: normal respiratory effort Auscultation: clear to auscultation bilaterally Cardio: Jugular venous distension: no JVD Rhythm: regular rhythm Heart sounds: S1 normal heart sound present and S2 normal heart sound present GI: Inspection: Yes normal to inspection Palpation (GI): Soft to palpation Percussion: Yes normal to percussion Auscultation: normal bowel sounds : General: Yes no CVA tenderness Back/Spine/Pelvis: Back: no CVA tenderness Skin: General skin exam: no rashes or lesions noted Neuro: General: patient oriented x3 Extrem: General: Yes normal to inspection Course Course Course Narrative: Clinically intoxicated offers no other complaints states he just wants to sleep. Multiple similar presentations. Offers no medical complaints. Atraumatic. VSS, NAD. Will monitor and dispo per plan. MDM - Alcohol Lab Data Labs: Lab Results 08/30/20 Range/Units 18:50 COVID-19 ([facility]) Negative (Negative) COVID-19 Clin Com See Note Discharge Plan Discharge Clinical Impression: Alcoholic intoxication Prescriptions: No Action Eliquis 5 mg Tablet 5 mg PO BID RF: 0 metoprolol tartrate 25 mg Tablet 25 mg PO BID Qty: 60 RF: 0 atorvastatin 40 mg tablet 40 tab PO DAILY RF: 0 gabapentin 300 mg capsule 300 mg PO BEDTIME RF: 0 omeprazole 20 mg capsule,delayed release(DR/EC) 20 cap PO BID RF: 0 folic acid 1 mg tablet 1 tab PO DAILY RF: 0 quetiapine 50 mg tablet 50 mg PO BEDTIME PRN (Reason: Insomnia) RF: 0 amoxicillin-pot clavulanate [Augmentin] 875-125 mg tablet 1 tab PO BID Qty: 10 RF: 0
[2020-08-30 21:17] VITALS: BP 97/62; PULSE 70; RESP 81; O2SAT 100
--- NOTE | 2020-08-30 22:11 | PC.NURSE ---
significant other of the patient called the hospital. spouse was intoxicated and slurring words at time of converstation with this remote mortgage underwriter. Per spouse, pt tried to kill himself by drinking. unable to qualify amount drank. incredibly tearful. pt reports depression but denies SI during conversation. MLP aware. plan is for care team to contact patient when more sober.
[2020-08-30 22:20] VITALS: BP 91/65; PULSE 80; RESP 14; TEMP 36.6; O2SAT 98
--- NOTE | 2020-08-30 22:49 | MHC.CARE ---
CARE team support requested by ED provider re: pt who arrived to ED intoxicated after calling EMS due to his level of intoxication. There were concerns that pt was experiencing suicidal ideation, and pt's family reported that pt drinks heavily in the context of his depression and wanting to . Pt has a hx of reporting SI with plan to drink himself to during previous hospital/ED visits, however pt is denying any thoughts of suicide this evening and declined detox. Pt reported that he knows how to pursue detox when he is ready for treatment. There are no further concerns at this time with regards to pt's behavioral health needs, and when pt is appropriate for discharge he will not require additional mental health evaluation.
== END 2020-08-30 23:56 | disposition home or self-care (01) ==
PROVIDERS: Nurse Practitioner Primary Care; Emergency Provider Emergency Medicine
DX: F10.220 Alcohol dependence with intoxication, uncomplicated (principal); Y90.9 Presence of alcohol in blood, level not specified; Z20.822 Contact with and (suspected) exposure to COVID-19; J44.9 Chronic obstructive pulmonary disease, unspecified; E11.9 Type 2 diabetes mellitus without complications; Z86.711 Personal history of pulmonary embolism; Z79.01 Long term (current) use of anticoagulants; Z86.718 Personal history of other venous thrombosis and embolism; F17.210 Nicotine dependence, cigarettes, uncomplicated; F12.90 Cannabis use, unspecified, uncomplicated
CPT/HCPCS: 36415; 87635; 99284; 99285